=== PATIENT | male | born 1955 | race Caucasian/White ===

== ENCOUNTER 2018-01-29 02:52 | Outpatient (CLI) | payer BC, SELFPAY ==
[2018-01-29 11:32] LABS: ALT 41 U/L (12-78); AST 22 U/L (15-37); Albumin 4.2 g/dL (3.4-5.0); Alkaline Phosphatase 83 U/L (46-116); Anion Gap 8.7 mmol/L (3-11); BUN 12 mg/dL (7-18); Bilirubin, Total 1.1 mg/dL (0.2-1.0); CO2 29.3 mmol/L (21.0-32.0); CREATININE 0.78 mg/dL (0.70-1.30); Calcium 9.3 mg/dL (8.5-10.1); Chloride 101 mmol/L (98-107); Glucose 136 mg/dL (70-100); Potassium 4.5 mmol/L (3.5-5.1); Sodium 139 mmol/L (136-145); Total Protein 7.7 g/dL (6.4-8.2)
[2018-01-29 11:38] LABS: Hemoglobin A1C 6.5 % (4.5-6.2)
== END 2018-01-29 03:12 ==
PROVIDERS: PCP Family Medicine
DX: I10 Essential (primary) hypertension (principal); E11.9 Type 2 diabetes mellitus without complications; Z01.818 Encounter for other preprocedural examination; M54.5 Low back pain
CPT/HCPCS: 36415; 80053; 83036

== ENCOUNTER 2019-05-26 03:18 | Outpatient (CLI) | payer OTHER, SELFPAY ==
[2019-05-26 11:10] LABS: CREATININE 0.77 mg/dL (0.70-1.30); Calculated LDL 108 mg/dL (<100); Cholesterol 179 mg/dL (<200); HDL Cholesterol 47 mg/dL (40-60); Triglyceride 122 mg/dL (<150)
[2019-05-26 12:01] LABS: Hemoglobin A1C 7.4 % (3.8-5.6)
== END 2019-05-26 03:38 ==
PROVIDERS: PCP Family Medicine; Referring Provider Family Medicine; Visit Provider Family Medicine
DX: I10 Essential (primary) hypertension (principal); E78.5 Hyperlipidemia, unspecified; R73.9 Hyperglycemia, unspecified
CPT/HCPCS: 36415; 80061; 82565; 83036; 84132

== ENCOUNTER 2019-11-21 03:02 | Outpatient (CLI) | payer BC, SELFPAY ==
[2019-11-21 12:38] LABS: CREATININE 0.81 mg/dL (0.70-1.30); Potassium 3.9 mmol/L (3.5-5.1)
== END 2019-11-21 03:22 ==
PROVIDERS: PCP Family Medicine; Visit Provider Family Medicine
DX: I10 Essential (primary) hypertension (principal)
CPT/HCPCS: 36415; 82565; 84132

== ENCOUNTER 2020-06-25 01:57 | Outpatient (CLI) | payer MEDICARE, SELFPAY ==
[2020-06-26 13:48] LABS: COVID-19 RT-PCR UVMMC Result Negative (Negative)
== END 2020-06-25 01:58 | disposition home or self-care (01) ==
LOC: LBO 01:58
PROVIDERS: PCP Family Medicine; Visit Provider Family Medicine
DX: Z20.822 Contact with and (suspected) exposure to COVID-19 (principal)
CPT/HCPCS: U0003

== ENCOUNTER 2021-06-19 18:02 | Outpatient (REF) | payer MEDICARE, SELFPAY ==
[2021-06-21 12:36] LABS: COVID-19 RT-PCR UVMMC Result Negative (Negative)
== END 2021-06-19 18:03 | disposition home or self-care (01) ==
LOC: LBN 18:02
PROVIDERS: PCP Family Medicine; Visit Provider Family Medicine
DX: Z20.822 Contact with and (suspected) exposure to COVID-19 (principal)
CPT/HCPCS: U0003

== ENCOUNTER 2021-07-22 02:43 | Outpatient (CLI) | payer MEDICARE, SELFPAY ==
[2021-07-22 15:09] LABS: Hemoglobin A1C 7.4 % (<5.7)
[2021-07-22 15:50] LABS: CREATININE 0.8 mg/dL (0.70-1.30); Calculated LDL 112 mg/dL (<100); Cholesterol 188 mg/dL (<200); HDL Cholesterol 53 mg/dL (40-60); Potassium 3.3 mmol/L (3.5-5.1); Triglyceride 115 mg/dL (<150)
== END 2021-07-22 02:44 | disposition home or self-care (01) ==
LOC: LBO 02:44
PROVIDERS: PCP Family Medicine; Visit Provider Family Medicine
DX: I10 Essential (primary) hypertension (principal); E78.5 Hyperlipidemia, unspecified; R73.9 Hyperglycemia, unspecified
CPT/HCPCS: 36415; 80061; 82565; 83036; 84132

== ENCOUNTER 2022-07-02 03:17 | Outpatient (CLI) | payer MEDICARE, OTHER, SELFPAY ==
[2022-07-02 13:14] LABS: COMMENT (LAB VIEW ONLY) 79.08 mg/dL; Microalb ug/mg Crea 13.2 ug/mg Cr
[2022-07-03 11:03] LABS: PSA, Screening 0.5 ng/mL (<=4.5)
== END 2022-07-02 03:18 | disposition home or self-care (01) ==
LOC: LOS 03:17
PROVIDERS: PCP Family Medicine; Visit Provider Family Medicine
DX: E11.9 Type 2 diabetes mellitus without complications (principal); Z12.5 Encounter for screening for malignant neoplasm of prostate
CPT/HCPCS: 36415; 84153; 82043; 82570

== ENCOUNTER 2023-06-18 03:31 | Outpatient (CLI) | payer MEDICARE, OTHER, SELFPAY ==
[2023-06-18 13:17] LABS: Estimated GFR 82.49 (mL/min/1.73m2); Magnesium 1.6 mg/dL (1.8-2.4); Vitamin B12 1120 pg/mL (193-986)
[2023-06-18 14:15] LABS: Hemoglobin A1C 8.8 % (<5.7)
== END 2023-06-18 03:32 | disposition home or self-care (01) ==
LOC: LOS 03:32
PROVIDERS: PCP Family Medicine; Visit Provider Family Medicine
DX: I10 Essential (primary) hypertension (principal); E83.42 Hypomagnesemia; E11.51 Type 2 diabetes mellitus with diabetic peripheral angiopathy without gangrene
CPT/HCPCS: 36415; 82565; 82607; 83036; 83735; 84132

== ENCOUNTER 2024-06-20 04:28 | Outpatient (CLI) | payer MEDICARE, OTHER, SELFPAY ==
[2024-06-20 10:52] LABS: CREATININE 1.2 mg/dL (0.70-1.30); Estimated GFR 65.87 (mL/min/1.73m2); Magnesium 1.8 mg/dL
== END 2024-06-20 04:29 | disposition home or self-care (01) ==
LOC: LOS 04:28
PROVIDERS: PCP Family Medicine; Visit Provider Family Medicine
DX: E83.42 Hypomagnesemia (principal); I10 Essential (primary) hypertension
CPT/HCPCS: 36415; 82565; 83735; 84132

== ENCOUNTER 2024-11-05 19:09 | Inpatient (IN) | payer MEDICARE, OTHER, SELFPAY ==
[2024-11-05] VITALS (15 sets, daily range): BP systolic 140–191; BP diastolic 59–85; PULSE 56–66; RESP 12–22; TEMP 36.6; O2SAT 94–99
--- NOTE | 2024-11-05 19:15 | DI.CT_ITS ---
Exam(s) CT ABDOMEN PELVIS W EXAM: CT ABDOMEN PELVIS W CLINICAL HISTORY: L. flank pain and hematuria, hx stones, abd pain. TECHNIQUE: Imaging Protocol: Axial computed tomography images with coronal and sagittal reformatted images were created and reviewed CONTRAST MATERIAL: Intravenous: Omnipaque 350 Contrast volume:100 ml Oral: no COMPARISON: No exams were available for comparison FINDINGS: ABDOMEN and PELVIS: Lung Bases: No acute findings. Liver: Normal density. There are few tiny hypodensities, too small to characterize.. No suspicious mass. Gallbladder and biliary tract: No radiodense calculus. No wall thickening or pericholecystic fluid. No biliary dilation. Pancreas: Normal density. No abnormal calcifications or inflammatory process. No evidence of mass. Spleen: Normal. Kidneys: The left kidney is enlarged and there is delayed left nephrogram. There is dilatation of the left upper pole collecting system and left renal pelvis. The left lower pole collecting system is not dilated. There is some high density material in the region of the ureteropelvic junction which could represent a small mass versus hemorrhagic material. No obstructing stone is visible. The ureter is decompressed below this level. The lower pole of the left kidney is indistinct and there is a suggestion of a 7 centimeter mass from the mid through lower pole.. The left renal vein appears somewhat distended. Small simple right renal cyst upper pole. Adrenal glands: No masses seen. Vasculature: Abdominal aorta non-dilated. Soft tissues: Small fat containing right inguinal hernia. Bladder: No gross wall thickening. No calculi.7.5 x 9 x 5.5 centimeter somewhat rounded area of increased density within the posterior portion of the bladder is consistent with clot. Bowel: Small duodenal diverticulum. No obstruction. No bowel wall thickening. Appendix normal. Normal quantity of stool. Peritoneal cavity: No ascites. No focal collection. No mesenteric inflammatory response. No free air. Bones: Degenerative changes in the spine and hips. No acute abnormality. Reproductive organs: Unremarkable. Lymph nodes: Abnormally enlarged, enhancing left para-aortic lymph nodes, the largest measuring 2.5 x 5 cm. 18 millimeter node inferior to this level. IMPRESSION:: Findings suspicious for a lower pole left renal mass measuring approximately 7 cm. Adjacent abnormal enhancing lymph nodes. There is distension of the left renal vein as well as left renal pelvis which could indicate tumor extension. There is no evidence of obstructing stone at the ure teropelvic junction, however there is some high-density material at the ureteropelvic junction which could represent hemorrhage versus mass versus ureteral thickening. Infectious process considered less likely. There is significant hemorrhagic material within the urinary bladder. The preliminary [facility] report was reviewed. Unexpected findings RADIATION DOSE DELIVERED: Total DLP DATA REPOSITORY: All CT scans at this facility are submitted to the National Radiology Data Registry (NRDR) Dose Index Registry (DIR) with the [employer] (A[employer]). RADIATION OPTIMIZATION: All CT scans at this facility use at least one of these dose optimization techniques: automated exposure control; mA and/or kV adjustment per patient size (includes targeted exams where dose is matched to clinical indication); or iterative reconstruction.
[2024-11-05] MEDS: Ketorolac 30 MG/ML VIAL 15 MG IVP (19:37)
[2024-11-05] MEDS: Acetaminophen 500 MG TAB 1000 MG PO (19:37)
--- NOTE | 2024-11-05 19:37 | W.ED.GENAD ---
Discharge Plan Disposition Patient Disposition: Admit to [facility] Condition: Stable Discharge Details Clinical Impression: Acute pyelonephritis, Gross hematuria Primary Care Provider: Miguel Guzman ED Provider: Nuzhat Singleton Home Meds and New Rx's Prescriptions: No Action metformin 1,000 mg tablet 1,000 mg PO BID Qty: 180 3RF insulin glargine-yfgn 100 unit/mL (3 mL) insulin pen 15 - 20 unit subcut QPM Qty: 15 8RF cinnamon bark 500 MG capsule 500 mg PO DAILY (DME) Blood Glucose Test 1 EACH strip 1 ea Miscellaneous DAILY Qty: 100 Rx Instructions: E11.9 one touch test strips (DME) pen needle, diabetic [Comfort EZ Pen Caputa] 33 gauge x 3/16 needle See Rx Instructions .ROUTE .MEDSUPPLY Qty: 100 3RF Rx Instructions: inject once/day metoprolol succinate 25 mg tablet extended release 24 hr 25 mg PO DAILY Qty: 90 3RF losartan-hydrochlorothiazide [Hyzaar] 100-25 mg tablet 1 tab PO DAILY Qty: 90 3RF amlodipine 10 mg tablet 10 mg PO DAILY Qty: 90 3RF glipizide 10 mg tablet extended release 24hr 10 mg PO BID Qty: 180 3RF Rx Instructions: dose increase 06/26/22 atorvastatin 10 mg tablet 10 mg PO DAILY Qty: 90 3RF multivitamin [Daily Multi-Vitamin] 1 EACH tablet 1 tab PO DAILY cyanocobalamin (vitamin B-12) [Vitamin B-12] 1,000 MCG tablet 1,000 mcg PO DAILY aspirin [Aspir-81] 81 MG tablet,delayed release (DR/EC) 81 mg PO DAILY garlic 1 EACH capsule 1 cap PO DAILY HPI General Mode of arrival: ambulatory. Date/Time Provider Initiated Documentation: 11/05/24 19:10. Limitations to Documentation: no limitations. Information obtained by: patient, family and old records reviewed. HPI Narrative: This is a 69-year-old male patient with a past medical history significant for diabetes, hypertension, and a history of kidney stones presenting for evaluation of hematuria and suprapubic abdominal pain. The patient was in his normal state of health until this afternoon, he went to the bathroom when he had a frankly bloody urine stream. He had some discomfort during urination especially in the suprapubic region, and over the course of the afternoon his pain has radiated around to his left flank pain. The patient reports that it has been years since he had kidney stones. He has been able to eat and drink typically, feels like his belly is becoming more bloated, states that he has not had nausea or vomiting. Denies fever or chills, passed a normal stool today. No recent changes in his medication, no medications taken prior to arrival. Related Data Home Medications ?Medication ?Instructions ?Recorded ?Confirmed aspirin 81 mg tablet,delayed 81 mg PO DAILY 11/17/12 11/05/24 release (Aspir-) cyanocobalamin (vitamin B-12) 1,000 mcg PO DAILY 11/17/12 11/05/24 1,000 mcg tablet (Vitamin B-12) garlic 1 cap PO DAILY 11/17/12 11/05/24 multivitamin (Daily Multi-Vitamin 1 tab PO DAILY 11/17/12 11/05/24 tablet) cinnamon bark 500 mg capsule 500 mg PO DAILY 02/25/16 11/05/24 blood sugar diagnostic (Blood #100 strips 09/05/16 11/05/24 Glucose Test strips) pen needle, diabetic 33 gauge x #100 ea 12/21/23 11/05/2406/26 (Comfort EZ Pen Caputa) metoprolol succinate 25 mg 25 mg PO DAILY #90 tabs 02/02/24 11/05/24 tablet,extended release 24 hr losartan 100 1 tab PO DAILY ##90 03/07/24 11/05/24 mg-hydrochlorothiazide 25 mg tablet (Hyzaar) amlodipine 10 mg tablet 10 mg PO DAILY #90 tabs 03/08/24 11/05/24 glipizide 10 mg tablet, extended 10 mg PO BID #180 tabs 03/30/24 11/05/24 release 24 hr atorvastatin 10 mg tablet 10 mg PO DAILY #90 tabs 05/02/24 11/05/24 insulin glargine-yfgn 100 unit/mL 15 - 20 unit (0.15 - 0.2 mL) 06/16/24 11/05/24 (3 mL) subcutaneous pen subcut QPM #15 mL metformin 1,000 mg tablet 1,000 mg PO BID #180 tab-caps 06/16/24 11/05/24 Previous Rx's ?Medication ?Instructions ?Recorded pen needle, diabetic 33 gauge x #100 ea 12/21/2306/26 (Comfort EZ Pen Caputa) metoprolol succinate 25 mg 25 mg PO DAILY #90 tabs 02/02/24 tablet,extended release 24 hr losartan 100 1 tab PO DAILY ##90 03/07/24 mg-hydrochlorothiazide 25 mg tablet (Hyzaar) amlodipine 10 mg tablet 10 mg PO DAILY #90 tabs 03/08/24 glipizide 10 mg tablet, extended 10 mg PO BID #180 tabs 03/30/24 release 24 hr atorvastatin 10 mg tablet 10 mg PO DAILY #90 tabs 05/02/24 insulin glargine-yfgn 100 unit/mL 15 - 20 unit (0.15 - 0.2 mL) 06/16/24 (3 mL) subcutaneous pen subcut QPM #15 mL metformin 1,000 mg tablet 1,000 mg PO BID #180 tab-caps 06/16/24 Allergies Allergy/AdvReac Type Severity Reaction Status Date / Time No Known Allergies Allergy Verified 11/05/24 19:15 General Stated Complaint: FlankPain BLAKE: 3 Exam Narrative Exam Narrative: Gen: Awake and alert, in no apparent distress HEENT: Non-icteric sclera Neck: Supple Lungs: No apparent respiratory distress, normal respiratory effort. CV: Appears well perfused, strong distal pulses Abdomen: Non-distended, soft, tender to palpation in the suprapubic region without rigidity, rebound, or guarding. Left side and left flank are tender without overlying skin changes. MSK: Moves 4 extremities without apparent limitation in ROM. No midline back tenderness Skin: Visualized skin without rashes, cyanosis. Neuro: Normal Gait, no obvious focal deficits or facial asymmetry. Speaks in full, clear sentences. Psych: Appropriate for situation. Course Vital Signs Vital signs: Vital Signs Temperature 36.6 C 11/05/24 19:13 Pulse 64 11/05/24 19:13 Respiratory Rate 18 11/05/24 19:13 Blood Pressure 191/85 H 11/05/24 19:13 Pulse Oximetry 99 11/05/24 19:13 Temperature 36.6 C 11/05/24 19:15 Temperature Source Tympanic 11/05/24 19:15 Pulse 64 11/05/24 19:15 Respiratory Rate 18 11/05/24 19:15 Blood Pressure 191/85 H 11/05/24 19:15 Blood Pressure Position Sitting 11/05/24 19:15 Pulse Oximetry 99 11/05/24 19:15 Oxygen Delivery Method Room Air 11/05/24 19:15 Oxygen Flow Rate 0 11/05/24 19:15 Pain Level 8 11/05/24 19:31 Medical Decision Making This is a 69-year-old male patient with history of diabetes and hypertension who presented for evaluation of hematuria, suprapubic abdominal pain, and left flank pain. Differential includes but is not limited to kidney stone, UTI/pyelonephritis, malignancy, certainly considered other intra-abdominal pathology including bowel obstruction, aortic pathology, diverticulitis, mesenteric ischemia. Considered anemia, kidney injury, metabolic derangement. We will obtain laboratory studies to include a urinalysis, CBC, CMP, magnesium, and we will obtain a CT abdomen pelvis with contrast to better characterize any abnormalities. -I reviewed the patient's laboratory studies, which show no leukocytosis, though the patient does have mild anemia to 12.8. No recent priors available for comparison. No thrombocytopenia, no significant electrolyte derangements besides a magnesium of 1.6, which was repleted intravenously. No evidence of kidney dysfunction or liver pathology. Urinalysis is complicated by the aldair red color, with greater than 50 RBCs per hpf. This was sent for culture. I reviewed the patient's CT scan, which shows a large clot in the bladder, which does appear slightly distended with urine as well. He has evidence of hydronephrosis and perinephric stranding of the left kidney. No obstructing renal calculi are appreciated. I provided the patient with a dose of ceftriaxone for his presumed left-sided Pyelo. I did consult Dr. Mak who feels comfortable with this patient staying in our hospital for bladder irrigation through a three-way Carrillo, as long as he is able to keep clot free and flowing. This intervention was performed in the ED and the patient's bladder was drained of approximately 800 cc of urine, and irrigation was started without difficulty. He did require Dilaudid in addition to the initial dose of Toradol for pain management. I reached out to the hospitalist who is graciously accepted this patient for admission to their service. Patient remained hemodynamically appropriate while under my care and was transferred to the floor without incident. Nuzhat Singleton MD PFSH All Active Problems (Updated 11/05/24 @ 22:56 by Nuzhat Singleton MD) Gross hematuria (Acute) Acute pyelonephritis (Acute) Arthritis pain, hip (Acute) Sarcoidosis (Acute 01/09/14) Overweight (Chronic) Ear congestion (Acute) likely ET dysfunction due to recent cold / ? allergy Diabetes mellitus (Chronic) A1c in office today 7.9 Hypertension (Chronic) not well controlled today Cough (Acute) likely viral bronchitis Erectile dysfunction (Chronic) Glucose intolerance (Acute) 02/15/18 LLUVIA HOGAN FREEDOM; GLUCOSE 156 Lumbago (Acute) Fracture of distal phalanx of finger (Acute 11/23/12) Type 2 diabetes mellitus without complication, without long-term current use of insulin (Acute 02/25/16) Tobacco use disorder (Acute) CHEWS TOBACCO Sexual function problem (Acute) Pernicious anemia (Acute) Onychomycosis (Acute) Medial meniscus tear (Acute) RIGHT-04/02/16 Knee pain (Acute) ? MENISCUS Hiatal hernia (Acute) Essential hypertension (Acute) Dysplastic nevi (Acute 08/26/17) multiple Diverticulosis of colon without diverticulitis (Acute) Diabetes mellitus type 2, uncontrolled (Acute 03/24/14) Surgical History History of back surgery (~02/15/18) LLUVIA EDISON LOJA crushed thumb (11/17/12) Kidney Stone Extraction (~2004) Colonoscopy - IV Sedation (02/19/15) DR.C. WREN Arthroplasty of knee 04/02/16-RIGHT;DR. GUARDADO 08/19/16 RIGHT;[facility] Family History Mother , AGE 78 Essential hypertension MS (multiple sclerosis) Throat cancer Father Essential hypertension Diabetes Heart disease Sister Essential hypertension Diabetes Brother Essential hypertension Diabetes Maternal Grandfather , AGE 69 Essential hypertension Heart disease Paternal Grandfather , AGE 85 Essential hypertension Heart disease Maternal Grandmother , AGE 94 Essential hypertension Heart disease Paternal Grandmother , AGE 90 Essential hypertension Heart disease Son Substance abuse Son No problems noted. Daughter No problems noted. Social History Smoking/Tobacco Use Status: Current every day Tobacco Type: smokeless tobacco Tobacco: How many years used: 40 Smokeless tobacco user: chewing tobacco Quit status: has quit before Second Hand Exposure: Yes Smoking risk assessment performed?: Yes Alcohol Intake: current Alcohol Intake frequency: a few times a month Alcohol type: beer Drug use: Never Substance use type: does not use Counseling given: No Adopted: No Caregiver/Support person: No Household members: spouse Housing: house Communication Needs: None Do you need help understanding health information?: Rarely Pets and animals: No Sexually active: Yes Do you think of yourself as: straight/heterosexual Current gender identity: male What is your relationship status?: How often do you talk on the phone with friends or family?: three or more times per week How often do you get together with friends or relatives?: decline to answer How often do you attend orthodoxy or zoroastrianism services?: decline to answer Do you belong to any clubs or organized social groups?: no Panel score (0-1 are the most socially isolated patients): 2 What type of physical activity do you participate in: walking Duration: 15-30 minutes/day Frequency: 3-4 times per week Adilene/Sikhism: No preference Special adilene needs: No Seatbelt use: always Helmet use: Yes Helmet use: always Drive intox or ride w/intox uke driver: No Do you feel safe at home: Yes Do you feel safe in your relationship?: Yes
[2024-11-05] MEDS: Lactated Ringers 1,000 ML 1000 ML IV (19:38)
[2024-11-05 19:42] LABS: Abs Immature Grans 0.02 10^3/uL (0.0-0.06); HCT 35.5 % (40.0-50.0); HGB 12.8 g/dL (13.5-17.5); Immature Grans % 0.3 %; MCH 34.9 pg (27.0-33.0); MCHC 36.1 % (32.0-36.0); MCV 97 fL (80-95); MPV 10.3 fL (8.0-11.0); Platelet Count 216 10^3/uL (130-400); RBC 3.67 10^6/uL (4.36-5.78); RDW 11.5 % (11.8-14.1); RDW-SD 40.3 fL; WBC 6.57 10^3/uL (4.4-10.8)
[2024-11-05 19:52] LABS: Glucose Color Interference mg/dL (Negative)
[2024-11-05 19:53] LABS: RBC >50 HPF (0-2)
[2024-11-05 19:54] LABS: C & S Indicated? Yes
[2024-11-05 19:57] LABS: ALT 27 U/L (16-63); AST 14 U/L (15-37); Albumin 3.9 g/dL (3.4-5.0); Alkaline Phosphatase 86 U/L (46-116); Anion Gap 8.4 mmol/L (3-11); BUN 17 mg/dL (7-18); Bilirubin, Total 0.5 mg/dL (0.2-1.0); CO2 29.6 mmol/L (21.0-32.0); Calcium 9.4 mg/dL (8.5-10.1); Chloride 97 mmol/L (98-107); Estimated GFR 65.46 (mL/min/1.73m2); Glucose 298 mg/dL (74-106); Magnesium 1.6 mg/dL (1.8-2.4); Potassium 3.7 mmol/L (3.5-5.1); Sodium 135 mmol/L (136-145); Total Protein 8.0 g/dL (6.4-8.2)
[2024-11-05] MEDS: Omnipaque 350 MG/ML 100 ML BTL IJ (20:19)
[2024-11-05] MEDS: Normal Saline - Diluent 50 ML VIAL IJ (20:20)
[2024-11-05] MEDS: MAGNESIUM SULFATE 2 GM/50 ML BAG IV_INF (21:05)
--- NOTE | 2024-11-05 21:27 | DI.[facility]_ITS ---
PROCEDURE INFORMATION: Exam: CT Abdomen And Pelvis With Contrast Exam date and time: 11/05/2024 8:21 PM Age: 69 years old Clinical indication: Abdominal pain; Left; L flank pain and hematuria, HX stones, abd pain TECHNIQUE: Imaging protocol: Computed tomography of the abdomen and pelvis with contrast. COMPARISON: No relevant prior studies available. FINDINGS: Liver: Simple hepatic cysts. Gallbladder and biliary ducts: Normal. Pancreas: Normal. Spleen: Normal. Adrenal glands: Normal. No mass. Kidneys and ureters: Simple right renal cyst, for which no further evaluation necessary. Enlarged left kidney, with left perinephric fat stranding and slightly delayed left nephrogram, with left hydronephrosis. No definite obstructive etiology identified. No urolithiasis. Stomach and bowel: Normal. Appendix: No evidence of appendicitis. Intraperitoneal space: Unremarkable. No free air. No significant fluid collection. Vasculature: Unremarkable. No abdominal aortic aneurysm. Lymph nodes: Enlarged lymph nodes within the left retroperitoneum, the largest measuring approximately 2.2 cm in short axis diameter (series 10, image 94). Urinary bladder: Mild urinary bladder distension. Hyperattenuating material within the posterior urinary bladder, likely hemorrhage. Reproductive: Unremarkable as visualized. Bones/joints: Degenerative changes of the hips and sacroiliac joints. Multilevel thoracolumbar spine degenerative disc space narrowing and osteophyte formation. Soft tissues: Normal. IMPRESSION: 1. Enlarged left kidney, left perinephric fat stranding and slightly delayed left nephrogram, with left hydronephrosis. No definite obstructive etiology identified. No urolithiasis. Findings may represent left UPJ stricture or other occult obstruction. Concomitant left urinary tract infection possible. Recommend further evaluation. 2. Enlarged lymph nodes within the left retroperitoneum, the largest measuring approximately 2.2 cm in short axis diameter (series 10, image 94). Lymph nodes may be reactive possibly related to left urinary tract infection. Metastatic lymph nodes not excluded. 3. Distended urinary bladder with intraluminal hemorrhagic products. Dictated and Authenticated by: Jaskaran Terrell MD. Orderin St. Karsten Noland MD
[2024-11-05] MEDS: cefTRIAXone 1 GM/50 ML BAG IVPB (22:35)
[2024-11-05] MEDS: HYDROmorphone 2 MG/ML SYR 0.5 MG IVP (22:40)
[2024-11-05] MEDS: Lidocaine 2% Jelly 11 ML SYR UR (22:41)
--- NOTE | 2024-11-05 23:19 | W.PM.HP.N ---
Date of service: 11/05/24 Time of Service: 23:19 Assessment and Plan Assessment and plan (1) Gross hematuria: Status: Acute Assessment and plan: Continue with bladder irrigation. Continue with antibiotics Rocephin. Urine cultures pending. Patient is to be seen by Dr. Mak of the urology service on Thursday. (2) Essential hypertension: Status: Acute Assessment and plan: Continue with his beta-arsenio, ESTUARDO inhibitor, diuretic, and calcium channel arsenio. (3) Tobacco use disorder: Status: Acute Assessment and plan: Placed on NicoDerm as needed. Would certainly recommend cystoscopy prior to discharge. (4) Diabetes mellitus type 2, uncontrolled: Status: Acute Assessment and plan: Patient will need optimization in the outpatient setting. Will hold his Glucophage as well as his glipizide while in house. Will start with sliding scale insulin and would probably benefit from some long-acting insulin. DVT prophylaxis with SCDs secondary to hematuria. History of Present Illness History of Present Illness Chief Complaint: hematuria Narrative: This is a 69-year-old gentleman who has a known history of diabetes hypertension and a remote history of renal calculi. Presents after having multiple episodes of hematuria which started today. Patient did not have any associated flank pain. Workup in the ED included radiographs, laboratory work, blood cultures. Patient did appear to have nephritis as well as hydronephrosis. No calculi were noted. There was concern about a UPJ stricture. He also had some lymphadenopathy. Patient also had distended bladder and with irrigation over 800 cc of urine were removed. In reviewing his lab data he did have significant hyperglycemia with a glucose of 298 magnesium was 1.6 he had mild anemia at 13 and 36 for his hemoglobin and hematocrit respectively. Elevated MCV at 97. Patient was admitted to the hospital service for further evaluation and treatment. Per ED attending, the case was presented to Dr. Mak who will see the patient on Thursday for most likely a cystoscopy. Of note, the patient does use tobacco and has been using smokeless tobacco since he was in his early teens. Review of Systems All systems reviewed & are unremarkable except as noted in HPI and below PFSH All Active Problems (Updated 11/05/24 @ 22:56 by Nuzhat Singleton MD) Gross hematuria (Acute) Acute pyelonephritis (Acute) Arthritis pain, hip (Acute) Sarcoidosis (Acute 01/09/14) Overweight (Chronic) Ear congestion (Acute) likely ET dysfunction due to recent cold / ? allergy Diabetes mellitus (Chronic) A1c in office today 7.9 Hypertension (Chronic) not well controlled today Cough (Acute) likely viral bronchitis Erectile dysfunction (Chronic) Glucose intolerance (Acute) 02/15/18 LLUVIA LOJA; GLUCOSE 156 Lumbago (Acute) Fracture of distal phalanx of finger (Acute 11/23/12) Type 2 diabetes mellitus without complication, without long-term current use of insulin (Acute 02/25/16) Tobacco use disorder (Acute) CHEWS TOBACCO Sexual function problem (Acute) Pernicious anemia (Acute) Onychomycosis (Acute) Medial meniscus tear (Acute) RIGHT-04/02/16 Knee pain (Acute) ? MENISCUS Hiatal hernia (Acute) Essential hypertension (Acute) Dysplastic nevi (Acute 08/26/17) multiple Diverticulosis of colon without diverticulitis (Acute) Diabetes mellitus type 2, uncontrolled (Acute 03/24/14) Surgical History History of back surgery (~02/15/18) LLUVIA HOGAN FREEDOM crushed thumb (11/17/12) Kidney Stone Extraction (~2004) Colonoscopy - IV Sedation (02/19/15) DR.C. WREN Arthroplasty of knee 04/02/16-RIGHT;DR. GUARDADO 08/19/16 RIGHT;[facility] Family History Mother , AGE 78 Essential hypertension MS (multiple sclerosis) Throat cancer Father Essential hypertension Diabetes Heart disease Sister Essential hypertension Diabetes Brother Essential hypertension Diabetes Maternal Grandfather , AGE 69 Essential hypertension Heart disease Paternal Grandfather , AGE 85 Essential hypertension Heart disease Maternal Grandmother , AGE 94 Essential hypertension Heart disease Paternal Grandmother , AGE 90 Essential hypertension Heart disease Son Substance abuse Son No problems noted. Daughter No problems noted. Social History Smoking/Tobacco Use Status: Current every day Tobacco Type: smokeless tobacco Tobacco: How many years used: 40 Smokeless tobacco user: chewing tobacco Quit status: has quit before Second Hand Exposure: Yes Smoking risk assessment performed?: Yes Alcohol Intake: current Alcohol Intake frequency: a few times a month Alcohol type: beer Drug use: Never Substance use type: does not use Counseling given: No Adopted: No Caregiver/Support person: No Household members: spouse Housing: house Communication Needs: None Do you need help understanding health information?: Rarely Pets and animals: No Sexually active: Yes Do you think of yourself as: straight/heterosexual Current gender identity: male What is your relationship status?: How often do you talk on the phone with friends or family?: three or more times per week How often do you get together with friends or relatives?: decline to answer How often do you attend scientologist or muslim services?: decline to answer Do you belong to any clubs or organized social groups?: no Panel score (0-1 are the most socially isolated patients): 2 What type of physical activity do you participate in: walking Duration: 15-30 minutes/day Frequency: 3-4 times per week Adilene/Tenriism: No preference Special adilene needs: No Seatbelt use: always Helmet use: Yes Helmet use: always Drive intox or ride w/intox retail delivery driver: No Do you feel safe at home: Yes Do you feel safe in your relationship?: Yes Meds Allergies and Home Medications Allergies Allergy/AdvReac Type Severity Reaction Status Date / Time No Known Allergies Allergy Verified 11/05/24 19:15 Home Medications ?Medication ?Instructions ?Recorded ?Confirmed ?Type aspirin 81 mg tablet,delayed 81 mg PO DAILY 11/17/12 11/05/24 History release (Aspir-) cyanocobalamin (vitamin B-12) 1,000 mcg PO DAILY 11/17/12 11/05/24 History 1,000 mcg tablet (Vitamin B-12) garlic 1 cap PO DAILY 11/17/12 11/05/24 History multivitamin (Daily Multi-Vitamin 1 tab PO DAILY 11/17/12 11/05/24 History tablet) cinnamon bark 500 mg capsule 500 mg PO DAILY 02/25/16 11/05/24 History blood sugar diagnostic (Blood #100 strips 09/05/16 11/05/24 History Glucose Test strips) pen needle, diabetic 33 gauge x #100 ea 12/21/23 11/05/24 Rx /16 (Comfort EZ Pen [place]) metoprolol succinate 25 mg 25 mg PO DAILY #90 tabs 02/02/24 11/05/24 Rx tablet,extended release 24 hr losartan 100 1 tab PO DAILY ##90 03/07/24 11/05/24 Rx mg-hydrochlorothiazide 25 mg tablet (Hyzaar) amlodipine 10 mg tablet 10 mg PO DAILY #90 tabs 03/08/24 11/05/24 Rx glipizide 10 mg tablet, extended 10 mg PO BID #180 tabs 03/30/24 11/05/24 Rx release 24 hr atorvastatin 10 mg tablet 10 mg PO DAILY #90 tabs 05/02/24 11/05/24 Rx insulin glargine-yfgn 100 unit/mL 15 - 20 unit (0.15 - 0.2 mL) 06/16/24 11/05/24 Rx (3 mL) subcutaneous pen subcut QPM #15 mL metformin 1,000 mg tablet 1,000 mg PO BID #180 tab-caps 06/16/24 11/05/24 Rx Exam Narrative Exam Narrative: HEENT-normocephalic atraumatic mucous membranes moist oropharynx is clear Neck-JVD or thyromegaly noted Cardiovascular-regular rate and rhythm no murmur rubs or gallops Pulm clear to auscultation bilaterally no accessory muscle use noted speaking in complete sentences Abdomen-protuberant bowel sounds active x 4 quadrants Extremities-no sinus clubbing or edema bilaterally -Carrillo in place with pink-tinged urine. Psych-alert and oriented x 3 no apparent distress Neuro-cranial nerves II through XII intact as tested reflexes in upper extremity normal as tested Results Labs 11/05/24 19:26 11/05/24 19:26 Labs: Laboratory Results - last 24 hr 11/05/24 19:26 WBC 6.57 RBC 3.67 L Hgb 12.8 L Hct 35.5 L MCV 97 H MCH 34.9 H MCHC 36.1 H RDW 11.5 L Plt Count 216 MPV 10.3 Immature Gran % 0.3 Neutrophils % 52.3 Lymphocytes % 31.7 Monocytes % 8.8 Eosinophils % 5.8 Basophils % 1.1 Nucleated RBC % 0.0 Absolute Neutrophils 3.44 Absolute Lymphocytes 2.08 Absolute Monocytes 0.58 Absolute Eosinophils 0.38 Absolute Basophils 0.07 Sodium 135 L Potassium 3.7 Chloride 97 L Carbon Dioxide 29.6 Anion Gap 8.4 BUN 17 Creatinine 1.2 Est GFR (CKD-EPI 2020) 65.46 Glucose 298 H Calcium 9.4 Magnesium 1.6 L Total Bilirubin 0.5 AST 14 L ALT 27 Alkaline Phosphatase 86 Total Protein 8.0 Albumin 3.9 Urine Color Red Urine Clarity Cloudy Urine pH Ur Specific [place] 1.015 Urine Protein Color Interference Urine Ketones Color Interference Urine Blood Color Interference Urine Nitrite Color Interference Urine Bilirubin Color Interference Urine Urobilinogen Color Interference Ur Leukocyte Esterase Color Interference Urine RBC >50 H Urine WBC Not Applicable Ur Epithelial Cells Not Applicable Urine Crystals Not Applicable Urine Bacteria Not Applicable Urine Mucus Not Applicable Ur Culture Indicated? Yes Urine Glucose Color Interference Last Vital Signs Temp 36.6 C 11/05/24 19:15 Pulse 61 11/05/24 21:20 Resp 15 11/05/24 21:20 BP 147/59 H 11/05/24 21:16 Pulse Ox 96 11/05/24 21:20 Time Spent Time spent with Patient: 40-54 minutes Time was spent: preparing to see the patient(eg.review tests), obtaining and/or reviewing separately otained hiistory, ordering medications,tests, procedures, referring, communicating with other health team primary care physician, indepentently interpreting results, counseling the patient and care coordination
--- NOTE | 2024-11-05 23:55 | W.PC.ACHO ---
Registration Status: ADM IN Primary Language: Preferred Language: Czech ED Information & Data Chief Complaint FlankPain 11/05/24 19:39 Other Complaint Urinary 11/05/24 19:13 Triage Note Pt arrives to ED c/o lower 11/05/24 19:13 pelvic pain + hematuria which started around 1500 hrs today. Hx of kidney stones. Pt also endorses some LT flank pain. 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 (Last Reviewed 06/16/24 @ 14:40 by Miguel Guzman MD) History of back surgery (~02/15/18) crushed thumb (11/17/12) Kidney Stone Extraction (~2004) Colonoscopy - IV Sedation (02/19/15) Arthroplasty of knee Most Recent Vital Signs Temperature 36.6 C 11/05/24 19:15 Temperature Source Tympanic 11/05/24 19:15 Pulse 58 L 11/05/24 22:01 Pulse 58 L 11/05/24 22:01 Respiratory Rate 22 11/05/24 22:01 Blood Pressure 145/63 H 11/05/24 22:00 Blood Pressure Mean 94 11/05/24 22:00 Blood Pressure Position Sitting 11/05/24 19:15 Pulse Oximetry 94 11/05/24 22:01 Oxygen Delivery Method Room Air 11/05/24 19:15 Oxygen Flow Rate 0 11/05/24 19:15 Pain Level 5 11/05/24 21:10 Comment Pt states pain is tolerable at this time. 11/05/24 21:10 Allergies No Known Allergies Allergy (Verified 11/05/24 19:15) Precautions Isolation Standard precaution 11/05/24 19:17 Active Medications Generic Name Dose Route Start Last Admin Trade Name Arash PRN Reason Stop Dose Admin Iohexol 100 ml 11/05/24 20:30 11/05/24 20:19 Omnipaque 350 Mg/Ml 100 Ml Btl IJ 12/05/24 23:59 100 ml DIRECTED MARY ANN Administration Sodium Chloride 0 ml 11/05/24 20:00 11/05/24 21:00 Normal Saline Flush 10 Ml Syr IVP Not Given BID MARY ANN Sodium Chloride 50 ml 11/05/24 20:30 11/05/24 20:20 Normal Saline - Diluent 50 Ml Vial IJ 50 ml .FOR DI USE MARY ANN Administration IV IV Catheter Type [Right Saline Lock Forearm] IV Catheter Gauge [Right 18 Forearm] Diet Orders Category Date Time Status Regular/Normal [DIET] Nutrition 11/06/24 Breakfast Ordered Diagnostics 11/05/24 Range/Units 19:26 WBC 6.57 (4.4-10.8) 10^3/uL RBC 3.67 L (4.36-5.78) 10^6/uL Hgb 12.8 L (13.5-17.5) g/dL Hct 35.5 L (40.0-50.0) % MCV 97 H (80-95) fL MCH 34.9 H (27.0-33.0) pg MCHC 36.1 H (32.0-36.0) % RDW 11.5 L (11.8-14.1) % Plt Count 216 (130-400) 10^3/uL MPV 10.3 (8.0-11.0) fL Immature Gran % 0.3 % Neutrophils % 52.3 % Lymphocytes % 31.7 % Monocytes % 8.8 % Eosinophils % 5.8 % Basophils % 1.1 % Nucleated RBC % 0.0 (0.0-0.3) % Absolute Neutrophils 3.44 (1.2-6.7) 10^3/uL Absolute Lymphocytes 2.08 (1.2-3.4) 10^3/uL Absolute Monocytes 0.58 (0.1-0.8) 10^3/uL Absolute Eosinophils 0.38 (0.0-0.7) 10^3/uL Absolute Basophils 0.07 (0.0-0.2) 10^3/uL Sodium 135 L (136-145) mmol/L Potassium 3.7 (3.5-5.1) mmol/L Chloride 97 L (98-107) mmol/L Carbon Dioxide 29.6 (21.0-32.0) mmol/L Anion Gap 8.4 (3-11) mmol/L BUN 17 (7-18) mg/dL Creatinine 1.2 (0.70-1.30) mg/dL Est GFR (CKD-EPI 2020) 65.46 (mL/min/1.73m2) Glucose 298 H (74-106) mg/dL Calcium 9.4 (8.5-10.1) mg/dL Magnesium 1.6 L (1.8-2.4) mg/dL Total Bilirubin 0.5 (0.2-1.0) mg/dL AST 14 L (15-37) U/L ALT 27 (16-63) U/L Alkaline Phosphatase 86 (46-116) U/L Total Protein 8.0 (6.4-8.2) g/dL Albumin 3.9 (3.4-5.0) g/dL Urine Color Red (Yellow) Urine Clarity Cloudy (Clear) Urine pH (5-8) Ur Specific [place] 1.015 (1.005-1.025) Urine Protein Color Interference (Neg-Trace) mg/dL Urine Ketones Color Interference (Negative) mg/dL Urine Blood Color Interference (Negative) Urine Nitrite Color Interference (Negative) Urine Bilirubin Color Interference (Negative) Urine Urobilinogen Color Interference (Up to 0.2) mg/dL Ur Leukocyte Esterase Color Interference (Negative) Urine RBC >50 H (0-2) HPF Urine WBC Not Applicable Ur Epithelial Cells Not Applicable Urine Crystals Not Applicable Urine Bacteria Not Applicable Urine Mucus Not Applicable Ur Culture Indicated? Yes Urine Glucose Color Interference (Negative) mg/dL 11/05/24 19:26 Urine Culture - Pending Urine - Reflex from Ua Intake and Output - 24 Hour Total 11/05/24 19:09 thru 11/05/24 21:00 Intake Total 1010 Balance 1010 Weight 104.326 kg Intake: IV 1010 Falls Risk Assessment History of Falls No History 11/05/24 19:18 Contributing Factors No Factors 11/05/24 19:18 Ambulatory Aids Independent 11/05/24 19:18 Tubes/Lines W/no contributing factors 11/05/24 19:18 Gait Evaluation No gait disturbance 11/05/24 19:18 Cognition No cognitive impairment 11/05/24 19:18 Fall Total Score 10 11/05/24 19:18 Level of Risk Standard/Low Risk 11/05/24 19:18 Problems (Last Reviewed 06/16/24 @ 14:40 by Miguel Guzman MD) Gross hematuria (Acute) Tobacco use disorder (Acute) Essential hypertension (Acute) Diabetes mellitus type 2, uncontrolled (Acute 03/24/14) v v v v v v v v v Sending and/or Receiving Nurses: Please use comment section below to note any information pertinent to the patient hand-off not included above. Information / Comments: Received Pt from ED. On CBI. RA, vitals stable. Report received from:PENNY Oviedo
[2024-11-06] VITALS (8 sets, daily range): BP systolic 138–168; BP diastolic 69–79; PULSE 55–66; RESP 16–20; TEMP 35.3–36.6; O2SAT 57–96
[2024-11-06] MEDS: Normal Saline 1,000 ML 125 ML IV ×3 (00:25→16:36)
[2024-11-06] MEDS: Atorvastatin 10 MG TAB PO ×2 (00:55→20:21)
[2024-11-06] MEDS: Metoprolol CR 25 MG TABCR PO ×2 (00:55→20:22)
[2024-11-06 06:18] LABS: Abs Immature Grans 0.01 10^3/uL (0.0-0.06); HCT 32.8 % (40.0-50.0); HGB 11.7 g/dL (13.5-17.5); Immature Grans % 0.1 %; MCH 34.7 pg (27.0-33.0); MCHC 35.7 % (32.0-36.0); MCV 97 fL (80-95); MPV 10.3 fL (8.0-11.0); Platelet Count 186 10^3/uL (130-400); RBC 3.37 10^6/uL (4.36-5.78); RDW 11.5 % (11.8-14.1); RDW-SD 41.0 fL; WBC 7.57 10^3/uL (4.4-10.8)
[2024-11-06 06:35] LABS: ALT 23 U/L (16-63); AST 15 U/L (15-37); Albumin 3.4 g/dL (3.4-5.0); Alkaline Phosphatase 74 U/L (46-116); Anion Gap 10.8 mmol/L (3-11); BUN 19 mg/dL (7-18); Bilirubin, Total 0.5 mg/dL (0.2-1.0); CO2 27.2 mmol/L (21.0-32.0); Calcium 8.7 mg/dL (8.5-10.1); Chloride 101 mmol/L (98-107); Estimated GFR 59.47 (mL/min/1.73m2); Glucose 211 mg/dL (74-106); Hemoglobin A1C 8.9 % (<5.7); Potassium 3.8 mmol/L (3.5-5.1); Sodium 139 mmol/L (136-145); Total Protein 6.7 g/dL (6.4-8.2)
--- NOTE | 2024-11-06 08:29 | INITIAL_ITS ---
Date of service: 11/06/24 Time of Service: 08:29 Care Management Initial Assmt Initial Assessment Reason for Hospitalization: Hematuria Functional Status/Living Situation Patient Presentation: Orlin was awake and lying in bed when CM met with him and is accompanied by his Hamida, both are extremely pleasant. He is admitted for hematuria, and is being treated with IV abx and bladder irrigation. He is planning to have a consult with Dr. Mak from Urology tomorrow, and may require a cystoscopy. Per pt, he and his live in [place]. He is active and independent at [employer]. He is retired, having formerly worked for the town of [place]. He does not express any concerns at this time. Town of Residence: [place] Resides with: Spouse (Hamida) Significant Other/Family: [employer] Employment Status: Retired Instrumental Activities of Daily Living (ADLs): Independent Medications Medication Management: No Issues/Barriers identified Advance Directives Advance Directives: Do you have an Advance Directive: N , 11:06 AD On File at [facility]: N 11/17/12, 11:06 Date Asked 11/05/24 11/05/24, 19:18 AD Date Reviewed COLST On File at [facility] No 11/05/24, 19:18 COLST Date Scanned Code Status Resuscitation Status Full Code Insurance Coverage/Financial Issues Insurance: Medicare Part A & B - [id number] Medicare Supplement Ins - [id number] Care Team Visit Care Team Role Provider Type Karlene Nunez NP NURSE PRACTITIONER Miguel Guzman MD Primary Care Provider [facility] STAFF PHYSICIAN Nuzhat Singleton MD Emergency Provider [facility] STAFF PHYSICIAN Scott Morgan MD Admit Provider [facility] STAFF PHYSICIAN Attending Provider Discharge Potential Discharge Needs: PCP F/U Appt Anticipated Barriers to Discharge: None Identified Patient/Family Education Needs: Review discharge instructions, discuss Ask Me Three Transportation: Private vehicle Plan: Urology consult Thursday. May need a Cystoscopy. Anticipate, Orlin will discharge home via private vehicle with family. Pt will follow up with community providers and discharge plan of care as directed. No new services are anticipated at this time. CM will follow. Social Determinants of Health Screening Social Determinants of health last assessed in clinic: 11/06/24 Will the Patient Participate in the Screening?: Yes Do you worry about having a steady place to live?: yes What is your living situation today?: I have housing today, but am worried about losing it Problems where you live: no known problems In the past 12 months, have you had to go without electric, gas, oil or water in your home?: no 1. Within the past 12 months, we worried whether our food would run out before we got money to buy more.: Never true 2. Within the past 12 months, the food we bought just didn't last and we didn't have money to get more.: Never true Has lack of transportation kept you from medical appointments or from doing things needed for daily living?: no Has anyone in your life made you feel unsafe or unsupported?: no How hard is it for you to pay for the very basics like food, housing, medical care, and heating? Would you say it is:: Not hard at all Do you want help finding or keeping work or a job?: I do not need or want help If for any reason you need help with day-to-day activities such as bathing, preparing meals, shopping, managing finances, etc., do you get the help you need?: I don?t need any help How often do you feel lonely or isolated from those around you?: Rarely Do you speak a language other than Micronesian at home?: No Does the patient want assistance with any of the above?: No Health Related Social Needs Health related social needs: housing instability, housed, with risk of home lessness (Z59.811) and feeling lonely/isolated (Z60.8) Health related social needs details: N/A PFSH All Active Problems (Updated 11/05/24 @ 22:56 by Nuzhat Singleton MD) Gross hematuria (Acute) Acute pyelonephritis (Acute) Arthritis pain, hip (Acute) Sarcoidosis (Acute 01/09/14) Overweight (Chronic) Ear congestion (Acute) likely ET dysfunction due to recent cold / ? allergy Diabetes mellitus (Chronic) A1c in office today 7.9 Hypertension (Chronic) not well controlled today Cough (Acute) likely viral bronchitis Erectile dysfunction (Chronic) Glucose intolerance (Acute) 02/15/18 LLUVIA HOGAN DAY; GLUCOSE 156 Lumbago (Acute) Fracture of distal phalanx of finger (Acute 11/23/12) Type 2 diabetes mellitus without complication, without long-term current use of insulin (Acute 02/25/16) Tobacco use disorder (Acute) CHEWS TOBACCO Sexual function problem (Acute) Pernicious anemia (Acute) Onychomycosis (Acute) Medial meniscus tear (Acute) RIGHT-04/02/16 Knee pain (Acute) ? MENISCUS Hiatal hernia (Acute) Essential hypertension (Acute) Dysplastic nevi (Acute 08/26/17) multiple Diverticulosis of colon without diverticulitis (Acute) Diabetes mellitus type 2, uncontrolled (Acute 03/24/14) Surgical History History of back surgery (~02/15/18) LLUVIA HOGAN DAY crushed thumb (11/17/12) Kidney Stone Extraction (~2004) Colonoscopy - IV Sedation (02/19/15) DR.C. WREN Arthroplasty of knee 04/02/16-RIGHT;DR. GUARDADO 08/19/16 RIGHT;[facility] Family History Mother , AGE 78 Essential hypertension MS (multiple sclerosis) Throat cancer Father Essential hypertension Diabetes Heart disease Sister Essential hypertension Diabetes Brother Essential hypertension Diabetes Maternal Grandfather , AGE 69 Essential hypertension Heart disease Paternal Grandfather , AGE 85 Essential hypertension Heart disease Maternal Grandmother , AGE 94 Essential hypertension Heart disease Paternal Grandmother , AGE 90 Essential hypertension Heart disease Son Substance abuse Son No problems noted. Daughter No problems noted. Social History Smoking/Tobacco Use Status: Current every day Tobacco Type: smokeless tobacco Tobacco: How many years used: 40 Smokeless tobacco user: chewing tobacco Quit status: has quit before Second Hand Exposure: Yes Smoking risk assessment performed?: Yes Alcohol Intake: current Alcohol Intake frequency: a few times a month Alcohol type: beer Drug use: Never Substance use type: does not use Counseling given: No Adopted: No Caregiver/Support person: No Household members: spouse Housing: house Communication Needs: None Do you need help understanding health information?: Rarely Pets and animals: No Sexually active: Yes Do you think of yourself as: straight/heterosexual Current gender identity: male What is your relationship status?: How often do you talk on the phone with friends or family?: three or more times per week How often do you get together with friends or relatives?: decline to answer How often do you attend holiness or jewish services?: decline to answer Do you belong to any clubs or organized social groups?: no Panel score (0-1 are the most socially isolated patients): 2 What type of physical activity do you participate in: walking Duration: 15-30 minutes/day Frequency: 3-4 times per week Adilene/Yarsani: No preference Special adilene needs: No Seatbelt use: always Helmet use: Yes Helmet use: always Drive intox or ride w/intox electric mule driver: No Do you feel safe at home: Yes Do you feel safe in your relationship?: Yes
[2024-11-06] MEDS: Insulin Aspart 300 UNITS/3 ML PEN SC ×3 (08:36→16:59)
[2024-11-06] MEDS: hydroCHLOROthiazide 25 MG TAB PO (08:39)
[2024-11-06] MEDS: Acetaminophen 325 MG TAB PO ×2 (08:39→20:21)
[2024-11-06] MEDS: Losartan 50 MG TAB 100 MG PO (08:39)
[2024-11-06] MEDS: amLODIPine 10 MG TAB PO (08:39)
[2024-11-06] MEDS: Multivitamin TAB 1 TAB PO (08:39)
[2024-11-06] MEDS: Cyanocobalamin 500 MCG TAB 1000 MCG PO (08:39)
--- NOTE | 2024-11-06 12:53 | PGE_ITS ---
Date of Service Date of service: 11/06/24 Time of Service: 12:54 Assessment and Plan Assessment and plan (1) Gross hematuria: Status: Acute Assessment and plan: With h/o stone, but no stone on admission CT. Continue with bladder irrigation. Continue with antibiotics Rocephin. urine cultures pending. Patient is to be seen by Dr. Mak of the urology service on Thursday, consider cystoscopy. (2) Essential hypertension: Status: Acute Assessment and plan: Continue with his home beta-arsenio, ESTUARDO inhibitor, diuretic, and calcium channel arsenio. (3) Tobacco use disorder: Status: Acute Assessment and plan: Placed on NicoDerm as needed. Increases risk of bladder cancer (4) Diabetes mellitus type 2, uncontrolled: Status: Acute Assessment and plan: A1c elevated at 8.9%. He has been 8-9% chronically, which is not ideal. Patient will need optimization in the outpatient setting. Will hold his metformin x 48 hr after contrast 11/05. He is on glipizide XL and glargine. Resume glargine. Consider resuming short acting glipizide in AM on discharge. Titrate glargine and sliding scale insulin while here. DVT prophylaxis with SCDs secondary to hematuria. Exam Narrative Exam Narrative: Gen: A&O, NAD Cardiovascular-regular rate and rhythm no murmur rubs or gallops Pulm clear to auscultation bilaterally, normal effort Abdomen-protuberant, but soft. bowel sounds active x 4 quadrants, not tender, no masses. Extremities-no cyanosis or edema bilaterally Objective Last Vital Signs Temp 36.5 C 11/06/24 11:27 Pulse 59 L 11/06/24 11:27 Resp 16 11/06/24 11:27 BP 145/72 H 11/06/24 11:27 Pulse Ox 94 11/06/24 11:27 Laboratory Results - last 24 hr 11/05/24 11/06/24 19:26 06:10 WBC 6.57 7.57 RBC 3.67 L 3.37 L Hgb 12.8 L 11.7 L Hct 35.5 L 32.8 L MCV 97 H 97 H MCH 34.9 H 34.7 H MCHC 36.1 H 35.7 RDW 11.5 L 11.5 L Plt Count 216 186 MPV 10.3 10.3 Immature Gran % 0.3 0.1 Neutrophils % 52.3 67.0 Lymphocytes % 31.7 18.6 Monocytes % 8.8 9.0 Eosinophils % 5.8 4.4 Basophils % 1.1 0.9 Nucleated RBC % 0.0 0.0 Absolute Neutrophils 3.44 5.07 Absolute Lymphocytes 2.08 1.41 Absolute Monocytes 0.58 0.68 Absolute Eosinophils 0.38 0.33 Absolute Basophils 0.07 0.07 Sodium 135 L 139 Potassium 3.7 3.8 Chloride 97 L 101 Carbon Dioxide 29.6 27.2 Anion Gap 8.4 10.8 BUN 17 19 H Creatinine 1.2 1.3 Est GFR (CKD-EPI 2020) 65.46 59.47 Glucose 298 H 211 H Hemoglobin A1c 8.9 H Calcium 9.4 8.7 Magnesium 1.6 L Total Bilirubin 0.5 0.5 AST 14 L 15 ALT 27 23 Alkaline Phosphatase 86 74 Total Protein 8.0 6.7 Albumin 3.9 3.4 Urine Color Red Urine Clarity Cloudy Urine pH Ur Specific [place] 1.015 Urine Protein Color Interference Urine Ketones Color Interference Urine Blood Color Interference Urine Nitrite Color Interference Urine Bilirubin Color Interference Urine Urobilinogen Color Interference Ur Leukocyte Esterase Color Interference Urine RBC >50 H Urine WBC Not Applicable Ur Epithelial Cells Not Applicable Urine Crystals Not Applicable Urine Bacteria Not Applicable Urine Mucus Not Applicable Ur Culture Indicated? Yes Urine Glucose Color Interference Time Spent with Patient Time Spent with Patient: 35-49 minutes Time was spent: preparing to see the patient(eg.review tests), obtaining and/or reviewing separately otained hiistory, ordering medications,tests, procedures, referring, communicating with other health disabilities caregiver, indepentently interpreting results, counseling the patient and care coordination
[2024-11-06] MEDS: Normal Saline Flush 10 ML SYR IVP (20:22)
[2024-11-06] MEDS: Insulin Glargine 300 UNITS/3 ML PEN 15 UNITS SC (20:35)
[2024-11-06] MEDS: cefTRIAXone 1,000 MG in Normal Saline 50 ML 100 MG IVPB (23:24)
[2024-11-07] VITALS (45 sets, daily range): BP systolic 115–169; BP diastolic 46–81; PULSE 53–84; RESP 13–31; TEMP 36.2–36.6; O2SAT 85–98; BMI 33.3
[2024-11-07] MEDS: Normal Saline 1,000 ML 125 ML IV ×3 (00:40→21:00)
[2024-11-07] MEDS: Acetaminophen 325 MG TAB PO (02:08)
[2024-11-07] MEDS: Insulin Aspart 300 UNITS/3 ML PEN SC ×2 (08:45→17:05)
[2024-11-07] MEDS: Losartan 50 MG TAB 100 MG PO (08:46)
[2024-11-07] MEDS: amLODIPine 10 MG TAB PO (08:47)
[2024-11-07] MEDS: Cyanocobalamin 500 MCG TAB 1000 MCG PO (08:47)
[2024-11-07] MEDS: Normal Saline Flush 10 ML SYR IVP ×2 (08:47→20:53)
[2024-11-07] MEDS: Multivitamin TAB 1 TAB PO (08:47)
--- NOTE | 2024-11-07 09:03 | PDOC.CMPRO ---
Date of service: 11/07/24 Time of Service: 09:03 Care Management Progress Note Progress Note Text Progress Note Text: Orlin has been unavailable to CM today as he went to the OR with Dr. Mak and underwent a cystoscopy, clot evacuation, left pyelogram and left ureteral stent placement. CM did meet with Madeline, Orlin's , while she was waiting in Orlin's room for him to return from surgery. She was very pleasant. She stated that she and Orlin are independent in the community and denied any community needs. Discharge Potential Discharge Needs: PCP F/U Appt and Other (urology f/u) Anticipated Barriers to Discharge: None Identified Patient/Family Education Needs: Review discharge instructions, discuss Ask Me Three Transportation: Private vehicle Plan: Anticipate that Orlin will discharge home with no new services. He will f/u with urology and with his PCP and continue per his plan of care. Orlin will transport home in a private vehicle. CM will continue to follow. Social Determinants of Health Screening Social Determinants of health last assessed in clinic: 11/07/24 Will the Patient Participate in the Screening?: Yes Do you worry about having a steady place to live?: yes What is your living situation today?: I have housing today, but am worried about losing it Problems where you live: no known problems In the past 12 months, have you had to go without electric, gas, oil or water in your home?: no 1. Within the past 12 months, we worried whether our food would run out before we got money to buy more.: Don't know/refused 2. Within the past 12 months, the food we bought just didn't last and we didn't have money to get more.: Don't know/refused Has lack of transportation kept you from medical appointments or from doing things needed for daily living?: no Has anyone in your life made you feel unsafe or unsupported?: no How hard is it for you to pay for the very basics like food, housing, medical care, and heating? Would you say it is:: Not hard at all Do you want help finding or keeping work or a job?: I do not need or want help If for any reason you need help with day-to-day activities such as bathing, preparing meals, shopping, managing finances, etc., do you get the help you need?: I don?t need any help How often do you feel lonely or isolated from those around you?: Rarely Do you speak a language other than Armenian at home?: No Does the patient want assistance with any of the above?: No Health Related Social Needs Health related social needs: housing instability, housed, with risk of homelessness (Z59.811) and feeling lonely/isolated (Z60.8) Health related social needs details: N/A
--- NOTE | 2024-11-07 11:18 | UCONE_ITS ---
Date of service: 11/07/24 Time of Service: 11:18 Assessment and Plan Assessment and plan (1) Clot retention of urine: Status: Acute Assessment and plan: We will bring him to the operating room today for cystoscopy and clot evacuation. We will further investigate the causes of the hematuria with a left retrograde pyelogram. If we identify a bladder tumor or any suspicious source of hematuria, we will be prepared to do a TUR bladder tumor or fulguration. I would expect that we would replace his catheter and run continuous bladder irrigation after the procedure to help prevent development of additional clots. History of Present Illness History of Present Illness Chief Complaint: Clot retention Narrative: This is a 69-year-old gentleman who does have a past history of kidney stones. He does not recall any prior urologic surgery. He developed gross hematuria with clots over the weekend. He was seen in the emergency department and found to have a large clot within the bladder and left hydronephrosis with no obvious obstructing lesion. The diagnosis was made by noncontrast CT scan, so the lumen of the ureter was not completely investigated. He was admitted to the hospital for bladder irrigation. He continued to have clot retention and spasms through the weekend. He does not recall any specific trauma prior to the onset of the hematuria. He is not anticoagulated. He does not smoke but does use chewing tobacco. Review of Systems Narrative: No fevers or chills No vision change or dysphasia Diabetes. No thyroid dysfunction. No shortness of breath, cough or hemoptysis No chest pain or palpitations Feels gassy. No nausea, vomiting, hepatitis, ulcers, jaundice No seizures, strokes or peripheral neuropathy No bleeding disorders or anemia Chronic back pain. No gout PFSH All Active Problems (Updated 11/07/24 @ 11:25 by Jan Mak MD) Clot retention of urine (Acute) Gross hematuria (Acute) Acute pyelonephritis (Acute) Arthritis pain, hip (Acute) Sarcoidosis (Acute 01/09/14) Overweight (Chronic) Ear congestion (Acute) likely ET dysfunction due to recent cold / ? allergy Diabetes mellitus (Chronic) A1c in office today 7.9 Hypertension (Chronic) not well controlled today Cough (Acute) likely viral bronchitis Erectile dysfunction (Chronic) Glucose intolerance (Acute) 02/15/18 LLUVIA HOGAN DAY; GLUCOSE 156 Lumbago (Acute) Fracture of distal phalanx of finger (Acute 11/23/12) Type 2 diabetes mellitus without complication, without long-term current use of insulin (Acute 02/25/16) Tobacco use disorder (Acute) CHEWS TOBACCO Sexual function problem (Acute) Pernicious anemia (Acute) Onychomycosis (Acute) Medial meniscus tear (Acute) RIGHT-04/02/16 Knee pain (Acute) ? MENISCUS Hiatal hernia (Acute) Essential hypertension (Acute) Dysplastic nevi (Acute 08/26/17) multiple Diverticulosis of colon without diverticulitis (Acute) Diabetes mellitus type 2, uncontrolled (Acute 03/24/14) Surgical History History of back surgery (~02/15/18) LLUVIALATOSHA HOGAN DAY crushed thumb (11/17/12) Kidney Stone Extraction (~2004) Colonoscopy - IV Sedation (02/19/15) DR.C. WREN Arthroplasty of knee 04/02/16-RIGHT;DR. GUARDADO 08/19/16 RIGHT;[facility] Family History Mother , AGE 78 Essential hypertension MS (multiple sclerosis) Throat cancer Father Essential hypertension Diabetes Heart disease Sister Essential hypertension Diabetes Brother Essential hypertension Diabetes Maternal Grandfather , AGE 69 Essential hypertension Heart disease Paternal Grandfather , AGE 85 Essential hypertension Heart disease Maternal Grandmother , AGE 94 Essential hypertension Heart disease Paternal Grandmother , AGE 90 Essential hypertension Heart disease Son Substance abuse Son No problems noted. Daughter No problems noted. Social History Smoking/Tobacco Use Status: Current every day Tobacco Type: smokeless tobacco Tobacco: How many years used: 40 Smokeless tobacco user: chewing tobacco Quit status: has quit before Second Hand Exposure: Yes Smoking risk assessment performed?: Yes Alcohol Intake: current Alcohol Intake frequency: a few times a month Alcohol type: beer Drug use: Never Substance use type: does not use Counseling given: No Adopted: No Caregiver/Support person: No Household members: spouse Housing: house Communication Needs: None Do you need help understanding health information?: Rarely Pets and animals: No Sexually active: Yes Do you think of yourself as: straight/heterosexual Current gender identity: male What is your relationship status?: How often do you talk on the phone with friends or family?: three or more times per week How often do you get together with friends or relatives?: decline to answer How often do you attend mosque or yazidi services?: decline to answer Do you belong to any clubs or organized social groups?: no Panel score (0-1 are the most socially isolated patients): 2 What type of physical activity do you participate in: walking Duration: 15-30 minutes/day Frequency: 3-4 times per week Adilene/Sikh: No preference Special adilene needs: No Seatbelt use: always Helmet use: Yes Helmet use: always 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 Exam Const General: cooperative Neck Neck: supple Resp Effort & Inspection: normal respiratory effort Auscultation: clear to auscultation bilaterally Cardio Rate: regular rate Rhythm: regular rhythm GI Inspection: obesity Palpation: soft Other: urethral catheter in place Neuro General: patient alert, patient awake and patient oriented x3 Results Last Vital Signs Temp 36.6 C 11/07/24 11:09 Pulse 59 L 11/07/24 11:09 Resp 17 11/07/24 11:09 BP 153/77 H 11/07/24 11:09 Pulse Ox 96 11/07/24 11:09 Labs 11/06/24 06:10 11/06/24 06:10
--- NOTE | 2024-11-07 12:12 | W.ANESPRE ---
General Info Date of Service Date Performed: 11/07/24 Height: 6 ft Weight: 111.4 kg Body Mass Index (BMI): 33.3 Surgical Procedure: Operation Date: 11/07/24 11:40 Proposed Procedure Side Surgeon p Cystoscopy/Retrograde/ Clot Evacuation Left Jan Mak MD s Possible Transurethral Resection Bladder Tumor Jan Mak MD Actual Procedure Side Surgeon p Cystoscopy/Retrograde/ Clot Evacuation Left Jan Mak MD s Possible Transurethral Resection Bladder Tumor Jan Mka MD Pre-Op Diagnosis Post-Op Diagnosis Hematuria Meds Allergies and Home Medications Allergies Allergy/AdvReac Type Severity Reaction Status Date / Time No Known Allergies Allergy Verified 11/05/24 19:15 Home Medication ?Medication ?Instructions ?Recorded aspirin 81 mg tablet,delayed 81 mg PO DAILY 11/17/12 release (Aspir-) cyanocobalamin (vitamin B-12) 1,000 mcg PO DAILY 11/17/12 1,000 mcg tablet (Vitamin B-12) garlic 1 cap PO DAILY 11/17/12 multivitamin (Daily Multi-Vitamin 1 tab PO DAILY 11/17/12 tablet) cinnamon bark 500 mg capsule 500 mg PO DAILY 02/25/16 blood sugar diagnostic (Blood #100 strips 09/05/16 Glucose Test strips) pen needle, diabetic 33 gauge x #100 ea 12/21/2306/26 (Comfort EZ Pen [place]) metoprolol succinate 25 mg 25 mg PO DAILY #90 tabs 02/02/24 tablet,extended release 24 hr losartan 100 1 tab PO DAILY ##90 03/07/24 mg-hydrochlorothiazide 25 mg tablet (Hyzaar) amlodipine 10 mg tablet 10 mg PO DAILY #90 tabs 03/08/24 glipizide 10 mg tablet, extended 10 mg PO BID #180 tabs 03/30/24 release 24 hr atorvastatin 10 mg tablet 10 mg PO DAILY #90 tabs 05/02/24 insulin glargine-yfgn 100 unit/mL 15 - 20 unit (0.15 - 0.2 mL) 06/16/24 (3 mL) subcutaneous pen subcut QPM #15 mL metformin 1,000 mg tablet 1,000 mg PO BID #180 tab-caps 06/16/24 Current Visit Medications: Current Medications Generic Name Dose Route Start Last Admin Trade Name Freq PRN Reason Stop Dose Admin Acetaminophen 0 mg 11/05/24 23:15 11/07/24 02:08 Acetaminophen 325 Mg Tab PO 650 mg Q4H PRN PRN Administration Al Hydrox/Mg Hydrox/Simethicone 30 ml 11/05/24 23:15 Mylanta Suspension 30 Ml Cup PO Q2H PRN PRN Amlodipine Besylate 10 mg 11/06/24 08:30 11/07/24 08:47 Amlodipine 10 Mg Tab PO 10 mg DAILY MARY ANN Administration Atorvastatin Calcium 10 mg 11/06/24 01:00 11/06/24 20:21 Atorvastatin 10 Mg Tab PO 10 mg HS MARY ANN Administration Cyanocobalamin 1,000 mcg 11/06/24 08:30 11/07/24 08:47 Cyanocobalamin 500 Mcg Tab PO 1,000 mcg DAILY MARY ANN Administration Dextrose 0 gm 11/05/24 23:28 Glucose Oral Gel 15 Gm/37.5 Gm Tube PO DIRECTED PRN Dextrose/Water 0 gm 11/05/24 23:28 Dextrose 50%-Water 25 Gm/50 Ml Syr IVP DIRECTED PRN Docusate Sodium 100 mg 11/05/24 23:15 Docusate Sodium 100 Mg Cap PO TID PRN PRN Hydrochlorothiazide 25 mg 11/06/24 08:30 11/06/24 08:39 Hydrochlorothiazide 25 Mg Tab PO 25 mg DAILY MARY ANN Administration Sodium Chloride 1,000 mls @ 125 mls/hr 11/05/24 23:15 11/07/24 08:48 Saline 1000ml Bag IV 125 mls/hr INFUSION MARY ANN Administration Ceftriaxone Sodium 1,000 mg/ 50 mls @ 100 mls/hr 11/05/24 23:30 11/07/24 00:27 Sodium Chloride IVPB Infused Q24H MARY ANN Infusion IV Miscellaneous Supplies 1 each 11/06/24 09:00 Iv Access IV DIRECTED [facility] Insulin Aspart 0 units 11/06/24 08:00 11/07/24 08:45 Insulin Aspart 300 Units/3 Ml Pen SC 6 units 0800,1200,1700 MARY ANN Administration Protocol Insulin Glargine 15 units 11/06/24 20:00 11/06/24 20:35 Insulin Glargine 300 Units/3 Ml Pen SC 15 units HS MARY ANN Administration Losartan Potassium 100 mg 11/06/24 08:30 11/07/24 08:46 Losartan 50 Mg Tab PO 100 mg DAILY MARY ANN Administration Magnesium Hydroxide 30 ml 11/05/24 23:15 Milk Of Magnesia 30 Ml Cup PO DAILY PRN PRN Metoprolol Succinate 25 mg 11/06/24 01:00 11/06/24 20:22 Metoprolol Cr 25 Mg Tabcr PO 25 mg HS MARY ANN Administration Multivitamins 1 tab 11/06/24 08:30 11/07/24 08:47 Multivitamin Tab PO 1 tab DAILY MARY ANN Administration Nicotine 14 mg 11/05/24 23:15 Nicotine 14 Mg/24 Hr Patch TD DAILY PRN PRN Pt's Own Cinnamon 1 each 11/07/24 08:30 Bark 500 Mg Capsule PO DAILY MARY ANN Pt's Own Garlic 1 1 each 11/07/24 08:30 Each Capsule PO DAILY MARY ANN Polyethylene Glycol 17 gm 11/05/24 23:15 Polyethylene Glycol 3350 17 Gm Packet PO DAILY PRN PRN Constipation Polyethylene Glycol 17 gm 11/05/24 23:15 Polyethylene Glycol 3350 17 Gm Packet PO DAILY PRN PRN Constipation Sodium Chloride 0 ml 11/05/24 19:17 Normal Saline Flush 10 Ml Syr IVP PRN PRN Sodium Chloride 0 ml 11/05/24 20:00 11/07/24 08:47 Normal Saline Flush 10 Ml Syr IVP 10 ml BID MARY ANN Administration Sodium Chloride 0 ml 11/05/24 19:17 Normal Saline 10 Ml Vial IJ DIRECTED PRN PFSH Active Problems Active Problems: Problem Status Onset Code Clot retention of urine Acute R33.8 Gross hematuria Acute R31.0 Acute pyelonephritis Acute N10 Arthritis pain, hip Acute M16.10 Sarcoidosis Acute 01/09/14 D86.9 Overweight Chronic E66.3 Ear congestion Acute H93.8X9 Diabetes mellitus Chronic E11.9 Hypertension Chronic I10 Cough Acute R05 Erectile dysfunction Chronic N52.9 Glucose intolerance Acute E74.39 Lumbago Acute M54.5 Fracture of distal phalanx of finger Acute 11/23/12 S62.639A Type 2 diabetes mellitus without complication, without long-term current use of insulin Acute 02/25/16 E11.9 Tobacco use disorder Acute F17.200 Sexual function problem Acute F52.9 Pernicious anemia Acute D51.0 Onychomycosis Acute B35.1 Medial meniscus tear Acute S83.249A Knee pain Acute M25.569 Hiatal hernia Acute K44.9 Essential hypertension Acute I10 Dysplastic nevi Acute 05/16/18 Diverticulosis of colon without diverticulitis Acute K57.30 Diabetes mellitus type 2, uncontrolled Acute 03/24/14 E11.65 Surgical History Surgical History History of back surgery (~02/15/18) LLUVIA HOGAN DAY crushed thumb (11/17/12) Kidney Stone Extraction (~2004) Colonoscopy - IV Sedation (02/19/15) DR.C. WREN Arthroplasty of knee 04/02/16-RIGHT;DR. GUARDADO 08/19/16 RIGHT;[facility] Tobacco Smoking/Tobacco Use Status: Current every day Tobacco Type: smokeless tobacco Smokeless tobacco user: chewing tobacco Passive smoking exposure: No Second hand exposure: Yes Alcohol Alcohol Intake: current Alcohol intake frequency: a few times a month Alcohol type: beer Substance Use Substance use: Never Substance use type: does not use Vital Signs and Lab Results Vital Signs Most Recent Vital Signs in EMR: Most Recent Vital Signs Temp Pulse Resp BP Pulse Ox 36.6 C 59 L 17 153/77 H 96 11/07/24 11:09 11/07/24 11:09 11/07/24 11:09 11/07/24 11:09 11/07/24 11:09 Point of Care Results Point of Care Results: Finger Stick Blood Glucose 202 11/07/24 11:12 Lab Results 11/06/24 06:10 11/06/24 06:10 Complete Blood Count: WBC, (4.4-10.8) 7.57 10^3/uL 11/06/24, 06:10 RBC, (4.36-5.78) 3.37 10^6/uL L 11/06/24, 06:10 Hgb, (13.5-17.5) 11.7 g/dL L 11/06/24, 06:10 Hct, (40.0-50.0) 32.8 % L 11/06/24, 06:10 Plt Count, (130-400) 186 10^3/uL 11/06/24, 06:10 Complete Metabolic Panel: Sodium, (136-145) 139 mmol/L 11/06/24, 06:10 Potassium, (3.5-5.1) 3.8 mmol/L 11/06/24, 06:10 Chloride, (98-107) 101 mmol/L 11/06/24, 06:10 Carbon Dioxide, (21.0-32.0) 27.2 mmol/L 11/06/24, 06:10 BUN, (7-18) 19 mg/dL H 11/06/24, 06:10 Creatinine, (0.70-1.30) 1.3 mg/dL 11/06/24, 06:10 Est GFR (CKD-EPI 2020), (mL/min/1.73m2) 59.47 11/06/24, 06:10 Magnesium, (1.8-2.4) 1.6 mg/dL L 11/05/24, 19:26 Calcium, (8.5-10.1) 8.7 mg/dL 11/06/24, 06:10 Albumin, (3.4-5.0) 3.4 g/dL 11/06/24, 06:10 Glucose, (74-106) 211 mg/dL H 11/06/24, 06:10 Hemoglobin A1c, (<5.7) 8.9 % H 11/06/24, 06:10 Liver Function Panel: ALT, (16-63) 23 U/L 11/06/24, 06:10 AST, (15-37) 15 U/L 11/06/24, 06:10 Anesthesia Assessment and Plan Anesthesia History Personal History: No History of Anesthesia Complications Family History: No Family History of Anesthesia Complications Exercise Tolerance Exercise Tolerance: Metabolic Equivalents>4 Pertinent Negatives Pertinent Negatives: No Symptoms of GERD Cardiac & Pulmonary Exam Cardiac Exam: Normal S1/S2 Heart Sounds Pulmonary Exam: Clear Bilateral Breath Sounds Implantable Cardiac Device Does patient have a Pacemaker or an ICD?: No Airway Exam Known Difficult Airway: No Mallampati Class: 2 Mouth Opening: Normal (> 3cm) Thyromental Distance: Greater than 3 cm Neck Range of Motion: Full ROM Neck Circumference: Normal Teeth Condition: Other (Partial) ASA Classification ASA Score: ASA 3 Emergency Case?: No NPO Status NPO Status: NPO Clears >2 hours, Solids >8 hours Anesthesia Plan Resuscitation Status: Full Code Anesthesia Technique: General Anesthesia Airway Planned: Endotracheal Tube Monitors Used: Standard Monitors and SedLine
[2024-11-07] MEDS: Lactated Ringers 1,000 ML 50 ML IV ×2 (12:20→17:05)
[2024-11-07] MEDS: ceFAZolin 2 GM/50 ML BAG 100 GM (12:40)
[2024-11-07] MEDS: Lidocaine 2% Jelly 11 ML SYR (12:52)
[2024-11-07] MEDS: Omnipaque 300 MG/ML 50 ML BTL (13:10)
--- NOTE | 2024-11-07 13:18 | DI.RAD_ITS ---
Exam(s) XR RETROGRADE IN OR EXAM: XR RETROGRADE IN OR CLINICAL HISTORY: gross hematuria. TECHNIQUE: Fluoroscopy was provided for the referring physician for guidance with performing retrograde procedure. COMPARISON: CT CT ABDOMEN PELVIS W from 11/05/2024 FINDINGS: Please see procedure note for details. Fluoro time: 34.9 seconds RADIATION DOSE DELIVERED: Dilshadr=12.5 mGy
--- NOTE | 2024-11-07 13:29 | W.PM.OP ---
Operative Note Operative Note PRE-OP DIAGNOSIS: Clot retention POST-OP DIAGNOSIS: same PROCEDURE: Cystoscopy, clot evacuation, left retrograde pyelogram, insert left ureteral stent SURGEON: Jan Mak ANESTHESIA TYPE: Local By Surgeon and General LMA/ETT Refer to Anesthesia Record ESTIMATED BLOOD LOSS: 25 PATHOLOGY: none sent COMPLICATIONS: None Patient was transported to: PACU Patient's condition: stable Implants: 7 Tanzanian by 22 to 30 cm left ureteral stent Indications: This is a 69-year-old gentleman who was identified as having gross hematuria. He was seen in the emergency department and a noncontrast CT scan showed clot within the bladder. He is continued to have intermittent obstruction in spite of catheter drainage and bladder irrigation. He presents now for cystoscopy with clot evacuation. In addition to the clot within the bladder, the patient was found to have left hydronephrosis along with question of debris in the upper ureter. He is agreeable to a left retrograde pyelogram under the same anesthetic Findings: Blood from the left ureteral orifice Filling defect in the left proximal ureter/renal pelvis Procedure Description: The patient was given IV antibiotics and brought to the operating room on 11/07/2024. After successful induction of general anesthesia, he was placed in the dorsal lithotomy position. His indwelling catheter was removed. His genitalia was prepped and draped. 2% Xylocaine jelly was instilled into the urethra. A 22 [place]anian rigid cystoscope was passed through the urethra into the bladder. The urethra and bladder were inspected using a 30 degree lens. The pendulous, bulbar membranous urethra showed some hyperemia consistent with catheter irritation, but there was no active bleeding. The prostatic urethra showed some lateral lobe enlargement but no significant median lobe. The bladder neck was entered and the bladder mucosa was inspected. A large amount of clot was seen within the bladder. The clot was evacuated using a Charline syringe. I was then able to visualize the bladder mucosa. The right ureteral orifice appeared normal with no blood coming from the orifice. On the left side, there was a trickle of blood seen coming down from the left ureteral orifice. I was able to cannulate the left orifice and perform a retrograde pyelogram by injecting Omnipaque through the access catheter under fluoroscopic guidance. In the proximal ureter/renal pelvis area, there appeared to be a filling defect. I was able to pass a guidewire up to the ureter and above the level of the filling defect. Once I did so, a large amount of blood was seen coming down from the left side. I then passed a 7 [place]anian variable length stent over the wire. I positioned the proximal end in the upper pole calyx and the distal and within the bladder. The positioning of the stent was confirmed both fluoroscopically and cystoscopically. Reinspection of the bladder showed no residual clots. The bladder was filled with irrigant and the cystoscope was withdrawn. A 22 [place]anian hematuria catheter was then passed through the urethra into the bladder. The catheter balloon was inflated with 10 cc of sterile water and the catheter was hooked to gravity drainage. Continuous bladder irrigation with saline was then begun. The patient tolerated this procedure well with no complications. He was taken to the recovery room in stable condition. Date of Procedure: 11/07/24
[2024-11-07] MEDS: fentaNYL 100 MCG/2 ML VIAL IVP (14:01)
--- NOTE | 2024-11-07 14:23 | W.ANESPOSTOP ---
Postoperative Evaluation Date, Time and Location Date Performed: 11/07/24 Time Performed: 14:23 Patient Location: Day Surgery Unit Vital Signs Most Recent Imported Vital Signs: Most Recent Vital Signs Temp Pulse Resp BP Pulse Ox 36.5 C 54 L 17 115/62 93 11/07/24 13:34 11/07/24 14:06 11/07/24 14:06 11/07/24 14:06 11/07/24 14:06 Pain Score Most Recent Pain Score: Most Recent Pain Score Pain Level 0 11/07/24 13:34 Assessment Mental Status: Awake (Alert & Oriented to Patient Baseline) Airway and Respiratory Function: Patent airway with normal (patient baseline) respiratory exam Cardiovascular Function: Hemodynamically Stable Hydration Status: Adequately Hydrated Nausea & Vomiting: No Nausea or Vomiting Pain: Pain is tolerable per patient Peripheral Nerve Block: Patient did not receive a nerve block
--- NOTE | 2024-11-07 16:24 | W.PM.PROGNOT ---
Date of Service Date of service: 11/07/24 Time of Service: 16:24 Assessment and Plan Assessment and plan (1) Gross hematuria: Status: Acute Assessment and plan: With h/o stone, but no stone on admission CT. Admission CT suggestive of renal mass. After stent placed today, it was clear blood coming from kidney. Discussed with Dr. Mak. Continue irrigation for now, will plan CT urogram prior to discharge once clots clear and can stop irrigation. (2) Essential hypertension: Status: Acute Assessment and plan: Continue with his home beta-arsenio, ESTUARDO inhibitor, diuretic, and calcium channel arsenio (diuretic held pre-op today, resume 11/08) (3) Tobacco use disorder: Status: Acute Assessment and plan: Placed on NicoDerm as needed. (4) Diabetes mellitus type 2, uncontrolled: Status: Acute Assessment and plan: A1c elevated at 8.9%. He has been 8-9% chronically, which is not ideal. Patient will need optimization in the outpatient setting. Will hold his metformin x 48 hr after contrast 11/05, keep holding as repeat contrast study planned. He is on glipizide XL and glargine. Resume glargine, increase from 15 to 20 units today as all BG >200. Consider resuming short acting glipizide in AM on discharge. DVT prophylaxis with SCDs secondary to hematuria. Subjective Subjective Patient reports: denies vomiting, shortness of breath or fever Interval history since last seen: Events: S/p cystoscopy, IVP, ureteral stent left. Was confused post op, but feels okay now. Not in pain. Exam Narrative Exam Narrative: Gen: A&O, NAD Cardiovascular-regular rate and rhythm no murmur rubs or gallops Pulm clear to auscultation bilaterally, normal effort Abdomen-protuberant, but soft. bowel sounds active x 4 quadrants, not tender, no masses. Extremities-no cyanosis or edema bilaterally Objective Last Vital Signs Temp 36.4 C L 11/07/24 15:52 Pulse 66 11/07/24 15:52 Resp 16 11/07/24 15:52 BP 153/64 H 11/07/24 15:52 Pulse Ox 93 11/07/24 15:52 Time Spent with Patient Time Spent with Patient: 35-49 minutes Time was spent: preparing to see the patient(eg.review tests), obtaining and/or reviewing separately otained hiistory, ordering medications,tests, procedures, referring, communicating with other health child care center assistant director, indepentently interpreting results, counseling the patient and care coordination
[2024-11-07] MEDS: Atorvastatin 10 MG TAB PO (20:51)
[2024-11-07] MEDS: Metoprolol CR 25 MG TABCR PO (20:51)
[2024-11-07] MEDS: Insulin Glargine 300 UNITS/3 ML PEN 20 UNITS SC (20:52)
[2024-11-07] MEDS: Lidocaine 2% Jelly 11 ML SYR UR (22:30)
[2024-11-07] MEDS: cefTRIAXone 1,000 MG in Normal Saline 50 ML 100 MG IVPB (22:30)
[2024-11-08 03:11] VITALS: BP 138/64; PULSE 69; RESP 18; TEMP 37.1; O2SAT 92
[2024-11-08 07:09] VITALS: BP 149/70; PULSE 72; RESP 16; TEMP 37.1; O2SAT 96
--- NOTE | 2024-11-08 07:13 | PGE_ITS ---
Date of Service Date of service: 11/08/24 Time of Service: 07:13 Assessment and Plan Assessment and plan (1) Gross hematuria: Status: Acute Assessment and plan: The source of his hematuria appears to be the left kidney. The exact etiology is still not known. I do not believe he needs a urethral catheter or bladder irrigation any longer. I have discontinued both. I will place an order for a CT urogram. Once the urogram is completed, the patient can actually be discharged (or the urogram could be done as an outpatient). Based on the results, I suspect that we will n eed to arrange for an outpatient renal biopsy by our interventional radiology colleagues. His ultimate treatment will depend on his renal biopsy. If we are looking at a urothelial cell carcinoma, a nephro ureterectomy is generally the treatment. If we are looking at a renal cell carcinoma, a radical nephrectomy or partial nephrectomy might be in order. If we are looking at a benign condition such as an AV fistula or an angiomyolipoma, embolization might be in order. Subjective Subjective Interval history since last seen: He had a comfortable night with no episodes of clot retention. He did have some bladder spasms. He has no flank pain. Exam Narrative Exam Narrative: He looks well His vital signs are documented elsewhere His bladder irrigation is running at a slow rate with clear return He is awake and alert Objective Last Vital Signs Temp 37.1 C 11/08/24 07:09 Pulse 72 11/08/24 07:09 Resp 16 11/08/24 07:09 BP 149/70 H 11/08/24 07:09 Pulse Ox 96 11/08/24 07:09 Time Spent with Patient Time Spent with Patient: 25-34 minutes Time was spent: preparing to see the patient(eg.review tests), ordering medications,tests, procedures, referring, communicating with other health manager respiratory care and indepentently interpreting results
[2024-11-08] MEDS: Multivitamin TAB 1 TAB PO (08:45)
[2024-11-08] MEDS: Losartan 50 MG TAB 100 MG PO (08:45)
[2024-11-08] MEDS: amLODIPine 10 MG TAB PO (08:45)
[2024-11-08] MEDS: Cyanocobalamin 500 MCG TAB 1000 MCG PO (08:45)
[2024-11-08] MEDS: Normal Saline Flush 10 ML SYR IVP (08:45)
[2024-11-08] MEDS: Normal Saline - Diluent 50 ML VIAL IJ ×2 (08:54→08:55)
[2024-11-08] MEDS: Omnipaque 350 MG/ML 100 ML BTL IJ (08:56)
--- NOTE | 2024-11-08 09:01 | DI.CT_ITS ---
Exam(s) CT ABDOMEN PELVIS WO/W EXAM: CT ABDOMEN PELVIS WO/W CLINICAL HISTORY: hematuria/left renal mass. TECHNIQUE: Imaging Protocol: Axial computed tomography images with coronal and sagittal reformatted images were created and reviewed CT urogram protocol was used CONTRAST MATERIAL: Intravenous: Omnipaque-350 100cc Oral: None COMPARISON: CT CT ABDOMEN PELVIS W from 11/05/2024 FINDINGS: VISUALIZED LUNG BASES: Mild increased markings in the posterior basal segment of the left lower lobe which were not present 3 days ago. No pleural effusions.. ABDOMEN: There is no ascites. LIVER: There are few small sub cm hypodensities in the liver which have benign appearance and are probably small cysts. There is also a small calcified granuloma in the right hepatic lobe. No dilated intrahepatic ducts. GALLBLADDER/BILIARY: Gallbladder is contracted and difficult to evaluate. There are no obvious calcified gallstones within the gallbladder lumen. CBD is not dilated. PANCREAS: No evidence of pancreatic mass nor dilatation of the pancreatic duct. SPLEEN: Spleen is not enlarged. No obvious intrasplenic lesions. Splenic and portal veins are patent. ADRENALS: There are no significant adrenal masses. KIDNEYS:Small benign cyst in the medial lower cortex of the right kidney again noted. No other significant right kidney findings. On the left side there is been interval placement of a double pigtail left ureteral stent. The superior pigtail of the stent is in the upper renal pelvis and the inferior pigtail is in the left side of the urinary bladder. The left ureter is not dilated. The previously described prominent density in the urinary bladder is no longer seen, further evidence that it was most probably clot (as opposed to a true mass within the bladder lumen). There are no radiopaque calculi in the left kidney. The enhancement pattern of the lower pole of the left kidney is suspicious for a somewhat subtle solid renal mass measuring approximately 6.6 X 6 cm.. A possibility is renal carbuncle/abcess. There is regional lymphadenopathy again noted medial to the left kidney and left para-aortic at this level, as mentioned on the recent CT scan of 11/05/2024. There is no obvious thrombosis of the left renal vein. ABDOMINAL AORTA: Abdominal aorta is not enlarged. LYMPH NODES:Adenopathy medial to the left kidney and left para-aortic ABDOMINAL WALL: No evidence of significant anterior abdominal wall nor inguinal hernia. GI: There is no evidence of bowel obstruction, free air, nor abscess. PELVIS: GI: No evidence of appendicitis.No evidence of sigmoid diverticulitis. LYMPH NODES: No adenopathy around the aortic bifurcation nor along the iliac chains and there is no inguinal adenopathy. REPRODUCTIVE: Prostate size upper normal. Seminal vesicles unremarkable. URINARY BLADDER: Contains the lower pigtail of this stent. No distinct masses in the bladder lumen on today's study. OSSEOUS: No fractures and no significant osseous lesions. Moderate degenerative changes noted in both hips. IMPRESSION: 1. Compared to the CT scan of 11/05/2024 there has been interval retrograde procedure and placement of a double pigtail left ureteral stent extending from the upper pole infundibulum down to the urinary bladder. There is presently no hydronephrosis nor hydroureter.. 2. There is again noted a solid-appearing mass probably neoplastic in the inferior pole of the left kidney measuring approximately 6 x 6.6 cm. There is regional lymphadenopathy medial to the left kidney and left para-aortic at this level. The largest lymph node at this level measures 4.5 cm. 3. There is presently no obvious mass nor clot in the urinary bladder lumen. The bladder is not distended. Prostate size is upper normal. Seminal vesicles appear unremarkable. 4. Other findings as above. RADIATION DOSE DELIVERED: 2,298.29mGy.cm Total DLP DATA REPOSITORY: All CT scans at this facility are submitted to the National Radiology Data Registry (NRDR) Dose Index Registry (DIR) with the [employer] (ACR). RADIATION OPTIMIZATION: All CT scans at this facility use at least one of these dose optimization techniques: automated exposure control; mA and/or kV adjustment per patient size (includes targeted exams where dose is matched to clinical indication); or iterative reconstruction.
[2024-11-08 11:07] VITALS: BP 129/64; PULSE 63; RESP 16; TEMP 36.8; O2SAT 96
[2024-11-08] MEDS: Insulin Aspart 300 UNITS/3 ML PEN SC (12:10)
--- NOTE | 2024-11-08 15:00 | CHAPLAIN ---
Orlin was up in the chair, waiting to get dress as soon as he had his discharge papers. His was with him. I explained my role and offered support.
--- NOTE | 2024-11-08 15:29 | DSE_ITS ---
Date of service: 11/08/24 Time of Service: 15:29 DS: Diagnosis Discharge Diagnosis (1) Gross hematuria: Status: Acute (2) Left renal mass: Status: Acute (3) Diabetes mellitus type 2, uncontrolled: Status: Acute Discharge Plan Disposition Patient Disposition: Home Condition: Good Discharge Details Reason For Visit: Hematuria Admit Date/Time: 11/05/24 23:15 Admit Provider: Scott Morgan Attending Provider: Scott Morgan Primary Care Provider: Miguel Guzman Hospital Course Hospital Course: 69 yo M with type 2 DM, tobacco chewer, HTN, admitted with hematuria with clots. CT showed possible renal mass. He was admitted for bladder irrigation. Hematuria continued and cystoscopy, which confirmed bleeding from the kidney, clots evacuated and ureteral stent was placed. Follow up CT Urogram confirmed a complex renal mass suspicious for malignancy. Carrillo removed on the morning of discharge as clots had resolved. He will need follow up for renal biopsy and percutaneous nephrostomy tube, which is being coordinated by Dr. Mak. Tobacco cessataion was discussed. His A1c was 8.9%. Improved glucose control was discussed as he will have surgery coming up. His glargine was increased to 20units (he was only taking 15 units). Glipizide was changed to short acting in AM only. He did well with semaglutide orally in the past. Willing to try subcut weekly version if cost not prohibitive. Pioglitazone could also be an option as an oral agent. Home Meds and New Rx's Prescriptions: New glipizide 10 mg tablet 10 mg PO DAILY Qty: 90 0RF Rx Instructions: stop long acting version Continued cinnamon bark 500 MG capsule 500 mg PO DAILY metoprolol succinate 25 mg tablet extended release 24 hr 25 mg PO DAILY Qty: 90 3RF losartan-hydrochlorothiazide [Hyzaar] 100-25 mg tablet 1 tab PO DAILY Qty: 90 3RF amlodipine 10 mg tablet 10 mg PO DAILY Qty: 90 3RF atorvastatin 10 mg tablet 10 mg PO DAILY Qty: 90 3RF multivitamin [Daily Multi-Vitamin] 1 EACH tablet 1 tab PO DAILY cyanocobalamin (vitamin B-12) [Vitamin B-12] 1,000 MCG tablet 1,000 mcg PO DAILY aspirin [Aspir-81] 81 MG tablet,delayed release (DR/EC) 81 mg PO DAILY garlic 1 EACH capsule 1 cap PO DAILY Changed insulin glargine-yfgn 100 unit/mL (3 mL) insulin pen 20 unit subcut QPM Qty: 15 8RF Held metformin 1,000 mg tablet 1,000 mg PO BID Qty: 180 3RF Hold Instructions: Resume on 11/11/24. hold for [address] Discontinued glipizide 10 mg tablet extended release 24hr 10 mg PO BID Qty: 180 3RF Rx Instructions: dose increase 06/26/22 No Action (DME) Blood Glucose Test 1 EACH strip 1 ea Miscellaneous DAILY Qty: 100 Rx Instructions: E11.9 one touch test strips (DME) pen needle, diabetic [Comfort EZ Pen [place]] 33 gauge x 3/16 needle See Rx Instructions .ROUTE .MEDSUPPLY Qty: 100 3RF Rx Instructions: inject once/day Discharge Instructions Additional Instructions: follow up for biopsy of kidney mass as coordinated by Dr. Mak Stop the long acting glipizide, take the short acting in the morning only. Resume metformin in 2 days Increase glargine insulin to 20 units. You can go up further by a unit every other day until your morning fasting glucose is 80-120 Activity:: Activity as Tolerated Equipment/Supplies:: No Equipment Needed Diet:: Carb Counting Discharge Orders Discharge Orders: Discharge Order (Routine); Ordered 11/08/24 Ordered By: Bayron Conley DS: Summary Time Spent with Patient providing and/or coordinating discharge services: Greater than 30 minutes Status at Discharge Functional status at discharge: independent ambulation Overall status at discharge: patient is back to baseline Mental Status: mental status grossly normal Speech and Movement: speech and movement normal Mood: congruent mood Affect: normal affect Quality:SDOH Health Related Social Needs: Health related social needs risk of homeless lonely/is olated Health related social needs details N/A Health related social needs details: N/A Exam Narrative Exam Narrative: Gen: A&O, NAD Cardiovascular-regular rate and rhythm no murmur rubs or gallops Pulm clear to auscultation bilaterally, normal effort Abdomen-protuberant, but soft. bowel sounds active x 4 quadrants, not tender, no masses. Extremities-no cyanosis or edema bilaterally Psych Mental Status: mental status grossly normal Speech and Movement: speech and movement normal Mood: congruent mood Affect: normal affect DS: Data Vitals/I&O Vitals and I&O: Vital Signs Temperature 36.8 C 11/08/24 11:07 Temperature Source Temporal Artery Scan 11/08/24 11:07 Pulse 63 11/08/24 11:07 Pulse Rhythm Regular 11/06/24 00:09 Pulse 64 11/07/24 14:56 Respiratory Rate 16 11/08/24 11:07 Respiratory Effort Normal 11/06/24 00:09 Respiratory Depth Normal 11/06/24 00:09 Respiratory Pattern Normal 11/06/24 00:09 Blood Pressure 129/64 11/08/24 11:07 Blood Pressure Mean 85 11/08/24 11:07 Blood Pressure Position Sitting 11/05/24 19:15 Pulse Oximetry 96 11/08/24 11:07 Respiratory End-tidal CO2 36 11/07/24 14:56 Oxygen Delivery Method Room Air 11/08/24 11:07 Oxygen Flow Rate 0 11/08/24 11:07 Pain Level 0 11/08/24 11:07 Comment Pt states pain is tolerable at this time. 11/05/24 21:10 Intake & Output 11/07/24 11/08/24 11/08/24 23:59 11:59 23:59 Intake Total 2176.666 / 4226.666 0 / 240 240 / 240 Output Total 37178 / 47412 2400 / 2400 Balance -7823.334 / -65764.334 -2400 / -2160 240 / -2160 Weight 111.4 kg 110.9 kg Intake: IV 2176.666 / 4226.666 0 / 0 Oral 240 / 240 Output: Urine 68202 / 07256 2400 / 2400 Other: Urine Color Pierpoint Pierpoint Urine Appearance Clear Clear Emesis Description None PFSH All Active Problems (Updated 11/08/24 @ 12:08 by Jan Mak MD) Left renal mass (Acute) Clot retention of urine (Acute) Gross hematuria (Acute) Acute pyelonephritis (Acute) Arthritis pain, hip (Acute) Sarcoidosis (Acute 01/09/14) Overweight (Chronic) Ear congestion (Acute) likely ET dysfunction due to recent cold / ? allergy Diabetes mellitus (Chronic) A1c in office today 7.9 Hypertension (Chronic) not well controlled today Cough (Acute) likely viral bronchitis Erectile dysfunction (Chronic) Glucose intolerance (Acute) 02/15/18 LLUVIA EDISON DAY; GLUCOSE 156 Lumbago (Acute) Fracture of distal phalanx of finger (Acute 11/23/12) Type 2 diabetes mellitus without complication, without long-term current use of insulin (Acute 02/25/16) Tobacco use disorder (Acute) CHEWS TOBACCO Sexual function problem (Acute) Pernicious anemia (Acute) Onychomycosis (Acute) Medial meniscus tear (Acute) RIGHT-04/02/16 Knee pain (Acute) ? MENISCUS Hiatal hernia (Acute) Essential hypertension (Acute) Dysplastic nevi (Acute 08/26/17) multiple Diverticulosis of colon without diverticulitis (Acute) Diabetes mellitus type 2, uncontrolled (Acute 03/24/14) Surgical History History of back surgery (~02/15/18) LLUVIA LOJA crushed thumb (11/17/12) Kidney Stone Extraction (~2004) Colonoscopy - IV Sedation (02/19/15) DR.C. WREN Arthroplasty of knee 04/02/16-RIGHT;DR. GUARDADO 08/19/16 RIGHT;[facility] Family History Mother , AGE 78 Essential hypertension MS (multiple sclerosis) Throat cancer Father Essential hypertension Diabetes Heart disease Sister Essential hypertension Diabetes Brother Essential hypertension Diabetes Maternal Grandfather , AGE 69 Essential hypertension Heart disease Paternal Grandfather , AGE 85 Essential hypertension Heart disease Maternal Grandmother , AGE 94 Essential hypertension Heart disease Paternal Grandmother , AGE 90 Essential hypertension Heart disease Son Substance abuse Son No problems noted. Daughter No problems noted. Social History Smoking/Tobacco Use Status: Current every day Tobacco Type: smokeless tobacco Tobacco: How many years used: 40 Smokeless tobacco user: chewing tobacco Quit status: has quit before Second Hand Exposure: Yes Smoking risk assessment performed?: Yes Alcohol Intake: current Alcohol Intake frequency: a few times a month Alcohol type: beer Drug use: Never Substance use type: does not use Counseling given: No Adopted: No Caregiver/Support person: No Household members: spouse Housing: house Communication Needs: None Do you need help understanding health information?: Rarely Pets and animals: No Sexually active: Yes Do you think of yourself as: straight/heterosexual Current gender identity: male What is your relationship status?: How often do you talk on the phone with friends or family?: three or more times per week How often do you get together with friends or relatives?: decline to answer How often do you attend mormon or episcopalian services?: decline to answer Do you belong to any clubs or organized social groups?: no Panel score (0-1 are the most socially isolated patients): 2 What type of physical activity do you participate in: walking Duration: 15-30 minutes/day Frequency: 3-4 times per week Adilene/Confucianism: No preference Special adilene needs: No Seatbelt use: always Helmet use: Yes Helmet use: always Drive intox or ride w/intox hazmat cdl a driver: No Do you feel safe at home: Yes Do you feel safe in your relationship?: Yes Time Spent with Patient Time Spent with Patient: <45 minutes Time was spent: preparing to see the patient(eg.review tests), obtaining and/or reviewing separately otained hiistory, ordering medications,tests, procedures, referring, communicating with other health date night caregiver, indepentently interpreting results, counseling the patient and care coordination
[2024-11-08 15:32] VITALS: BP 134/71; PULSE 63; RESP 16; TEMP 36.5; O2SAT 98
--- NOTE | 2024-11-08 16:12 | CMDISCH_ITS ---
Date of service: 11/08/24 Time of Service: 16:12 LACE Index Scoring Tool Questions: Length of Stay (in days): 3 Was the patient admitted via the E.D.?: Yes Comorbidities: Diabetes w/o Complication E.D. Visits: 1 Answers: Total Score: 8 Risk of Readmission: Low Risk Care Management Discharge Plan Reason for Hospitalization: hematuria, s/p cystoscopy and ureteral stent placement Discharge Plan: Orlin is discharged home this afternoon with no new services. He will f/u with urology, Dr. Mak, who is also coordinating a renal biopsy and percutaneous nephrostomy tube. Orlin will also f/u with his PCP, and continue per his plan of care. Orlin transported home in a private vehicle with his . Patient/Family Education Needs: Review of discharge instructions, activity, limitations, and discuss Ask me 3. SDOH Health Related Social Needs: Health related social needs risk of homeless lonely/is olated Health related social needs details N/A Health related social needs details: N/A
== END 2024-11-08 16:05 | disposition home or self-care (01) | DRG 661 ==
LOC: ER 23:27 → MS 23:51
PROVIDERS: Urology; Admitting Provider Hospitalist; Emergency Provider Emergency Medicine; PCP Family Medicine; Responsible Provider Family Medicine; Visit Provider Hospitalist
PROC: BT1FZZZ Fluoroscopy of Left Kidney, Ureter and Bladder (ICD-10-PCS; CPT 74450; principal; 2024-11-07 11:30)
DX: R31.0 Gross hematuria (principal); E11.65 Type 2 diabetes mellitus with hyperglycemia; I10 Essential (primary) hypertension; R33.8 Other retention of urine; N28.89 Other specified disorders of kidney and ureter; N13.30 Unspecified hydronephrosis; Z79.84 Long term (current) use of oral hypoglycemic drugs; Z79.4 Long term (current) use of insulin; M54.50 Low back pain, unspecified; D51.0 Vitamin B12 deficiency anemia due to intrinsic factor deficiency; K57.30 Diverticulosis of large intestine without perforation or abscess without bleeding; Z87.442 Personal history of urinary calculi; G89.29 Other chronic pain; F17.220 Nicotine dependence, chewing tobacco, uncomplicated
CPT/HCPCS: 52332; 52001; 00123; 36415; 80053; 96361; 96365; 96366; 96367; 96375; 99222; 99232; 99285; 74177; 74178; 74420; 81003; 81015; 83036; 83735; 85025; 87086; 99239; J0131; J0690; J0696; J1100; J1171; J1815; J1885; J2003; J2405; J2704; J3010; J3475; J3490; Q9967

== ENCOUNTER → 2024-11-07 13:50 | Outpatient (BNVA) | payer MEDICARE, OTHER, SELFPAY | PROVIDERS: PCP Family Medicine; Referring Provider Family Medicine; Visit Provider Urology ==

== ENCOUNTER → 2024-11-11 13:23 | Outpatient (BNVA) | payer MEDICARE, OTHER, SELFPAY | PROVIDERS: PCP Family Medicine; Referring Provider Family Medicine; Visit Provider Urology | DX: N28.89 Other specified disorders of kidney and ureter (principal); R31.0 Gross hematuria | CPT/HCPCS: 99214 ==

== ENCOUNTER 2024-12-18 13:15 | Emergency (ER) | payer MEDICARE, OTHER, SELFPAY ==
[2024-12-18 13:36] VITALS: BP 152/72; PULSE 87; RESP 18; TEMP 36.7; O2SAT 96
[2024-12-18 13:41] VITALS: BP 152/72; PULSE 87; RESP 16; TEMP 36.7; O2SAT 98
--- NOTE | 2024-12-18 15:03 | W.ED.GENAD ---
Discharge Plan Discharge Details Chief Complaint: Urinary Primary Care Provider: Miguel Guzman ED Provider: Angela Weber Home Meds and New Rx's Prescriptions: No Action metformin 1,000 mg tablet 1,000 mg PO BID Qty: 180 3RF cinnamon bark 500 MG capsule 500 mg PO DAILY (DME) Blood Glucose Test 1 EACH strip 1 ea Miscellaneous DAILY Qty: 100 Rx Instructions: E11.9 one touch test strips (DME) pen needle, diabetic [Comfort EZ Pen [place]] 33 gauge x 3/16 needle See Rx Instructions .ROUTE .MEDSUPPLY Qty: 100 3RF Rx Instructions: inject once/day metoprolol succinate 25 mg tablet extended release 24 hr 25 mg PO DAILY Qty: 90 3RF losartan-hydrochlorothiazide [Hyzaar] 100-25 mg tablet 1 tab PO DAILY Qty: 90 3RF amlodipine 10 mg tablet 10 mg PO DAILY Qty: 90 3RF atorvastatin 10 mg tablet 10 mg PO DAILY Qty: 90 3RF multivitamin [Daily Multi-Vitamin] 1 EACH tablet 1 tab PO DAILY cyanocobalamin (vitamin B-12) [Vitamin B-12] 1,000 MCG tablet 1,000 mcg PO DAILY aspirin [Aspir-81] 81 MG tablet,delayed release (DR/EC) 81 mg PO DAILY garlic 1 EACH capsule 1 cap PO DAILY glipizide 10 mg tablet 10 mg PO DAILY Qty: 90 0RF Rx Instructions: stop long acting version insulin glargine-yfgn 100 unit/mL (3 mL) insulin pen 20 unit subcut QPM Qty: 15 8RF tamsulosin 0.4 mg capsule 0.4 mg PO DAILY Patient Comments: TAKE 1 CAPSULE BY MOUTH EVERY EVENING 30 MINUTES AFTER DINNER HPI General Date/Time Provider Initiated Documentation: 12/18/24 13:22. HPI Narrative: This 69-year-old male presents with recent diagnosis of stage II left renal cell carcinoma seen at [facility] and had a Carrillo catheter placed with urologist on Thursday and today then flew was clotted around 10 AM and he has not been passing much urine since that time. Denies any fever or chills. States he is scheduled for a repeat appointment on Thursday with a urologist. Scheduled to have surgery for kidney removal in 6 weeks. Denies any weakness or dizziness. Denies any history of coagulopathy. Denies fever chills nausea or vomiting. Related Data Home Medications ?Medication ?Instructions ?Recorded ?Confirmed aspirin 81 mg tablet,delayed 81 mg PO DAILY 11/17/12 12/18/24 release (Aspir-) cyanocobalamin (vitamin B-12) 1,000 mcg PO DAILY 11/17/12 12/18/24 1,000 mcg tablet (Vitamin B-12) garlic 1 cap PO DAILY 11/17/12 12/18/24 multivitamin (Daily Multi-Vitamin 1 tab PO DAILY 11/17/12 12/18/24 tablet) cinnamon bark 500 mg capsule 500 mg PO DAILY 02/25/16 12/18/24 blood sugar diagnostic (Blood #100 strips 09/05/16 12/18/24 Glucose Test strips) pen needle, diabetic 33 gauge x #100 ea 12/21/23 12/18/2406/26 (Comfort EZ Pen [place]) metoprolol succinate 25 mg 25 mg PO DAILY #90 tabs 02/02/24 12/18/24 tablet,extended release 24 hr losartan 100 1 tab PO DAILY ##90 03/07/24 12/18/24 mg-hydrochlorothiazide 25 mg tablet (Hyzaar) amlodipine 10 mg tablet 10 mg PO DAILY #90 tabs 03/08/24 12/18/24 atorvastatin 10 mg tablet 10 mg PO DAILY #90 tabs 05/02/24 12/18/24 metformin 1,000 mg tablet 1,000 mg PO BID #180 tab-caps 06/16/24 12/18/24 glipizide 10 mg tablet 10 mg PO DAILY #90 tabs 11/08/24 12/18/24 insulin glargine-yfgn 100 unit/mL 20 unit (0.2 mL) subcut QPM #15 mL 11/08/24 12/18/24 (3 mL) subcutaneous pen tamsulosin 0.4 mg capsule 0.4 mg PO DAILY 12/18/24 12/18/24 Previous Rx's ?Medication ?Instructions ?Recorded pen needle, diabetic 33 gauge x #100 ea 12/21/2306/26 (Comfort EZ Pen [place]) metoprolol succinate 25 mg 25 mg PO DAILY #90 tabs 02/02/24 tablet,extended release 24 hr losartan 100 1 tab PO DAILY ##90 03/07/24 mg-hydrochlorothiazide 25 mg tablet (Hyzaar) amlodipine 10 mg tablet 10 mg PO DAILY #90 tabs 03/08/24 atorvastatin 10 mg tablet 10 mg PO DAILY #90 tabs 05/02/24 metformin 1,000 mg tablet 1,000 mg PO BID #180 tab-caps 06/16/24 glipizide 10 mg tablet 10 mg PO DAILY #90 tabs 11/08/24 insulin glargine-yfgn 100 unit/mL 20 unit (0.2 mL) subcut QPM #15 mL 11/08/24 (3 mL) subcutaneous pen Allergies Allergy/AdvReac Type Severity Reaction Status Date / Time No Known Allergies Allergy Verified 12/18/24 13:41 General Stated Complaint: Urinary BLAKE: 3 Exam Narrative Exam Narrative: Alert and oriented 69-year-old male in no acute distress, there is a large clot noted at the proximal end of his catheter there is no CVA tenderness no abdominal tenderness patient is alert and oriented and ambulatory Course Vital Signs Vital signs: Vital Signs Temperature 36.7 C 12/18/24 13:36 Pulse 87 12/18/24 13:36 Respiratory Rate 18 12/18/24 13:36 Blood Pressure 152/72 H 12/18/24 13:36 Pulse Oximetry 96 12/18/24 13:36 Temperature 36.7 C 12/18/24 13:41 Temperature Source Oral 12/18/24 13:41 Pulse 87 12/18/24 13:41 Respiratory Rate 16 12/18/24 13:41 Blood Pressure 152/72 H 12/18/24 13:41 Blood Pressure Position Sitting 12/18/24 13:41 Pulse Oximetry 98 12/18/24 13:41 Oxygen Delivery Method Room Air 12/18/24 13:41 Oxygen Flow Rate 0 12/18/24 13:36 Pain Level 0 12/18/24 14:01 Medical Decision Making Alert and oriented 69-year-old male in no acute distress. Carrillo catheter was irrigated by patient's nurse Yonny and the clot was resolved. We evaluated for a period of time after and educated family on how to irrigate clot at home. Think at this point bladder scan shows 14 cc in the bladder and Carrillo catheter appears to be functioning. Patient is hemodynamically stable I do not see any urgent need for imaging. Discharged home in stable condition with stable vitals Quality:SDOH Health Related Social Needs: Health related social needs risk of homeless lonely/isolated Health related social needs details N/A [facility] All Active Problems (Updated 11/29/24 @ 09:49 by Jan Mak MD) Renal cell carcinoma (Acute) Left renal mass (Acute) Acute pyelonephritis (Acute) Arthritis pain, hip (Acute) Sarcoidosis (Acute 01/09/14) Overweight (Chronic) Ear congestion (Acute) likely ET dysfunction due to recent cold / ? allergy Diabetes mellitus (Chronic) A1c in office today 7.9 Hypertension (Chronic) not well controlled today Cough (Acute) likely viral bronchitis Erectile dysfunction (Chronic) Glucose intolerance (Acute) 02/15/18 LLUVIA LOJA; GLUCOSE 156 Lumbago (Acute) Fracture of distal phalanx of finger (Acute 11/23/12) Type 2 diabetes mellitus without complication, without long-term current use of insulin (Acute 02/25/16) Tobacco use disorder (Acute) CHEWS TOBACCO Sexual function problem (Acute) Pernicious anemia (Acute) Onychomycosis (Acute) Medial meniscus tear (Acute) RIGHT-04/02/16 Knee pain (Acute) ? MENISCUS Hiatal hernia (Acute) Essential hypertension (Acute) Dysplastic nevi (Acute 08/26/17) multiple Diverticulosis of colon without diverticulitis (Acute) Diabetes mellitus type 2, uncontrolled (Acute 03/24/14) Surgical History History of back surgery (~02/15/18) LLUVIA LOJA crushed thumb (11/17/12) Kidney Stone Extraction (~2004) Colonoscopy - IV Sedation (02/19/15) DR.C. WREN Arthroplasty of knee 04/02/16-RIGHT;DR. GUARDADO 08/19/16 RIGHT;[facility] Family History Mother , AGE 78 Essential hypertension MS (multiple sclerosis) Throat cancer Father Essential hypertension Diabetes Heart disease Sister Essential hypertension Diabetes Brother Essential hypertension Diabetes Maternal Grandfather , AGE 69 Essential hypertension Heart disease Paternal Grandfather , AGE 85 Essential hypertension Heart disease Maternal Grandmother , AGE 94 Essential hypertension Heart disease Paternal Grandmother , AGE 90 Essential hypertension Heart disease Son Substance abuse Son No problems noted. Daughter No problems noted. Social History Smoking/Tobacco Use Status: Current every day Tobacco Type: smokeless tobacco Tobacco: How many years used: 40 Smokeless tobacco user: chewing tobacco Quit status: has quit before Second Hand Exposure: Yes Smoking risk assessment performed?: Yes Alcohol Intake: former Drug use: Never Substance use type: does not use Counseling given: No Adopted: No Caregiver/Support person: No Household members: spouse Housing: house Communication Needs: None Do you need help understanding health information?: Rarely Pets and animals: No Sexually active: Yes Do you think of yourself as: straight/heterosexual Current gender identity: male What is your relationship status?: How often do you talk on the phone with friends or family?: three or more times per week How often do you get together with friends or relatives?: decline to answer How often do you attend mormon or christian services?: decline to answer Do you belong to any clubs or organized social groups?: no Panel score (0-1 are the most socially isolated patients): 2 What type of physical activity do you participate in: walking Duration: 15-30 minutes/day Frequency: 3-4 times per week Adilene/Druze: No preference Special adilene needs: No Seatbelt use: always Helmet use: Yes Helmet use: always Drive intox 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
[2024-12-18 15:27] VITALS: BP 133/50; PULSE 89; RESP 16; TEMP 36.6; O2SAT 99
== END 2024-12-18 15:28 | disposition home or self-care (01) ==
PROVIDERS: Emergency Provider Physician Assistant; PCP Family Medicine
DX: T83.091A Other mechanical complication of indwelling urethral catheter, initial encounter (principal); Z59.811 Housing instability, housed, with risk of homelessness; Z60.8 Other problems related to social environment
CPT/HCPCS: 99283 ×2

== ENCOUNTER 2024-12-20 15:16 | Inpatient (IN) | payer MEDICARE, OTHER, SELFPAY ==
[2024-12-20] VITALS (45 sets, daily range): BP systolic 148–176; BP diastolic 33–82; PULSE 64–85; RESP 16–20; TEMP 36.5–36.8; O2SAT 93–100
--- NOTE | 2024-12-20 15:41 | W.ED.GENAD ---
Discharge Plan Disposition Patient Disposition: Admit to [facility] Condition: Stable Discharge Details Clinical Impression: Gross hematuria, Renal cell carcinoma, Complication, blocked Carrillo catheter Admit Date/Time: 12/20/24 22:37 Admit Provider: Prabhjot Cortes Attending Provider: Prabhjot Cortes Primary Care Provider: Miguel Guzman ED Provider: Scott Michele [facility] General Mode of arrival: ambulatory. Date/Time Provider Initiated Documentation: 12/20/24 15:33. Limitations to Documentation: no limitations. Information obtained by: patient, RN notes reviewed and old records reviewed. HPI Narrative: Patient sent to ED from primary care with recurrent Carrillo catheter blockage, gross hematuria. Patient with known left renal carcinoma pending surgery at [facility] January 27. Was initially admitted here in October for gross hematuria which is how diagnosis was initially discovered. He has since undergone biopsy which is confirmed renal cell carcinoma. He initially had bleeding back in October for couple of days. Subsequently resolved. He does have a left ureteral stent in place. He was seen here 2 days prior to this visit for gross hematuria and clot retention. This was cleared with hand irrigation. He has continued to have bleeding and had followed up with primary care and was referred here for recurrent retention. Related Data Home Medications ?Medication ?Instructions ?Recorded ?Confirmed aspirin 81 mg tablet,delayed 81 mg PO DAILY 11/17/12 12/20/24 release (Aspir-) cyanocobalamin (vitamin B-12) 1,000 mcg PO DAILY 11/17/12 12/20/24 1,000 mcg tablet (Vitamin B-12) garlic 1 cap PO DAILY 11/17/12 12/20/24 multivitamin (Daily Multi-Vitamin 1 tab PO DAILY 11/17/12 12/20/24 tablet) cinnamon bark 500 mg capsule 500 mg PO DAILY 02/25/16 12/20/24 blood sugar diagnostic (Blood #100 strips 09/05/16 12/20/24 Glucose Test strips) pen needle, diabetic 33 gauge x #100 ea 12/21/23 12/20/2406/26 (Comfort EZ Pen [place]) metoprolol succinate 25 mg 25 mg PO DAILY #90 tabs 02/02/24 12/20/24 tablet,extended release 24 hr losartan 100 1 tab PO DAILY ##90 03/07/24 12/20/24 mg-hydrochlorothiazide 25 mg tablet (Hyzaar) amlodipine 10 mg tablet 10 mg PO DAILY #90 tabs 03/08/24 12/20/24 atorvastatin 10 mg tablet 10 mg PO DAILY #90 tabs 05/02/24 12/20/24 metformin 1,000 mg tablet 1,000 mg PO BID #180 tab-caps 06/16/24 12/20/24 glipizide 10 mg tablet 10 mg PO DAILY #90 tabs 11/08/24 12/20/24 insulin glargine-yfgn 100 unit/mL 20 unit (0.2 mL) subcut QPM #15 mL 11/08/24 12/20/24 (3 mL) subcutaneous pen tamsulosin 0.4 mg capsule 0.4 mg PO DAILY 12/18/24 12/20/24 Previous Rx's ?Medication ?Instructions ?Recorded pen needle, diabetic 33 gauge x #100 ea 12/21/2306/26 (Comfort EZ Pen [place]) metoprolol succinate 25 mg 25 mg PO DAILY #90 tabs 02/02/24 tablet,extended release 24 hr losartan 100 1 tab PO DAILY ##90 03/07/24 mg-hydrochlorothiazide 25 mg tablet (Hyzaar) amlodipine 10 mg tablet 10 mg PO DAILY #90 tabs 03/08/24 atorvastatin 10 mg tablet 10 mg PO DAILY #90 tabs 05/02/24 metformin 1,000 mg tablet 1,000 mg PO BID #180 tab-caps 06/16/24 glipizide 10 mg tablet 10 mg PO DAILY #90 tabs 11/08/24 insulin glargine-yfgn 100 unit/mL 20 unit (0.2 mL) subcut QPM #15 mL 11/08/24 (3 mL) subcutaneous pen Allergies Allergy/AdvReac Type Severity Reaction Status Date / Time No Known Allergies Allergy Verified 12/20/24 15:34 General Stated Complaint: Urinary BLAKE: 3 Exam Narrative Exam Narrative: Const: WDWN male in NAD. VS per triage. HEENT: NC/AT. Normal facial exam. Neck: Supple. Trachea midline. Lungs: Normal respiratory effort. Lungs are clear. Cor: RRR without murmur. Good radial pulses. GI: Soft/ND except in suprapubic area which is also mildly tender, likely bladder distension. Neuro: A+O x 3. Normal speech, mentation, gait. Cranial nerves II - XII grossly intact. No gross motor or sensory deficit. Ext: No C/C/E. Course Vital Signs Vital signs: Vital Signs Temperature 97.7 F 12/20/24 15:35 Pulse 73 12/20/24 15:35 Respiratory Rate 20 12/20/24 15:35 Blood Pressure 165/71 H 12/20/24 15:35 Pulse Oximetry 93 12/20/24 15:35 Temperature 97.7 F 12/20/24 15:38 Temperature Source Oral 12/20/24 15:38 Pulse 73 12/20/24 15:38 Respiratory Rate 20 12/20/24 15:38 Blood Pressure 165/71 H 12/20/24 15:38 Blood Pressure Position Sitting 12/20/24 15:38 Pulse Oximetry 93 12/20/24 15:38 Oxygen Delivery Method Room Air 12/20/24 15:38 Oxygen Flow Rate 0 12/20/24 15:38 Pain Level 8 12/20/24 15:38 Medical Decision Making Patient presenting with urinary retention secondary to clot/gross hematuria. He has known left renal cell carcinoma pending surgery in January. He has been seen by Dr. Mak here as well as by urology at [facility]. Currently has a left ureteral stent in place. Will exchange Carrillo catheter with a larger three-way Carrillo for irrigation and CBI. Will place IV and obtain BMP and H&H. Patient has had multiple clots removed by hand irrigation. He has had 2 large bags of bladder irrigation. Fluid is light pink with irrigation fluid running but as soon as it is clamped off becomes dark red once again. His H&H has dropped since October, now down to a hemoglobin of 8.2 previously 11.7. Kidney function just slightly worse at 1.4. I did obtain an x-ray of the abdomen. Left ureteral stent appears to be in appropriate position per my read. I did attempt to reach Dr. Mak but did not succeed. Therefore urology consult was obtained from [facility]. Discussed presentation and findings as well as continued gross hematuria despite hand irrigation and CBI. Recommend admission overnight for continued CBI, repeat H&H. Consider possible transfer to [facility] for IR intervention if continued significant gross hematuria or persistent drop in hemoglobin. Case discussed with hospitalist, Dr. Cortes, who will admit patient. Patient and agreeable with plan and admission here. Lab Data Lab results reviewed: Yes I reviewed the patient's lab results. Lab results narrative: see MDM Quality:SDOH Health Related Social Needs: Health related social needs risk of homeless lonely/isolated Health related social needs details N/A PFSH All Active Problems (Updated 12/20/24 @ 23:31 by Scott Michele MD) Complication, blocked Carrillo catheter (Acute) Renal cell carcinoma (Acute) Gross hematuria (Acute) Blood loss anemia (Acute) Urinary retention (Acute) Renal cell carcinoma (Acute) Hematuria (Acute) Complication, blocked Carrillo catheter (Acute) Renal cell carcinoma (Acute) Left renal mass (Acute) Acute pyelonephritis (Acute) Arthritis pain, hip (Acute) Sarcoidosis (Acute 01/09/14) Overweight (Chronic) Ear congestion (Acute) likely ET dysfunction due to recent cold / ? allergy Diabetes mellitus (Chronic) A1c in office today 7.9 Hypertension (Chronic) not well controlled today Cough (Acute) likely viral bronchitis Erectile dysfunction (Chronic) Glucose intolerance (Acute) 02/15/18 LLUVIA LOJA; GLUCOSE 156 Lumbago (Acute) Fracture of distal phalanx of finger (Acute 11/23/12) Type 2 diabetes mellitus without complication, without long-term current use of insulin (Acute 02/25/16) Tobacco use disorder (Acute) CHEWS TOBACCO Sexual function problem (Acute) Pernicious anemia (Acute) Onychomycosis (Acute) Medial meniscus tear (Acute) RIGHT-04/02/16 Knee pain (Acute) ? MENISCUS Hiatal hernia (Acute) Essential hypertension (Acute) Dysplastic nevi (Acute 08/26/17) multiple Diverticulosis of colon without diverticulitis (Acute) Diabetes mellitus type 2, uncontrolled (Acute 03/24/14) Surgical History History of back surgery (~02/15/18) LLUVIA LOJA crushed thumb (11/17/12) Kidney Stone Extraction (~2004) Colonoscopy - IV Sedation (02/19/15) DR.C. WREN Arthroplasty of knee 04/02/16-RIGHT;DR. GUARDADO 08/19/16 RIGHT;[facility] Family History Mother , AGE 78 Essential hypertension MS (multiple sclerosis) Throat cancer Father Essential hypertension Diabetes Heart disease Sister Essential hypertension Diabetes Brother Essential hypertension Diabetes Maternal Grandfather , AGE 69 Essential hypertension Heart disease Paternal Grandfather , AGE 85 Essential hypertension Heart disease Maternal Grandmother , AGE 94 Essential hypertension Heart disease Paternal Grandmother , AGE 90 Essential hypertension Heart disease Son Substance abuse Son No problems noted. Daughter No problems noted. Social History Smoking/Tobacco Use Status: Current every day Tobacco Type: smokeless tobacco Tobacco: How many years used: 40 Smokeless tobacco user: chewing tobacco Quit status: has quit before Second Hand Exposure: Yes Smoking risk assessment performed?: Yes Alcohol Intake: former Drug use: Never Substance use type: does not use Counseling given: No Adopted: No Caregiver/Support person: No Household members: spouse Housing: house Communication Needs: None Do you need help understanding health information?: Rarely Pets and animals: No Sexually active: Yes Do you think of yourself as: straight/heterosexual Current gender identity: male What is your relationship status?: How often do you talk on the phone with friends or family?: three or more times per week How often do you get together with friends or relatives?: decline to answer How often do you attend holiness or roman catholic services?: decline to answer Do you belong to any clubs or organized social groups?: no Panel score (0-1 are the most socially isolated patients): 2 What type of physical activity do you participate in: walking Duration: 15-30 minutes/day Frequency: 3-4 times per week Adilene/Judaism: No preference Special adilene needs: No Seatbelt use: always Helmet use: Yes Helmet use: always Drive intox 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
[2024-12-20] MEDS: Lidocaine 2% Jelly 11 ML SYR (16:20)
[2024-12-20 17:23] LABS: HCT 23.9 % (40.0-50.0); HGB 8.2 g/dL (13.5-17.5)
[2024-12-20 17:31] LABS: Anion Gap 7.2 mmol/L (3-11); BUN 18 mg/dL (7-18); CO2 30.8 mmol/L (21.0-32.0); Calcium 9.0 mg/dL (8.5-10.1); Chloride 96 mmol/L (98-107); Estimated GFR 54.41 (mL/min/1.73m2); Glucose 175 mg/dL (74-106); Potassium 3.6 mmol/L (3.5-5.1); Sodium 134 mmol/L (136-145)
--- NOTE | 2024-12-20 19:00 | DI.RAD_ITS ---
Exam(s) XR ABDOMEN FLAT PLATE EXAM: 2D digital imaging was performed. CLINICAL HISTORY: check ureteral stent position. COMPARISON: CT CT ABDOMEN PELVIS WO/W from 11/08/2024 TECHNIQUE: Supine views of the abdomen performed. FINDINGS: BOWEL GAS PATTERN: Nondistended. The proximal pigtail of the left ureteral stent is positioned adjacent to the left L4 transverse process. The inferior pigtail is positioned in the low pelvis. CALCIFICATIONS: No radiopaque calcifications are visible. OSSEOUS STRUCTURES: Unrem prominent enthesophytes. Bilateral hip joint space narrowing. Visualized lung bases: Clear. IMPRESSION: 1. Nonobstructive bowel gas pattern. 2. Left ureteral stent is positioned at the level of the left L4 transverse process. This appears somewhat more inferiorly and medially positioned when compared with the previous CT. The preliminary [facility] report was reviewed. DATA REPOSITORY: RADIATION DOSE DELIVERED:
--- NOTE | 2024-12-20 20:59 | DI.[facility]_ITS ---
PROCEDURE INFORMATION: Exam: XR Abdomen Exam date and time: 12/20/2024 7:49 PM Age: 69 years old Clinical indication: Device placement; Urinary device; Other: Check ureteral stent placement TECHNIQUE: Imaging protocol: Radiologic exam of the abdomen. Views: Frontal supine view of the abdomen. 1 View. COMPARISON: CT ABDOMEN PELVIS WO/W 11/08/2024 8:51 AM FINDINGS: Tubes, catheters and devices: A double pigtail ureteral stent is seen on the left with its proximal loop adjacent to the L3-L4 disc space and its distal loop projecting in the central pelvis in the expected location of the urinary bladder. Gastrointestinal tract: The stomach is mildly distended with gas. There is extensive mild gas-filled distention of the visualized small bowel and colon. Intraperitoneal space: Within the limits of the exam, no free air is demonstrated. Bones/joints: The visualized bony structures appear grossly intact. Numerous enthesophytes are demonstrated in the pelvis. There is apparent ankylosis of the lower thoracic spine extending to the L2 level. IMPRESSION: 1. Extensive gas-filled distention of the stomach, small bowel, and colon. 2. Double pigtail ureteral stent in-situ on the left with its proximal loop adjacent to the L3-L4 disc space and its distal loop projecting in the central pelvis in the expected location of the urinary bladder. Dictated and Authenticated by: Oziel Norwood MD. Orderin Ryne Chavez MD
--- NOTE | 2024-12-20 21:38 | W.PM.HP.N ---
Date of service: 12/20/24 Time of Service: 21:38 Assessment and Plan Assessment and plan (1) Hematuria: Status: Acute Assessment and plan: -Likely secondary to renal cell carcinoma - Urology consulted at [facility] [place] they recommended continuous bladder irrigation and rechecking hemoglobin in the morning - If hemoglobin drops significantly enough to require blood transfusion, would recommend reaching back out for potential IR embolization as this is likely due to renal cell carcinoma - Continue bladder irrigation, follow-up a.m. CBC (2) Blood loss anemia: Status: Acute Assessment and plan: -This is presumed secondary to renal cell carcinoma as noted above - Last hemoglobin at the end of October was about 11, down to eight 8.2 in ED - Will transfuse if less than 7 (3) Renal cell carcinoma: Status: Acute Assessment and plan: - History of renal cell carcinoma being scheduled for urologic procedure at [facility] - Recommend close follow-up or contact with urology showed hematuria continue (4) Hypertension: Status: Chronic Assessment and plan: - Holding home antihypertensives in the setting of blood loss and potential for hypotension - Restart antihypertensives as tolerated (5) Type 2 diabetes mellitus without complication, without long-term current use of insulin: Status: Acute Assessment and plan: - Holding home metformin, glipizide and at bedtime insulin - N.p.o. in the event patient needs to be transferred for IR embolization - Every 6 hour blood sugar checks, sliding scale insulin Review of Systems All systems reviewed & are unremarkable except as noted in HPI and below PFSH All Active Problems (Updated 12/20/24 @ 23:31 by Scott Michele MD) Complication, blocked Carrillo catheter (Acute) Renal cell carcinoma (Acute) Gross hematuria (Acute) Blood loss anemia (Acute) Urinary retention (Acute) Renal cell carcinoma (Acute) Hematuria (Acute) Complication, blocked Carrillo catheter (Acute) Renal cell carcinoma (Acute) Left renal mass (Acute) Acute pyelonephritis (Acute) Arthritis pain, hip (Acute) Sarcoidosis (Acute 01/09/14) Overweight (Chronic) Ear congestion (Acute) likely ET dysfunction due to recent cold / ? allergy Diabetes mellitus (Chronic) A1c in office today 7.9 Hypertension (Chronic) not well controlled today Cough (Acute) likely viral bronchitis Erectile dysfunction (Chronic) Glucose intolerance (Acute) 02/15/18 LLUVIA LOJA; GLUCOSE 156 Lumbago (Acute) Fracture of distal phalanx of finger (Acute 11/23/12) Type 2 diabetes mellitus without complication, without long-term current use of insulin (Acute 02/25/16) Tobacco use disorder (Acute) CHEWS TOBACCO Sexual function problem (Acute) Pernicious anemia (Acute) Onychomycosis (Acute) Medial meniscus tear (Acute) RIGHT-04/02/16 Knee pain (Acute) ? MENISCUS Hiatal hernia (Acute) Essential hypertension (Acute) Dysplastic nevi (Acute 08/26/17) multiple Diverticulosis of colon without diverticulitis (Acute) Diabetes mellitus type 2, uncontrolled (Acute 03/24/14) Surgical History History of back surgery (~02/15/18) LLUVIA LOJA crushed thumb (11/17/12) Kidney Stone Extraction (~2004) Colonoscopy - IV Sedation (02/19/15) DR.C. WREN Arthroplasty of knee 04/02/16-RIGHT;DR. GUARDADO 08/19/16 RIGHT;[facility] Family History Mother , AGE 78 Essential hypertension MS (multiple sclerosis) Throat cancer Father Essential hypertension Diabetes Heart disease Sister Essential hypertension Diabetes Brother Essential hypertension Diabetes Maternal Grandfather , AGE 69 Essential hypertension Heart disease Paternal Grandfather , AGE 85 Essential hypertension Heart disease Maternal Grandmother , AGE 94 Essential hypertension Heart disease Paternal Grandmother , AGE 90 Essential hypertension Heart disease Son Substance abuse Son No problems noted. Daughter No problems noted. Social History Smoking/Tobacco Use Status: Current every day Tobacco Type: smokeless tobacco Tobacco: How many years used: 40 Smokeless tobacco user: chewing tobacco Quit status: has quit before Second Hand Exposure: Yes Smoking risk assessment performed?: Yes Alcohol Intake: former Drug use: Never Substance use type: does not use Counseling given: No Adopted: No Caregiver/Support person: No Household members: spouse Housing: house Communication Needs: None Do you need help understanding health information?: Rarely Pets and animals: No Sexually active: Yes Do you think of yourself as: straight/heterosexual Current gender identity: male What is your relationship status?: How often do you talk on the phone with friends or family?: three or more times per week How often do you get together with friends or relatives?: decline to answer How often do you attend rastafarian or islam services?: decline to answer Do you belong to any clubs or organized social groups?: no Panel score (0-1 are the most socially isolated patients): 2 What type of physical activity do you participate in: walking Duration: 15-30 minutes/day Frequency: 3-4 times per week Adilene/Christianity: No preference Special adilene needs: No Seatbelt use: always Helmet use: Yes Helmet use: always Drive intox or ride w/intox pile driver: No Do you feel safe at home: Yes Do you feel safe in your relationship?: Yes Meds Allergies and Home Medications Allergies Allergy/AdvReac Type Severity Reaction Status Date / Time No Known Allergies Allergy Verified 12/20/24 15:34 Home Medications ?Medication ?Instructions ?Recorded ?Confirmed ?Type aspirin 81 mg tablet,delayed 81 mg PO DAILY 11/17/12 12/21/24 History release (Aspir-) cyanocobalamin (vitamin B-12) 1,000 mcg PO DAILY 11/17/12 12/21/24 History 1,000 mcg tablet (Vitamin B-12) garlic 1 cap PO DAILY 11/17/12 12/21/24 History multivitamin (Daily Multi-Vitamin 1 tab PO DAILY 11/17/12 12/21/24 History tablet) cinnamon bark 500 mg capsule 500 mg PO DAILY 02/25/16 12/21/24 History blood sugar diagnostic (Blood #100 strips 09/05/16 12/21/24 History Glucose Test strips) pen needle, diabetic 33 gauge x #100 ea 12/21/23 12/21/24 Rx / (Comfort EZ Pen Accident) metoprolol succinate 25 mg 25 mg PO DAILY #90 tabs 02/02/24 12/21/24 Rx tablet,extended release 24 hr losartan 100 1 tab PO DAILY ##90 03/07/24 12/21/24 Rx mg-hydrochlorothiazide 25 mg tablet (Hyzaar) amlodipine 10 mg tablet 10 mg PO DAILY #90 tabs 03/08/24 12/21/24 Rx atorvastatin 10 mg tablet 10 mg PO DAILY #90 tabs 05/02/24 12/21/24 Rx metformin 1,000 mg tablet 1,000 mg PO BID #180 tab-caps 06/16/24 12/21/24 Rx glipizide 10 mg tablet 10 mg PO DAILY #90 tabs 11/08/24 12/21/24 Rx insulin glargine-yfgn 100 unit/mL 20 unit (0.2 mL) subcut QPM #15 mL 11/08/24 12/21/24 Rx (3 mL) subcutaneous pen tamsulosin 0.4 mg capsule 0.4 mg PO DAILY 12/18/24 12/21/24 History Exam Narrative Exam Narrative: Well-appearing older gentleman laying in bed in no acute distress, ANO x 4, heart regular rhythm, lungs good auscultation bilaterally, abdomen soft, nontender, nondistended, Carrillo catheter in place with CBI, pink fluid and cath tubing and collection tub Results Labs 12/21/24 05:35 12/20/24 17:15 Labs: Laboratory Results - last 24 hr 12/20/24 12/20/24 17:15 19:18 Hgb 8.2 L Hct 23.9 L Sodium 134 L Potassium 3.6 Chloride 96 L Carbon Dioxide 30.8 Anion Gap 7.2 BUN 18 Creatinine 1.4 H Est GFR (CKD-EPI 2020) 54.41 Glucose 175 H Calcium 9.0 ABO/Rh A Positive Antibody Screen NEGATIVE Last Vital Signs Temp 97.7 F 12/20/24 15:38 Pulse 73 12/20/24 15:38 Resp 20 12/20/24 15:38 BP 165/71 H 12/20/24 15:38 Pulse Ox 93 12/20/24 15:38 Time Spent Time spent with Patient: >75 minutes Time was spent: preparing to see the patient(eg.review tests), obtaining and/or reviewing separately otained hiistory, ordering medications,tests, procedures, referring, communicating with other health career guidance technician, indepentently interpreting results, counseling the patient and care coordination
--- NOTE | 2024-12-20 22:42 | W.PC.ACHO ---
Registration Status: REG ER Primary Language: Preferred Language: Hebrew ED Information & Data Chief Complaint Urinary 12/20/24 15:45 Triage Note Pt has renal cell carcinoma, 12/20/24 15:35 has cuellar catheter. Has hematuria usually, experiencing clotting of cuellar. Pt has tried to clear the clots at home, is obstructed and unable to get urine out. Feeling bladder is full. No fevers or chills reported. Pain in bladder /10 and goes into low back. (Last Reviewed 06/16/24 @ 14:40 by Miguel Guzman MD) History of back surgery (~02/15/18) crushed thumb (11/17/12) Kidney Stone Extraction (~2004) Colonoscopy - IV Sedation (02/19/15) Arthroplasty of knee Most Recent Vital Signs Temperature 36.5 C 12/20/24 15:38 Temperature Source Oral 12/20/24 15:38 Pulse 69 12/20/24 21:50 Respiratory Rate 20 12/20/24 15:38 Blood Pressure 148/55 H 12/20/24 21:46 Blood Pressure Mean 81 12/20/24 21:46 Blood Pressure Position Sitting 12/20/24 15:38 Pulse Oximetry 94 12/20/24 21:50 Oxygen Delivery Method Room Air 12/20/24 15:38 Oxygen Flow Rate 0 12/20/24 15:38 Pain Level 8 12/20/24 15:38 Allergies No Known Allergies Allergy (Verified 12/20/24 15:34) IV IV Catheter Type [Left Forearm Saline Lock ] IV Catheter Gauge [Left 20 Forearm] Diagnostics 12/20/24 12/20/24 Range/Units 19:18 17:15 Hgb 8.2 L (13.5-17.5) g/dL Hct 23.9 L (40.0-50.0) % Sodium 134 L (136-145) mmol/L Potassium 3.6 (3.5-5.1) mmol/L Chloride 96 L (98-107) mmol/L Carbon Dioxide 30.8 (21.0-32.0) mmol/L Anion Gap 7.2 (3-11) mmol/L BUN 18 (7-18) mg/dL Creatinine 1.4 H (0.70-1.30) mg/dL Est GFR (CKD-EPI 2020) 54.41 (mL/min/1.73m2) Glucose 175 H (74-106) mg/dL Calcium 9.0 (8.5-10.1) mg/dL ABO/Rh A Positive Antibody Screen NEGATIVE Intake and Output - 24 Hour Total 12/20/24 15:16 thru 12/20/24 18:47 Output Total 0 Balance 0 Weight 104.326 kg Output: Urine 0 Other: Urine Color Dark Red Urine Appearance Hematuria Clots Comment Hand irrigated numerous blood clots removed Falls Risk Assessment History of Falls No History 12/20/24 17:19 Contributing Factors No Factors 12/20/24 17:19 Ambulatory Aids Independent 12/20/24 17:19 Tubes/Lines None 12/20/24 17:19 Gait Evaluation No gait disturbance 12/20/24 17:19 Cognition No cognitive impairment 12/20/24 17:19 Fall Total Score 0 12/20/24 17:19 Level of Risk Standard/Low Risk 12/20/24 17:19 Problems (Last Reviewed 06/16/24 @ 14:40 by Miguel Guzman MD) Blood loss anemia (Acute) Renal cell carcinoma (Acute) Hematuria (Acute) Hypertension (Chronic) Type 2 diabetes mellitus without complication, without long-term current use of insulin (Acute 02/25/16) v v v v v v v v v Sending and/or Receiving Nurses: Please use comment section below to note any information pertinent to the patient hand-off not included above. Information / Comments: Patient has dx of renal cell Ca, seen at [facility] [place]. Has had a cuellar. At 10am on Thursday developed clots and bleeding and leaking of urine around penis. Now has CBI with a 22 beninese catheter, needs to be flushed frequently to for clots. Has seen Dr. Mak on Thursday, patient reports plan was to remove kidney in 6 weeks. Plan now to admit with CBI and hand irrigation. type and screen done. H/H 8.2/23.9 Report received from: GAL Beckham RN @ [id number]
[2024-12-21] MEDS: Insulin Aspart 300 UNITS/3 ML PEN SC ×5 (01:13→23:30)
[2024-12-21 04:03] VITALS: BP 132/67; PULSE 70; RESP 16; TEMP 36.6; O2SAT 96
[2024-12-21] MEDS: Acetaminophen 325 MG TAB 650 MG PO (06:50)
[2024-12-21 07:06] LABS: HCT 23.4 % (40.0-50.0); HGB 8.2 g/dL (13.5-17.5); MCH 34.2 pg (27.0-33.0); MCHC 35.0 % (32.0-36.0); MCV 98 fL (80-95); MPV 10.6 fL (8.0-11.0); Platelet Count 230 10^3/uL (130-400); RBC 2.40 10^6/uL (4.36-5.78); RDW 11.8 % (11.8-14.1); RDW-SD 41.2 fL; WBC 4.16 10^3/uL (4.4-10.8)
[2024-12-21 07:13] VITALS: BP 136/73; PULSE 64; RESP 18; TEMP 36.9; O2SAT 96
[2024-12-21 07:21] LABS: Anion Gap 8.7 mmol/L (3-11); BUN 15 mg/dL (7-18); CO2 29.3 mmol/L (21.0-32.0); Calcium 8.9 mg/dL (8.5-10.1); Chloride 101 mmol/L (98-107); Estimated GFR 59.47 (mL/min/1.73m2); Glucose 171 mg/dL (74-106); Magnesium 2.0 mg/dL (1.8-2.4); Potassium 3.5 mmol/L (3.5-5.1); Sodium 139 mmol/L (136-145)
[2024-12-21] MEDS: Tamsulosin 0.4 MG CAPCR PO (09:04)
[2024-12-21] MEDS: Metoprolol CR 25 MG TABCR PO (09:04)
[2024-12-21] MEDS: Normal Saline Flush 10 ML SYR IVP ×2 (09:05→20:11)
[2024-12-21 11:23] VITALS: BP 131/67; PULSE 64; RESP 16; TEMP 36.5; O2SAT 95
--- NOTE | 2024-12-21 14:26 | INITIAL_ITS ---
Date of service: 12/21/24 Time of Service: 14:26 Care Management Initial Assmt Initial Assessment Reason for Hospitalization: Hematuria Functional Status/Living Situation Patient Presentation: Orlin was lying in bed, visiting with his , Hamida, when CM met with them. They were both pleasant and engaged well in conversation. Orlin stated that per MD, his morning labs will determine if he will need to have a blood transfusion, and there is a possibility that he could be transferred to [facility] [place], if he doesn't improve. Per report, his Hgb is stable, though he continues to have blood in his urine. Orlin stated that he has an appointment at [facility] on Thursday, and he is scheduled to have surgery at [facility] on 01/27/25. He expressed frustration about his surgery not being sooner, but also understands that they are a busy facility. He reported that he is independent in the community, and did not indicate a need for services at this time. CM will continue to follow. Town of Residence: [place] Resides with: Spouse (, Hamida) Significant Other/Family: Out of area Natural Supports: and three children, all who live in [place], but not local. 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 town of [place]) Instrumental Activities of Daily Living (ADLs): Independent Medications Medication Management: No Issues/Barriers identified Advance Directives Advance Directives: Do you have an Advance Directive: N , 11:06 AD On File at [facility]: N 11/17/12, 11:06 Date Asked 11/05/24 11/05/24, 19:18 AD Date Reviewed COLST On File at [facility] No 11/05/24, 19:18 COLST Date Scanned Code Status Resuscitation Status Full Code Insurance Coverage/Financial Issues Insurance: KAREN Walsh [facility] supplement Care Team Visit Care Team Role Provider Type Rao Mirza MD MD [facility] STAFF PHYSICIAN Miguel Guzman MD Primary Care Provider [facility] STAFF PHYSICIAN Scott Michele MD Emergency Provider [facility] STAFF PHYSICIAN Prabhjot Cortes MD Admit Provider [facility] STAFF PHYSICIAN Attending Provider Discharge Potential Discharge Needs: PCP F/U Appt Anticipated Barriers to Discharge: None Identified Patient/Family Education Needs: Review discharge instructions, discuss Ask Me Three Transportation: Private vehicle Plan: Anticipate Orlin will return home once medically cleared. His will drive him home via private vehicle. He will follow up with his PCP and discharge plan of care. CM will continue to follow. Social Determinants of Health Screening Social Determinants of health last assessed in clinic: 12/21/24 Will the Patient Participate in the Screening?: Yes Do you worry about having a steady place to live?: no Problems where you live: no known problems In the past 12 months, have you had to go without electric, gas, oil or water in your home?: no 1. Within the past 12 months, we worried whether our food would run out before we got money to buy more.: Never true 2. Within the past 12 months, the food we bought just didn't last and we didn't have money to get more.: Never true Has lack of transportation kept you from medical appointments or from doing things needed for daily living?: no Has anyone in your life made you feel unsafe or unsupported?: no How hard is it for you to pay for the very basics like food, housing, medical care, and heating? Would you say it is:: Not hard at all Do you want help finding or keeping work or a job?: I do not need or want help If for any reason you need help with day-to-day activities such as bathing, preparing meals, shopping, managing finances, etc., do you get the help you need?: I don?t need any help How often do you feel lonely or isolated from those around you?: Never Do you speak a language other than Bulgarian at home?: No Does the patient want assistance with any of the above?: No PFSH All Active Problems (Updated 12/20/24 @ 23:31 by Scott Michele MD) Complication, blocked Carrillo catheter (Acute) Renal cell carcinoma (Acute) Gross hematuria (Acute) Blood loss anemia (Acute) Urinary retention (Acute) Renal cell carcinoma (Acute) Hematuria (Acute) Complication, blocked Carrillo catheter (Acute) Renal cell carcinoma (Acute) Left renal mass (Acute) Acute pyelonephritis (Acute) Arthritis pain, hip (Acute) Sarcoidosis (Acute 01/09/14) Overweight (Chronic) Ear congestion (Acute) likely ET dysfunction due to recent cold / ? allergy Diabetes mellitus (Chronic) A1c in office today 7.9 Hypertension (Chronic) not well controlled today Cough (Acute) likely viral bronchitis Erectile dysfunction (Chronic) Glucose intolerance (Acute) 02/15/18 LLUVIA LOJA; GLUCOSE 156 Lumbago (Acute) Fracture of distal phalanx of finger (Acute 11/23/12) Type 2 diabetes mellitus without complication, without long-term current use of insulin (Acute 02/25/16) Tobacco use disorder (Acute) CHEWS TOBACCO Sexual function problem (Acute) Pernicious anemia (Acute) Onychomycosis (Acute) Medial meniscus tear (Acute) RIGHT-04/02/16 Knee pain (Acute) ? MENISCUS Hiatal hernia (Acute) Essential hypertension (Acute) Dysplastic nevi (Acute 08/26/17) multiple Diverticulosis of colon without diverticulitis (Acute) Diabetes mellitus type 2, uncontrolled (Acute 03/24/14) Surgical History History of back surgery (~02/15/18) LLUVIA LOJA crushed thumb (11/17/12) Kidney Stone Extraction (~2004) Colonoscopy - IV Sedation (02/19/15) DR.C. WREN Arthroplasty of knee 04/02/16-RIGHT;DR. GUARDADO 08/19/16 RIGHT;[facility] Family History Mother , AGE 78 Essential hypertension MS (multiple sclerosis) Throat cancer Father Essential hypertension Diabetes Heart disease Sister Essential hypertension Diabetes Brother Essential hypertension Diabetes Maternal Grandfather , AGE 69 Essential hypertension Heart disease Paternal Grandfather , AGE 85 Essential hypertension Heart disease Maternal Grandmother , AGE 94 Essential hypertension Heart disease Paternal Grandmother , AGE 90 Essential hypertension Heart disease Son Substance abuse Son No problems noted. Daughter No problems noted. Social History Smoking/Tobacco Use Status: Current every day Tobacco Type: smokeless tobacco Tobacco: How many years used: 40 Smokeless tobacco user: chewing tobacco Quit status: has quit before Second Hand Exposure: Yes Smoking risk assessment performed?: Yes Alcohol Intake: former Drug use: Never Substance use type: does not use Counseling given: No Adopted: No Caregiver/Support person: No Household members: spouse Housing: house Communication Needs: None Do you need help understanding health information?: Rarely Pets and animals: No Sexually active: Yes Do you think of yourself as: straight/heterosexual Current gender identity: male What is your relationship status?: How often do you talk on the phone with friends or family?: three or more times per week How often do you get together with friends or relatives?: decline to answer How often do you attend congregational or episcopal services?: decline to answer Do you belong to any clubs or organized social groups?: no Panel score (0-1 are the most socially isolated patients): 2 What type of physical activity do you participate in: walking Duration: 15-30 minutes/day Frequency: 3-4 times per week Adilene/Gnosticist: No preference Special adilene needs: No Seatbelt use: always Helmet use: Yes Helmet use: always Drive intox or ride w/intox taxi 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
--- NOTE | 2024-12-21 16:49 | CHAPLAIN ---
Orlin was resting bed when I visited. His was with him. I explained my role and offered support.
--- NOTE | 2024-12-21 17:00 | PGE_ITS ---
Date of Service Date of service: 12/20/24 Time of Service: 08:00 Assessment and Plan Assessment and plan (1) Hematuria: Status: Acute Assessment and plan: -Likely secondary to renal cell carcinoma - Urology consulted at [facility] [place], they recommended continuous bladder irrigation and rechecking hemoglobin in the morning - If hemoglobin drops significantly enough to require blood transfusion, would recommend reaching back out for potential IR embolization as this is likely due to renal cell carcinoma - Continue bladder irrigation, follow-up a.m. CBC (2) Blood loss anemia: Status: Deleted Assessment and plan: -This is presumed secondary to renal cell carcinoma as noted above - Last hemoglobin at the end of October was about 11, down to eight 8.2 in ED - Will transfuse if less than 7 (3) Renal cell carcinoma: Status: Acute Assessment and plan: - History of renal cell carcinoma being scheduled for urologic procedure at [facility] - Recommend close follow-up or contact with urology showed hematuria continue (4) Hypertension: Status: Chronic Assessment and plan: - Holding home antihypertensives in the setting of blood loss and potential for hypotension - Restart antihypertensives as tolerated (5) Type 2 diabetes mellitus without complication, without long-term current use of insulin: Status: Acute Assessment and plan: - Holding home metformin, glipizide and at bedtime insulin - N.p.o. in the event patient needs to be transferred for IR embolization - Every 6 hour blood sugar checks, sliding scale insulin Subjective Subjective Interval history since last seen: Patient is comfortable in bed. No overnight events. No new complaints. Exam Narrative Exam Narrative: General: This is a very pleasant man in no distress HEENT: Normocephalic, atraumatic CV: RRR Resp: CTAB Abd: soft, NTND : triple cuellar, CBI, clear pink fluid output MSK: voluntary motion x4 Neuro: awake, alert, no focal deficits Objective Last Vital Signs Temp 36.5 C 12/21/24 11:23 Pulse 64 12/21/24 11:23 Resp 16 12/21/24 11:23 BP 131/67 12/21/24 11:23 Pulse Ox 95 12/21/24 11:23 Laboratory Results - last 24 hr 12/20/24 12/20/24 12/21/24 17:15 19:18 05:40 WBC 4.16 L RBC 2.40 L Hgb 8.2 L 8.2 L Hct 23.9 L 23.4 L MCV 98 H MCH 34.2 H MCHC 35.0 RDW 11.8 Plt Count 230 MPV 10.6 Sodium 134 L 139 Potassium 3.6 3.5 Chloride 96 L 101 Carbon Dioxide 30.8 29.3 Anion Gap 7.2 8.7 BUN 18 15 Creatinine 1.4 H 1.3 Est GFR (CKD-EPI 2020) 54.41 59.47 Glucose 175 H 171 H Calcium 9.0 8.9 Magnesium 2.0 ABO/Rh A Positive Antibody Screen NEGATIVE Time Spent with Patient Time Spent with Patient: 25-34 minutes Time was spent: preparing to see the patient(eg.review tests), obtaining and/or reviewing separately otained hiistory, ordering medications,tests, procedures, referring, communicating with other health health care / medical job titles, indepentently interpreting results, counseling the patient and care coordination
[2024-12-21] MEDS: Polyethylene Glycol 3350 17 GM PACKET PO (17:07)
[2024-12-21 17:34] VITALS: BP 136/67; PULSE 79; RESP 16; TEMP 36.3; O2SAT 95
[2024-12-21 19:39] VITALS: BP 120/45; PULSE 71; RESP 16; TEMP 36.8; O2SAT 94
[2024-12-21] MEDS: Atorvastatin 10 MG TAB PO (20:11)
[2024-12-22] MEDS: Insulin Aspart 300 UNITS/3 ML PEN SC ×2 (06:10→11:50)
[2024-12-22 07:32] VITALS: BP 139/76; PULSE 72; RESP 18; TEMP 36.7; O2SAT 97
[2024-12-22] MEDS: Tamsulosin 0.4 MG CAPCR PO (08:26)
[2024-12-22] MEDS: Normal Saline Flush 10 ML SYR IVP (08:26)
[2024-12-22] MEDS: Metoprolol CR 25 MG TABCR PO (08:26)
[2024-12-22 09:45] LABS: Glucose 250 mg/dL (Negative)
[2024-12-22 09:54] LABS: C & S Indicated? No; RBC 20-50 HPF (0-2); WBC 0-2 HPF (0-5)
[2024-12-22 11:06] VITALS: BP 142/77; PULSE 67; RESP 16; TEMP 36.2; O2SAT 96
--- NOTE | 2024-12-22 12:50 | DSE_ITS ---
Date of service: 12/22/24 Time of Service: 09:00 DS: Diagnosis Discharge Diagnosis (1) Hematuria: Status: Acute Asessment and Plan: -Likely secondary to renal cell carcinoma - [place] [facility] [place] recommended continuous bladder irrigation and rechecking hemoglobin in the morning - If hemoglobin drops significantly enough to require blood transfusion, would recommend reaching back out for potential IR embolization as this is likely due to renal cell carcinoma - Continue bladder irrigation, follow-up a.m. CBC (2) Blood loss anemia: Status: Deleted Asessment and Plan: -This is presumed secondary to renal cell carcinoma as noted above - Last hemoglobin at the end of October was about 11, down to eight 8.2 in ED - Will transfuse if less than 7 (3) Renal cell carcinoma: Status: Acute Asessment and Plan: - History of renal cell carcinoma being scheduled for urologic procedure at [facility] - Recommend close follow-up or contact with urology showed hematuria continue (4) Hypertension: Status: Chronic Asessment and Plan: - Holding home antihypertensives in the setting of blood loss and potential for hypotension - Restart antihypertensives as tolerated (5) Type 2 diabetes mellitus without complication, without long-term current use of insulin: Status: Acute Asessment and Plan: - Holding home metformin, glipizide and at bedtime insulin - N.p.o. in the event patient needs to be transferred for IR embolization - Every 6 hour blood sugar checks, sliding scale insulin Discharge Plan Disposition Patient Disposition: Home Condition: Fair Discharge Details Reason For Visit: Hematuria Admit Date/Time: 12/20/24 21:37 Admit Provider: Prabhjot Cortes Attending Provider: Prabhjot Cortes Primary Care Provider: Miguel Guzman Hospital Course Hospital Course: Orlin Barr is a 69 year old man with renal cell carcinoma, presenting December 20 with blockage in his chronic cuellar and blood in his urine. He was admitted for continuous bladder irrigation. His hemoglobin did not fall below 8. On hospital day 3 his urine was light pink in color with good flow. He is now discharged home with cuellar in place, with known clinic followup at [facility] on December 23. Home Meds and New Rx's Prescriptions: Continued metformin 1,000 mg tablet 1,000 mg PO BID Qty: 180 3RF cinnamon bark 500 MG capsule 500 mg PO DAILY (DME) Blood Glucose Test 1 EACH strip 1 ea Miscellaneous DAILY Qty: 100 Rx Instructions: E11.9 one touch test strips metoprolol succinate 25 mg tablet extended release 24 hr 25 mg PO DAILY Qty: 90 3RF losartan-hydrochlorothiazide [Hyzaar] 100-25 mg tablet 1 tab PO DAILY Qty: 90 3RF amlodipine 10 mg tablet 10 mg PO DAILY Qty: 90 3RF atorvastatin 10 mg tablet 10 mg PO DAILY Qty: 90 3RF multivitamin [Daily Multi-Vitamin] 1 EACH tablet 1 tab PO DAILY cyanocobalamin (vitamin B-12) [Vitamin B-12] 1,000 MCG tablet 1,000 mcg PO DAILY aspirin [Aspir-81] 81 MG tablet,delayed release (DR/EC) 81 mg PO DAILY garlic 1 EACH capsule 1 cap PO DAILY glipizide 10 mg tablet 10 mg PO DAILY Qty: 90 0RF Rx Instructions: stop long acting version insulin glargine-yfgn 100 unit/mL (3 mL) insulin pen 20 unit subcut QPM Qty: 15 8RF tamsulosin 0.4 mg capsule 0.4 mg PO DAILY Patient Comments: TAKE 1 CAPSULE BY MOUTH EVERY EVENING 30 MINUTES AFTER DINNER No Action (DME) pen needle, diabetic [Unifine Pentips Plus] 33 gauge x 5/32 needle See Rx Instructions .ROUTE .COMPLEX Qty: 100 3RF Dose Instruction: USE TO INJECT ONCE DAILY Rx Instructions: USE TO INJECT ONCE DAILY Discharge Instructions Stand Alone Forms: Nursing Discharge Form Referrals: Miguel Guzman MD [Primary Care Provider, Medicine] Referral Note: Please call your PCP office to make a follow-up appointment. Activity:: Activity as Tolerated Equipment/Supplies:: No Equipment Needed Diet:: Carb Counting Discharge Orders Discharge Orders: Discharge Order (Routine); Ordered 12/22/24 Ordered By: Rao Mirza Discharge Data Discharge Date/Time-TO BE ENTERED AT DEPARTURE: 12/22/24 14:45 DS: Summary Time Spent with Patient providing and/or coordinating discharge services: Less than 30 minutes Status at Discharge Functional status at discharge: independent ambulation Overall status at discharge: patient is not back to baseline Mental Status: mental status grossly normal Speech and Movement: speech and movement normal Mood: congruent mood Affect: normal affect Quality:SDOH Health Related Social Needs: Health related social needs risk of homeless lonely/is olated Health related social needs details N/A Exam Psych Mental Status: mental status grossly normal Speech and Movement: speech and movement normal Mood: congruent mood Affect: normal affect DS: Data Vitals/I&O Vitals and I&O: Vital Signs Temperature 36.2 C L 12/22/24 11:06 Temperature Source Temporal Artery Scan 12/22/24 11:06 Pulse 67 12/22/24 11:06 Pulse Rhythm Regular 12/20/24 23:00 Respiratory Rate 16 12/22/24 11:06 Respiratory Effort Normal, Non-Labored 12/20/24 23:00 Respiratory Depth Normal 12/20/24 23:00 Respiratory Pattern Normal 12/20/24 23:00 Blood Pressure 142/77 H 12/22/24 11:06 Blood Pressure Mean 98 12/22/24 11:06 Blood Pressure Position Sitting 12/20/24 15:38 Pulse Oximetry 96 12/22/24 11:06 Oxygen Delivery Method Room Air 12/22/24 11:06 Oxygen Flow Rate 0 12/22/24 11:06 Pain Level 6 12/22/24 07:32 Comment PT sleeping. refused. 12/22/24 00:55 Intake & Output 12/21/24 12/22/24 12/22/24 23:59 11:59 23:59 Intake Total 220 / 220 Balance 220 / 220 Intake: Oral 220 / 220 Other: Urine Color Velarde [place] Urine Appearance Clear Clear Comment clear to velarde colored, depending on pt movement Stool Characteristics Formed Brown Data Completed and Pending Labs on day of discharge: Labs from last 24 hours 12/22/24 12/22/24 12:20 09:35 WBC Pending RBC Pending Hgb Pending Hct Pending MCV Pending MCH Pending MCHC Pending RDW Pending Plt Count Pending MPV Pending Immature Gran % Pending Neutrophils % Pending Lymphocytes % Pending Monocytes % Pending Eosinophils % Pending Basophils % Pending Absolute Neutrophils Pending Absolute Lymphocytes Pending Absolute Monocytes Pending Absolute Eosinophils Pending Absolute Basophils Pending Sodium Pending Potassium Pending Chloride Pending Carbon Dioxide Pending Anion Gap Pending BUN Pending Creatinine Pending Est GFR (CKD-EPI 2020) Pending Glucose Pending Calcium Pending Total Bilirubin Pending AST Pending ALT Pending Alkaline Phosphatase Pending Total Protein Pending Albumin Pending Urine Color [place] Urine Clarity Sl Cloudy Urine pH 5.5 Ur Specific [place] 1.010 Urine Protein 30 H Urine Ketones Negative Urine Blood Large H Urine Nitrite Negative Urine Bilirubin Negative Urine Urobilinogen 0.2 Ur Leukocyte Esterase Negative Urine RBC 20-50 H Urine WBC 0-2 Ur Epithelial Cells Rare Urine Crystals Negative Urine Bacteria Few Urine Casts Negative Urine Mucus Moderate Ur Culture Indicated? No Urine Glucose 250 H PFSH All Active Problems (Updated 12/27/24 @ 16:36 by Bayron Conley) Anemia due to blood loss (Acute) KAMILLA (acute kidney injury) (Acute) Complication, blocked Cuellar catheter (Acute) Renal cell carcinoma (Acute) Gross hematuria (Acute) Urinary retention (Acute) Renal cell carcinoma (Acute) Hematuria (Acute) Complication, blocked Cuellar catheter (Acute) Renal cell carcinoma (Acute) Left renal mass (Acute) Acute pyelonephritis (Acute) Arthritis pain, hip (Acute) Sarcoidosis (Acute 01/09/14) Overweight (Chronic) Ear congestion (Acute) likely ET dysfunction due to recent cold / ? allergy Diabetes mellitus (Chronic) A1c in office today 7.9 Hypertension (Chronic) not well controlled today Cough (Acute) likely viral bronchitis Erectile dysfunction (Chronic) Glucose intolerance (Acute) 02/15/18; GLUCOSE 156 Lumbago (Acute) Fracture of distal phalanx of finger (Acute 11/23/12) Type 2 diabetes mellitus without complication, without long-term current use of insulin (Acute 02/25/16) Tobacco use disorder (Acute) CHEWS TOBACCO Sexual function problem (Acute) Pernicious anemia (Acute) Onychomycosis (Acute) Medial meniscus tear (Acute) RIGHT-04/02/16 Knee pain (Acute) ? MENISCUS Hiatal hernia (Acute) Essential hypertension (Acute) Dysplastic nevi (Acute 08/26/17) multiple Diverticulosis of colon without diverticulitis (Acute) Diabetes mellitus type 2, uncontrolled (Acute 03/24/14) Surgical History History of back surgery (~02/15/18) LLUVIA LOJA crushed thumb (11/17/12) Kidney Stone Extraction (~2004) Colonoscopy - IV Sedation (02/19/15) DR.C. RWEN Arthroplasty of knee 04/02/16-RIGHT;DR. GUARDADO 08/19/16 RIGHT;[facility] Family History Mother , AGE 78 Essential hypertension MS (multiple sclerosis) Throat cancer Father Essential hypertension Diabetes Heart disease Sister Essential hypertension Diabetes Brother Essential hypertension Diabetes Maternal Grandfather , AGE 69 Essential hypertension Heart disease Paternal Grandfather , AGE 85 Essential hypertension Heart disease Maternal Grandmother , AGE 94 Essential hypertension Heart disease Paternal Grandmother , AGE 90 Essential hypertension Heart disease Son Substance abuse Son No problems noted. Daughter No problems noted. Social History Smoking/Tobacco Use Status: Current every day Tobacco Type: smokeless tobacco Tobacco: How many years used: 40 Smokeless tobacco user: chewing tobacco Quit status: has quit before Second Hand Exposure: Yes Smoking risk assessment performed?: Yes Alcohol Intake: former Drug use: Never Substance use type: does not use Counseling given: No Adopted: No Caregiver/Support person: No Household members: spouse Housing: house Communication Needs: None Do you need help understanding health information?: Rarely Pets and animals: No Sexually active: Yes Do you think of yourself as: straight/heterosexual Current gender identity: male What is your relationship status?: How often do you talk on the phone with friends or family?: three or more times per week How often do you get together with friends or relatives?: decline to answer How often do you attend pentecostal or oriental orthodox services?: decline to answer Do you belong to any clubs or organized social groups?: no Panel score (0-1 are the most socially isolated patients): 2 What type of physical activity do you participate in: walking Duration: 15-30 minutes/day Frequency: 3-4 times per week Adilene/Sikhism: No preference Special adilene needs: No Seatbelt use: always Helmet use: Yes Helmet use: always Drive intox or ride w/intox sweeper driver: No Do you feel safe at home: Yes Do you feel safe in your relationship?: Yes Time Spent with Patient Time Spent with Patient: <45 minutes Time was spent: preparing to see the patient(eg.review tests), obtaining and/or reviewing separately otained hiistory, ordering medications,tests, procedures, referring, communicating with other health client care representative, indepentently interpreting results, counseling the patient and care coordination
[2024-12-22 12:52] LABS: Abs Immature Grans 0.01 10^3/uL (0.0-0.06); HCT 25.1 % (40.0-50.0); HGB 8.6 g/dL (13.5-17.5); Immature Grans % 0.2 %; MCH 33.2 pg (27.0-33.0); MCHC 34.3 % (32.0-36.0); MCV 97 fL (80-95); MPV 10.1 fL (8.0-11.0); Platelet Count 279 10^3/uL (130-400); RBC 2.59 10^6/uL (4.36-5.78); RDW 11.7 % (11.8-14.1); RDW-SD 40.8 fL; WBC 4.57 10^3/uL (4.4-10.8)
[2024-12-22 13:39] LABS: ALT 28 U/L (16-63); AST 23 U/L (15-37); Albumin 3.4 g/dL (3.4-5.0); Alkaline Phosphatase 93 U/L (46-116); Anion Gap 7.8 mmol/L (3-11); BUN 18 mg/dL (7-18); Bilirubin, Total 0.3 mg/dL (0.2-1.0); CO2 29.2 mmol/L (21.0-32.0); Calcium 9.2 mg/dL (8.5-10.1); Chloride 97 mmol/L (98-107); Estimated GFR 54.41 (mL/min/1.73m2); Glucose 229 mg/dL (74-106); Potassium 3.5 mmol/L (3.5-5.1); Sodium 134 mmol/L (136-145); Total Protein 7.7 g/dL (6.4-8.2)
--- NOTE | 2024-12-22 17:29 | CMDISCH_ITS ---
Date of service: 12/22/24 Time of Service: 17:29 LACE Index Scoring Tool Questions: Length of Stay (in days): 2 Was the patient admitted via the E.D.?: Yes Comorbidities: Diabetes w/o Complication and Any Tumor E.D. Visits: 2 Answers: Total Score: 10 Risk of Readmission: High Risk Care Management Discharge Plan Reason for Hospitalization: Hematuria Discharge Plan: Orlin returned home today with no new services. He has follow up appointments with [facility] [place] scheduled for tomorrow. His drove him home via private vehicle. He will follow up with his PCP, [facility] specialists, and his discharge plan of care. He is happy to be going home. Patient/Family Education Needs: Review discharge instructions and limitations, discussion of self care needs including ask me three. SDOH Health Related Social Needs: Health related social needs risk of homeless lonely/is olated Health related social needs details N/A
== END 2024-12-22 14:45 | disposition home or self-care (01) | DRG 699 ==
LOC: ER 15:41 → MS 23:31
PROVIDERS: Admitting Provider Family Medicine; Emergency Provider Emergency Medicine; PCP Family Medicine; Responsible Provider Family Medicine; Visit Provider Family Medicine
DX: C64.2 Malignant neoplasm of left kidney, except renal pelvis (principal); D62 Acute posthemorrhagic anemia; E11.9 Type 2 diabetes mellitus without complications; I10 Essential (primary) hypertension; T83.098A Other mechanical complication of other urinary catheter, initial encounter; R31.0 Gross hematuria; Z79.4 Long term (current) use of insulin; Z79.84 Long term (current) use of oral hypoglycemic drugs; Z79.82 Long term (current) use of aspirin; R33.9 Retention of urine, unspecified; E66.3 Overweight; K44.9 Diaphragmatic hernia without obstruction or gangrene; K57.30 Diverticulosis of large intestine without perforation or abscess without bleeding; F17.220 Nicotine dependence, chewing tobacco, uncomplicated; Z68.38 Body mass index [BMI] 38.0-38.9, adult
CPT/HCPCS: 00123; 36415; 51700; 80048; 80053; 85027; 86850; 86900; 86901; 99285; 74018; 81003; 81015; 83735; 85014; 85018; 85025; 99223; 99231; 99238; J1815

== ENCOUNTER 2024-12-26 16:54 | Observation (INO) | payer MEDICARE, OTHER, SELFPAY ==
[2024-12-26 16:57] VITALS: BP 171/71; PULSE 92; RESP 18; TEMP 36.6; O2SAT 98
--- NOTE | 2024-12-26 17:30 | W.ED.GENAD ---
Discharge Plan Disposition Patient Disposition: Admit to [facility] Condition: Stable Discharge Details Clinical Impression: KAMILLA (acute kidney injury), Gross hematuria Primary Care Provider: Miguel Guzman ED Provider: Lucrecia Crane Home Meds and New Rx's Prescriptions: No Action metformin 1,000 mg tablet 1,000 mg PO BID Qty: 180 3RF cinnamon bark 500 MG capsule 500 mg PO DAILY (DME) Blood Glucose Test 1 EACH strip 1 ea Miscellaneous DAILY Qty: 100 Rx Instructions: E11.9 one touch test strips metoprolol succinate 25 mg tablet extended release 24 hr 25 mg PO DAILY Qty: 90 3RF losartan-hydrochlorothiazide [Hyzaar] 100-25 mg tablet 1 tab PO DAILY Qty: 90 3RF amlodipine 10 mg tablet 10 mg PO DAILY Qty: 90 3RF atorvastatin 10 mg tablet 10 mg PO DAILY Qty: 90 3RF (DME) pen needle, diabetic [Unifine Pentips Plus] 33 gauge x 5/32 needle See Rx Instructions .ROUTE .COMPLEX Qty: 100 3RF Dose Instruction: USE TO INJECT ONCE DAILY Rx Instructions: USE TO INJECT ONCE DAILY multivitamin [Daily Multi-Vitamin] 1 EACH tablet 1 tab PO DAILY cyanocobalamin (vitamin B-12) [Vitamin B-12] 1,000 MCG tablet 1,000 mcg PO DAILY aspirin [Aspir-81] 81 MG tablet,delayed release (DR/EC) 81 mg PO DAILY garlic 1 EACH capsule 1 cap PO DAILY glipizide 10 mg tablet 10 mg PO DAILY Qty: 90 0RF Rx Instructions: stop long acting version insulin glargine-yfgn 100 unit/mL (3 mL) insulin pen 20 unit subcut QPM Qty: 15 8RF tamsulosin 0.4 mg capsule 0.4 mg PO DAILY Patient Comments: TAKE 1 CAPSULE BY MOUTH EVERY EVENING 30 MINUTES AFTER DINNER HPI General Mode of arrival: ambulatory. Date/Time Provider Initiated Documentation: 12/26/24 16:57. Limitations to Documentation: no limitations. Information obtained by: patient, family, RN notes reviewed and old records reviewed. HPI Narrative: 69-year-old male presents to the ER with a chief, of hematuria and LAD from his Carrillo catheter. Patient does have a 22-gauge three-way catheter which is draining bloody urine, patient states that this began around 3 PM this afternoon while sitting in chair. He did see urology at [facility] on Thursday and had irrigation at that time. He does have a history of renal cell carcinoma and is scheduled for a left nephrectomy on January 27 per patient report. Patient was admitted here and discharged on December 22, he was admitted for anemia due to hematuria. He does endorse some right hip pain, nausea and feeling thirsty he does have dry mucous membranes. He also does have some suprapubic fullness. Bladder scan upon arrival shows 268 mL in his bladder. Related Data Home Medications ?Medication ?Instructions ?Recorded ?Confirmed aspirin 81 mg tablet,delayed 81 mg PO DAILY 11/17/12 12/26/24 release (Aspir-) cyanocobalamin (vitamin B-12) 1,000 mcg PO DAILY 11/17/12 12/26/24 1,000 mcg tablet (Vitamin B-12) garlic 1 cap PO DAILY 11/17/12 12/26/24 multivitamin (Daily Multi-Vitamin 1 tab PO DAILY 11/17/12 12/26/24 tablet) cinnamon bark 500 mg capsule 500 mg PO DAILY 02/25/16 12/26/24 blood sugar diagnostic (Blood #100 strips 09/05/16 12/26/24 Glucose Test strips) metoprolol succinate 25 mg 25 mg PO DAILY #90 tabs 02/02/24 12/26/24 tablet,extended release 24 hr losartan 100 1 tab PO DAILY ##90 03/07/24 12/26/24 mg-hydrochlorothiazide 25 mg tablet (Hyzaar) amlodipine 10 mg tablet 10 mg PO DAILY #90 tabs 03/08/24 12/26/24 atorvastatin 10 mg tablet 10 mg PO DAILY #90 tabs 05/02/24 12/26/24 metformin 1,000 mg tablet 1,000 mg PO BID #180 tab-caps 06/16/24 12/26/24 glipizide 10 mg tablet 10 mg PO DAILY #90 tabs 11/08/24 12/26/24 insulin glargine-yfgn 100 unit/mL 20 unit (0.2 mL) subcut QPM #15 mL 11/08/24 12/26/24 (3 mL) subcutaneous pen tamsulosin 0.4 mg capsule 0.4 mg PO DAILY 12/18/24 12/26/24 pen needle, diabetic 33 gauge x #100 ea 12/23/24 12/26/24 (Unifine Pentips Plus) Previous Rx's ?Medication ?Instructions ?Recorded metoprolol succinate 25 mg 25 mg PO DAILY #90 tabs 02/02/24 tablet,extended release 24 hr losartan 100 1 tab PO DAILY ##90 03/07/24 mg-hydrochlorothiazide 25 mg tablet (Hyzaar) amlodipine 10 mg tablet 10 mg PO DAILY #90 tabs 03/08/24 atorvastatin 10 mg tablet 10 mg PO DAILY #90 tabs 05/02/24 metformin 1,000 mg tablet 1,000 mg PO BID #180 tab-caps 06/16/24 glipizide 10 mg tablet 10 mg PO DAILY #90 tabs 11/08/24 insulin glargine-yfgn 100 unit/mL 20 unit (0.2 mL) subcut QPM #15 mL 11/08/24 (3 mL) subcutaneous pen pen needle, diabetic 33 gauge x #100 ea 12/23/24 (Unifine Pentips Plus) Allergies Allergy/AdvReac Type Severity Reaction Status Date / Time No Known Allergies Allergy Verified 12/26/24 16:59 General Stated Complaint: Urinary BLAKE: 3 Review of Systems All systems reviewed & are unremarkable except as noted in HPI and below Gastrointestinal Gastrointestinal: Reports abdominal pain, Reports bloating and Reports nausea Genitourinary Genitourinary: Reports as per HPI and Reports hematuria (Has a 22-gauge three-way catheter in place with bright red blood) Musculoskeletal Musculoskeletal: Reports arthralgias Exam Narrative Exam Narrative: Constitutional: Alert and oriented x3. Appears stated age. Normal body habitus. Head: Normocephalic, no trauma. Eyes: Pupils PERRL, Red reflex noted, EOM's intact. Eyelids symmetrical without lesions, discharge, or swelling. ENT: Bilateral TM's WNL, External ear normal to inspection, no mastoid TTP, swelling, or erythema, Nasal turbinates WNL, no nasal discharge. Normal dentition, Posterior pharynx WNL, no exudate. Chest: RRR, Normal S1, S2, distal pulses intact. Resp: Lungs clear to auscultation bilaterally, no wheezes, rales, or rhonchi. Abdomen: Suprapubic tenderness with palpation,, Normoactive bowel sounds all 4 quads. Is complaining of some right hip pain. Musculoskeletal: Normal gait, Moves all 4 extremities without difficulty. Bilateral lower extremity and ankle edema, 1+ pitting. Skin: No suspicious rashes or lesions. Capillary refill less than 2 sec. Neurologic: Cranial nerves II-XII intact. Alert and oriented x 3. Motor: No deficits noted. Hematologic/Lymphatic: No ecchymosis, no lymphadenopathy. Course Vital Signs Vital signs: Vital Signs Temperature 36.6 C 12/26/24 16:57 Pulse 92 H 12/26/24 16:57 Respiratory Rate 18 12/26/24 16:57 Blood Pressure 171/71 H 12/26/24 16:57 Pulse Oximetry 98 12/26/24 16:57 Temperature 36.6 C 12/26/24 16:57 Temperature Source Oral 12/26/24 16:57 Pulse 92 H 12/26/24 16:57 Respiratory Rate 18 12/26/24 16:57 Blood Pressure 171/71 H 12/26/24 16:57 Pulse Oximetry 98 12/26/24 16:57 Oxygen Delivery Method Room Air 12/26/24 16:57 Oxygen Flow Rate 0 12/26/24 16:57 Pain Level 10 12/26/24 16:57 Medical Decision Making 69-year-old male presents to the ER with a chief, of hematuria and LAD from his Carrillo catheter. Patient does have a 22-gauge three-way catheter which is draining bloody urine, patient states that this began around 3 PM this afternoon while sitting in chair. He did see urology at [facility] on Thursday and had irrigation at that time. He does have a history of renal cell carcinoma and is scheduled for a left nephrectomy on January 27 per patient report. Patient was admitted here and discharged on December 22, he was admitted for anemia due to hematuria. He does endorse some right hip pain, nausea and feeling thirsty he does have dry mucous membranes. He also does have some suprapubic fullness. Bladder scan upon arrival shows 268 mL in his bladder. CBC, CMP ordered, and irrigation with 250 to 500 cc normal saline ordered. Patient received 1 L LR, 25 mcg of fentanyl IV, December 22 at discharge his hemoglobin was 8.6 hematocrit was 25.1. Today his white blood cell count is 5.70 RBCs 2.44, hemoglobin 8.2, hematocrit 23.5 1903: [facility] [place] for Urology consult. 1948: [facility] [place]. Varela regarding patient case and details, he recommends CT abd/pelvis and then will have a better idea if patient can be managed here locally or would need tertiary transfer. CT abd/Pelvis WO ordered. 2204: First 3 L irrigation complete, still red-tinged patient is alert and orientated vital signs stable. Awaiting CT results. 2218: Spoke with Dr. Varela with [facility] urology regarding CT results he believes admission locally is appropriate for continuous bladder irrigation with repeat H&H and BUN Cr q 6 hours. Will consult with hospitalist. 2313: Dr. Morgan hospitalist consulted. Agrees to accept patient for admission. Patient aware of plan of care and is in agreement with the plan. Patient remained hemodynamically stable throughout the remainder of her stay. Alert and oriented x 3. This text was generated using [employer] system, please disregard any oddities of phrase or misspellings. Medical Records Medical records reviewed: Yes I reviewed the patient's medical records. Imaging Data Radiologic Study: Imaging: CT Scan Radiologist's impression: COMPARISON: CT ABDOMEN PELVIS WO/W 11/08/2024 8:51 AM FINDINGS: Tubes, catheters and devices: Carrillo catheter in place. Liver: Normal. No mass. Gallbladder and biliary ducts: Normal. No calcified stones. No ductal dilation. Pancreas: Normal. No ductal dilation. Spleen: Normal. No splenomegaly. Adrenal glands: Normal. No mass. Kidneys and ureters: Left-sided ureteral stent. Proximal end of stent is curled within the UPJ, distal to where was on the prior study. Superior to this point there is pelvocaliectasis and internal dense material, possibly blood. No renal stone. Left-sided perinephric stranding has increased in comparison prior study. Stomach and bowel: Unremarkable. No obstruction. No mucosal thickening. Appendix: No evidence of appendicitis. Intraperitoneal space: Fat stranding in the left side of the mesenteric root. Vasculature: Several small rounded calcifications are seen in the pelvis consistent with phleboliths. Lymph nodes: Unremarkable. No enlarged lymph nodes. Urinary bladder: Dense material seen in urinary bladder layering dependently, possibly blood. Reproductive: Unremarkable as visualized. Bones/joints: Unremarkable. No acute fracture. Soft tissues: Unremarkable. IMPRESSION: 1. Left-sided ureteral stent. Proximal end of stent is curled within the UPJ, distal to where was on the prior study. Superior to this point there is pelvocaliectasis and internal dense material, possibly blood. 2. Dense material seen in urinary bladder layering dependently, possibly blood. 3. Fat stranding in the left side of the mesenteric root. This is a nonspecific finding and has increased in comparison to the prior study. 4. Left-sided perinephric stranding has increased in comparison prior study. Thank you for allowing us to participate in the care of your patient. Dictated and Authenticated by: Sammy Becker MD Lab Data Lab results reviewed: Yes I reviewed the patient's lab results. Labs: Laboratory Tests Range/Units 12/26/24 12/26/24 17:48 18:38 WBC (4.4-10.8) 10^3/uL 5.70 RBC (4.36-5.78) 10^6/uL 2.44 L Hgb (13.5-17.5) g/dL 8.2 L Hct (40.0-50.0) % 23.5 L MCV (80-95) fL 96 H MCH (27.0-33.0) pg 33.6 H MCHC (32.0-36.0) % 34.9 RDW (11.8-14.1) % 11.5 L Plt Count (130-400) 10^3/uL 287 MPV (8.0-11.0) fL 9.9 Sodium (136-145) mmol/L 135 L Potassium (3.5-5.1) mmol/L 4.1 Chloride (98-107) mmol/L 97 L Carbon Dioxide (21.0-32.0) mmol/L 27.4 Anion Gap (3-11) mmol/L 10.6 BUN (7-18) mg/dL 23 H Creatinine (0.70-1.30) mg/dL 2.3 H Est GFR (CKD-EPI 2020) (mL/min/1.73m2) 29.99 Glucose (74-106) mg/dL 224 H Calcium (8.5-10.1) mg/dL 9.3 Total Bilirubin (0.2-1.0) mg/dL 0.4 AST (15-37) U/L 21 ALT (16-63) U/L 24 Alkaline Phosphatase (46-116) U/L 93 Total Protein (6.4-8.2) g/dL 7.5 Albumin (3.4-5.0) g/dL 3.3 L ABO/Rh A Positive Antibody Screen NEGATIVE Quality:SDOH Health Related Social Needs: Health related social needs risk of homeless lonely/isolated Health related social needs details N/A PFSH All Active Problems (Updated 12/26/24 @ 23:12 by Lucrecia Crane NP) KAMILLA (acute kidney injury) (Acute) Complication, blocked Carrillo catheter (Acute) Renal cell carcinoma (Acute) Gross hematuria (Acute) Urinary retention (Acute) Renal cell carcinoma (Acute) Hematuria (Acute) Complication, blocked Carrillo catheter (Acute) Renal cell carcinoma (Acute) Left renal mass (Acute) Acute pyelonephritis (Acute) Arthritis pain, hip (Acute) Sarcoidosis (Acute 01/09/14) Overweight (Chronic) Ear congestion (Acute) likely ET dysfunction due to recent cold / ? allergy Diabetes mellitus (Chronic) A1c in office today 7.9 Hypertension (Chronic) not well controlled today Cough (Acute) likely viral bronchitis Erectile dysfunction (Chronic) Glucose intolerance (Acute) 02/15/18 LLUVIA LOJA; GLUCOSE 156 Lumbago (Acute) Fracture of distal phalanx of finger (Acute 11/23/12) Type 2 diabetes mellitus without complication, without long-term current use of insulin (Acute 02/25/16) Tobacco use disorder (Acute) CHEWS TOBACCO Sexual function problem (Acute) Pernicious anemia (Acute) Onychomycosis (Acute) Medial meniscus tear (Acute) RIGHT-04/02/16 Knee pain (Acute) ? MENISCUS Hiatal hernia (Acute) Essential hypertension (Acute) Dysplastic nevi (Acute 08/26/17) multiple Diverticulosis of colon without diverticulitis (Acute) Diabetes mellitus type 2, uncontrolled (Acute 03/24/14) Surgical History History of back surgery (~02/15/18) LLUVIA LOJA crushed thumb (11/17/12) Kidney Stone Extraction (~2004) Colonoscopy - IV Sedation (02/19/15) DR.C. WREN Arthroplasty of knee 04/02/16-RIGHT;DR. GUARDADO 08/19/16 RIGHT;[facility] Family History Mother , AGE 78 Essential hypertension MS (multiple sclerosis) Throat cancer Father Essential hypertension Diabetes Heart disease Sister Essential hypertension Diabetes Brother Essential hypertension Diabetes Maternal Grandfather , AGE 69 Essential hypertension Heart disease Paternal Grandfather , AGE 85 Essential hypertension Heart disease Maternal Grandmother , AGE 94 Essential hypertension Heart disease Paternal Grandmother , AGE 90 Essential hypertension Heart disease Son Substance abuse Son No problems noted. Daughter No problems noted. Social History Smoking/Tobacco Use Status: Current every day Tobacco Type: smokeless tobacco Tobacco: How many years used: 40 Smokeless tobacco user: chewing tobacco Quit status: has quit before Second Hand Exposure: Yes Smoking risk assessment performed?: Yes Alcohol Intake: former Drug use: Never Substance use type: does not use Counseling given: No Adopted: No Caregiver/Support person: No Household members: spouse Housing: house Communication Needs: None Do you need help understanding health information?: Rarely Pets and animals: No Sexually active: Yes Do you think of yourself as: straight/heterosexual Current gender identity: male What is your relationship status?: How often do you talk on the phone with friends or family?: three or more times per week How often do you get together with friends or relatives?: decline to answer How often do you attend religious or druze services?: decline to answer Do you belong to any clubs or organized social groups?: no Panel score (0-1 are the most socially isolated patients): 2 What type of physical activity do you participate in: walking Duration: 15-30 minutes/day Frequency: 3-4 times per week Adilene/Mu-Ism: No preference Special adilene needs: No Seatbelt use: always Helmet use: Yes Helmet use: always Drive intox 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
[2024-12-26 17:56] VITALS: BP 171/71; PULSE 92; RESP 18; TEMP 36.6; O2SAT 98
[2024-12-26 18:04] VITALS: BP 138/72; PULSE 68; RESP 20; O2SAT 94
[2024-12-26 18:10] LABS: HCT 23.5 % (40.0-50.0); HGB 8.2 g/dL (13.5-17.5); MCH 33.6 pg (27.0-33.0); MCHC 34.9 % (32.0-36.0); MCV 96 fL (80-95); MPV 9.9 fL (8.0-11.0); Platelet Count 287 10^3/uL (130-400); RBC 2.44 10^6/uL (4.36-5.78); RDW 11.5 % (11.8-14.1); RDW-SD 40.4 fL; WBC 5.70 10^3/uL (4.4-10.8)
[2024-12-26 18:22] LABS: ALT 24 U/L (16-63); AST 21 U/L (15-37); Albumin 3.3 g/dL (3.4-5.0); Alkaline Phosphatase 93 U/L (46-116); Anion Gap 10.6 mmol/L (3-11); BUN 23 mg/dL (7-18); Bilirubin, Total 0.4 mg/dL (0.2-1.0); CO2 27.4 mmol/L (21.0-32.0); Calcium 9.3 mg/dL (8.5-10.1); Chloride 97 mmol/L (98-107); Estimated GFR 29.99 (mL/min/1.73m2); Glucose 224 mg/dL (74-106); Potassium 4.1 mmol/L (3.5-5.1); Sodium 135 mmol/L (136-145); Total Protein 7.5 g/dL (6.4-8.2)
[2024-12-26] MEDS: Ondansetron O.D.T. 4 MG TABEF PO (19:05)
[2024-12-26] MEDS: Lactated Ringers 1,000 ML 350 ML IV (19:05)
[2024-12-26] MEDS: fentaNYL 100 MCG/2 ML VIAL 25 MCG IVP (19:19)
[2024-12-26] MEDS: Normal Saline Flush 10 ML SYR IVP (19:23)
--- NOTE | 2024-12-26 19:45 | DI.CT_ITS ---
Exam(s) CT ABDOMEN PELVIS WO EXAM: CT ABDOMEN PELVIS WO CLINICAL HISTORY: Hematuria, left renal stent Hx Renal Cancer. TECHNIQUE: Imaging Protocol: Axial computed tomography images with coronal and sagittal reformatted images were created and reviewed. COMPARISON: CT CT ABDOMEN PELVIS W from 11/05/[address] ABDOMEN PELVIS WO/W from 11/08/2024 FINDINGS: The lack of IV contrast does limit evaluation of the abdominal pelvic organs. ABDOMEN: Lung Bases: Normal where visualized. Liver: Normal density. There are 3 small round hypodensities in the liver which are stable and consistent with cysts. Gallbladder and biliary tract: No radiodense calculus or biliary ductal dilation. Pancreas: Normal density, no abnormal calcifications or inflammatory process. Spleen: Normal. Kidneys: There is again seen a left nephroureteral stent. The proximal pigtail is now located at the ureteral pelvic junction. There is high density material seen in the renal pelvis likely reflecting hemorrhage.The mass in the inferior pole of the left kidney is again noted. It is less well defined on this noncontrast examination. There is unchanged prominence of the left renal vein. There is persistent left perinephric stranding and there is now mild mesenteric stranding present. The right kidney is unremarkable. Adrenal glands: No mass is seen. Lymph nodes: There are enlarged left periaortic lymph nodes. The largest measures 4.0 AP by 2.1 transverse by 5.4 craniocaudad cm. Abdominal Aorta: Abdominal portion non-dilated. Atherosclerotic calcification is present. PELVIS: Bladder:There is a Carrillo catheter in the urinary bladder. There is high density material seen in the dependent portion of the urinary bladder which may represent hemorrhage. This was not present on prior examinations. There is air seen in the urinary bladder likely reflecting Carrillo catheter presence. Bowel: No obstruction or bowel wall thickening. Appendix is unremarkable. Note is made of a duodenal diverticulum adjacent to the pancreatic head. Peritoneal cavity: No ascites, collection or mesenteric inflammatory response. No free air. Reproductive organs: Unremarkable as visualized. Bones: Within normal limits. Soft Tissues: There are small bilateral fat containing inguinal hernias. IMPRESSION: 1. There is high density material seen in the left renal pelvis and the urinary bladder suspicious for blood. 2. The proximal pigtail of the left ureteral stent has migrated distally and is now located at the ureteral pelvic junction. 3. The patient's known left renal mass is present. It is less well defined on the noncontrast examination. 4. Persistent retroperitoneal adenopathy. 5. Interval placement of a Carrillo catheter. 6. The preliminary [facility] report was reviewed. RADIATION DOSE DELIVERED: 733.97mGy.cm Total DLP DATA REPOSITORY: All CT scans at this facility are submitted to the National Radiology Data Registry (NRDR) Dose Index Registry (DIR) with the [employer] (ACR). RADIATION OPTIMIZATION: All CT scans at this facility use at least one of these dose optimization techniques: automated exposure control; mA and/or kV adjustment per patient size (includes targeted exams where dose is matched to clinical indication); or iterative reconstruction.
[2024-12-26 22:11] VITALS: PULSE 68; RESP 16
--- NOTE | 2024-12-26 22:12 | DI.[facility]_ITS ---
PROCEDURE INFORMATION: Exam: CT Abdomen And Pelvis Without Contrast Exam date and time: 12/26/2024 8:09 PM Age: 69 years old Clinical indication: Other: Hematuria, left renal stent HX renal cancer TECHNIQUE: Imaging protocol: Computed tomography of the abdomen and pelvis without contrast. COMPARISON: CT ABDOMEN PELVIS WO/W 11/08/2024 8:51 AM FINDINGS: Tubes, catheters and devices: Carrillo catheter in place. Liver: Normal. No mass. Gallbladder and biliary ducts: Normal. No calcified stones. No ductal dilation. Pancreas: Normal. No ductal dilation. Spleen: Normal. No splenomegaly. Adrenal glands: Normal. No mass. Kidneys and ureters: Left-sided ureteral stent. Proximal end of stent is curled within the UPJ, distal to where was on the prior study. Superior to this point there is pelvocaliectasis and internal dense material, possibly blood. No renal stone. Left-sided perinephric stranding has increased in comparison prior study. Stomach and bowel: Unremarkable. No obstruction. No mucosal thickening. Appendix: No evidence of appendicitis. Intraperitoneal space: Fat stranding in the left side of the mesenteric root. Vasculature: Several small rounded calcifications are seen in the pelvis consistent with phleboliths. Lymph nodes: Unremarkable. No enlarged lymph nodes. Urinary bladder: Dense material seen in urinary bladder layering dependently, possibly blood. Reproductive: Unremarkable as visualized. Bones/joints: Unremarkable. No acute fracture. Soft tissues: Unremarkable. IMPRESSION: 1. Left-sided ureteral stent. Proximal end of stent is curled within the UPJ, distal to where was on the prior study. Superior to this point there is pelvocaliectasis and internal dense material, possibly blood. 2. Dense material seen in urinary bladder layering dependently, possibly blood. 3. Fat stranding in the left side of the mesenteric root. This is a nonspecific finding and has increased in comparison to the prior study. 4. Left-sided perinephric stranding has increased in comparison prior study. Dictated and Authenticated by: Sammy Becker MD. Orderin Rosa Maria Singer MD
[2024-12-27] VITALS (22 sets, daily range): BP systolic 108–170; BP diastolic 56–103; PULSE 60–80; RESP 15–26; TEMP 35.8–36.7; O2SAT 95–99; BMI 31.1
--- NOTE | 2024-12-27 00:08 | W.PM.HP.N ---
Date of service: 12/27/24 Time of Service: 00:08 Assessment and Plan Assessment and plan (1) Essential hypertension: Status: Acute Assessment and plan: continue with medical management but keep an eye on his blood pressure as he has continued blood loss (2) Diabetes mellitus type 2, uncontrolled: Status: Acute Assessment and plan: Will continue with his medical management with the exception of stopping his metformin. His creatinine is currently over 2.3 and there is some concern about lactic acidosis. Restart when appropriate. (3) Left renal mass: Status: Acute Assessment and plan: Patient is scheduled for surgery on January 28. Please consult to Dr. Mak in the a.m. (4) KAMILLA (acute kidney injury): Status: Acute Assessment and plan: Continue with IV fluids. (5) Hematuria: Status: Acute Assessment and plan: Continue with irrigation. (6) Urinary retention: Status: Acute Assessment and plan: Continue with Flomax. Considering the patient's current bleeding will not use chemical prophylaxis but SCDs and teds. History of Present Illness History of Present Illness Chief Complaint: hematuria Narrative: Mr Barr is a 69-year-old gentleman with a known history of left sided renal cell carcinoma who was to have surgery on January 28 presents with worsening hematuria. And ordering reviewing his notes he was recently discharged on the of this month for essentially the same problems and was also seen on Thursday the in [facility] and at that time there was consideration of admitting him. Ultimately he was discharged home but since then has continued to have hematuria. Patient came into the ED for evaluation and treatment in our ED staff reached out to [facility] for recommendations and they recommended admitting him for serial labs and continuance irrigation. Per my discussion with the ED physician Dr. Mak is supposed to be on tomorrow and according to the specialty schedule he is listed as being here in the hospital. Patient's lab work does show some acute kidney injury but his hemoglobin is fairly stable. As mentioned above he was recently discharged on 22 December Review of Systems All systems reviewed & are unremarkable except as noted in HPI and below PFSH All Active Problems (Updated 12/26/24 @ 23:12 by Lucrecia Crane NP) KAMILLA (acute kidney injury) (Acute) Complication, blocked Carrillo catheter (Acute) Renal cell carcinoma (Acute) Gross hematuria (Acute) Urinary retention (Acute) Renal cell carcinoma (Acute) Hematuria (Acute) Complication, blocked Carrillo catheter (Acute) Renal cell carcinoma (Acute) Left renal mass (Acute) Acute pyelonephritis (Acute) Arthritis pain, hip (Acute) Sarcoidosis (Acute 01/09/14) Overweight (Chronic) Ear congestion (Acute) likely ET dysfunction due to recent cold / ? allergy Diabetes mellitus (Chronic) A1c in office today 7.9 Hypertension (Chronic) not well controlled today Cough (Acute) likely viral bronchitis Erectile dysfunction (Chronic) Glucose intolerance (Acute) 02/15/18 LLUVIALATOSHA CHRISVan LOJA; GLUCOSE 156 Lumbago (Acute) Fracture of distal phalanx of finger (Acute 11/23/12) Type 2 diabetes mellitus without complication, without long-term current use of insulin (Acute 02/25/16) Tobacco use disorder (Acute) CHEWS TOBACCO Sexual function problem (Acute) Pernicious anemia (Acute) Onychomycosis (Acute) Medial meniscus tear (Acute) RIGHT-04/02/16 Knee pain (Acute) ? MENISCUS Hiatal hernia (Acute) Essential hypertension (Acute) Dysplastic nevi (Acute 08/26/17) multiple Diverticulosis of colon without diverticulitis (Acute) Diabetes mellitus type 2, uncontrolled (Acute 03/24/14) Surgical History History of back surgery (~02/15/18) LLUVIA LOJA crushed thumb (11/17/12) Kidney Stone Extraction (~2004) Colonoscopy - IV Sedation (02/19/15) DR.C. WREN Arthroplasty of knee 04/02/16-RIGHT;DR. GUARDADO 08/19/16 RIGHT;[facility] Family History Mother , AGE 78 Essential hypertension MS (multiple sclerosis) Throat cancer Father Essential hypertension Diabetes Heart disease Sister Essential hypertension Diabetes Brother Essential hypertension Diabetes Maternal Grandfather , AGE 69 Essential hypertension Heart disease Paternal Grandfather , AGE 85 Essential hypertension Heart disease Maternal Grandmother , AGE 94 Essential hypertension Heart disease Paternal Grandmother , AGE 90 Essential hypertension Heart disease Son Substance abuse Son No problems noted. Daughter No problems noted. Social History Smoking/Tobacco Use Status: Current every day Tobacco Type: smokeless tobacco Tobacco: How many years used: 40 Smokeless tobacco user: chewing tobacco Quit status: has quit before Second Hand Exposure: Yes Smoking risk assessment performed?: Yes Alcohol Intake: former Drug use: Never Substance use type: does not use Counseling given: No Adopted: No Caregiver/Support person: No Household members: spouse Housing: house Communication Needs: None Do you need help understanding health information?: Rarely Pets and animals: No Sexually active: Yes Do you think of yourself as: straight/heterosexual Current gender identity: male What is your relationship status?: How often do you talk on the phone with friends or family?: three or more times per week How often do you get together with friends or relatives?: decline to answer How often do you attend advent or christian services?: decline to answer Do you belong to any clubs or organized social groups?: no Panel score (0-1 are the most socially isolated patients): 2 What type of physical activity do you participate in: walking Duration: 15-30 minutes/day Frequency: 3-4 times per week Adilene/Islam: No preference Special adilene needs: No Seatbelt use: always Helmet use: Yes Helmet use: always Drive intox or ride w/intox wrecking car driver: No Do you feel safe at home: Yes Do you feel safe in your relationship?: Yes Meds Allergies and Home Medications Allergies Allergy/AdvReac Type Severity Reaction Status Date / Time No Known Allergies Allergy Verified 12/26/24 16:59 Home Medications ?Medication ?Instructions ?Recorded ?Confirmed ?Type aspirin 81 mg tablet,delayed 81 mg PO DAILY 11/17/12 12/26/24 History release (Aspir-) cyanocobalamin (vitamin B-12) 1,000 mcg PO DAILY 11/17/12 12/26/24 History 1,000 mcg tablet (Vitamin B-12) garlic 1 cap PO DAILY 11/17/12 12/26/24 History multivitamin (Daily Multi-Vitamin 1 tab PO DAILY 11/17/12 12/26/24 History tablet) cinnamon bark 500 mg capsule 500 mg PO DAILY 02/25/16 12/26/24 History blood sugar diagnostic (Blood #100 strips 09/05/16 12/26/24 History Glucose Test strips) metoprolol succinate 25 mg 25 mg PO DAILY #90 tabs 02/02/24 12/26/24 Rx tablet,extended release 24 hr losartan 100 1 tab PO DAILY ##90 03/07/24 12/26/24 Rx mg-hydrochlorothiazide 25 mg tablet (Hyzaar) amlodipine 10 mg tablet 10 mg PO DAILY #90 tabs 03/08/24 12/26/24 Rx atorvastatin 10 mg tablet 10 mg PO DAILY #90 tabs 05/02/24 12/26/24 Rx metformin 1,000 mg tablet 1,000 mg PO BID #180 tab-caps 06/16/24 12/26/24 Rx glipizide 10 mg tablet 10 mg PO DAILY #90 tabs 11/08/24 12/26/24 Rx insulin glargine-yfgn 100 unit/mL 20 unit (0.2 mL) subcut QPM #15 mL 11/08/24 12/26/24 Rx (3 mL) subcutaneous pen tamsulosin 0.4 mg capsule 0.4 mg PO DAILY 12/18/24 12/26/24 History pen needle, diabetic 33 gauge x #100 ea 12/23/24 12/26/24 Rx (Unifine Pentips Plus) Exam Narrative Exam Narrative: HEENT-normocephalic atraumatic mucous membranes moist oropharynx clear extract motions are intact Neck-no lymphadenopathy no JVD no thyromegaly cardiovascular-regular rate and rhythm no murmurs gallops Lungs-clear to auscultation bilaterally with good air exchange Abdomen-soft nontender nondistended Extremities-no sinus clubbing or edema bilaterally -swollen testicles there is bright red blood in his Carrillo catheter. Results Labs 12/26/24 17:48 12/26/24 17:48 Labs: Laboratory Results - last 24 hr 12/26/24 12/26/24 17:48 18:38 WBC 5.70 RBC 2.44 L Hgb 8.2 L Hct 23.5 L MCV 96 H MCH 33.6 H MCHC 34.9 RDW 11.5 L Plt Count 287 MPV 9.9 Sodium 135 L Potassium 4.1 Chloride 97 L Carbon Dioxide 27.4 Anion Gap 10.6 BUN 23 H Creatinine 2.3 H Est GFR (CKD-EPI 2020) 29.99 Glucose 224 H Calcium 9.3 Total Bilirubin 0.4 AST 21 ALT 24 Alkaline Phosphatase 93 Total Protein 7.5 Albumin 3.3 L ABO/Rh A Positive Antibody Screen NEGATIVE Last Vital Signs Temp 36.6 C 12/26/24 17:56 Pulse 68 12/26/24 22:11 Resp 16 12/26/24 22:11 BP 138/72 12/26/24 18:04 Pulse Ox 94 12/26/24 18:04 Time Spent Time spent with Patient: 40-54 minutes Time was spent: preparing to see the patient(eg.review tests), obtaining and/or reviewing separately otained hiistory, ordering medications,tests, procedures, referring, communicating with other health neonatal intensive care nurse, indepentently interpreting results, counseling the patient and care coordination
[2024-12-27] MEDS: Lactated Ringers 1,000 ML 100 ML IV ×2 (01:51→21:16)
--- NOTE | 2024-12-27 02:22 | W.PC.ACHO ---
Registration Status: ADM AGATHA Primary Language: Preferred Language: Belarusian ED Information & Data Chief Complaint Urinary 12/26/24 18:09 Triage Note pt with c/o excessive 12/26/24 16:57 hematuria with clots causing catheter to clog (Last Reviewed 12/26/24 @ 18:13 by Lucrecia Crane NP) History of back surgery (~02/15/18) crushed thumb (11/17/12) Kidney Stone Extraction (~2004) Colonoscopy - IV Sedation (02/19/15) Arthroplasty of knee Most Recent Vital Signs Temperature 36.7 C 12/27/24 01:31 Temperature Source Temporal Artery Scan 12/27/24 01:16 Pulse 80 12/27/24 01:31 Pulse Rhythm Regular 12/27/24 01:31 Respiratory Rate 16 12/27/24 01:31 Respiratory Effort Normal, Non-Labored 12/27/24 01:31 Respiratory Depth Normal 12/27/24 01:31 Blood Pressure 170/68 H 12/27/24 01:31 Blood Pressure Mean 102 12/27/24 01:16 Pulse Oximetry 99 12/27/24 01:31 Oxygen Delivery Method Room Air 12/27/24 01:31 Oxygen Flow Rate 0 12/27/24 01:31 Pain Level 6 12/27/24 01:31 Allergies No Known Allergies Allergy (Verified 12/26/24 16:59) Active Medications Generic Name Dose Route Start Last Admin Trade Name Freq PRN Reason Stop Dose Admin Ringer's Solution 1,000 mls @ 100 mls/hr 12/27/24 00:15 12/27/24 01:51 IV 100 mls/hr INFUSION MARY ANN Administration Sodium Chloride 0 ml 12/26/24 20:00 12/26/24 19:23 Normal Saline Flush 10 Ml Syr IVP 10 ml BID MARY ANN Administration IV IV Catheter Type [Right Saline Lock Forearm] IV Catheter Gauge [Right 18 Forearm] Diet Orders Category Date Time Status Regular/Normal [DIET] Nutrition 12/27/24 Breakfast Active Diagnostics 12/26/24 12/26/24 Range/Units 18:38 17:48 WBC 5.70 (4.4-10.8) 10^3/uL RBC 2.44 L (4.36-5.78) 10^6/uL Hgb 8.2 L (13.5-17.5) g/dL Hct 23.5 L (40.0-50.0) % MCV 96 H (80-95) fL MCH 33.6 H (27.0-33.0) pg MCHC 34.9 (32.0-36.0) % RDW 11.5 L (11.8-14.1) % Plt Count 287 (130-400) 10^3/uL MPV 9.9 (8.0-11.0) fL Sodium 135 L (136-145) mmol/L Potassium 4.1 (3.5-5.1) mmol/L Chloride 97 L (98-107) mmol/L Carbon Dioxide 27.4 (21.0-32.0) mmol/L Anion Gap 10.6 (3-11) mmol/L BUN 23 H (7-18) mg/dL Creatinine 2.3 H (0.70-1.30) mg/dL Est GFR (CKD-EPI 2020) 29.99 (mL/min/1.73m2) Glucose 224 H (74-106) mg/dL Calcium 9.3 (8.5-10.1) mg/dL Total Bilirubin 0.4 (0.2-1.0) mg/dL AST 21 (15-37) U/L ALT 24 (16-63) U/L Alkaline Phosphatase 93 (46-116) U/L Total Protein 7.5 (6.4-8.2) g/dL Albumin 3.3 L (3.4-5.0) g/dL ABO/Rh A Positive Antibody Screen NEGATIVE Intake and Output - 24 Hour Total 12/26/24 16:54 thru 12/27/24 01:31 Intake Total 1010 Output Total 1400 Balance -390 Weight 104.326 kg Intake: IV 1010 Output: Urine 1400 Other: Urine Color [place] Urine Appearance Clear Comment 4th 3L bag hung Falls Risk Assessment History of Falls No History 12/27/24 01:31 Contributing Factors No Factors 12/27/24 01:31 Ambulatory Aids Independent 12/27/24 01:31 Tubes/Lines None 12/27/24 01:31 Gait Evaluation No gait disturbance 12/27/24 01:31 Cognition No cognitive impairment 12/27/24 01:31 Fall Total Score 0 12/27/24 01:31 Level of Risk Standard/Low Risk 12/27/24 01:31 Problems (Last Reviewed 12/26/24 @ 18:13 by Lucrecia Crane NP) KAMILLA (acute kidney injury) (Acute) Gross hematuria (Acute) Urinary retention (Acute) Hematuria (Acute) Left renal mass (Acute) Essential hypertension (Acute) Diabetes mellitus type 2, uncontrolled (Acute 03/24/14) v v v v v v v v v Sending and/or Receiving Nurses: Please use comment section below to note any information pertinent to the patient hand-off not included above. Information / Comments:Received pt from ed to med surg unit via ed bed accompanied by the ed nurse. Pt is alert and oriented x4.PIV on his right FA 18 gauge.CBI/cuellar is attached and draining well.Situated pt into comfort.VS taken and recorded. Report received from:janie
[2024-12-27] MEDS: MORPHine 10 MG/ML VIAL 2 MG IVP (03:57)
[2024-12-27] MEDS: Acetaminophen 325 MG TAB PO ×2 (03:58→19:27)
--- NOTE | 2024-12-27 08:53 | W.ANESPRE ---
General Info Date of Service Date Performed: 12/27/24 Height: 6 ft Weight: 104.326 kg Body Mass Index (BMI): 31.1 Surgical Procedure: Operation Date: 12/27/24 09:10 Proposed Procedure Side Surgeon p Cystoscopy w/Clot Evacuation Jan Mak MD Meds Allergies and Home Medications Allergies Allergy/AdvReac Type Severity Reaction Status Date / Time No Known Allergies Allergy Verified 12/26/24 16:59 Home Medication ?Medication ?Instructions ?Recorded aspirin 81 mg tablet,delayed 81 mg PO DAILY 11/17/12 release (Aspir-) cyanocobalamin (vitamin B-12) 1,000 mcg PO DAILY 11/17/12 1,000 mcg tablet (Vitamin B-12) garlic 1 cap PO DAILY 11/17/12 multivitamin (Daily Multi-Vitamin 1 tab PO DAILY 11/17/12 tablet) cinnamon bark 500 mg capsule 500 mg PO DAILY 02/25/16 blood sugar diagnostic (Blood #100 strips 09/05/16 Glucose Test strips) metoprolol succinate 25 mg 25 mg PO DAILY #90 tabs 02/02/24 tablet,extended release 24 hr losartan 100 1 tab PO DAILY ##90 03/07/24 mg-hydrochlorothiazide 25 mg tablet (Hyzaar) amlodipine 10 mg tablet 10 mg PO DAILY #90 tabs 03/08/24 atorvastatin 10 mg tablet 10 mg PO DAILY #90 tabs 05/02/24 metformin 1,000 mg tablet 1,000 mg PO BID #180 tab-caps 06/16/24 glipizide 10 mg tablet 10 mg PO DAILY #90 tabs 11/08/24 insulin glargine-yfgn 100 unit/mL 20 unit (0.2 mL) subcut QPM #15 mL 11/08/24 (3 mL) subcutaneous pen tamsulosin 0.4 mg capsule 0.4 mg PO DAILY 12/18/24 pen needle, diabetic 33 gauge x #100 ea 12/23/24 (Unifine Pentips Plus) Current Visit Medications: Current Medications Generic Name Dose Route Start Last Admin Trade Name Freq PRN Reason Stop Dose Admin Acetaminophen 0 mg 12/27/24 00:07 12/27/24 03:58 Acetaminophen 325 Mg Tab PO 650 mg Q4H PRN PRN Administration Al Hydrox/Mg Hydrox/Simethicone 30 ml 12/27/24 00:07 Mylanta Suspension 30 Ml Cup PO Q2H PRN PRN Amlodipine Besylate 10 mg 12/27/24 08:30 Amlodipine 10 Mg Tab PO DAILY [facility] Atorvastatin Calcium 10 mg 12/27/24 08:30 Atorvastatin 10 Mg Tab PO DAILY [facility] Cyanocobalamin 1,000 mcg 12/27/24 08:30 Cyanocobalamin 100 Mcg Tablet PO DAILY [facility] Docusate Sodium 100 mg 12/27/24 00:07 Docusate Sodium 100 Mg Cap PO TID PRN PRN Glipizide 10 mg 12/27/24 08:30 Glipizide 10 Mg Tab PO DAILY [facility] Hydrochlorothiazide 25 mg 12/27/24 08:30 Hydrochlorothiazide 25 Mg Tab PO QAM [facility] Ringer's Solution 1,000 mls @ 100 mls/hr 12/27/24 00:15 12/27/24 01:51 IV 100 mls/hr INFUSION [facility] Administration IV Miscellaneous Supplies 1 each 12/26/24 17:45 Iv Access IV DIRECTED [facility] Insulin Glargine 20 units 12/27/24 20:00 Insulin Glargine 300 Units/3 Ml Pen SC QPM [facility] Losartan Potassium 100 mg 12/27/24 08:30 Losartan 50 Mg Tab PO QAM [facility] Magnesium Hydroxide 30 ml 12/27/24 00:07 Milk Of Magnesia 30 Ml Cup PO DAILY PRN PRN Metoprolol Succinate 25 mg 12/27/24 08:30 Metoprolol Cr 25 Mg Tabcr PO DAILY [facility] Morphine Sulfate 2 mg 12/27/24 03:58 Morphine 2 Mg/Ml Syr IVP Q4H PRN PRN Multivitamins 1 tab 12/27/24 08:30 Multivitamin Tab PO DAILY [facility] Polyethylene Glycol 17 gm 12/27/24 00:07 Polyethylene Glycol 3350 17 Gm Packet PO DAILY PRN PRN Constipation Sodium Chloride 0 ml 12/26/24 17:44 Normal Saline Flush 10 Ml Syr IVP PRN PRN Sodium Chloride 0 ml 12/26/24 20:00 12/26/24 19:23 Normal Saline Flush 10 Ml Syr IVP 10 ml BID [facility] Administration Sodium Chloride 0 ml 12/26/24 17:44 Normal Saline 10 Ml Vial IJ DIRECTED PRN Tamsulosin HCl 0.4 mg 12/27/24 08:30 Tamsulosin 0.4 Mg Capcr PO DAILY [facility] Zolpidem Tartrate 5 mg 12/27/24 00:05 Zolpidem 5 Mg Tab PO HS PRN PRN PFSH Active Problems Active Problems: Problem Status Onset Code KAMILLA (acute kidney injury) Acute N17.9 Complication, blocked Carrillo catheter Acute T83.091A Renal cell carcinoma Acute C64.9 Gross hematuria Acute R31.0 Urinary retention Acute R33.9 Renal cell carcinoma Acute C64.9 Hematuria Acute R31.9 Complication, blocked Carrillo catheter Acute T83.091A Renal cell carcinoma Acute C64.9 Left renal mass Acute N28.89 Acute pyelonephritis Acute N10 Arthritis pain, hip Acute M16.10 Sarcoidosis Acute 01/09/14 D86.9 Overweight Chronic E66.3 Ear congestion Acute H93.8X9 Diabetes mellitus Chronic E11.9 Hypertension Chronic I10 Cough Acute R05 Erectile dysfunction Chronic N52.9 Glucose intolerance Acute E74.39 Lumbago Acute M54.5 Fracture of distal phalanx of finger Acute 11/23/12 S62.639A Type 2 diabetes mellitus without complication, without long-term current use of insulin Acute 02/25/16 E11.9 Tobacco use disorder Acute F17.200 Sexual function problem Acute F52.9 Pernicious anemia Acute D51.0 Onychomycosis Acute B35.1 Medial meniscus tear Acute S83.249A Knee pain Acute M25.569 Hiatal hernia Acute K44.9 Essential hypertension Acute I10 Dysplastic nevi Acute 08/26/17 Diverticulosis of colon without diverticulitis Acute K57.30 Diabetes mellitus type 2, uncontrolled Acute 03/24/14 E11.65 Surgical History Surgical History History of back surgery (~02/15/18) LLUVIA HOGAN DAY crushed thumb (11/17/12) Kidney Stone Extraction (~2004) Colonoscopy - IV Sedation (02/19/15) DR.C. WREN Arthroplasty of knee 04/02/16-RIGHT;DR. GUARDADO 08/19/16 RIGHT;[facility] Tobacco Smoking/Tobacco Use Status: Current every day Tobacco Type: smokeless tobacco Smokeless tobacco user: chewing tobacco Passive smoking exposure: No Second hand exposure: Yes Alcohol Alcohol Intake: former Substance Use Substance use: Never Substance use type: does not use Vital Signs and Lab Results Vital Signs Most Recent Vital Signs in EMR: Most Recent Vital Signs Temp Pulse Resp BP Pulse Ox 35.8 C L 69 16 138/67 96 12/27/24 08:32 12/27/24 08:32 12/27/24 08:32 12/27/24 08:32 12/27/24 08:32 Lab Results 12/26/24 17:48 12/26/24 17:48 Blood Type / Crossmatch: Antibody Screen NEGATIVE 12/26/24 Complete Blood Count: WBC, (4.4-10.8) 5.70 10^3/uL 12/26/24, 17:48 RBC, (4.36-5.78) 2.44 10^6/uL L 12/26/24, 17:48 Hgb, (13.5-17.5) 8.2 g/dL L 12/26/24, 17:48 Hct, (40.0-50.0) 23.5 % L 12/26/24, 17:48 Plt Count, (130-400) 287 10^3/uL 12/26/24, 17:48 Complete Metabolic Panel: Sodium, (136-145) 135 mmol/L L 12/26/24, 17:48 Potassium, (3.5-5.1) 4.1 mmol/L 12/26/24, 17:48 Chloride, (98-107) 97 mmol/L L 12/26/24, 17:48 Carbon Dioxide, (21.0-32.0) 27.4 mmol/L 12/26/24, 17:48 BUN, (7-18) 23 mg/dL H 12/26/24, 17:48 Creatinine, (0.70-1.30) 2.3 mg/dL H 12/26/24, 17:48 Est GFR (CKD-EPI 2020), (mL/min/1.73m2) 29.99 12/26/24, 17:48 Magnesium, (1.8-2.4) 2.0 mg/dL 12/21/24, 05:40 Calcium, (8.5-10.1) 9.3 mg/dL 12/26/24, 17:48 Albumin, (3.4-5.0) 3.3 g/dL L 12/26/24, 17:48 Glucose, (74-106) 224 mg/dL H 12/26/24, 17:48 Liver Function Panel: ALT, (16-63) 24 U/L 12/26/24, 17:48 AST, (15-37) 21 U/L 12/26/24, 17:48 Anesthesia Assessment and Plan Anesthesia History Personal History: No History of Anesthesia Complications Family History: No Family History of Anesthesia Complications Exercise Tolerance Exercise Tolerance: Metabolic Equivalents>4 Pertinent Negatives Pertinent Negatives: No Symptoms of GERD Cardiac & Pulmonary Exam Cardiac Exam: Normal S1/S2 Heart Sounds Pulmonary Exam: Clear Bilateral Breath Sounds Implantable Cardiac Device Does patient have a Pacemaker or an ICD?: No Airway Exam Known Difficult Airway: No Mallampati Class: 2 Mouth Opening: Normal (> 3cm) Thyromental Distance: Greater than 3 cm Neck Range of Motion: Full ROM Neck Circumference: Normal Teeth Condition: Other (Partial) ASA Classification ASA Score: ASA 3 Emergency Case?: No NPO Status NPO Status: NPO Clears >2 hours, Solids >8 hours Anesthesia Plan Resuscitation Status: Full Code Anesthesia Technique: General Anesthesia Airway Planned: Natural Airway Monitors Used: Standard Monitors
--- NOTE | 2024-12-27 09:34 | PDOC.CMIN ---
Date of service: 12/27/24 Time of Service: 09:34 Care Management Initial Assmt Initial Assessment Reason for Hospitalization: Hematuria Functional Status/Living Situation Patient Presentation: Orlin was sitting up in bed when CM met with him. He stated that he is feeling well today, and discussed how Dr. Mak took him to the OR for a cystoscopy and clot removal today. He was pleasant and engaged well in conversation, stating that he is happy with his care at [facility]. He discussed his surgery, scheduled for 01/27/25 for removal of his kidney due to a left renal mass. He is looking forward to this, as he feels that he will continue to have problems with blood clots until the surgery. He is independent at home, and does not anticipate the need for any services upon discharge. CM will continue to follow. Town of Residence: [place] Resides with: Spouse (, Hamida) Significant Other/Family: Out of area Natural Supports: , Hamida Three kids, all live in [place], but out of town Employment Status: Retired (worked for the [employer] [place]) Instrumental Activities of Daily Living (ADLs): Independent Medications Medication Management: No Issues/Barriers identified Advance Directives Advance Directives: Do you have an Advance Directive: N 11/17/12, 11:06 AD On File at [facility]: N 11/17/12, 11:06 Date Asked 12/27/24 Today, 04:38 AD Date Reviewed COLST On File at [facility] No 11/05/24, 19:18 COLST Date Scanned Code Status Resuscitation Status Full Code Insurance Coverage/Financial Issues Insurance: [facility] Care Team Visit Care Team Role Provider Type Bayron Conley MD [facility] STAFF PHYSICIAN Miguel Guzman MD Primary Care Provider [facility] STAFF PHYSICIAN Lucrecia Crane, JO Emergency Provider NURSE PRACTITIONER Scott Morgan MD Admit Provider [facility] STAFF PHYSICIAN Attending Provider Discharge Potential Discharge Needs: PCP F/U Appt Anticipated Barriers to Discharge: None Identified Patient/Family Education Needs: Review discharge instructions, discuss Ask Me Three Transportation: Private vehicle Plan: Anticipate Orlin will return home once medically cleared. His will drive him home via private vehicle. He will follow up with his PCP and discharge plan of care. CM will continue to follow. Social Determinants of Health Screening Will the Patient Participate in the Screening?: Declined to provide PFSH All Active Problems (Updated 12/27/24 @ 16:36 by Bayron Conley) Anemia due to blood loss (Acute) KAMILLA (acute kidney injury) (Acute) Complication, blocked Cuellar catheter (Acute) Renal cell carcinoma (Acute) Gross hematuria (Acute) Urinary retention (Acute) Renal cell carcinoma (Acute) Hematuria (Acute) Complication, blocked Cuellar catheter (Acute) Renal cell carcinoma (Acute) Left renal mass (Acute) Acute pyelonephritis (Acute) Arthritis pain, hip (Acute) Sarcoidosis (Acute 01/09/14) Overweight (Chronic) Ear congestion (Acute) likely ET dysfunction due to recent cold / ? allergy Diabetes mellitus (Chronic) A1c in office today 7.9 Hypertension (Chronic) not well controlled today Cough (Acute) likely viral bronchitis Erectile dysfunction (Chronic) Glucose intolerance (Acute) 02/15/18 LLUVIA LOJA; GLUCOSE 156 Lumbago (Acute) Fracture of distal phalanx of finger (Acute 11/23/12) Type 2 diabetes mellitus without complication, without long-term current use of insulin (Acute 02/25/16) Tobacco use disorder (Acute) CHEWS TOBACCO Sexual function problem (Acute) Pernicious anemia (Acute) Onychomycosis (Acute) Medial meniscus tear (Acute) RIGHT-04/02/16 Knee pain (Acute) ? MENISCUS Hiatal hernia (Acute) Essential hypertension (Acute) Dysplastic nevi (Acute 08/26/17) multiple Diverticulosis of colon without diverticulitis (Acute) Diabetes mellitus type 2, uncontrolled (Acute 03/24/14) Surgical History History of back surgery (~02/15/18) LLUVIA LOJA crushed thumb (11/17/12) Kidney Stone Extraction (~2004) Colonoscopy - IV Sedation (02/19/15) DR.C. WREN Arthroplasty of knee 04/02/16-RIGHT;DR. GUARDADO 08/19/16 RIGHT;[facility] Family History Mother , AGE 78 Essential hypertension MS (multiple sclerosis) Throat cancer Father Essential hypertension Diabetes Heart disease Sister Essential hypertension Diabetes Brother Essential hypertension Diabetes Maternal Grandfather , AGE 69 Essential hypertension Heart disease Paternal Grandfather , AGE 85 Essential hypertension Heart disease Maternal Grandmother , AGE 94 Essential hypertension Heart disease Paternal Grandmother , AGE 90 Essential hypertension Heart disease Son Substance abuse Son No problems noted. Daughter No problems noted. Social History Smoking/Tobacco Use Status: Current every day Tobacco Type: smokeless tobacco Tobacco: How many years used: 40 Smokeless tobacco user: chewing tobacco Quit status: has quit before Second Hand Exposure: Yes Smoking risk assessment performed?: Yes Alcohol Intake: former Drug use: Never Substance use type: does not use Counseling given: No Adopted: No Caregiver/Support person: No Household members: spouse Housing: house Communication Needs: None Do you need help understanding health information?: Rarely Pets and animals: No Sexually active: Yes Do you think of yourself as: straight/heterosexual Current gender identity: male What is your relationship status?: How often do you talk on the phone with friends or family?: three or more times per week How often do you get together with friends or relatives?: decline to answer How often do you attend christianity or hoahaoism services?: decline to answer Do you belong to any clubs or organized social groups?: no Panel score (0-1 are the most socially isolated patients): 2 What type of physical activity do you participate in: walking Duration: 15-30 minutes/day Frequency: 3-4 times per week Adilene/Episcopal: No preference Special adilene needs: No Seatbelt use: always Helmet use: Yes Helmet use: always Drive intox or ride w/intox catshovel driver: No Do you feel safe at home: Yes Do you feel safe in your relationship?: Yes Readmission Within the Past 30 Days Yes or No: Yes Date of First Admission Date of 1st Admission: 12/20/24 Date of this Admission Date of Admission: 12/26/24 This admission was: Through ED Office Visit Since 1st Admission Have you seen your PCP in the office since discharge?: No Speicalist Appointments Have you seen any other specialist since your 1st Admission?: Yes Date you saw the Specialist: 12/23/24 Specialist Seen: Urology at [facility] [place]. Interview patient and/or Family Difficulty reaching your doctor or getting an office appt?: No Have you had trouble purchasing/ or taking medication?: No How do you take your medications and set up your pills?: independently Have you had trouble with getting meals at home?: No Did you feel ready for discharge when you left the last time: Yes Reason there were no orders at discharge: no services identified How do you think you became sick enough to come back?: Orlin had a large blood clot in his cuellar catheter, and returned to the ED, as instructed by his provider ED visits How many ED visits in the past 12 months: 3 Assessment for Readmission Summary of readmission circumstances, based upon interviews: Orlin reports an ongoing concern of hematuria and blood clots which he is seeing a urologist at [facility] for. He saw his urologist on Thursday12/23/24, the day after discharge, and felt well all weekend. He noticed a blood clot in his catheter on Thursday, and went to the OR, as it was blocking the catheter bag. He was admitted and met with Dr. Mak (urologist) today, who brought him to the OR for clot evacuation/cystoscopy. He has surgery for kidney removal at [facility] on 01/27/25, and feels that this problem will likely recur until he has surgery. He expressed frustration about this, but is also gracious and happy with his care at [facility].
[2024-12-27] MEDS: Lidocaine 2% Jelly 11 ML SYR (09:44)
[2024-12-27] MEDS: Omnipaque 300 MG/ML 50 ML BTL (10:06)
--- NOTE | 2024-12-27 10:16 | ROE_ITS ---
Operative Note Operative Note PRE-OP DIAGNOSIS: Clot retention POST-OP DIAGNOSIS: same PROCEDURE: Cystoscopy, clot evacuation, exchange of the left ureteral stent SURGEON: Jan Mak ANESTHESIA TYPE: Local By Surgeon and General:No Airway Refer to Anesthesia Record ESTIMATED BLOOD LOSS: 5 PATHOLOGY: none sent COMPLICATIONS: None Patient was transported to: PACU Patient's condition: stable Implants: 7 Tristanian by 22 to 30 cm left ureteral stent 20 Tristanian coud? tipped irrigating catheter with 10 cc of sterile water in the balloon Indications: This is a 69-year-old gentleman with a known diagnosis of left renal cell carcinoma. He has had persistent bleeding coming down from his left kidney. We had placed a stent when clots began obstructing his left ureter. He has had multiple hospitalizations for clot retention. Most recently, he required hand irrigation while he was at [facility]. He was scheduled for a voiding trial later this week, but he went back into clot retention last evening. He presents now for cystoscopy and clot evacuation Findings: Large amount of clot in the bladder and in the left renal pelvis and upper ureter Procedure Description: The patient was brought to the operating room on 12/27/2024. After successful induction of general anesthesia, he was placed in the dorsal lithotomy position. His indwelling Carrillo catheter balloon was deflated and the catheter was removed. His genitalia was prepped and draped. Xylocaine jelly was then instilled into the urethra. A 22 Tristanian rigid cystoscope was passed through the urethra into the bladder. Urethra and bladder were inspected with the 30 degree lens. The pendulous, bulbar and membranous urethra's appeared normal with no strictures. The prostatic urethra showed no active bleeding. There was a lateral lobe enlargement but no significant median lobe. Once the scope was passed into the bladder, a large amount of clot was present and our view was obscured. We vigorously hand irrigated using a Charline syringe and a large amount of clot was evacuated. Once all clot had been removed, we inspected the bladder. No obvious bleeding source was seen in the bladder. We visualized the stent coming from the left ureteral orifice. We could see blood coming from that orifice. There did appear to be clot extruding from the lumen of the stent itself. I then passed a guidewire through the lumen of the stent and removed the stent. I passed a dual-lumen catheter over the wire and injected Omnipaque through the second port of the dual-lumen catheter under fluoroscopic guidance. Large amount of clot could be seen in the kidney and upper ureter. I then replaced the stent with a 7 Tristanian variable length stent. I passed the stent over the guidewire and position the stent with the proximal and curled in the renal pelvis and the distal end curled within the bladder. The positioning of the stent was confirmed both fluoroscopically and cystoscopically. Once the new stent was passed, a large amount of blood product came down from the left kidney. We continued hand irrigation of the bladder until all blood product was removed and only a small trickle of blood could be seen coming from the left ureteral orifice. I then filled the bladder with irrigant and removed the cystoscope. I passed a 20 Tristanian hematuria catheter through the urethra into the bladder. The catheter balloon was inflated with 10 cc of sterile water. Continuous bladder irrigation with saline was then begun. The patient tolerated the procedure well with minimal acute blood loss during the procedure. There was, however, a large amount of blood product both within the bladder and within the left kidney. He was taken to the PACU in stable condition. Date of Procedure: 12/27/24
--- NOTE | 2024-12-27 10:18 | DI.RAD_ITS ---
Exam(s) XR RETROGRADE IN OR EXAM: XR RETROGRADE IN OR CLINICAL HISTORY: HEMATURIA TECHNIQUE: 2D and realtime digital imaging was performed. CONTRAST MATERIAL: Refer to procedure report. COMPARISON: CT CT ABDOMEN PELVIS WO from 12/26/2024 FINDINGS: Fluoroscopy was provided for Dr. Mak during the performance of a retrograde evaluation of the renal collecting system. Please refer to the procedure report for complete details. Ka,r=6.47 mGy IMPRESSION: RADIATION DOSE DELIVERED: 0.0 0.0 0
--- NOTE | 2024-12-27 10:32 | W.ANESPOSTOP ---
Postoperative Evaluation Date, Time and Location Date Performed: 12/27/24 Time Performed: 10:32 Patient Location: PACU Vital Signs Most Recent Imported Vital Signs: Most Recent Vital Signs Temp Pulse Resp BP Pulse Ox 36.3 C L 68 18 131/57 L 96 12/27/24 10:22 12/27/24 10:26 12/27/24 10:26 12/27/24 10:12/27/24 10:26 Pain Score Most Recent Pain Score: Most Recent Pain Score Pain Level 0 12/27/24 10:22 Assessment Mental Status: Awake (Alert & Oriented to Patient Baseline) Airway and Respiratory Function: Patent airway with normal (patient baseline) respiratory exam Cardiovascular Function: Hemodynamically Stable Hydration Status: Adequately Hydrated Nausea & Vomiting: No Nausea or Vomiting Pain: Pt. Denies Any Pain Peripheral Nerve Block: Patient did not receive a nerve block
[2024-12-27] MEDS: Losartan 50 MG TAB 100 MG PO (12:30)
[2024-12-27] MEDS: Multivitamin TAB 1 TAB PO (12:30)
[2024-12-27] MEDS: glipiZIDE 10 MG TAB PO (12:30)
[2024-12-27] MEDS: hydroCHLOROthiazide 25 MG TAB PO (12:30)
[2024-12-27] MEDS: amLODIPine 10 MG TAB PO (12:30)
[2024-12-27] MEDS: Metoprolol CR 25 MG TABCR PO (12:30)
[2024-12-27] MEDS: Atorvastatin 10 MG TAB PO (12:30)
[2024-12-27] MEDS: Tamsulosin 0.4 MG CAPCR PO (12:31)
[2024-12-27] MEDS: Normal Saline Flush 10 ML SYR IVP ×3 (12:31→19:29)
--- NOTE | 2024-12-27 16:28 | W.PM.PROGNOT ---
Date of Service Date of service: 12/27/24 Time of Service: 16:28 Assessment and Plan Assessment and plan (1) Hematuria: Status: Acute Assessment and plan: Related to RCC bleeding. s/p another cystoscopy to clear clots, discussed Continue with irrigation. (2) Essential hypertension: Status: Acute Assessment and plan: continue with medical management but hold losartan until GFR imrpoves (3) Diabetes mellitus type 2, uncontrolled: Status: Acute Assessment and plan: Will continue with his medical management with the exception of holding his metformin with creatinine is currently over 2.3, insulin sliding scale (4) Left renal mass: Status: Acute Assessment and plan: Patient is scheduled for surgery on January 28 at [facility] (5) KAMILLA (acute kidney injury): Status: Acute Assessment and plan: Continue with IV fluids, possible obstructing clots have been washed out Hold losartan for now as well (6) Urinary retention: Status: Acute Assessment and plan: Continue with Flomax. Considering the patient's current bleeding will not use chemical prophylaxis but SCDs and teds. (7) Anemia due to blood loss: Status: Acute Assessment and plan: Stable from previous get iron/tibc, supplement if low to try to improve prior to surgery Subjective Subjective Patient reports: no new complaints; denies bowel movement, nausea, vomiting, shortness of breath or fever Interval history since last seen: Events: Had cystoscopy with irrigation of clots with Dr. Mak this morning, cuellar to irrigation He feels okay. Frustrated by recurrent admissions, surgery still weeks out. Not in pain now. Exam Narrative Exam Narrative: GEN: Alert and oriented, NAD CV -regular rate and rhythm no murmurs gallops Lungs-clear to auscultation bilaterally with good air exchange Abdomen-soft nontender nondistended Extremities-no cyanosis clubbing or edema bilaterally -urine now clear Objective Last Vital Signs Temp 36.5 C 12/27/24 10:52 Pulse 66 12/27/24 10:46 Resp 21 12/27/24 10:50 BP 126/103 H 12/27/24 10:46 Pulse Ox 99 12/27/24 10:46 Laboratory Results - last 24 hr 12/26/24 12/26/24 17:48 18:38 WBC 5.70 RBC 2.44 L Hgb 8.2 L Hct 23.5 L MCV 96 H MCH 33.6 H MCHC 34.9 RDW 11.5 L Plt Count 287 MPV 9.9 Sodium 135 L Potassium 4.1 Chloride 97 L Carbon Dioxide 27.4 Anion Gap 10.6 BUN 23 H Creatinine 2.3 H Est GFR (CKD-EPI 2020) 29.99 Glucose 224 H Calcium 9.3 Total Bilirubin 0.4 AST 21 ALT 24 Alkaline Phosphatase 93 Total Protein 7.5 Albumin 3.3 L ABO/Rh A Positive Antibody Screen NEGATIVE PAWSS Have you Been Recently Intoxicated or Drunk Within the Last 30 days?: No Have you Ever Experienced Previous Episodes of Alcohol Withdrawal?: No Have you ever Experienced Withdrawal Seizures?: No Have you ever Experienced Delirium Tremens(DT)s?: No Have you ever undergone Alcohol Rehabilitation Treatment (i.e, inpt ot outpatient treatment programs)?: No Have you ever Experienced Blackouts?: No Have you ever Combined Alcohol with other Downers within the last 90 days?: No Have you ever Combined Alcohol with any other Substance of Abuse during the last 90 days?: No Positive Blood Alcohol level on Presentation? [PCS.BAL]: No Evidence of Increased Autonomic Activity (i.e. HR>120, tremor, sweating, agitation, nausea)?: No Result: 0 Time Spent with Patient Time Spent with Patient: 35-49 minutes Time was spent: preparing to see the patient(eg.review tests), obtaining and/or reviewing separately otained hiistory, ordering medications,tests, procedures, referring, communicating with other health long term care administrator, indepentently interpreting results, counseling the patient and care coordination
[2024-12-27] MEDS: Docusate Sodium 100 MG CAP PO (16:36)
--- NOTE | 2024-12-27 17:27 | CHAPLAIN ---
I visited with Orlin and his Hamida, and we remembered each other from his previous admission not long ago. He's frustrated with being here again while he [place] [facility]. He remains pleasant, just frustrated. He continues to work with Dr. Mak to figure out next steps.
[2024-12-27] MEDS: Insulin Aspart 300 UNITS/3 ML PEN SC (18:03)
[2024-12-27] MEDS: Insulin Glargine 300 UNITS/3 ML PEN 20 UNITS SC (19:28)
[2024-12-27] MEDS: MORPHine 2 MG/ML SYR IVP (19:28)
[2024-12-28] VITALS (14 sets, daily range): BP systolic 122–143; BP diastolic 55–68; PULSE 64–79; RESP 12–20; TEMP 36.2–37.5; O2SAT 94–97
[2024-12-28] MEDS: MORPHine 2 MG/ML SYR IVP ×2 (04:07→23:40)
[2024-12-28 06:54] LABS: HGB 6.6 g/dL (13.5-17.5)
[2024-12-28 06:55] LABS: HCT 19.7 % (40.0-50.0)
[2024-12-28 07:30] LABS: Anion Gap 6.2 mmol/L (3-11); BUN 17 mg/dL (7-18); CO2 30.8 mmol/L (21.0-32.0); Calcium 9.1 mg/dL (8.5-10.1); Chloride 102 mmol/L (98-107); Estimated GFR 40.24 (mL/min/1.73m2); Glucose 186 mg/dL (74-106); Potassium 4.3 mmol/L (3.5-5.1); Sodium 139 mmol/L (136-145)
[2024-12-28] MEDS: Lactated Ringers 1,000 ML 100 ML IV (07:32)
[2024-12-28] MEDS: Polyethylene Glycol 3350 17 GM PACKET PO (07:40)
[2024-12-28] MEDS: Acetaminophen 325 MG TAB PO ×2 (07:40→23:41)
[2024-12-28 07:57] LABS: Iron 29 ug/dL (65-175); Total Iron Binding Capacity 228 ug/dL (250-450); Transferrin Sat 13 % (20-55)
[2024-12-28] MEDS: Normal Saline Flush 10 ML SYR IVP ×4 (08:40→20:02)
[2024-12-28] MEDS: Multivitamin TAB 1 TAB PO (08:41)
[2024-12-28] MEDS: hydroCHLOROthiazide 25 MG TAB PO (08:41)
[2024-12-28] MEDS: amLODIPine 10 MG TAB PO (08:41)
[2024-12-28] MEDS: Metoprolol CR 25 MG TABCR PO (08:41)
[2024-12-28] MEDS: Tamsulosin 0.4 MG CAPCR PO (08:42)
[2024-12-28] MEDS: Atorvastatin 10 MG TAB PO (08:42)
[2024-12-28] MEDS: glipiZIDE 10 MG TAB PO (08:42)
--- NOTE | 2024-12-28 08:48 | CMPROGNOTE_ITS ---
Date of service: 12/28/24 Time of Service: 08:48 Care Management Progress Note Progress Note Text Progress Note Text: Orlin was being closely monitored and treated for hematuria. He has renal cell carcinoma and expressed uncertainty about his plan of care moving forward. He stated that he is eager to have the effected kidney removed, but feels as though [facility] is stalling and voiced concern about the implications of waiting. Per chart review, surgery is scheduled at [facility] on 01/28/25, which is approximately 1 month from now. Patient expressed fear about his prognosis in the meantime, stating that he worries he may be before his surgery and feels the system is working against him. CM acknowledged the patients fears and validated his feelings about the uncertainty of waiting for surgery. CM provided reassurance that his concerns will be communicated to his medical team for further review. Patient was encouraged to continue sharing his worries and was reminded that his care team remains available to support him during this time. In addition, during this conversation patient reported that he is having difficulty getting up out of bed. A PT consult may be beneficial to further assess mobility and support safe discharge planning. CM will follow. Discharge Potential Discharge Needs: PCP F/U Appt and Surgical F/U Appt Anticipated Barriers to Discharge: None Identified Patient/Family Education Needs: Review discharge instructions, discuss Ask Me Three Transportation: Private vehicle Plan: PT consult is pending. Anticipate Orlin will return home once medically cleared. His will drive him home via private vehicle. He will follow up with his PCP and discharge plan of care. CM will continue to follow. Social Determinants of Health Screening Will the Patient Participate in the Screening?: Declined to provide
--- NOTE | 2024-12-28 08:57 | W.PM.PROGNOT ---
Date of Service Date of service: 12/28/24 Time of Service: 08:57 Assessment and Plan Assessment and plan (1) Left renal mass: Status: Acute (2) Renal cell carcinoma: Status: Acute Assessment and plan: I would suggest attempting to discontinue his CBI but I'd have a very low tolerance for restarting if his urine becomes bloody again. The left kidney is the source of his bleeding. If the continues, we can always check with Interventional radiology about embolizing the kidney if his nephrectomy is not planned for a while. Subjective Subjective Interval history since last seen: Few small clots that I suspect have come down from his left kidney Exam Narrative Exam Narrative: Looks comfortable at this time CBI transparent Objective Last Vital Signs Temp 36.4 C L 12/28/24 07:05 Pulse 65 12/28/24 07:05 Resp 16 12/28/24 07:05 BP 125/63 12/28/24 07:05 Pulse Ox 95 12/28/24 07:05 Laboratory Results - last 24 hr 12/26/24 12/28/24 18:38 06:34 Hgb 6.6 L* Hct 19.7 L* Sodium 139 Potassium 4.3 Chloride 102 Carbon Dioxide 30.8 Anion Gap 6.2 BUN 17 Creatinine 1.8 H Est GFR (CKD-EPI 2020) 40.24 Glucose 186 H Calcium 9.1 Iron 29 L TIBC 228 L Transferrin % Sat 13 L ABO/Rh A Positive Antibody Screen NEGATIVE Crossmatch See Detail PAWSS Have you Been Recently Intoxicated or Drunk Within the Last 30 days?: No Have you Ever Experienced Previous Episodes of Alcohol Withdrawal?: No Have you ever Experienced Withdrawal Seizures?: No Have you ever Experienced Delirium Tremens(DT)s?: No Have you ever undergone Alcohol Rehabilitation Treatment (i.e, inpt ot outpatient treatment programs)?: No Have you ever Experienced Blackouts?: No Have you ever Combined Alcohol with other Downers within the last 90 days?: No Have you ever Combined Alcohol with any other Substance of Abuse during the last 90 days?: No Positive Blood Alcohol level on Presentation? [PCS.BAL]: No Evidence of Increased Autonomic Activity (i.e. HR>120, tremor, sweating, agitation, nausea)?: No Result: 0 Time Spent with Patient Time Spent with Patient: 25-34 minutes Time was spent: preparing to see the patient(eg.review tests), obtaining and/or reviewing separately otained hiistory and referring, communicating with other health resident care provider
[2024-12-28] MEDS: Insulin Aspart 300 UNITS/3 ML PEN SC ×3 (09:08→18:05)
--- NOTE | 2024-12-28 13:27 | PGE_ITS ---
Date of Service Date of service: 12/28/24 Time of Service: 13:27 Assessment and Plan Assessment and plan (1) Hematuria: Status: Acute Assessment and plan: Related to RCC bleeding. s/p another cystoscopy to clear clots Had to resume when urine bloody again. Could consider embolization per Dr. Mak, would need down/back from [facility] [place] [place] (2) Anemia due to blood loss: Status: Acute Assessment and plan: h/h <7 this am, getting 1 unit 12/28. Repeat in afternoon after transfusion done. iron/tibc low, can also supplement, IV to try to limit transfusion and build stores quickly prior to surgery (3) Essential hypertension: Status: Acute Assessment and plan: continue with medical management but holding losartan until GFR imrpoves (4) Diabetes mellitus type 2, uncontrolled: Status: Acute Assessment and plan: Will continue with his medical management with the exception of holding his metformin with creatinine is currently >1.5, using insulin sliding scale. increased dose lantus 12/28 as sugars running high 100s to 200s off metformin. (5) Left renal mass: Status: Acute Assessment and plan: Patient is scheduled for surgery on January 28 at [facility] (6) KAMILLA (acute kidney injury): Status: Acute Assessment and plan: Continue with IV fluids, possible obstructing clots have been washed out Hold losartan for now as well Creatinine is improving 12/28 (7) Urinary retention: Status: Acute Assessment and plan: Continue with Flomax. Considering the patient's current bleeding will not use chemical prophylaxis but SCDs and teds. Subjective Subjective Patient reports: no new complaints and tolerating a regular diet; denies nausea, vomiting, shortness of breath or fever Interval history since last seen: He feels okay, but per RN continuing to produce clots in urine when irrigation stopped. He feels exhausted. Not dizzy. Exam Narrative Exam Narrative: GEN: Alert and oriented, NAD CV -regular rate and rhythm no murmurs gallops Lungs-clear to auscultation bilaterally with good air exchange Abdomen-soft nontender nondistended Extremities-no cyanosis clubbing or edema bilaterally -urine blood tinged Objective Last Vital Signs Temp 37.3 C 12/28/24 11:51 Pulse 64 12/28/24 11:51 Resp 12 12/28/24 11:51 BP 122/60 12/28/24 11:51 Pulse Ox 95 12/28/24 11:51 Laboratory Results - last 24 hr 12/26/24 12/28/24 18:38 06:34 Hgb 6.6 L* Hct 19.7 L* Sodium 139 Potassium 4.3 Chloride 102 Carbon Dioxide 30.8 Anion Gap 6.2 BUN 17 Creatinine 1.8 H Est GFR (CKD-EPI 2020) 40.24 Glucose 186 H Calcium 9.1 Iron 29 L TIBC 228 L Transferrin % Sat 13 L ABO/Rh A Positive Antibody Screen NEGATIVE Crossmatch See Detail PAWSS Have you Been Recently Intoxicated or Drunk Within the Last 30 days?: No Have you Ever Experienced Previous Episodes of Alcohol Withdrawal?: No Have you ever Experienced Withdrawal Seizures?: No Have you ever Experienced Delirium Tremens(DT)s?: No Have you ever undergone Alcohol Rehabilitation Treatment (i.e, inpt ot outpa tient treatment programs)?: No Have you ever Experienced Blackouts?: No Have you ever Combined Alcohol with other Downers within the last 90 days?: No Have you ever Combined Alcohol with any other Substance of Abuse during the last 90 days?: No Positive Blood Alcohol level on Presentation? [PCS.BAL]: No Evidence of Increased Autonomic Activity (i.e. HR>120, tremor, sweating, agitation, nausea)?: No Result: 0 Time Spent with Patient Time Spent with Patient: 35-49 minutes Time was spent: preparing to see the patient(eg.review tests), obtaining and/or reviewing separately otained hiistory, ordering medications,tests, procedures, referring, communicating with other health certified caregiver, indepentently interpreting results, counseling the patient and care coordination
[2024-12-28 14:27] LABS: HGB 7.2 g/dL (13.5-17.5)
[2024-12-28 14:31] LABS: HCT 21.0 % (40.0-50.0)
[2024-12-28] MEDS: FERRIC DERISOMALTOSE 1,000 MG in Normal Saline 250 ML 500 MG IVPB (16:55)
[2024-12-28] MEDS: Insulin Glargine 300 UNITS/3 ML PEN 24 UNITS SC (20:01)
[2024-12-28] MEDS: Milk of Magnesia 30 ML CUP PO (23:41)
[2024-12-29] MEDS: Lactated Ringers 1,000 ML 100 ML IV ×2 (02:28→13:35)
[2024-12-29] MEDS: Acetaminophen 325 MG TAB PO ×2 (05:38→12:16)
[2024-12-29] MEDS: MORPHine 2 MG/ML SYR IVP (05:39)
[2024-12-29 07:14] VITALS: BP 141/64; PULSE 86; RESP 17; TEMP 36.4; O2SAT 92
[2024-12-29 07:19] LABS: HCT 23.5 % (40.0-50.0); HGB 7.9 g/dL (13.5-17.5); MCH 31.6 pg (27.0-33.0); MCHC 33.6 % (32.0-36.0); MCV 94 fL (80-95); MPV 9.8 fL (8.0-11.0); Platelet Count 226 10^3/uL (130-400); RBC 2.50 10^6/uL (4.36-5.78); RDW 12.6 % (11.8-14.1); RDW-SD 43.1 fL; WBC 4.28 10^3/uL (4.4-10.8)
[2024-12-29 07:30] LABS: Anion Gap 5.9 mmol/L (3-11); BUN 14 mg/dL (7-18); CO2 31.1 mmol/L (21.0-32.0); Calcium 9.3 mg/dL (8.5-10.1); Chloride 103 mmol/L (98-107); Estimated GFR 50.08 (mL/min/1.73m2); Glucose 164 mg/dL (74-106); Potassium 3.6 mmol/L (3.5-5.1); Sodium 140 mmol/L (136-145)
[2024-12-29] MEDS: Normal Saline Flush 10 ML SYR IVP (07:34)
[2024-12-29] MEDS: glipiZIDE 10 MG TAB PO (07:35)
[2024-12-29] MEDS: amLODIPine 10 MG TAB PO (07:35)
[2024-12-29] MEDS: Atorvastatin 10 MG TAB PO (07:35)
[2024-12-29] MEDS: Multivitamin TAB 1 TAB PO (07:35)
[2024-12-29] MEDS: Tamsulosin 0.4 MG CAPCR PO (07:35)
[2024-12-29] MEDS: Metoprolol CR 25 MG TABCR PO (07:35)
[2024-12-29] MEDS: hydroCHLOROthiazide 25 MG TAB PO (07:35)
[2024-12-29] MEDS: Insulin Aspart 300 UNITS/3 ML PEN SC ×3 (08:04→17:14)
[2024-12-29] MEDS: Cyanocobalamin 500 MCG TAB 1000 MCG PO (08:04)
--- NOTE | 2024-12-29 10:14 | PDOC.CMPRO ---
Date of service: 12/29/24 Time of Service: 15:39 Care Management Progress Note Progress Note Text Progress Note Text: Orlin was awake and lying in bed when CM met with him. He is accompanied by his , Hamida, both share their frustrations while remaining pleasant and appropriate. Per pt, he required 2 units of blood yesterday and is very uncomfortable with delay in transfer to [facility], noting that his bad kidney is also the source of his bleeding which should add the urgency of this procedure. CM reassured patient that the providers here are working hard to get him transferred and are waiting on [facility] to accept him in transfer. Patient reports that he is agreeable to transfer to another tertiary facility, if needed. CM will follow. Discharge Potential Discharge Needs: PCP F/U Appt and Surgical F/U Appt Anticipated Barriers to Discharge: Medical Status Patient/Family Education Needs: Review discharge instructions, discuss Ask Me Three Transportation: EMS Plan: Transfer to [facility] for surgical intervention is being attempted. CM will continue to follow. Social Determinants of Health Screening Will the Patient Participate in the Screening?: Declined to provide
[2024-12-29] MEDS: Polyethylene Glycol 3350 17 GM PACKET PO (10:46)
--- NOTE | 2024-12-29 12:34 | PGE_ITS ---
Date of Service Date of service: 12/29/24 Time of Service: 12:34 Assessment and Plan Assessment and plan (1) Renal cell carcinoma: Status: Acute (2) Hematuria: Status: Acute Assessment and plan: He continues to pass clots from his left kidney. He has required blood transfusions because of the decreased hemoglobin. We are at the limit of what care we can provide for him here at our critical access hospital. We attempted to contact the providers down at [facility] for advice regarding an earlier nephrectomy or possibly even embolization of the kidney. Embolization would help prevent any new bleeding from his renal mass, but would not be expected to help with passage of the clots that are already in his left collecting system and ureter. Subjective Subjective Interval history since last seen: He continues to pass clots. Yesterday, his hemoglobin dropped significantly and he required 2 units of packed red blood cells. He did have some left flank pain last evening as well. Exam Narrative Exam Narrative: He does not appear septic or toxic His bladder irrigation outflow is clear. We have had to irrigate him multiple times to evacuate clots as they come down from his left kidney His serum creatinine is improved since his stent was changed Objective Last Vital Signs Temp 36.4 C L 12/29/24 07:14 Pulse 86 12/29/24 07:14 Resp 17 12/29/24 07:14 BP 141/64 H 12/29/24 07:14 Pulse Ox 92 12/29/24 07:14 Laboratory Results - last 24 hr 12/26/24 12/28/24 12/29/24 18:38 14:15 06:25 WBC 4.28 L RBC 2.50 L Hgb 7.2 L 7.9 L Hct 21.0 L 23.5 L MCV 94 MCH 31.6 MCHC 33.6 RDW 12.6 Plt Count 226 MPV 9.8 Sodium 140 Potassium 3.6 Chloride 103 Carbon Dioxide 31.1 Anion Gap 5.9 BUN 14 Creatinine 1.5 H Est GFR (CKD-EPI 2020) 50.08 Glucose 164 H Calcium 9.3 ABO/Rh A Positive Antibody Screen NEGATIVE Crossmatch See Detail PAWSS Have you Been Recently Intoxicated or Drunk Within the Last 30 days?: No Have you Ever Experienced Previous Episodes of Alcohol Withdrawal?: No Have you ever Experienced Withdrawal Seizures?: No Have you ever Experienced Delirium Tremens(DT)s?: No Have you ever undergone Alcohol Rehabilitation Treatment (i.e, inpt ot outpatient treatment programs)?: No Have you ever Experienced Blackouts?: No Have you ever Combined Alcohol with other Downers within the last 90 days?: No Have you ever Combined Alcohol with any other Substance of Abuse during the last 90 days?: No Positive Blood Alcohol level on Presentation? [PCS.BAL]: No Evidence of Increased Autonomic Activity (i.e. HR>120, tremor, sweating, agitation, nausea)?: No Result: 0 Time Spent with Patient Time Spent with Patient: <25 minutes Time was spent: preparing to see the patient(eg.review tests), obtaining and/or reviewing separately otained hiistory and referring, communicating with other health dialysis patient care technician
--- NOTE | 2024-12-29 16:47 | DSE_ITS ---
Date of service: 12/29/24 Time of Service: 16:48 DS: Diagnosis Discharge Diagnosis (1) Renal cell carcinoma: Status: Acute (2) Hematuria: Status: Acute Discharge Plan Disposition Patient Disposition: Transfer-Acute Inpatient Care Specific Acute Inpt Facility: [facility] Condition: Fair Discharge Details Reason For Visit: Hematuria Admit Date/Time: 12/27/24 00:07 Admit Provider: Scott Morgan Attending Provider: Scott Morgan Primary Care Provider: Miguel Guzman Hospital Course Hospital Course: 69 yo M with history of type 2 DM, HTN, tobacco chewing, and recently diagnosed left renal cell carcinoma who presented 12/27 with recurrent severe hematuria with clots. He was intially admitted 11/05- for hematuria and had the mass biospied at that admission and was diagnosed with RCC. He saw [facility] Urology and had a nephrectomy in January. Since then he was admitted again 12/20-12/22 and this admission 12/27 for severe hematuria with clots. On this admission his CT showed a lot of blood in the bladder and his creatinine was up from baseline 1-1.3 to 2.3. Aspirin was held. The urologist Dr. Mak took her for cystoscopy to clear out clots and he was started on irrigation. He continued to have hematuria and required 2 units of PRBC on 12/28 when his hemoglobin was down to 6.6. Hemoglobin came up to 7.2 after one unit and was 7.9 on the morning of transfer after the second unit. On 12/28 his iron studies revealed a transferrin saturation of 13% and he was given an infusion of IV ferric derisomaltose 1000mg to replenish his iron stores. He had a history of pernicious anemia but his B12 levels were normal. His last A1c was 8.9% on 11/04, representing worsening of his diabetes control. His blood glucose numbers were in mid 100s to mid 200s here on glargine and morning short acting glipizide with prn sliding scale. His glargine was increased from 20 to 24 units. Metformin was held due to GFR on admission, but could be resumed. His creatinine improved from 2.3 to 1.5, likely related to clearing the obst ructing blood clots in his urine. His losartan 100mg was held. His amlodipine and HCTZ were continued for blood pressure. Of note, there is not a well documented indcation for his aspirin on his record, no CAD, stroke, or PAD noted. There is a remote history of sarcoidosis from 2013 but no known recent active disease. [facility] IR was consulted 12/28 about possible embolization, but they rec ommended discussing transfer with Urology for definitive therapy. Case was reviewed and accepted for transfer by Dr. Jules from Urology pending bed 12/29. Home Meds and New Rx's Prescriptions: No Action metformin 1,000 mg tablet 1,000 mg PO BID Qty: 180 3RF cinnamon bark 500 MG capsule 500 mg PO DAILY (DME) Blood Glucose Test 1 EACH strip 1 ea Miscellaneous DAILY Qty: 100 Rx Instructions: E11.9 one touch test strips metoprolol succinate 25 mg tablet extended release 24 hr 25 mg PO DAILY Qty: 90 3RF losartan-hydrochlorothiazide [Hyzaar] 100-25 mg tablet 1 tab PO DAILY Qty: 90 3RF amlodipine 10 mg tablet 10 mg PO DAILY Qty: 90 3RF atorvastatin 10 mg tablet 10 mg PO DAILY Qty: 90 3RF (DME) pen needle, diabetic [Unifine Pentips Plus] 33 gauge x 5/32 needle See Rx Instructions .ROUTE .COMPLEX Qty: 100 3RF Dose Instruction: USE TO INJECT ONCE DAILY Rx Instructions: USE TO INJECT ONCE DAILY multivitamin [Daily Multi-Vitamin] 1 EACH tablet 1 tab PO DAILY cyanocobalamin (vitamin B-12) [Vitamin B-12] 1,000 MCG tablet 1,000 mcg PO DAILY aspirin [Aspir-81] 81 MG tablet,delayed release (DR/EC) 81 mg PO DAILY garlic 1 EACH capsule 1 cap PO DAILY glipizide 10 mg tablet 10 mg PO DAILY Qty: 90 0RF Rx Instructions: stop long acting version insulin glargine-yfgn 100 unit/mL (3 mL) insulin pen 20 unit subcut QPM Qty: 15 8RF tamsulosin 0.4 mg capsule 0.4 mg PO DAILY Patient Comments: TAKE 1 CAPSULE BY MOUTH EVERY EVENING 30 MINUTES AFTER DINNER Discharge Instructions Activity:: Activity as Tolerated Equipment/Supplies:: No Equipment Needed Diet:: Carb Counting DS: Summary Time Spent with Patient providing and/or coordinating discharge services: Greater than 30 minutes Status at Discharge Functional status at discharge: independent ambulation Overall status at discharge: patient is not back to baseline Mental Status: mental status grossly normal Speech and Movement: speech and movement normal Mood: congruent mood Affect: normal affect Quality:SDOH Health Related Social Needs: Health related social needs risk of homeless lonely/is olated Health related social needs details N/A Exam Narrative Exam Narrative: GEN: Alert and oriented, NAD CV -regular rate and rhythm no murmurs gallops Lungs-clear to auscultation bilaterally with good air exchange Abdomen-soft nontender nondistended Extremities-no cyanosis clubbing or edema bilaterally -urine blood tinged Psych Mental Status: mental status grossly normal Speech and Movement: speech and movement normal Mood: congruent mood Affect: normal affect DS: Data Vitals/I&O Vitals and I&O: Vital Signs Temperature 36.4 C L 12/29/24 07:14 Temperature Source Temporal Artery Scan 12/29/24 07:14 Pulse 86 12/29/24 07:14 Pulse Rhythm Regular 12/27/24 01:31 Pulse 61 12/27/24 10:50 Respiratory Rate 17 12/29/24 07:14 Respiratory Effort Normal, Non-Labored 12/27/24 01:31 Respiratory Depth Normal 12/27/24 01:31 Blood Pressure 141/64 H 12/29/24 07:14 Blood Pressure Mean 89 12/29/24 07:14 Pulse Oximetry 92 12/29/24 07:14 Respiratory End-tidal CO2 33 12/27/24 10:50 Oxygen Delivery Method Room Air 12/29/24 07:14 Oxygen Flow Rate 0 12/29/24 07:14 Pain Level 2 12/29/24 12:16 Intake & Output 12/28/24 12/29/24 12/29/24 23:59 11:59 23:59 Intake Total 2385 / 3625 700 / 1700 1000 / 1700 Balance 2385 / 1125 700 / 1700 1000 / 1700 Weight 101.8 kg Intake: IV 1009 1000 / 1010 Oral 600 / 840 690 / 690 Blood Product 775 / 775 Rbc Leuko Reduced Unit 275 / 275 [id number] Rbc Leuko Reduced Unit 500 / 500 [id number] Other: Urine Color [place] Urine Appearance Clots Hematuria Comment Pt has CBI running and about 1500 mL out. had to hand irrigated twice. and replace cuellar bag due to clot blocking drain. Stool Size Large Small Stool Characteristics Soft Formed Brown Data Completed and Pending Labs on day of discharge: Labs from last 24 hours 12/29/24 12/26/24 06:25 18:38 WBC 4.28 L RBC 2.50 L Hgb 7.9 L Hct 23.5 L MCV 94 MCH 31.6 MCHC 33.6 RDW 12.6 Plt Count 226 MPV 9.8 Sodium 140 Potassium 3.6 Chloride 103 Carbon Dioxide 31.1 Anion Gap 5.9 BUN 14 Creatinine 1.5 H Est GFR (CKD-EPI 2020) 50.08 Glucose 164 H Calcium 9.3 ABO/Rh A Positive Antibody Screen NEGATIVE Crossmatch See Detail PFSH All Active Problems (Updated 12/27/24 @ 16:36 by Bayron Conley) Anemia due to blood loss (Acute) KAMILLA (acute kidney injury) (Acute) Complication, blocked Cuellar catheter (Acute) Renal cell carcinoma (Acute) Gross hematuria (Acute) Urinary retention (Acute) Renal cell carcinoma (Acute) Hematuria (Acute) Complication, blocked Cuellar catheter (Acute) Renal cell carcinoma (Acute) Left renal mass (Acute) Acute pyelonephritis (Acute) Arthritis pain, hip (Acute) Sarcoidosis (Acute 01/09/14) Overweight (Chronic) Ear congestion (Acute) likely ET dysfunction due to recent cold / ? allergy Diabetes mellitus (Chronic) A1c in office today 7.9 Hypertension (Chronic) not well controlled today Cough (Acute) likely viral bronchitis Erectile dysfunction (Chronic) Glucose intolerance (Acute) 02/15/18; GLUCOSE 156 Lumbago (Acute) Fracture of distal phalanx of finger (Acute 11/23/12) Type 2 diabetes mellitus without complication, without long-term current use of insulin (Acute 02/25/16) Tobacco use disorder (Acute) CHEWS TOBACCO Sexual function problem (Acute) Pernicious anemia (Acute) Onychomycosis (Acute) Medial meniscus tear (Acute) RIGHT-04/02/16 Knee pain (Acute) ? MENISCUS Hiatal hernia (Acute) Essential hypertension (Acute) Dysplastic nevi (Acute 08/26/17) multiple Diverticulosis of colon without diverticulitis (Acute) Diabetes mellitus type 2, uncontrolled (Acute 03/24/14) Surgical History History of back surgery (~02/15/18) [facility] crushed thumb (11/17/12) Kidney Stone Extraction (~2004) Colonoscopy - IV Sedation (02/19/15) DR.C. WREN Arthroplasty of knee 04/02/16-RIGHT;DR. GUARDADO 08/19/16 RIGHT;[facility] Family History Mother , AGE 78 Essential hypertension MS (multiple sclerosis) Throat cancer Father Essential hypertension Diabetes Heart disease Sister Essential hypertension Diabetes Brother Essential hypertension Diabetes Maternal Grandfather , AGE 69 Essential hypertension Heart disease Paternal Grandfather , AGE 85 Essential hypertension Heart disease Maternal Grandmother , AGE 94 Essential hypertension Heart disease Paternal Grandmother , AGE 90 Essential hypertension Heart disease Son Substance abuse Son No problems noted. Daughter No problems noted. Social History Smoking/Tobacco Use Status: Current every day Tobacco Type: smokeless tobacco Tobacco: How many years used: 40 Smokeless tobacco user: chewing tobacco Quit status: has quit before Second Hand Exposure: Yes Smoking risk assessment performed?: Yes Alcohol Intake: former Drug use: Never Substance use type: does not use Counseling given: No Adopted: No Caregiver/Support person: No Household members: spouse Housing: house Communication Needs: None Do you need help understanding health information?: Rarely Pets and animals: No Sexually active: Yes Do you think of yourself as: straight/heterosexual Current gender identity: male What is your relationship status?: How often do you talk on the phone with friends or family?: three or more times per week How often do you get together with friends or relatives?: decline to answer How often do you attend protestant or restorationism services?: decline to answer Do you belong to any clubs or organized social groups?: no Panel score (0-1 are the most socially isolated patients): 2 What type of physical activity do you participate in: walking Duration: 15-30 minutes/day Frequency: 3-4 times per week Adilene/Amish: No preference Special adilene needs: No Seatbelt use: always Helmet use: Yes Helmet use: always Drive intox or ride w/intox 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
[2024-12-29 19:30] VITALS: BP 113/66; PULSE 60; RESP 18; TEMP 36.4; O2SAT 99
== END 2024-12-29 20:50 | disposition short-term general hospital (02) ==
LOC: ER 23:12 → MS 12-27 01:11
PROVIDERS: Urology; Admitting Provider Hospitalist; Emergency Provider Registered Nurse Emergency; PCP Family Medicine; Responsible Provider Family Medicine; Visit Provider Hospitalist
PROC: 0TJB8ZZ Inspection of Bladder, Via Natural or Artificial Opening Endoscopic (ICD-10-PCS; CPT 52000; principal; 2024-12-27 09:00)
DX: N32.89 Other specified disorders of bladder (principal); R31.0 Gross hematuria; R33.9 Retention of urine, unspecified; C64.2 Malignant neoplasm of left kidney, except renal pelvis; N17.9 Acute kidney failure, unspecified; T83.091A Other mechanical complication of indwelling urethral catheter, initial encounter; D86.9 Sarcoidosis, unspecified; I10 Essential (primary) hypertension; Z79.84 Long term (current) use of oral hypoglycemic drugs; M54.50 Low back pain, unspecified; E11.65 Type 2 diabetes mellitus with hyperglycemia; D51.0 Vitamin B12 deficiency anemia due to intrinsic factor deficiency; K57.30 Diverticulosis of large intestine without perforation or abscess without bleeding; K44.9 Diaphragmatic hernia without obstruction or gangrene; F17.220 Nicotine dependence, chewing tobacco, uncomplicated; B35.1 Tinea unguium
CPT/HCPCS: 52001; 52332; 00123; 36415; 51798; 80048; 80053; 85027; 86850; 86900; 86901; 86920; 96361; 96365; 96374; 96375; 96376; 99222; 99285; 74176; 74420; 83540; 83550; 85014; 85018; 99232; 99239; G0378; J0131; J0690; J1437; J1815; J2003; J2270; J2405; J2704; J3010; P9016; Q9967

== ENCOUNTER 2025-01-03 08:07 | Inpatient (IN) | payer MEDICARE, OTHER, SELFPAY ==
[2025-01-03] VITALS (85 sets, daily range): BP systolic 124–188; BP diastolic 51–130; PULSE 69–92; RESP 10–28; TEMP 36.4–37.5; O2SAT 90–100
--- NOTE | 2025-01-03 08:15 | DI.CT_ITS ---
Exam(s) CT ABDOMEN PELVIS W EXAM: CT ABDOMEN PELVIS W CLINICAL HISTORY: Weakness post nephrectomy. TECHNIQUE: Imaging Protocol: Axial computed tomography images with coronal and sagittal reformatted images were created and reviewed CONTRAST MATERIAL: Intravenous: Omnipaque 350 Contrast volume:100 ml Oral: no COMPARISON: CT CT ABDOMEN PELVIS WO/W from 11/08/2024 CR,XR XR ABDOMEN FLAT PLATE from 12/20/[address] ABDOMEN PELVIS WO from 12/26/2024 FINDINGS: ABDOMEN and PELVIS: Exam is limited by streak artifact related to patient arm position Lung Bases: Trace bilateral pleural effusions and adjacent atelectasis. Liver: Normal density. No suspicious mass. Gallbladder and biliary tract: No radiodense calculus. No wall thickening or pericholecystic fluid. No biliary dilation. Pancreas: Normal density. No abnormal calcifications or inflammatory process. No evidence of mass. Spleen: Normal. Kidneys: Patient is recently status post left nephrectomy. There is a small amount of fluid within the left renal fossa extending along the right left psoas muscle. A small amount of fluid is also noted in the right lower quadrant. The right kidney shows normal size, contour and axis. No radiodense stones. No obstructive uropathy. No suspicious masses seen. Adrenal glands: No masses seen. Vasculature: Abdominal aorta non-dilated. The portal and splenic veins are patent. Soft tissues: Air in the soft tissues the anterior and left lower chest through pelvic region extending into the region of the scrotum. This is presumably postsurgical. No superficial fluid collections. Bladder: No gross wall thickening. No calculi.No focal mass. Bowel: No obstruction. No bowel wall thickening. Appendix normal. Small duodenal diverticulum. Increased stool in the colon and rectum. Peritoneal cavity: There is a small amount of fluid seen in the right lower quadrant. There is fluid seen within the left renal fossa and a small amount of fluid extending along the left psoas muscle. There are multiple bubbles of free air consistent with recent surgery. Bones: There is now a moderate compression fracture of the central portion of the L4 vertebral body. There is abnormal lucency within the vertebral body consistent with a pathologic fracture. Lucency was present on the previous exam but the fracture appears new. Reproductive organs: Unremarkable. Lymph nodes: No pathologically enlarged lymph nodes. IMPRESSION:: Status post left nephrectomy. Small amount fluid in the left renal bed and stranding along the left psoas muscle as well as right lower quadrant is likely within normal limits post surgery. No abscess. Few bubbles of free air also consistent with recent surgery. Large amount of air in the subcutaneous fat in the anterior abdominal wall in lower chest extending into the level of the pelvis and scrotum. No abnormal fluid collection or abscess in the subcutaneous tissues. Pathologic fracture of L4, new since the previous exam. No additional bone lesions are identified. Findings called to Dr. Valle of the emergency department. RADIATION DOSE DELIVERED: 1,808.1mGy.cm Total DLP DATA REPOSITORY: All CT scans at this facility are submitted to the National Radiology Data Registry (NRDR) Dose Index Registry (DIR) with the [employer] (ACR). RADIATION OPTIMIZATION: All CT scans at this facility use at least one of these dose optimization techniques: automated exposure control; mA and/or kV adjustment per patient size (includes targeted exams where dose is matched to clinical indication); or iterative reconstruction.
--- NOTE | 2025-01-03 08:24 | W.ED.GENAD ---
Discharge Plan Disposition Patient Disposition: Admit to [facility] Discharge Details Clinical Impression: Symptomatic anemia, Constipation, Pathologic fracture of lumbar vertebra, Bed sore on buttock Admit Date/Time: 01/03/25 15:34 Admit Provider: Prabhjot Cortes Attending Provider: Prabhjot Cortes Primary Care Provider: Miguel Guzman ED Provider: Bayron Valle HPI General Date/Time Provider Initiated Documentation: 01/03/25 08:15. HPI Narrative: MDM This is an uncomfortable appearing normothermic and not tachycardic 69-year-old male postop day 4 status post left nephrectomy in the setting of generalized weakness for postop complication. Patient has left lower quadrant tenderness and has not had a bowel movement since surgery so I am concerned about the possibility of obstruction. Patient has no pain out of proportion to suggest necrotizing soft tissue infection. Patient has no shortness of breath and is not tachycardic nor hypoxic so my suspicion is low for PE so I did not send a dimer. I am concerned for the possibility of sepsis and so I ordered lactate following 2 sets of blood cultures and broad-spectrum antibiotics with cefepime and vancomycin. Patient denies dysuria and frequency however will send urinalysis. Patient did not have diarrhea to suggest diverticulitis. No right lower quadrant tenderness to suggest appendicitis. Wound has no obvious signs of dehiscence. Patient is not pale to suggest anemia however will obtain a CBC send a type and screen. No history of AAA to suggest ruptured AAA. Will obtain ECG to assess for ischemia. Patient has no focal weaknesses to suggest acute CVA so do not feel he is a lytic candidate. Given warm well-perfused lower extremities I am not concerned for critical limb ischemia so do not feel patient requires a CT angiogram of his aorta with runoffs. If patient has reassuring laboratory and radiological evaluation in the ED engage with physical therapy. 8:58 AM CBC with worsened microcytic anemia and hemoglobin of 7.0 for which patient will receive 2 units of blood. Venous blood gas lacks acidemia and hypercarbia. Reassuring normal lactate. 9:15 AM EKG showing narrow complex normal sinus rhythm at a rate of 72. Normal axis. Intervals within normal limits. No ST segment abnormalities. T wave flattening in lead III. No acute injury pattern. No prior for comparison. 12:04 PM Lab delay secondary to analyzer issue. CKD no KAMILLA. No acute electrolyte abnormalities. No LFT abnormalities. Patient had 2 reassuring troponins. 3:30 PM I spoke with Dr. Blanco from urology at [facility] who reviewed the patient's scan. He was not concerned about the intra-abdominal changes. He advised local hospitalization for physical therapy, bowel regiment, and repeat CBC in the morning. I met with the patient and he was agreeable to hospitalization. We discussed that down the road he would likely benefit from an MRI of his lumbar spine. 4:15 PM I was in touch with Dr. Cortes from the hospitalist team who graciously agreed except the patient for hospitalization. Chronic conditions affecting the care of the patient: Renal cell carcinoma History obtained from an outside historian: [employer] External record review: [facility] EMR Medications: Broad-spectrum antibiotics IV fluids HPI This is a patient 4 days status post left radical nephrectomy with escalating pain and weakness. The patient reports experiencing increasing pain and weakness since the surgery on 12/30/2024, which culminated in a collapse this morning due to his inability to walk. He has a temperature of 99.3?F and exhibits mild hypertension. The patient feels weak and has been waking up at night to use the bathroom, requiring his spouse's assistance for mobility. This need for help has been present since the surgery and has progressively worsened. He is unable to lift his legs and feels generally weak. The patient reports no nausea, vomiting, or diarrhea. He has not had a bowel movement since his surgery. He also reports no chest pain but does report abdominal pain. His pain management regimen includes Tylenol and oxycodone, with the last dose of oxycodone taken around 10 or 11 PM the previous night. Exam General: Well-appearing in no acute distress speaking in complete sentences. Head: Normocephalic, atraumatic. Eye: Extraocular eye movements intact. No conjunctival injection. No scleral icterus. Ear, nose, mouth, throat: Grossly normal inspection. Normal voice, handling secretions normally. Neck: Trachea midline. Cardiovascular: Well-perfused distal extremities. Regular rate and rhythm Respiratory: Nonlabored respiration. Clear lungs bilaterally. Gastrointestinal: Nondistended abdomen. Soft. Minimal left lower quadrant tenderness. Large left lower quadrant incision appears to be healing well. Mild surrounding erythema. Back: Patient has midline lumbar spinal tenderness. No step-offs no deformities. Patient does have healing right sided gluteal sore with no surrounding erythema consistent with history of pilonidal cyst. No fluctuance.No sacral decubitus ulcers. Musculoskeletal: No edema. Moving all 4 extremities spontaneously. Patient with difficulty lifting bilateral lower extremities. He has 3 out of 5 strength on dorsi and plantar flexion. He can straight leg raise bilaterally. Bilateral feet warm well-perfused. Skin: Normal for age and race, grossly normal temperature and turgor. No acute rash. Neurologic: Alert and appropriate, no apparent acute deficits. Psychiatric: Mood and manner are appropriate. Grooming and personal hygiene are appropriate. Related Data Home Medications ?Medication ?Instructions ?Recorded ?Confirmed aspirin 81 mg tablet,delayed 81 mg PO DAILY 11/17/12 12/26/24 release (Aspir-) cyanocobalamin (vitamin B-12) 1,000 mcg PO DAILY 11/17/12 12/26/24 1,000 mcg tablet (Vitamin B-12) garlic 1 cap PO DAILY 11/17/12 12/26/24 multivitamin (Daily Multi-Vitamin 1 tab PO DAILY 11/17/12 12/26/24 tablet) cinnamon bark 500 mg capsule 500 mg PO DAILY 02/25/16 12/26/24 blood sugar diagnostic (Blood #100 strips 09/05/16 12/26/24 Glucose Test strips) metoprolol succinate 25 mg 25 mg PO DAILY #90 tabs 02/02/24 12/26/24 tablet,extended release 24 hr losartan 100 1 tab PO DAILY ##90 03/07/24 12/26/24 mg-hydrochlorothiazide 25 mg tablet (Hyzaar) amlodipine 10 mg tablet 10 mg PO DAILY #90 tabs 03/08/24 12/26/24 atorvastatin 10 mg tablet 10 mg PO DAILY #90 tabs 05/02/24 12/26/24 metformin 1,000 mg tablet 1,000 mg PO BID #180 tab-caps 06/16/24 12/26/24 glipizide 10 mg tablet 10 mg PO DAILY #90 tabs 11/08/24 12/26/24 insulin glargine-yfgn 100 unit/mL 20 unit (0.2 mL) subcut QPM #15 mL 11/08/24 12/26/24 (3 mL) subcutaneous pen tamsulosin 0.4 mg capsule 0.4 mg PO DAILY 12/18/24 12/26/24 pen needle, diabetic 33 gauge x #100 ea 12/23/24 12/26/24 (Unifine Pentips Plus) Previous Rx's ?Medication ?Instructions ?Recorded metoprolol succinate 25 mg 25 mg PO DAILY #90 tabs 02/02/24 tablet,extended release 24 hr losartan 100 1 tab PO DAILY ##90 03/07/24 mg-hydrochlorothiazide 25 mg tablet (Hyzaar) amlodipine 10 mg tablet 10 mg PO DAILY #90 tabs 03/08/24 atorvastatin 10 mg tablet 10 mg PO DAILY #90 tabs 05/02/24 metformin 1,000 mg tablet 1,000 mg PO BID #180 tab-caps 06/16/24 glipizide 10 mg tablet 10 mg PO DAILY #90 tabs 11/08/24 insulin glargine-yfgn 100 unit/mL 20 unit (0.2 mL) subcut QPM #15 mL 11/08/24 (3 mL) subcutaneous pen pen needle, diabetic 33 gauge x #100 ea 12/23/24 (Unifine Pentips Plus) Allergies Allergy/AdvReac Type Severity Reaction Status Date / Time No Known Allergies Allergy Verified 12/26/24 16:59 General Stated Complaint: Cellulitis BLAKE: 2 Course Vital Signs Vital signs: Vital Signs Temperature 37.2 C 01/03/25 08:11 Pulse 74 01/03/25 08:11 Respiratory Rate 16 01/03/25 08:11 Blood Pressure 168/59 H 01/03/25 08:11 Pulse Oximetry 95 01/03/25 08:11 Temperature 37.2 C 01/03/25 08:11 Temperature Source Tympanic 01/03/25 08:11 Pulse 74 01/03/25 08:11 Respiratory Rate 16 01/03/25 08:11 Blood Pressure 168/59 H 01/03/25 08:11 Pulse Oximetry 95 01/03/25 08:11 Oxygen Delivery Method Room Air 01/03/25 08:11 Oxygen Flow Rate 0 01/03/25 08:11 Pain Level 9 01/03/25 08:11 Lab/Test Results Lab/Test Results: 01/03/25 08:16 Blood Blood Culture - Pending 01/03/25 08:16 Blood Blood Culture - Pending Medical Decision Making Quality:SDOH Health Related Social Needs: Health related social needs risk of homeless lonely/isolated Health related social needs details N/A PFSH All Active Problems (Updated 01/03/25 @ 16:19 by Bayron Valle MD) Bed sore on buttock (Acute) Pathologic fracture of lumbar vertebra (Acute) Constipation (Acute) Symptomatic anemia (Acute) Anemia due to blood loss (Acute) KAMILLA (acute kidney injury) (Acute) Complication, blocked Carrillo catheter (Acute) Renal cell carcinoma (Acute) Gross hematuria (Acute) Urinary retention (Acute) Renal cell carcinoma (Acute) Hematuria (Acute) Complication, blocked Carrillo catheter (Acute) Renal cell carcinoma (Acute) Left renal mass (Acute) Acute pyelonephritis (Acute) Arthritis pain, hip (Acute) Sarcoidosis (Acute 01/09/14) Overweight (Chronic) Ear congestion (Acute) likely ET dysfunction due to recent cold / ? allergy Diabetes mellitus (Chronic) A1c in office today 7.9 Hypertension (Chronic) not well controlled today Cough (Acute) likely viral bronchitis Erectile dysfunction (Chronic) Glucose intolerance (Acute) 02/15/18 LLUVIA LJOA; GLUCOSE 156 Lumbago (Acute) Fracture of distal phalanx of finger (Acute 11/23/12) Type 2 diabetes mellitus without complication, without long-term current use of insulin (Acute 02/25/16) Tobacco use disorder (Acute) CHEWS TOBACCO Sexual function problem (Acute) Pernicious anemia (Acute) Onychomycosis (Acute) Medial meniscus tear (Acute) RIGHT-04/02/16 Knee pain (Acute) ? MENISCUS Hiatal hernia (Acute) Essential hypertension (Acute) Dysplastic nevi (Acute 08/26/17) multiple Diverticulosis of colon without diverticulitis (Acute) Diabetes mellitus type 2, uncontrolled (Acute 03/24/14) Surgical History History of back surgery (~02/15/18) LLUVIA LOJA crushed thumb (11/17/12) Kidney Stone Extraction (~2004) Colonoscopy - IV Sedation (02/19/15) DR.C. WREN Arthroplasty of knee 04/02/16-RIGHT;DR. GUARDADO 08/19/16 RIGHT;[facility] Family History Mother , AGE 78 Essential hypertension MS (multiple sclerosis) Throat cancer Father Essential hypertension Diabetes Heart disease Sister Essential hypertension Diabetes Brother Essential hypertension Diabetes Maternal Grandfather , AGE 69 Essential hypertension Heart disease Paternal Grandfather , AGE 85 Essential hypertension Heart disease Maternal Grandmother , AGE 94 Essential hypertension Heart disease Paternal Grandmother , AGE 90 Essential hypertension Heart disease Son Substance abuse Son No problems noted. Daughter No problems noted. Social History Smoking/Tobacco Use Status: Current every day Tobacco Type: smokeless tobacco Tobacco: How many years used: 40 Smokeless tobacco user: chewing tobacco Quit status: has quit before Second Hand Exposure: Yes Smoking risk assessment performed?: Yes Alcohol Intake: former Drug use: Never Substance use type: does not use Counseling given: No Adopted: No Caregiver/Support person: No Household members: spouse Housing: house Communication Needs: None Do you need help understanding health information?: Rarely Pets and animals: No Sexually active: Yes Do you think of yourself as: straight/heterosexual Current gender identity: male What is your relationship status?: How often do you talk on the phone with friends or family?: three or more times per week How often do you get together with friends or relatives?: decline to answer How often do you attend pentecostal or yazidi services?: decline to answer Do you belong to any clubs or organized social groups?: no Panel score (0-1 are the most socially isolated patients): 2 What type of physical activity do you participate in: walking Duration: 15-30 minutes/day Frequency: 3-4 times per week Ad[place]ene/Synagogue: No preference Special adilene needs: No Seatbelt use: always Helmet use: Yes Helmet use: always Drive intox or ride w/intox auto carrier driver: No Do you feel safe at home: Yes Do you feel safe in your relationship?: Yes
[2025-01-03 08:40] LABS: BE (Venous) 3 mmol/L (-2-3); HCO3 (Venous) 27 mmol/L (23-28); O2 Sat (Venous) 79 %; TCO2 (Venous) 26 mmol/L (24-29); pCO2 (Venous) 39 mmHg (41-51); pO2 (Venous) 43 mmHg
--- NOTE | 2025-01-03 08:45 | RT.EKG_ITS ---
APPROVED REPORT Exam: Resting ECG Reason for Exam: Weakness Patient Location: E HR:72 bpm ECG Measurements Heart Rate 72 AXIS AL 156 P 68 QRSd 95 QRS 77 QT 385 T 28 QTc 422 Conclusion Sinus rhythm...normal P axis, V-rate 60- 99 No Occlusion NH
[2025-01-03 08:47] LABS: Abs Immature Grans 0.02 10^3/uL (0.0-0.06); Immature Grans % 0.3 %; MCH 33.0 pg (27.0-33.0); MCHC 33.8 % (32.0-36.0); MCV 98 fL (80-95); MPV 10.1 fL (8.0-11.0); Platelet Count 212 10^3/uL (130-400); RBC 2.12 10^6/uL (4.36-5.78); RDW 13.2 % (11.8-14.1); RDW-SD 43.6 fL; WBC 5.99 10^3/uL (4.4-10.8)
[2025-01-03 08:53] LABS: HCT 20.7 % (40.0-50.0); HGB 7.0 g/dL (13.5-17.5)
[2025-01-03] MEDS: CEFEPIME 2 GM in Normal Saline 100 ML IVPB (09:23)
[2025-01-03] MEDS: Normal Saline 1,000 ML 1000 ML IV (09:23)
[2025-01-03] MEDS: MORPHine 4 MG/ML SYR IVP ×3 (09:30→21:30)
[2025-01-03] MEDS: VANCOMYCIN/WATER (PEG) 2 GM/400 ML BAG IVPB (10:17)
[2025-01-03] MEDS: MORPHine 10 MG/ML VIAL 2 MG IVP (11:32)
[2025-01-03 11:46] LABS: ALT 30 U/L (16-63); AST 32 U/L (15-37); Albumin 2.3 g/dL (3.4-5.0); Alkaline Phosphatase 78 U/L (46-116); Anion Gap 10.8 mmol/L (3-11); BUN 13 mg/dL (7-18); Bilirubin, Total 0.4 mg/dL (0.2-1.0); CO2 26.2 mmol/L (21.0-32.0); Calcium 8.9 mg/dL (8.5-10.1); Chloride 101 mmol/L (98-107); Estimated GFR 50.08 (mL/min/1.73m2); Glucose 164 mg/dL (74-106); Potassium 3.7 mmol/L (3.5-5.1); Sodium 138 mmol/L (136-145); Total Protein 6.4 g/dL (6.4-8.2); Troponin I 10 ng/L (<or=76)
[2025-01-03 11:52] LABS: Troponin I 10 ng/L (<or=76)
[2025-01-03] MEDS: Omnipaque 350 MG/ML 500 ML BTL-Imaging package IJ (12:19)
[2025-01-03] MEDS: Normal Saline - Diluent 50 ML VIAL IJ (12:19)
[2025-01-03] MEDS: Normal Saline Flush 10 ML SYR IVP (12:20)
[2025-01-03 12:27] LABS: COVID-19 PCR Negative (Negative); RSV PCR Negative (Negative)
[2025-01-03 14:09] LABS: Glucose Negative (Negative)
[2025-01-03 14:32] LABS: RBC 0-2 HPF (0-2); WBC 0-2 HPF (0-5)
[2025-01-03 14:33] LABS: C & S Indicated? No
--- NOTE | 2025-01-03 15:34 | W.PM.HP.N ---
Date of service: 01/03/25 Time of Service: 15:34 Assessment and Plan Assessment and plan (1) Pathologic fracture of lumbar vertebra: Status: Acute Assessment and plan: - As seen on CT abdomen pelvis, not previously seen on other imaging - Resulted from a fall as patient continued of generalized weakness postoperatively - Appreciate physical therapy involvement and management (2) Constipation: Status: Acute Assessment and plan: - Has not had a bowel movement since surgery on 12/30/2024 -No signs of obstruction seen on CT abdomen pelvis - Will have aggressive bowel regimen (3) Symptomatic anemia: Status: Acute Assessment and plan: - Likely secondary to left nephrectomy performed on 12/30/2024 - Hemoglobin was 7 in the emergency department and received 2 units of packed red blood cells - Will follow-up a.m. CBC and give additional blood if hemoglobin is less than 7 (4) Renal cell carcinoma: Status: Acute Assessment and plan: - Now status post left nephrectomy - However, patient now with pathologic fracture of L 4 as noted above - Will have patient follow-up with oncology at discharge (5) Diabetes mellitus: Status: Chronic Assessment and plan: - Holding home insulin regimen - Sliding scale insulin, carb consistent diet (6) Hypertension: Status: Chronic Assessment and plan: - Continue home antihypertensive History of Present Illness History of Present Illness Chief Complaint: Generalized weakness Narrative: 69-year-old male with a past medical history of IDDM, hypertension, multiple hospitalizations for hematuria in the setting of left renal cell carcinoma now postop day 4 from radical left nephrectomy presents emergency department with complaints of generalized weakness. Patient states that since surgery has had left lower quadrant tenderness and has not had a bowel movement concerning for an obstruction. Additionally, he states that he was so weak earlier this morning that he collapsed due to his inability to walk. He denies any fever, lightheadedness, dizziness, back pain, numbness in his lower extremities. In the emergency department the patient was noted as having normal vital signs, normal CBC with the exception of a hemoglobin of 7 for which she received 2 units packed red blood cells, and had a normal BMP. CT the abdomen pelvis showed normal postoperative changes, however there was pathologic fracture noted in L4 that was not seen on previous scans. Case was discussed with [facility] [place] urologist Dr. Blanco who is not concerned with postoperative changes seen on CT abdomen pelvis. At which time emergency room provider paged hospitalist for patient with generalized weakness, and L4 compression fracture requiring physical therapy and likely short-term rehab placement. Review of Systems All systems reviewed & are unremarkable except as noted in HPI and below PFSH All Active Problems (Updated 01/03/25 @ 16:19 by Bayron Valle MD) Bed sore on buttock (Acute) Pathologic fracture of lumbar vertebra (Acute) Constipation (Acute) Symptomatic anemia (Acute) Anemia due to blood loss (Acute) KAMILLA (acute kidney injury) (Acute) Complication, blocked Carrillo catheter (Acute) Renal cell carcinoma (Acute) Gross hematuria (Acute) Urinary retention (Acute) Renal cell carcinoma (Acute) Hematuria (Acute) Complication, blocked Carrillo catheter (Acute) Renal cell carcinoma (Acute) Left renal mass (Acute) Acute pyelonephritis (Acute) Arthritis pain, hip (Acute) Sarcoidosis (Acute 01/09/14) Overweight (Chronic) Ear congestion (Acute) likely ET dysfunction due to recent cold / ? allergy Diabetes mellitus (Chronic) A1c in office today 7.9 Hypertension (Chronic) not well controlled today Cough (Acute) likely viral bronchitis Erectile dysfunction (Chronic) Glucose intolerance (Acute) 02/15/18 LLUVIA LOJA; GLUCOSE 156 Lumbago (Acute) Fracture of distal phalanx of finger (Acute 11/23/12) Type 2 diabetes mellitus without complication, without long-term current use of insulin (Acute 02/25/16) Tobacco use disorder (Acute) CHEWS TOBACCO Sexual function problem (Acute) Pernicious anemia (Acute) Onychomycosis (Acute) Medial meniscus tear (Acute) RIGHT-04/02/16 Knee pain (Acute) ? MENISCUS Hiatal hernia (Acute) Essential hypertension (Acute) Dysplastic nevi (Acute 08/26/17) multiple Diverticulosis of colon without diverticulitis (Acute) Diabetes mellitus type 2, uncontrolled (Acute 03/24/14) Surgical History History of back surgery (~02/15/18) LLUVIA LOJA crushed thumb (11/17/12) Kidney Stone Extraction (~2004) Colonoscopy - IV Sedation (02/19/15) DR.C. WREN Arthroplasty of knee 04/02/16-RIGHT;DR. GUARDADO 08/19/16 RIGHT;[facility] Family History Mother , AGE 78 Essential hypertension MS (multiple sclerosis) Throat cancer Father Essential hypertension Diabetes Heart disease Sister Essential hypertension Diabetes Brother Essential hypertension Diabetes Maternal Grandfather , AGE 69 Essential hypertension Heart disease Paternal Grandfather , AGE 85 Essential hypertension Heart disease Maternal Grandmother , AGE 94 Essential hypertension Heart disease Paternal Grandmother , AGE 90 Essential hypertension Heart disease Son Substance abuse Son No problems noted. Daughter No problems noted. Social History Smoking/Tobacco Use Status: Current every day Tobacco Type: smokeless tobacco Tobacco: How many years used: 40 Smokeless tobacco user: chewing tobacco Quit status: has quit before Second Hand Exposure: Yes Smoking risk assessment performed?: Yes Alcohol Intake: former Drug use: Never Substance use type: does not use Counseling given: No Adopted: No Caregiver/Support person: No Household members: spouse Housing: house Communication Needs: None Do you need help understanding health information?: Rarely Pets and animals: No Sexually active: Yes Do you think of yourself as: straight/heterosexual Current gender identity: male What is your relationship status?: How often do you talk on the phone with friends or family?: three or more times per week How often do you get together with friends or relatives?: decline to answer How often do you attend lutheran or anglican services?: decline to answer Do you belong to any clubs or organized social groups?: no Panel score (0-1 are the most socially isolated patients): 2 What type of physical activity do you participate in: walking Duration: 15-30 minutes/day Frequency: 3-4 times per week Adliene/Rastafari: No preference Special adilene needs: No Seatbelt use: always Helmet use: Yes Helmet use: always Drive intox or ride w/intox pickup driver: No Do you feel safe at home: Yes Do you feel safe in your relationship?: Yes Meds Allergies and Home Medications Allergies Allergy/AdvReac Type Severity Reaction Status Date / Time No Known Allergies Allergy Verified 12/26/24 16:59 Home Medications ?Medication ?Instructions ?Recorded ?Confirmed ?Type aspirin 81 mg tablet,delayed 81 mg PO DAILY 11/17/12 01/03/25 History release (Aspir-) Held on 01/03/25. Instructions: surgery cyanocobalamin (vitamin B-12) 1,000 mcg PO DAILY 11/17/12 01/03/25 History 1,000 mcg tablet (Vitamin B-12) garlic 1 cap PO DAILY 11/17/12 01/03/25 History Held on 01/03/25. Instructions: Changed by Provider multivitamin (Daily Multi-Vitamin 1 tab PO DAILY 11/17/12 01/03/25 History tablet) cinnamon bark 500 mg capsule 500 mg PO DAILY 02/25/16 01/03/25 History Held on 01/03/25. Instructions: Changed by Provider blood sugar diagnostic (Blood #100 strips 09/05/16 01/03/25 History Glucose Test strips) metoprolol succinate 25 mg 25 mg PO DAILY #90 tabs 02/02/24 01/03/25 Rx tablet,extended release 24 hr losartan 100 1 tab PO DAILY ##90 03/07/24 01/03/25 Rx mg-hydrochlorothiazide 25 mg tablet (Hyzaar) amlodipine 10 mg tablet 10 mg PO DAILY #90 tabs 03/08/24 01/03/25 Rx atorvastatin 10 mg tablet 10 mg PO DAILY #90 tabs 05/02/24 01/03/25 Rx metformin 1,000 mg tablet 1,000 mg PO BID #180 tab-caps 06/16/24 01/03/25 Rx glipizide 10 mg tablet 10 mg PO DAILY #90 tabs 11/08/24 01/03/25 Rx insulin glargine-yfgn 100 unit/mL 20 unit (0.2 mL) subcut QPM #15 mL 11/08/24 01/03/25 Rx (3 mL) subcutaneous pen tamsulosin 0.4 mg capsule 0.4 mg PO DAILY 12/18/24 01/03/25 History pen needle, diabetic 33 gauge x #100 ea 12/23/24 01/03/25 Rx 5/32 (Unifine Pentips Plus) Exam Narrative Exam Narrative: Well-appearing gentleman laying in bed in no acute distress, ANO x 4, heart regular rhythm, lungs good auscultation bilaterally, abdomen soft, nontender, nondistended, decreased range of motion of bilateral lower extremity secondary to pain Results Labs 01/03/25 08:25 01/03/25 08:25 Labs: Laboratory Results - last 24 hr 01/03/25 01/03/25 01/03/25 08:25 09:20 10:15 WBC 5.99 RBC 2.12 L Hgb 7.0 L* Hct 20.7 L* MCV 98 H MCH 33.0 MCHC 33.8 RDW 13.2 Plt Count 212 MPV 10.1 Immature Gran % 0.3 Neutrophils % 81.3 Lymphocytes % 8.7 Monocytes % 7.2 Eosinophils % 2.3 Basophils % 0.2 Nucleated RBC % 0.0 Absolute Neutrophils 4.87 Absolute Lymphocytes 0.52 L Absolute Monocytes 0.43 Absolute Eosinophils 0.14 Absolute Basophils 0.01 VBG pH 7.45 H VBG pCO2 39 L VBG pO2 43 VBG HCO3 27 VBG Total CO2 26 VBG O2 Saturation 79 VBG Base Excess 3 VBG Lactate 1.0 Sodium 138 Potassium 3.7 Chloride 101 Carbon Dioxide 26.2 Anion Gap 10.8 BUN 13 Creatinine 1.5 H Est GFR (CKD-EPI 2020) 50.08 Glucose 164 H Calcium 8.9 Total Bilirubin 0.4 AST 32 ALT 30 Alkaline Phosphatase 78 Troponin I 10 10 Total Protein 6.4 Albumin 2.3 L Urine Color Urine Clarity Urine pH Ur Specific [place] Urine Protein Urine Ketones Urine Blood Urine Nitrite Urine Bilirubin Urine Urobilinogen Ur Leukocyte Esterase Urine RBC Urine WBC Ur Epithelial Cells Urine Crystals Urine Bacteria Urine Casts Urine Mucus Ur Culture Indicated? Urine Glucose COVID-19 Source SARS-CoV-2 (PCR) Influenza Type A (PCR) Influenza Type B (PCR) RSV (PCR) ABO/Rh A Positive Antibody Screen NEGATIVE Crossmatch See Detail 01/03/25 01/03/25 11:44 14:00 WBC RBC Hgb Hct MCV MCH MCHC RDW Plt Count MPV Immature Gran % Neutrophils % Lymphocytes % Monocytes % Eosinophils % Basophils % Nucleated RBC % Absolute Neutrophils Absolute Lymphocytes Absolute Monocytes Absolute Eosinophils Absolute Basophils VBG pH VBG pCO2 VBG pO2 VBG HCO3 VBG Total CO2 VBG O2 Saturation VBG Base Excess VBG Lactate Sodium Potassium Chloride Carbon Dioxide Anion Gap BUN Creatinine Est GFR (CKD-EPI 2020) Glucose Calcium Total Bilirubin AST ALT Alkaline Phosphatase Troponin I Total Protein Albumin Urine Color Yellow Urine Clarity Clear Urine pH 6.0 Ur Specific [place] 1.015 Urine Protein 100 H Urine Ketones 40 H Urine Blood Negative Urine Nitrite Negative Urine Bilirubin Negative Urine Urobilinogen 0.2 Ur Leukocyte Esterase Negative Urine RBC 0-2 Urine WBC 0-2 Ur Epithelial Cells Rare Urine Crystals Negative Urine Bacteria Few Urine Casts 0-2 Coarse Granular Urine Mucus Negative Ur Culture Indicated? No Urine Glucose Negative COVID-19 Source Nasopharynx SARS-CoV-2 (PCR) Negative Influenza Type A (PCR) Negative Influenza Type B (PCR) Negative RSV (PCR) Negative ABO/Rh Antibody Screen Crossmatch Last Vital Signs Temp 98.9 F 01/03/25 14:40 Pulse 82 01/03/25 14:40 Resp 18 01/03/25 14:40 BP 136/70 01/03/25 14:40 Pulse Ox 95 01/03/25 14:40 Time Spent Time spent with Patient: >75 minutes Time was spent: preparing to see the patient(eg.review tests), obtaining and/or reviewing separately otained hiistory, ordering medications,tests, procedures, referring, communicating with other health nurse wound care, indepentently interpreting results, counseling the patient and care coordination
[2025-01-03] MEDS: Senna TAB 1 TAB PO (15:52)
[2025-01-03] MEDS: Polyethylene Glycol 3350 17 GM PACKET PO ×2 (15:52→17:14)
--- NOTE | 2025-01-03 16:20 | W.PC.ACHO ---
Registration Status: ADM IN Primary Language: Preferred Language: Welsh ED Information & Data Chief Complaint Cellulitis 01/03/25 10:04 Chief Complaint Cellulitis 01/03/25 08:24 Triage Note Left [facility] [place] post left 01/03/25 08:11 kidney removal has increased pain, weakness, warmth at site LBM 12/30/24 (Last Reviewed 12/26/24 @ 18:13 by Lucrecia Crane NP) History of back surgery (~02/15/18) crushed thumb (11/17/12) Kidney Stone Extraction (~2004) Colonoscopy - IV Sedation (02/19/15) Arthroplasty of knee Most Recent Vital Signs Temperature 36.4 C L 01/03/25 16:15 Temperature Source Temporal Artery Scan 01/03/25 16:15 Pulse 85 01/03/25 16:15 Pulse 82 01/03/25 13:31 Respiratory Rate 16 01/03/25 16:15 Blood Pressure 140/59 L 01/03/25 16:15 Blood Pressure Mean 86 01/03/25 16:15 Pulse Oximetry 93 01/03/25 16:15 Oxygen Delivery Method Room Air 01/03/25 16:15 Oxygen Flow Rate 0 01/03/25 16:15 Pain Level 9 01/03/25 11:32 Allergies No Known Allergies Allergy (Verified 12/26/24 16:59) Precautions Isolation Standard precaution 01/03/25 10:04 Active Medications Generic Name Dose Route Start Last Admin Trade Name Freq PRN Reason Stop Dose Admin Iohexol 500 ml 01/03/25 12:30 01/03/25 12:19 Omnipaque 350 Mg/Ml 500 Ml Btl-Imaging Package IJ 02/02/25 23:59 100 ml DIRECTED MARY ANN Administration Morphine Sulfate 2 mg 01/03/25 11:26 01/03/25 11:32 Morphine 10 Mg/Ml Vial IVP 2 mg DIRECTED PRN Administration Sodium Chloride 0 ml 01/03/25 12:18 01/03/25 12:20 Normal Saline Flush 10 Ml Syr IVP 10 ml PRN PRN Administration Sodium Chloride 50 ml 01/03/25 12:30 01/03/25 12:19 Normal Saline - Diluent 50 Ml Vial IJ 50 ml DIRECTED MARY ANN Administration IV IV Catheter Type [Right Saline Lock Antecubital] IV Catheter Type [Left Saline Lock Antecubital] IV Catheter Gauge [Right 18 Antecubital] IV Catheter Gauge [Left 18 Antecubital] Diagnostics 01/03/25 01/03/25 01/03/25 Range/Units 14:00 11:44 10:15 WBC (4.4-10.8) 10^3/uL RBC (4.36-5.78) 10^6/uL Hgb (13.5-17.5) g/dL Hct (40.0-50.0) % MCV (80-95) fL MCH (27.0-33.0) pg MCHC (32.0-36.0) % RDW (11.8-14.1) % Plt Count (130-400) 10^3/uL MPV (8.0-11.0) fL Immature Gran % % Neutrophils % % Lymphocytes % % Monocytes % % Eosinophils % % Basophils % % Nucleated RBC % (0.0-0.3) % Absolute Neutrophils (1.2-6.7) 10^3/uL Absolute Lymphocytes (1.2-3.4) 10^3/uL Absolute Monocytes (0.1-0.8) 10^3/uL Absolute Eosinophils (0.0-0.7) 10^3/uL Absolute Basophils (0.0-0.2) 10^3/uL VBG pH (7.31-7.41) VBG pCO2 (41-51) mmHg VBG pO2 mmHg VBG HCO3 (23-28) mmol/L VBG Total CO2 (24-29) mmol/L VBG O2 Saturation % VBG Base Excess (-2-3) mmol/L VBG Lactate (<or=2.0) mmol/L Sodium (136-145) mmol/L Potassium (3.5-5.1) mmol/L Chloride (98-107) mmol/L Carbon Dioxide (21.0-32.0) mmol/L Anion Gap (3-11) mmol/L BUN (7-18) mg/dL Creatinine (0.70-1.30) mg/dL Est GFR (CKD-EPI 2020) (mL/min/1.73m2) Glucose (74-106) mg/dL Calcium (8.5-10.1) mg/dL Total Bilirubin (0.2-1.0) mg/dL AST (15-37) U/L ALT (16-63) U/L Alkaline Phosphatase (46-116) U/L Troponin I 10 (<or=76) ng/L Total Protein (6.4-8.2) g/dL Albumin (3.4-5.0) g/dL Urine Color Yellow (Yellow) Urine Clarity Clear (Clear) Urine pH 6.0 (5-8) Ur Specific [place] 1.015 (1.005-1.025) Urine Protein 100 H (Neg-Trace) mg/dL Urine Ketones 40 H (Negative) mg/dL Urine Blood Negative (Negative) Urine Nitrite Negative (Negative) Urine Bilirubin Negative (Negative) Urine Urobilinogen 0.2 (Up to 0.2) mg/dL Ur Leukocyte Esterase Negative (Negative) Urine RBC 0-2 (0-2) HPF Urine WBC 0-2 (0-5) HPF Ur Epithelial Cells Rare (Negative) HPF Urine Crystals Negative (Negative) HPF Urine Bacteria Few (Negative) HPF Urine Casts 0-2 Coarse Granular (Negative) LPF Urine Mucus Negative (Negative) Ur Culture Indicated? No Urine Glucose Negative (Negative) mg/dL COVID-19 Source Nasopharynx SARS-CoV-2 (PCR) Negative (Negative) Influenza Type A (PCR) Negative (Negative) Influenza Type B (PCR) Negative (Negative) RSV (PCR) Negative (Negative) ABO/Rh Antibody Screen Crossmatch 01/03/25 01/03/25 Range/Units 09:20 08:25 WBC 5.99 (4.4-10.8) 10^3/uL RBC 2.12 L (4.36-5.78) 10^6/uL Hgb 7.0 L* (13.5-17.5) g/dL Hct 20.7 L* (40.0-50.0) % MCV 98 H (80-95) fL MCH 33.0 (27.0-33.0) pg MCHC 33.8 (32.0-36.0) % RDW 13.2 (11.8-14.1) % Plt Count 212 (130-400) 10^3/uL MPV 10.1 (8.0-11.0) fL Immature Gran % 0.3 % Neutrophils % 81.3 % Lymphocytes % 8.7 % Monocytes % 7.2 % Eosinophils % 2.3 % Basophils % 0.2 % Nucleated RBC % 0.0 (0.0-0.3) % Absolute Neutrophils 4.87 (1.2-6.7) 10^3/uL Absolute Lymphocytes 0.52 L (1.2-3.4) 10^3/uL Absolute Monocytes 0.43 (0.1-0.8) 10^3/uL Absolute Eosinophils 0.14 (0.0-0.7) 10^3/uL Absolute Basophils 0.01 (0.0-0.2) 10^3/uL VBG pH 7.45 H (7.31-7.41) VBG pCO2 39 L (41-51) mmHg VBG pO2 43 mmHg VBG HCO3 27 (23-28) mmol/L VBG Total CO2 26 (24-29) mmol/L VBG O2 Saturation 79 % VBG Base Excess 3 (-2-3) mmol/L VBG Lactate 1.0 (<or=2.0) mmol/L Sodium 138 (136-145) mmol/L Potassium 3.7 (3.5-5.1) mmol/L Chloride 101 (98-107) mmol/L Carbon Dioxide 26.2 (21.0-32.0) mmol/L Anion Gap 10.8 (3-11) mmol/L BUN 13 (7-18) mg/dL Creatinine 1.5 H (0.70-1.30) mg/dL Est GFR (CKD-EPI 2020) 50.08 (mL/min/1.73m2) Glucose 164 H (74-106) mg/dL Calcium 8.9 (8.5-10.1) mg/dL Total Bilirubin 0.4 (0.2-1.0) mg/dL AST 32 (15-37) U/L ALT 30 (16-63) U/L Alkaline Phosphatase 78 (46-116) U/L Troponin I 10 (<or=76) ng/L Total Protein 6.4 (6.4-8.2) g/dL Albumin 2.3 L (3.4-5.0) g/dL Urine Color (Yellow) Urine Clarity (Clear) Urine pH (5-8) Ur Specific [place] (1.005-1.025) Urine Protein (Neg-Trace) mg/dL Urine Ketones (Negative) mg/dL Urine Blood (Negative) Urine Nitrite (Negative) Urine Bilirubin (Negative) Urine Urobilinogen (Up to 0.2) mg/dL Ur Leukocyte Esterase (Negative) Urine RBC (0-2) HPF Urine WBC (0-5) HPF Ur Epithelial Cells (Negative) HPF Urine Crystals (Negative) HPF Urine Bacteria (Negative) HPF Urine Casts (Negative) LPF Urine Mucus (Negative) Ur Culture Indicated? Urine Glucose (Negative) mg/dL COVID-19 Source SARS-CoV-2 (PCR) (Negative) Influenza Type A (PCR) (Negative) Influenza Type B (PCR) (Negative) RSV (PCR) (Negative) ABO/Rh A Positive Antibody Screen NEGATIVE Crossmatch See Detail 01/03/25 08:30 Blood Culture - Pending Blood 01/03/25 08:25 Blood Culture - Pending Blood Intake and Output - 24 Hour Total 01/03/25 08:01 thru 01/03/25 09:53 Intake Total 110 Balance 110 Weight 103.7 kg Intake: IV 110 Falls Risk Assessment History of Falls No History 01/03/25 10:04 Fall Total Score 0 01/03/25 10:04 Level of Risk Standard/Low Risk 01/03/25 10:04 Problems (Last Reviewed 12/26/24 @ 18:13 by Lucrecia Crane NP) Pathologic fracture of lumbar vertebra (Acute) Constipation (Acute) Symptomatic anemia (Acute) Renal cell carcinoma (Acute) Diabetes mellitus (Chronic) Hypertension (Chronic) v v v v v v v v v Sending and/or Receiving Nurses: Please use comment section below to note any information pertinent to the patient hand-off not included above. Information / Comments: This nurse received patient alert, oriented, pain lever 10/20, bedrest blood transfusion ending. Report received from: Bhavani SANTO
[2025-01-03] MEDS: Docusate Sodium 100 MG CAP PO (17:12)
[2025-01-03] MEDS: Lidocaine 5% Patch 1 PATCH TP (17:12)
[2025-01-03] MEDS: Insulin Aspart 300 UNITS/3 ML PEN SC ×2 (17:13→21:25)
[2025-01-04 02:34] VITALS: BP 149/64; PULSE 81; RESP 18; TEMP 36.6; O2SAT 95
[2025-01-04] MEDS: MORPHine 4 MG/ML SYR IVP (02:44)
[2025-01-04 07:14] LABS: HCT 24.1 % (40.0-50.0); HGB 8.1 g/dL (13.5-17.5); MCH 32.3 pg (27.0-33.0); MCHC 33.6 % (32.0-36.0); MCV 96 fL (80-95); MPV 10.2 fL (8.0-11.0); Platelet Count 217 10^3/uL (130-400); RBC 2.51 10^6/uL (4.36-5.78); RDW 13.6 % (11.8-14.1); RDW-SD 46.7 fL; WBC 5.49 10^3/uL (4.4-10.8)
[2025-01-04 07:40] VITALS: BP 129/65; PULSE 71; RESP 16; TEMP 36.4; O2SAT 95
[2025-01-04 07:46] LABS: Anion Gap 8.1 mmol/L (3-11); BUN 14 mg/dL (7-18); CO2 25.9 mmol/L (21.0-32.0); Calcium 8.3 mg/dL (8.5-10.1); Chloride 101 mmol/L (98-107); Estimated GFR 65.46 (mL/min/1.73m2); Glucose 159 mg/dL (74-106); Magnesium 1.7 mg/dL (1.8-2.4); Potassium 4.0 mmol/L (3.5-5.1); Sodium 135 mmol/L (136-145)
[2025-01-04] MEDS: Insulin Aspart 300 UNITS/3 ML PEN SC ×4 (08:18→22:08)
[2025-01-04] MEDS: Acetaminophen 325 MG TAB 650 MG PO ×3 (08:26→20:32)
--- NOTE | 2025-01-04 09:05 | INITIAL_ITS ---
Date of service: 01/04/25 Time of Service: 09:05 Care Management Initial Assmt Initial Assessment Reason for Hospitalization: generalized weakness, s/p fall with lumbar fracture, anemia,constipation. Functional Status/Living Situation Patient Presentation: Orlin presented to the ED yesterday morning with weakness and having had a fall. Orlin had a left nephrectomy on 12/27, and stated that since surgery he has had left lower quadrant tenderness and has also not had a bowel movement in 5 days. He was so weak yesterday morning that he collapsed due to his inability to walk. He was noted to have a Hgb of 7, and he did receive 2 units of blood. Orlin was sitting up in the bed, his Gretchen was visiting. They were both very pleasant. Orlin has had a long stretch of not feeling great and being hospitalized. It seems it has all caught up with him and he is weak and exhausted. Orlin did not receive any services after his last admission. He does not want to go to SNF, but may be open to services. 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 town of [place]) Instrumental Activities of Daily Living (ADLs): Independent Physical Functioning/Mobility Assistive Device: has been using a cane or walker for a few weeks Advance Directives Advance Directives: Do you have an Advance Directive: N , 11:06 AD On File at [facility]: N 11/17/12, 11:06 Date Asked 01/03/25 01/03/25, 08:11 AD Date Reviewed COLST On File at [facility] No 11/05/24, 19:18 COLST Date Scanned Code Status Resuscitation Status Full Code Insurance Coverage/Financial Issues Insurance: [facility] Cigna [facility] supplement Care Team Visit Care Team Role Provider Type Miguel Guzman MD Primary Care Provider [facility] STAFF PHYSICIAN InPatient Bharat Santiago Other Providers OTHER Bayron Valle MD Emergency Provider [facility] STAFF PHYSICIAN Prabhjot Cortes MD Admit Provider [facility] STAFF PHYSICIAN Attending Provider Discharge Potential Discharge Needs: PCP F/U Appt Anticipated Barriers to Discharge: None Identified Patient/Family Education Needs: Review discharge instructions, discuss Ask Me Three Plan: Anticipate that Orlin will return home with new services of [facility]. He will f/u with his PCP, his surgeon and his community providers and continue per his plan of care. CM will continue to follow. Social Determinants of Health Screening Social Determinants of health last assessed in clinic: 01/03/25 Will the Patient Participate in the Screening?: Declined to provide Do you worry about having a steady place to live?: choose not to answer Problems where you live: no known problems Has lack of transportation kept you from medical appointments or from doing things needed for daily living?: no Has anyone in your life made you feel unsafe or unsupported?: no How hard is it for you to pay for the very basics like food, housing, medical care, and heating? Would you say it is:: Not hard at all Do you want help finding or keeping work or a job?: I do not need or want help If for any reason you need help with day-to-day activities such as bathing, preparing meals, shopping, managing finances, etc., do you get the help you need?: I need a lot more help How often do you feel lonely or isolated from those around you?: Never Do you speak a language other than Italian at home?: No Does the patient want assistance with any of the above?: No Health Related Social Needs Health related social needs: problems with daily activities (Z73.9) Health related social needs details: physical therapy PFSH All Active Problems (Updated 01/03/25 @ 16:19 by Bayron Valle MD) Bed sore on buttock (Acute) Pathologic fracture of lumbar vertebra (Acute) Constipation (Acute) Symptomatic anemia (Acute) Anemia due to blood loss (Acute) KAMILLA (acute kidney injury) (Acute) Complication, blocked Carrillo catheter (Acute) Renal cell carcinoma (Acute) Gross hematuria (Acute) Urinary retention (Acute) Renal cell carcinoma (Acute) Hematuria (Acute) Complication, blocked Carrillo catheter (Acute) Renal cell carcinoma (Acute) Left renal mass (Acute) Acute pyelonephritis (Acute) Arthritis pain, hip (Acute) Sarcoidosis (Acute 01/09/14) Overweight (Chronic) Ear congestion (Acute) likely ET dysfunction due to recent cold / ? allergy Diabetes mellitus (Chronic) A1c in office today 7.9 Hypertension (Chronic) not well controlled today Cough (Acute) likely viral bronchitis Erectile dysfunction (Chronic) Glucose intolerance (Acute) 11/5/18 LLUVIA LOJA; GLUCOSE 156 Lumbago (Acute) Fracture of distal phalanx of finger (Acute 11/23/12) Type 2 diabetes mellitus without complication, without long-term current use of insulin (Acute 02/25/16) Tobacco use disorder (Acute) CHEWS TOBACCO Sexual function problem (Acute) Pernicious anemia (Acute) Onychomycosis (Acute) Medial meniscus tear (Acute) RIGHT-04/02/16 Knee pain (Acute) ? MENISCUS Hiatal hernia (Acute) Essential hypertension (Acute) Dysplastic nevi (Acute 08/26/17) multiple Diverticulosis of colon without diverticulitis (Acute) Diabetes mellitus type 2, uncontrolled (Acute 03/24/14) Surgical History History of back surgery (~02/15/18) LLUVIA LOJA crushed thumb (11/17/12) Kidney Stone Extraction (~2004) Colonoscopy - IV Sedation (02/19/15) DR.C. WREN Arthroplasty of knee 04/02/16-RIGHT;DR. GUARDADO 08/19/16 RIGHT;[facility] Family History Mother , AGE 78 Essential hypertension MS (multiple sclerosis) Throat cancer Father Essential hypertension Diabetes Heart disease Sister Essential hypertension Diabetes Brother Essential hypertension Diabetes Maternal Grandfather , AGE 69 Essential hypertension Heart disease Paternal Grandfather , AGE 85 Essential hypertension Heart disease Maternal Grandmother , AGE 94 Essential hypertension Heart disease Paternal Grandmother , AGE 90 Essential hypertension Heart disease Son Substance abuse Son No problems noted. Daughter No problems noted. Social History Smoking/Tobacco Use Status: Current every day Tobacco Type: smokeless tobacco Tobacco: How many years used: 40 Smokeless tobacco user: chewing tobacco Quit status: has quit before Second Hand Exposure: Yes Smoking risk assessment performed?: Yes Alcohol Intake: former Drug use: Never Substance use type: does not use Counseling given: No Adopted: No Caregiver/Support person: No Household members: spouse Housing: house Communication Needs: None Do you need help understanding health information?: Rarely Pets and animals: No Sexually active: Yes Do you think of yourself as: straight/heterosexual Current gender identity: male What is your relationship status?: How often do you talk on the phone with friends or family?: three or more times per week How often do you get together with friends or relatives?: decline to answer How often do you attend mandaeism or uatsdin services?: decline to answer Do you belong to any clubs or organized social groups?: no Panel score (0-1 are the most socially isolated patients): 2 What type of physical activity do you participate in: walking Duration: 15-30 minutes/day Frequency: 3-4 times per week Adilene/Tenriism: No preference Special adilene needs: No Seatbelt use: always Helmet use: Yes Helmet use: always Drive intox 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
--- NOTE | 2025-01-04 10:13 | IN_ITS ---
PT Notes Visit Reasons: Pathologic L4 Fracture, weakness Physical Therapy Inpatient Initial Evaluation Date: 01/04/25 Referring Doctor: Dr Valle PT Orders: PT CONSULT: PT evaluation and treatment Precautions: WBAT , Fall risk , L4 Fracture. Patient Profile/Admitting Diagnosis:Pt is a 69-year-old male with a past medical history of IDDM, hypertension, multiple hospitalizations for hematuria in the setting of left renal cell carcinoma now postop day 4 from radical left nephrectomy presents emergency department with complaints of generalized weakness. Patient states that since surgery has had left lower quadrant tenderness and has not had a bowel movement concerning for an obstruction. Additionally, he states that he was so weak earlier this morning that he collapsed due to his inability to walk. He denies any fever, lightheadedness, dizziness, back pain, numbness in his lower extremities. In the emergency department the patient was noted as having normal vital signs, normal CBC with the exception of a hemoglobin of 7 for which she received 2 units packed red blood cells, and had a normal BMP. CT the abdomen pelvis showed normal postoperative changes, however there was pathologic fracture noted in L4 that was not seen on previous scans. PMHX: Bed sore on buttock (Acute) Pathologic fracture of lumbar vertebra (Acute) Constipation (Acute) Symptomatic anemia (Acute) Anemia due to blood loss (Acute) KAMILLA (acute kidney injury) (Acute) Complication, blocked Carrillo catheter (Acute) Renal cell carcinoma (Acute) Gross hematuria (Acute) Urinary retention (Acute) Renal cell carcinoma (Acute) Hematuria (Acute) Complication, blocked Carrillo catheter (Acute) Renal cell carcinoma (Acute) Left renal mass (Acute) Acute pyelonephritis (Acute) Arthritis pain, hip (Acute) Sarcoidosis (Acute 01/09/14) Overweight (Chronic) Ear congestion (Acute) likely ET dysfunction due to recent cold / ? allergyDiabetes mellitus (Chronic) A1c in office today 7.9Hypertension (Chronic) not well controlled todayCough (Acute) likely viral bronchitisErectile dysfunction (Chronic) Glucose intolerance (Acute) 02/15/18; GLUCOSE 156Lumbago (Acute) Fracture of distal phalanx of finger (Acute 11/23/12) Type 2 diabetes mellitus without complication, without long-term current use of insulin (Acute 02/25/16) Tobacco use disorder (Acute) CHEWS TOBACCO Sexual function problem (Acute) Pernicious anemia (Acute) Onychomycosis (Acute) Medial meniscus tear (Acute) RIGHT-04/02/16 Knee pain (Acute) ? MENISCUS Hiatal hernia (Acute) Essential hypertension (Acute) Dysplastic nevi (Acute 08/26/17) multiple Diverticulosis of colon without diverticulitis (Acute) Diabetes mellitus type 2, uncontrolled (Acute 03/24/14) Surgical History History of back surgery (~02/15/18) LLUVIA HOGAN DAYcrushed thumb (11/17/12) Kidney Stone Extraction (~2004) Colonoscopy - IV Sedation (02/19/15) DR.C. WRENArthroplasty of knee 04/02/16-RIGHT;DR. GUARDADO 08/19/16 RIGHT;[facility] Social History/Home Situation: Resides with in [facility] with stairs to enter. He independent with ambulation and ADL. Equipment Owned/DME: None Subjective: Pt reports supine is position of least pain but has to make frequent adjustments in HOB and knee position. He reports sit is the worst and standing for prolonged periods increase pain. He states his right hip feels unstable. He states he has been moving fine until his surgery . Objective: [] General Observation: male supine in bed Mental Status: A+Ox4 , cooperative, able to follow multistep instructions, agreeable to participate Pain: 8/10 back and right hip ROM: [] Right Upper Extremity: WNL Left Upper Extremity: WNL Right Lower Extremity: WNL Left Lower Extremity: WNL Strength: [] Right Upper Extremity: 5/5 Left Upper Extremity: 5/5 Right Lower Extremity: Hip flexion: 3- /5; hip abduction: 2+ /5; hip extension: 3- /5; knee extension: 3 /5; knee flexion: 3- /5 ankle DF: 5 /5 ; ankle PF: 5 /5 Limited by pain Left Lower Extremity: Hip flexion: 3/5; hip abduction: 3- /5; hip extension: 3 /5; knee extension: 4 /5; knee flexion: 3 /5 ankle DF: 5 /5 ; ankle PF: 5 /5 limited by pain Sensation: intact Bed Mobility/Transfers: [] Supine to sit supervison with log roll sit to supine mod A for LEs Sit to stand CGA and cues for hands Stand to sit CGA with cues for hands Bed to chair with FWW CGA Gait: amb with FWW 25 feet x 2 with CGA reduced step lenght , increased WB through BUE to unweight RLE d/t pain in right hip as well as report of right hip unstable Balance: [] Static Sitting: Good Dynamic Sitting: Fair Static Standing: Fair + with BUE support Dynamic Standing: fair with UE support Special Tests: [] Mobility Limitations Standardized Measure [] [facility]-PAC 6 clicks Basic Mobility Inpatient Short Form: [] Raw Score: 17 CMS Score: 50.57% deficit Informed Consent/Education: Patient instructed in purpose of PT consult. Packet containing Assessment: Patient is a 69-year-old male who presents with clinical signs and symptoms consistent with current/admitting diagnoses that have resulted to mobility limitations, gait instability, generalized weakness, and impairment of motor control as demonstrated by the following impairment level findings: 1. Decreased strength to BLE major muscle groups RLE>LLE proximal>distal 2. Impaired standing balance 3. Pain in back 4. impaired functional activity tolerance in sit and stand Impairments are contributing to the following functional limitations: 1. Inability to safely ambulate without assistive device 2. Increase completion time for mobility ADL performance 3. Increased fall risk 4. decline in bed mobility 5. decline in transfers 6. inability to perform stairs Patient is assessed as a moderate complexity based on the following: History: 69-year-old male with impairment level findings, functional limitations, and past medical history as indicated above Examination: Demonstrable impairment in strength, balance, and mobility level with underlying impairments and functional limitations as documented above Presentation:evolving Decision Making: moderate Goals: 1. independent sit to supine 2. Mod I transfers with FWW 3. Mod I ambulation with FWW 150 feet 4. SBA stairs with rail to safely enter and exit home Plan of Care/Treatment Plan: 1-2x/day, 7 days/week x 1 week. Plan of care has been reviewed with the [facility] providing the service under Physical Therapy direction. Initiate Physical Therapy intervention for strengthening, bed mobility, transfers, gait, stairs, balance training, use of assistive device. DISCHARGE RECOMMENDATIONS: Home with HHPT vs SNF pending progress TREATMENT CODE/TIME: 22229, 37318/ [id number] Thank you for the opportunity to participate in the care of this patient. Nika Montes PT [facility]
--- NOTE | 2025-01-04 11:02 | PGE_ITS ---
Date of Service Date of service: 01/04/25 Time of Service: 11:08 Assessment and Plan Assessment and plan (1) Pathologic fracture of lumbar vertebra: Status: Acute Assessment and plan: - As seen on CT abdomen pelvis, not previously seen on other imaging - Resulted from a fall as patient continued of generalized weakness postoperatively - Appreciate physical therapy involvement and management (2) Constipation: Status: Acute Assessment and plan: - Has not had a bowel movement since surgery on 12/30/2024 -No signs of obstruction seen on CT abdomen pelvis - Will have aggressive bowel regimen (3) Symptomatic anemia: Status: Acute Assessment and plan: - Likely secondary to left nephrectomy performed on 12/30/2024 - Hemoglobin was 7 in the emergency department and received 2 units of packed red blood cells - AM hemoglobin up to 8.1 (4) Renal cell carcinoma: Status: Acute Assessment and plan: - Now status post left nephrectomy - However, patient now with pathologic fracture of L 4 as noted above - Will have patient follow-up with oncology at discharge (5) Diabetes mellitus: Status: Chronic Assessment and plan: - Holding home insulin regimen - Sliding scale insulin, carb consistent diet (6) Hypertension: Status: Chronic Assessment and plan: - Continue home antihypertensive Subjective Subjective Interval history since last seen: Patient states that he is doing well and is looking forward to working with physical therapy. Exam Narrative Exam Narrative: Well-appearing gentleman laying in bed in no acute distress, ANO x 4, heart regular rhythm, lungs good auscultation bilaterally, abdomen soft, nontender, nondistended, decreased range of motion of bilateral lower extremity secondary to pain Objective Last Vital Signs Temp 97.5 F L 01/04/25 07:40 Pulse 71 01/04/25 07:40 Resp 16 01/04/25 07:40 BP 129/65 01/04/25 07:40 Pulse Ox 95 01/04/25 07:40 Laboratory Results - last 24 hr 01/03/25 01/03/25 01/03/25 08:25 09:20 10:15 WBC RBC Hgb Hct MCV MCH MCHC RDW Plt Count MPV Sodium 138 Potassium 3.7 Chloride 101 Carbon Dioxide 26.2 Anion Gap 10.8 BUN 13 Creatinine 1.5 H Est GFR (CKD-EPI 2020) 50.08 Glucose 164 H Calcium 8.9 Magnesium Total Bilirubin 0.4 AST 32 ALT 30 Alkaline Phosphatase 78 Troponin I 10 10 Total Protein 6.4 Albumin 2.3 L Urine Color Urine Clarity Urine pH Ur Specific [place] Urine Protein Urine Ketones Urine Blood Urine Nitrite Urine Bilirubin Urine Urobilinogen Ur Leukocyte Esterase Urine RBC Urine WBC Ur Epithelial Cells Urine Crystals Urine Bacteria Urine Casts Urine Mucus Ur Culture Indicated? Urine Glucose COVID-19 Source SARS-CoV-2 (PCR) Influenza Type A (PCR) Influenza Type B (PCR) RSV (PCR) ABO/Rh A Positive Antibody Screen NEGATIVE Crossmatch See Detail 01/03/25 01/03/25 01/04/25 11:44 14:00 06:30 WBC 5.49 RBC 2.51 L Hgb 8.1 L Hct 24.1 L MCV 96 H MCH 32.3 MCHC 33.6 RDW 13.6 Plt Count 217 MPV 10.2 Sodium 135 L Potassium 4.0 Chloride 101 Carbon Dioxide 25.9 Anion Gap 8.1 BUN 14 Creatinine 1.2 Est GFR (CKD-EPI 2020) 65.46 Glucose 159 H Calcium 8.3 L Magnesium 1.7 L Total Bilirubin AST ALT Alkaline Phosphatase Troponin I Total Protein Albumin Urine Color Yellow Urine Clarity Clear Urine pH 6.0 Ur Specific [place] 1.015 Urine Protein 100 H Urine Ketones 40 H Urine Blood Negative Urine Nitrite Negative Urine Bilirubin Negative Urine Urobilinogen 0.2 Ur Leukocyte Esterase Negative Urine RBC 0-2 Urine WBC 0-2 Ur Epithelial Cells Rare Urine Crystals Negative Urine Bacteria Few Urine Casts 0-2 Coarse Granular Urine Mucus Negative Ur Culture Indicated? No Urine Glucose Negative COVID-19 Source Nasopharynx SARS-CoV-2 (PCR) Negative Influenza Type A (PCR) Negative Influenza Type B (PCR) Negative RSV (PCR) Negative ABO/Rh Antibody Screen Crossmatch Time Spent with Patient Time Spent with Patient: >50 minutes Time was spent: preparing to see the patient(eg.review tests), obtaining and/or reviewing separately otained hiistory, ordering medications,tests, procedures, referring, communicating with other health physician assistant primary care, indepentently interpreting results, counseling the patient and care coordination
[2025-01-04] MEDS: Polyethylene Glycol 3350 17 GM PACKET PO (12:16)
[2025-01-04] MEDS: Atorvastatin 10 MG TAB PO (12:16)
[2025-01-04] MEDS: amLODIPine 10 MG TAB PO (12:17)
[2025-01-04] MEDS: glipiZIDE 10 MG TAB PO (12:17)
[2025-01-04 12:22] VITALS: BP 131/55; PULSE 77
[2025-01-04] MEDS: Metoprolol CR 25 MG TABCR PO (12:23)
[2025-01-04] MEDS: oxyCODONE 5 MG TAB PO ×2 (12:26→20:32)
--- NOTE | 2025-01-04 12:49 | CHAPLAIN ---
Orlin said as good as can be expected but seems disappointed in being admitted again following his surgery at [facility]. He was here previous to the surgery as well. He expects his , Gretchen, to be in later today. I left when he got a phone call.
--- NOTE | 2025-01-04 14:51 | PHA.REVIEW2 ---
Pharmacy Admission Review Admission Clinical Review Admission Pharmacy Review: Bed sore on buttock (Acute) Pathologic fracture of lumbar vertebra (Acute) Constipation (Acute) Symptomatic anemia (Acute) Renal cell carcinoma (Acute) No Known Allergies Allergy (Verified 12/26/24 16:59) Resuscitation Status Full Code Height 6 ft Weight 103.7 kg Pharmacy Admission Review Renal Dosing Renal Dosing: BUN 14 mg/dL (7-18) 01/04/25 06:30 Creatinine 1.2 mg/dL (0.70-1.30) 01/04/25 06:30 Medications needing adjustments: Reviewed (CrCl 72.3 mL/min) List of meds needing interventions: Current medications are okay Anticoagulation Anticoagulation: Hgb 8.1 g/dL (13.5-17.5) L 01/04/25 06:30 Hct 24.1 % (40.0-50.0) L 01/04/25 06:30 Plt Count 217 10^3/uL (130-400) 01/04/25 06:30 Creatinine 1.2 mg/dL (0.70-1.30) 01/04/25 06:30 DVT Prophylaxis: N/A (anemic, Hgb increased from 7) Opiate Usage Evaluate Pain Scale/Pains Meds: Reviewed (oxycodone 5mg q4h PRN - 5g/24hrs) Scheduled Bowel Reg ordered if on Opiates?: No (PRN Miralax/docusate) Relevant Labs Relevant Labs: Sodium 135 mmol/L (136-145) L 01/04/25 06:30 Potassium 4.0 mmol/L (3.5-5.1) 01/04/25 06:30 Chloride 101 mmol/L (98-107) 01/04/25 06:30 Magnesium 1.7 mg/dL (1.8-2.4) L 01/04/25 06:30 Electrolytes, C-Reactive P, ESR: Reviewed DM Control DM Control: Glucose 159 mg/dL (74-106) H 01/04/25 06:30 Finger Stick Blood Glucose 265 1210 Finger Stick Blood Glucose 265 1144 Finger Stick Blood Glucose 265 1144 Finger Stick Blood Glucose 176 0818 Finger Stick Blood Glucose 176 0747 Finger Stick Blood Glucose 176 0747 DM Control: Reviewed Insulin Dosing, Diabetic Medication: Has orders for SS insulin, metformin 1000mg BID and glipizide 10mg daily Cardiac Review Cardiac Review: Troponin I 10 ng/L (<or=76) 01/03/25 10:15 BP, HR, EF%: Reviewed (BP 131/55 and HR 77) List meds needing interventions: Has orders for amlodipine 10mg daily and metoprolol XL 25mg daily QTc Review QTc: Reviewed (422 from 01/03/25) IV to PO Switch IV Medications: Reviewed Home Meds Home Med List reviewed: Intervened Relevent Home Meds Not ordered & why?: vitamin B12, losartan/HCTZ (listed as not taking on home med list) and multivitamin Reached out to provider as the following were not ordered - amlodipine, atorvastatin, glipizide, metformin and metoprolol. Provider put in orders. Current Meds Current Medication Order Review: Reviewed
--- NOTE | 2025-01-04 15:11 | PT.INTREAT ---
PT Notes Visit Reasons: Pathologic L4 Fracture, weakness Inpatient Physical Therapy Treatment Note [facility] Date: 01/04/25 SUBJECTIVE: Orlin states that he is ready to walk again. Seems to be doing ok after the am session. OBJECTIVE: []? PAIN: right sided LBP VITALS: ?monitored by nsg. BED MOBILITY/TRANSFERS? Supine-sit: S? Sit-supine: min A of LE ? Sit-stand: CGA? Stand-sit: CGA? Provided skilled cues and instruction on performance and technique throughout. ? GAIT? Assistive Device: FWW ? Weight bearing: AT Assist: CGA ? Distance:? 25'x4? Deviation: slow ce ? ASSESSMENT:? Did have some mild c/o back and hip pain. Tolerated session and was able to progress his walking compared to this am. PLAN: will continue to progress strength and functional mobility following POC. TREATMENT CODE/TIME: 20 min ([id number])
[2025-01-04 15:34] VITALS: BP 151/70; PULSE 77; RESP 16; TEMP 37.2; O2SAT 96
[2025-01-04] MEDS: metFORMIN 500 MG TAB 1000 MG PO (17:12)
[2025-01-04] MEDS: Tamsulosin 0.4 MG CAPCR PO (17:12)
[2025-01-04] MEDS: Normal Saline Flush 10 ML SYR IVP (20:33)
[2025-01-04 20:38] VITALS: BP 134/71; PULSE 79; RESP 15; TEMP 37.4; O2SAT 97
[2025-01-04 22:07] VITALS: BP 115/67; PULSE 99; RESP 16; TEMP 37.2; O2SAT 98
[2025-01-05 02:25] VITALS: BP 102/50; PULSE 70; RESP 16; TEMP 36.5; O2SAT 97
[2025-01-05] MEDS: oxyCODONE 5 MG TAB PO ×3 (03:54→20:03)
[2025-01-05] MEDS: Acetaminophen 325 MG TAB 650 MG PO ×3 (03:54→22:16)
[2025-01-05 07:43] VITALS: BP 142/70; PULSE 80; RESP 16; TEMP 36.5; O2SAT 99
[2025-01-05] MEDS: Polyethylene Glycol 3350 17 GM PACKET PO (08:28)
[2025-01-05] MEDS: Atorvastatin 10 MG TAB PO (08:28)
[2025-01-05] MEDS: Insulin Aspart 300 UNITS/3 ML PEN SC ×4 (08:28→22:17)
[2025-01-05] MEDS: metFORMIN 500 MG TAB 1000 MG PO ×2 (08:29→20:02)
[2025-01-05] MEDS: Normal Saline Flush 10 ML SYR IVP (08:30)
[2025-01-05] MEDS: glipiZIDE 10 MG TAB PO (08:30)
[2025-01-05] MEDS: amLODIPine 10 MG TAB PO (08:30)
[2025-01-05] MEDS: Metoprolol CR 25 MG TABCR PO (08:30)
--- NOTE | 2025-01-05 08:42 | PT.INTREAT ---
PT Notes Visit Reasons: Pathologic L4 Fracture, Weakness Inpatient Physical Therapy Treatment Note [facility] Date: 01/05/25 PRECAUTIONS:WBAT , Fall risk , L4 Fracture. SUBJECTIVE: Pt is sore today. OBJECTIVE: Therapeutic Activities ([id number][]): Direct one-on-one instruction in dynamic activities to improve functional performance. ? BED MOBILITY/TRANSFERS? Sit-stand: CGA ? Stand-sit: SBA ? Provided skilled cues and instruction on performance and technique throughout. ? Therapeutic Exercises ([id number][]): Direct one-on-one instruction in therapeutic exercises to develop strength, endurance, range of motion and flexibility. ? Exercises ? Ambulation ? Assistive Device: FWW ? Weight bearing: Full Assist: CGA/SBA ? Distance:? Approx 60 ft? Provided skilled instruction in proper exercise performance Provided skilled manual cues to facilitate proper muscle recruitment and/or form: [] ASSESSMENT:? Pt felt weak post ambulation and was in a mod amount of discomfort this am. PLAN: Cont as per PT POC. TREATMENT CODE/TIME: 8:30-8:43 (13) TA DISCHARGE RECOMMENDATION: []
[2025-01-05 11:40] VITALS: BP 118/73; PULSE 70; RESP 16; TEMP 36.4; O2SAT 95
--- NOTE | 2025-01-05 14:04 | PT.INTREAT ---
PT Notes Visit Reasons: Pathologic L4 Fracture, Weakness Inpatient Physical Therapy Treatment Note [facility] Date: 01/05/25 PRECAUTIONS:fall, standard SUBJECTIVE: Orlin states that he remains in a great deal of pain. He's agreeable to walking. OBJECTIVE: ? PAIN: 10/20 initially; 01/20 end of session. Nursing alerted VITALS: ? Post-ambulation: 141/61, HR 84? Therapeutic Activities ([id number]): Direct one-on-one instruction in dynamic activities to improve functional performance. ? BED MOBILITY/TRANSFERS: Instructed in back protective maneuvers and positions. Instructed in log rolling techniques, breathing strategies, and positioning throughout session. ? Rolling L/R: SBA with cues for log rolling Supine-sit: SBA with cues, use of bed rails with HOB at 25*? Sit-supine: SBA with cues ? Sit-stand: CGA with bed elevated. Requires cues for hand placement and safety, and eventually able to complete with SBA from 18 height? Stand-sit: CGA with poorly controlled descent initially. ? Requires cues for hand placement and safety, with good carry over. Able to complete SBA by end of session. ? GAIT? Assistive Device: FWW ? Weight bearing: WBAT Assist: CGA-SBA ? Distance:? 120' ? ? ? Upon return to room, requires urgent assistance to bathroom. Able to demonstrate good safety awareness throughout. Requires max A for self-care following. ? STAIRS:Instructed in stair management on therapeutic stairs, 6x2, 4x3 with bilat rails. Demonstrates poorly controlled descent on RLE; instructed in step to pattern (up with to good, down with the bad), with patient and his verbalize understanding of. ? MMT shows quad strength is 3+/5 right, 5/5 left. ASSESSMENT:? Tolerated introduction of transfer training well, although very limited in activity tolerance. PLAN: Continue PT intervention to maximize mobility and safety. TREATMENT CODE/TIME: [id number] DISCHARGE RECOMMENDATION: Home with PT
[2025-01-05 15:18] VITALS: BP 125/65; PULSE 72; RESP 16; TEMP 36.1; O2SAT 95
--- NOTE | 2025-01-05 15:59 | CMPROGNOTE_ITS ---
Date of service: 01/05/25 Time of Service: 16:39 Care Management Progress Note Progress Note Text Progress Note Text: Orlin was sitting up in the bed when CM met with him and Gretchen. He is feeling lousy today, very tired. They are both wondering what is being done for treatment. Dr. Morgan did speak with them at length today. Dr. Morgan spoke with oncology at [facility] who recommended he reach out to ortho. Call has been placed. Orlin and Gretchen are ok with this plan. Discharge Potential Discharge Needs: Consult (ortho consult with [facility]), PCP F/U Appt and Other (oncology f/u) Anticipated Barriers to Discharge: None Identified Patient/Family Education Needs: Review discharge instructions, discuss Ask Me Three Transportation: Private vehicle Plan: Anticipate that Orlin will return home with new services of [facility]. He will f/u with his PCP, his oncologist and his community providers and continue per his plan of care. CM will continue to follow. Social Determinants of Health Screening Social Determinants of health last assessed in clinic: 01/03/25 Will the Patient Participate in the Screening?: Declined to provide Do you worry about having a steady place to live?: choose not to answer Problems where you live: no known problems Has lack of transportation kept you from medical appointments or from doing things needed for daily living?: no Has anyone in your life made you feel unsafe or unsupported?: no How hard is it for you to pay for the very basics like food, housing, medical care, and heating? Would you say it is:: Not hard at all Do you want help finding or keeping work or a job?: I do not need or want help If for any reason you need help with day-to-day activities such as bathing, preparing meals, shopping, managing finances, etc., do you get the help you need?: I need a lot more help How often do you feel lonely or isolated from those around you?: Never Do you speak a language other than Pashto at home?: No Does the patient want assistance with any of the above?: No Health Related Social Needs Health related social needs: problems with daily activities (Z73.9) Health related social needs details: physical therapy
--- NOTE | 2025-01-05 16:17 | PGE_ITS ---
Date of Service Date of service: 01/05/25 Time of Service: 16:17 Assessment and Plan Assessment and plan (1) Pathologic fracture of lumbar vertebra: Status: Acute Assessment and plan: - As seen on CT abdomen pelvis, not previously seen on other imaging - Resulted from a fall as patient continued of generalized weakness postoperatively - Appreciate physical therapy involvement and management 01/05/25 Reached out to Oncolology at [facility] who recommended discussing with spine team (2) Constipation: Status: Acute Assessment and plan: - Has not had a bowel movement since surgery on 12/30/2024 -No signs of obstruction seen on CT abdomen pelvis - Will have aggressive bowel regimen 01/05/25 resolved (3) Symptomatic anemia: Status: Acute Assessment and plan: - Likely secondary to left nephrectomy performed on 12/30/2024 - Hemoglobin was 7 in the emergency department and received 2 units of packed red blood cells - AM hemoglobin up to 8.1 01/05/25 no new labs this am. Will order for am (4) Renal cell carcinoma: Status: Acute Assessment and plan: - Now status post left nephrectomy - However, patient now with pathologic fracture of L 4 as noted above - Will have patient follow-up with oncology at discharge (5) Diabetes mellitus: Status: Chronic Assessment and plan: - Holding home insulin regimen - Sliding scale insulin, carb consistent diet (6) Hypertension: Status: Chronic Assessment and plan: - Continue home antihypertensive Subjective Subjective Interval history since last seen: Still with difficulty with ambulating. Notes reviewed from PT. Did d/w Oncology at [facility] who recommended reaching out to Ortho. Exam Narrative Exam Narrative: Well-appearing gentleman laying in bed in no acute distress, ANO x 4, heart regular rhythm, lungs good auscultation bilaterally, abdomen soft, nontender, nondistended, decreased range of motion of bilateral lower extremity secondary to pain. BSA Objective Last Vital Signs Temp 36.1 C L 01/05/25 15:18 Pulse 72 01/05/25 15:18 Resp 16 01/05/25 15:18 BP 125/65 01/05/25 15:18 Pulse Ox 95 01/05/25 15:18 Time Spent with Patient Time Spent with Patient: 25-34 minutes Time was spent: preparing to see the patient(eg.review tests), obtaining and/or reviewing separately otained hiistory, ordering medications,tests, procedures, referring, communicating with other health healthcare advisory services manager, indepentently interpreting results, counseling the patient and care coordination
[2025-01-05 19:53] VITALS: BP 134/69; PULSE 92; RESP 15; TEMP 36.9; O2SAT 98
[2025-01-05] MEDS: Tamsulosin 0.4 MG CAPCR PO (20:02)
[2025-01-05 22:28] VITALS: BP 140/68; PULSE 73; RESP 15; TEMP 38.1; O2SAT 95
[2025-01-06] VITALS (7 sets, daily range): BP systolic 112–155; BP diastolic 50–74; PULSE 65–88; RESP 15–17; TEMP 36.1–37.4; O2SAT 94–98
--- NOTE | 2025-01-06 | DI.MRI_ITS ---
Exam(s) MR LUMBAR SPINE WO/W EXAM: MR LUMBAR SPINE WO/W CLINICAL HISTORY: fx TECHNIQUE: Multiplanar multisequence MRI of the Lumbar Spine was performed. CONTRAST MATERIAL: IV Contrast: 20 mL of Dotarem contrast administered. COMPARISON: CT CT ABDOMEN PELVIS WO/W from 11/08/2024 CR,XR XR ABDOMEN FLAT PLATE from 12/20/[address] ABDOMEN PELVIS W from 01/03/2025 FINDINGS: Bones: There is moderate compression of the central portion of the L4 vertebral body. There is abnormal high T2 signal throughout the vertebral body. There is no bony retropulsion. There is abnormal enhancement in the vertebral body greater posteriorly and laterally with extension into the pedicles.. There is also abnormal enhancement in the superior endplate of L5 and abnormal high signal within the L4-5 disc. There is moderate to severe central canal stenosis at this location. There is abnormal enhancement seen posterior to the L4 vertebral body, within the central canal as well as in the soft tissues between the spinous processes of L4 and L5. The findings are suspicious for in abscesses. The patient has had previous surgery in this location. There is chronic scarring in the posterior subcutaneous fat in this region. The remaining vertebral bodies appear intact. The visualized SI joints and sacrum are well maintained. Cord: The conus tip ends at the T12 level. It is of normal size and signal intensity. Soft tissues: There is abnormal edema at the medial aspect of both psoas muscles at the L4 level. There is focal fluid collection measuring 18 by 12 by 30 millimeters in the left psoas muscle at the L4-5 level. Findings are consistent with an abscess. There is a small amount of fluid seen in the low pelvis, likely postsurgical. IMPRESSION: Findings suspicious for osteomyelitis of L4 with likely involvement of the L4-5 disc and superior endplate of L5. There is small epidural at abscess seen posterior to the L4 vertebral body. Abscesses are also noted between the L4 and L5 spinous processes as well as in the left psoas muscle. Findings called to Dr. Morgan. DATA REPOSITORY:
[2025-01-06] MEDS: oxyCODONE 5 MG TAB PO ×4 (00:37→23:12)
[2025-01-06] MEDS: HYDROmorphone 2 MG/ML SYR IVP (00:58)
[2025-01-06 07:15] LABS: Abs Immature Grans 0.02 10^3/uL (0.0-0.06); HCT 24.4 % (40.0-50.0); HGB 8.2 g/dL (13.5-17.5); Immature Grans % 0.3 %; MCH 32.0 pg (27.0-33.0); MCHC 33.6 % (32.0-36.0); MCV 95 fL (80-95); MPV 10.1 fL (8.0-11.0); Platelet Count 251 10^3/uL (130-400); RBC 2.56 10^6/uL (4.36-5.78); RDW 13.1 % (11.8-14.1); RDW-SD 44.6 fL; WBC 5.85 10^3/uL (4.4-10.8)
[2025-01-06 07:37] LABS: ALT 79 U/L (16-63); AST 68 U/L (15-37); Albumin 1.9 g/dL (3.4-5.0); Alkaline Phosphatase 77 U/L (46-116); Anion Gap 9.0 mmol/L (3-11); BUN 13 mg/dL (7-18); Bilirubin, Total 0.3 mg/dL (0.2-1.0); CO2 25.0 mmol/L (21.0-32.0); Calcium 8.1 mg/dL (8.5-10.1); Chloride 101 mmol/L (98-107); Estimated GFR 59.47 (mL/min/1.73m2); Glucose 166 mg/dL (74-106); Potassium 3.9 mmol/L (3.5-5.1); Sodium 135 mmol/L (136-145); Total Protein 6.1 g/dL (6.4-8.2)
[2025-01-06] MEDS: Insulin Aspart 300 UNITS/3 ML PEN SC ×4 (09:07→22:03)
[2025-01-06] MEDS: glipiZIDE 10 MG TAB PO (09:08)
[2025-01-06] MEDS: Metoprolol CR 25 MG TABCR PO (09:09)
[2025-01-06] MEDS: Atorvastatin 10 MG TAB PO (09:09)
[2025-01-06] MEDS: amLODIPine 10 MG TAB PO (09:10)
[2025-01-06] MEDS: metFORMIN 500 MG TAB 1000 MG PO ×2 (09:10→17:53)
--- NOTE | 2025-01-06 10:15 | PTTR_ITS ---
PT Notes Visit Reasons: Pathologic L4 Fracture, Weakness Date: 01/06/2025 PRECAUTIONS: fall, standard SUBJECTIVE: Pt in bed when approached for therapy this morning, pt reports pain on legs and back, agreed to participating with therapy intervention, pt in bed when approached for second session, agreed to participating with therapy session. ? PAIN: 5/10 BLE, 6/10 back am/pm VITALS: Monitored by nursing Therapeutic Activities 34318: Direct one-on-one instruction in dynamic activities to improve functional performance. ?? BED MOBILITY/TRANSFERS? Rolling L/R: supervision Supine-sit: ? supervision? Sit-supine: ? SBA? Sit-stand: ? ?CGA (am), SBA (pm) ? Stand-sit: ??CGA ?(am), SBA (pm) ? Bed-Chair:? ?SBA ?am/pm ? Chair-bed: SBA am/pm Provided skilled cues and instruction on performance and technique throughout. Gait Training [id number]: Direct one-on-one instruction and skilled instruction in: Employing an assistive device Modified weight-bearing status Movement sequencing Turning and movement with proper form Provided verbal cues for equipment management and technique Provided instruction in gait pattern Patient education regarding pacing and breathing techniques to maximize activity tolerance? GAIT? Assistive Device: ?? FWW? Weight bearing: FWB Assist: ?SBA ? Distance:?? ?100'x1, 150'x1 am, 100'x1, 150'x1 pm? Deviation: ? Slow ce speed, low step height, short step length, stoop forward posture resulting in heavy reliance to BUE support.? STAIRS:? Step to gait pattern, bilateral handrail SBA 6x4, 4x6 (am)? Step to gait pattern, bilateral handrail SBA 6x4, 4x6 (pm)? Neuromuscular Re-education 60329: Activities that facilitate re-education of m ovement balance, posture, coordination, and proprioception or kinesthetic sense, requiring skilled tactile and verbal cues Exercises/techniques: ? Seated static balance activity Seated dynamic balnce activity multidirectional reach Seated triceps push ups Sit to stand Standing static with NBOS/WBOS ASSESSMENT:?Pt tolerated activity well, reports fatigue, pain stayed at the same level of intensity and was able to feel slight improvement after pt got settled in bed. PLAN: Continue with balance training, global strengthening and general con ditioning for improved safety, mobility and activity tolerance until pt is ready for DC. TREATMENT CODE/TIME: [id number] 30mins ( 8:35-9:05am), [id number] 30mins ( 2:30-3:00pm)
[2025-01-06] MEDS: Normal Saline Flush 10 ML SYR IVP ×2 (11:16→19:36)
[2025-01-06] MEDS: Gadoterate meglumine 20 ML SYRINGE IVP (11:17)
[2025-01-06] MEDS: Enoxaparin 40 MG/0.4 ML SYR SC (12:26)
--- NOTE | 2025-01-06 14:58 | W.PALLCONSUL ---
Date of service: 01/06/25 Time of Service: 14:58 History of Present Illness Narrative: Renal cell carcinoma (Dx October,) with recent nephrectomy (1 week ago at [facility]). He does not know if he will require any other cancer treatment yet. He will meet with oncology for f/u. He presented to the ED 01/03 with weakness, fall and pathologic Fx of the lumbar spine. He went on to have MRI and now appears to have osteo with abscess to lumbar spine per MRI. Dr. Morgan, Hospitalist is contacting [facility] for possible transfer. He reports that his pain is currently 8/10. His pain is primarily L-sided abd pain at present. He also has incisional pain and increased low back pain with any movement/activity. He has Oxycodone 5 mg q4h PRN. He has had 5 doses in the last 24 hrs. The oxycodone is working well for his pain. He has had intermittent nausea, no vomiting. He does not have PRN anti-emetics. He is eating well. He worries about getting sick after eating. Reviewed GOC. He states that he wishes to do whatever it takes to keep on going. Reviewed CODE STATUS. He currently wishes to remain a FULL CODE. HCA- 1. Hamida Barr (), 2. Shine Brar (son), others who may be consulted: Lorna Noe (daughter). Orlin has 3 children. He and Hamida have Shine together. Shine lives in [place]. His daughter, Lorna lives in [place] and his son, Messi has had problems with drugs, currently clean (x9 months) and living in [place]. 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 He has not been working for 2 years. Assessment and Plan Assessment and plan (1) Pathologic fracture of lumbar vertebra: Status: Acute Assessment and plan: - As seen on CT abdomen pelvis, not previously seen on other imaging - Resulted from a fall as patient continued of generalized weakness postoperatively - MRI today shows: Findings suspicious for osteomyelitis of L4 with likely involvement of the L4-5 disc and superior endplate of L5. There is small epidural at abscess seen posterior to the L4 vertebral body. Abscesses are also noted between the L4 and L5 spinous processes as well as in the left psoas muscle. - Working with PT. - Hospitalist contacting [facility] to discuss possible transfer. He is open and agreeable to transfer if this is indicated. (2) Constipation: Status: Acute Assessment and plan: resolved (3) Symptomatic anemia: Status: Acute Assessment and plan: - Likely secondary to left nephrectomy performed on 12/30/2024 - Hemoglobin was 7 in the emergency department and received 2 units of packed red blood cells - AM hemoglobin 8.2 today. (4) Renal cell carcinoma: Status: Acute Assessment and plan: - Now status post left nephrectomy -He will f/u outpatient with oncology, He is not sure if he will need further cancer treatment yet. (5) Diabetes mellitus: Status: Chronic (6) Hypertension: Status: Chronic (7) Palliative care by specialist: Status: Acute Assessment and plan: Palliative will f/u with him next week if he remains here. Palliative to offer f/u after discharge from the hospital. (8) Bed sore on buttock: Status: Acute (9) Advanced care planning/counseling discussion: Status: Acute Assessment and plan: Orlin is clear that he wishes to remain a full code. He wishes to have anything done that will prolong his life at this point. He has previously named his healthcare agents: 1. Hamida Barr (), 2. Shine Barr (son), others who may be consulted: Lorna Hasmukh (daughter). This was reviewed and he wishes to keep this the same. (10) Nausea: Status: Acute Assessment and plan: PRN Zofran ODT ordered. (11) Back pain: Status: Acute Assessment and plan: Increases with activity. Also has pain at rest. Taking oxycodone 5 mg PRN. He has required 5 doses in the last 24 hrs. He currently rates his pain 8/10. (12) Abdominal pain: Status: Acute Assessment and plan: Oxycodone PRN. Review of Systems Narrative: PER HPI PFSH All Active Problems (Updated 01/06/25 @ 16:19 by Brook Miranda NP) Abdominal pain (Acute) Back pain (Acute) Nausea (Acute) Advanced care planning/counseling discussion (Acute) Palliative care by specialist (Acute) Bed sore on buttock (Acute) Pathologic fracture of lumbar vertebra (Acute) Constipation (Acute) Symptomatic anemia (Acute) Anemia due to blood loss (Acute) KAMILLA (acute kidney injury) (Acute) Complication, blocked Carrillo catheter (Acute) Renal cell carcinoma (Acute) Gross hematuria (Acute) Urinary retention (Acute) Renal cell carcinoma (Acute) Hematuria (Acute) Complication, blocked Carrillo catheter (Acute) Renal cell carcinoma (Acute) Left renal mass (Acute) Acute pyelonephritis (Acute) Arthritis pain, hip (Acute) Sarcoidosis (Acute 01/09/14) Overweight (Chronic) Ear congestion (Acute) likely ET dysfunction due to recent cold / ? allergy Diabetes mellitus (Chronic) A1c in office today 7.9 Hypertension (Chronic) not well controlled today Cough (Acute) likely viral bronchitis Erectile dysfunction (Chronic) Glucose intolerance (Acute) 02/15/18LLUVIA ; GLUCOSE 156 Lumbago (Acute) Fracture of distal phalanx of finger (Acute 11/23/12) Type 2 diabetes mellitus without complication, without long-term current use of insulin (Acute 02/25/16) Tobacco use disorder (Acute) CHEWS TOBACCO Sexual function problem (Acute) Pernicious anemia (Acute) Onychomycosis (Acute) Medial meniscus tear (Acute) RIGHT-04/02/16 Knee pain (Acute) ? MENISCUS Hiatal hernia (Acute) Essential hypertension (Acute) Dysplastic nevi (Acute 08/26/17) multiple Diverticulosis of colon without diverticulitis (Acute) Diabetes mellitus type 2, uncontrolled (Acute 03/24/14) Surgical History History of back surgery (~02/15/18) LLUVIA EDISON LOJA crushed thumb (11/17/12) Kidney Stone Extraction (~2004) Colonoscopy - IV Sedation (02/19/15) DR.C. WREN Arthroplasty of knee 04/02/16-RIGHT;DR. GUARDADO 08/19/16 RIGHT;[facility] Family History Mother , AGE 78 Essential hypertension MS (multiple sclerosis) Throat cancer Father Essential hypertension Diabetes Heart disease Sister Essential hypertension Diabetes Brother Essential hypertension Diabetes Maternal Grandfather , AGE 69 Essential hypertension Heart disease Paternal Grandfather , AGE 85 Essential hypertension Heart disease Maternal Grandmother , AGE 94 Essential hypertension Heart disease Paternal Grandmother , AGE 90 Essential hypertension Heart disease Son Substance abuse Son No problems noted. Daughter No problems noted. Social History Smoking/Tobacco Use Status: Current every day Tobacco Type: smokeless tobacco Tobacco: How many years used: 40 Smokeless tobacco user: chewing tobacco Quit status: has quit before Second Hand Exposure: Yes Smoking risk assessment performed?: Yes Alcohol Intake: former Drug use: Never Substance use type: does not use Counseling given: No Adopted: No Caregiver/Support person: No Household members: spouse Housing: house Communication Needs: None Do you need help understanding health information?: Rarely Pets and animals: No Sexually active: Yes Do you think of yourself as: straight/heterosexual Current gender identity: male What is your relationship status?: How often do you talk on the phone with friends or family?: three or more times per week How often do you get together with friends or relatives?: decline to answer How often do you attend yarsani or denominational services?: decline to answer Do you belong to any clubs or organized social groups?: no Panel score (0-1 are the most socially isolated patients): 2 What type of physical activity do you participate in: walking Duration: 15-30 minutes/day Frequency: 3-4 times per week Adilene/Yazdanism: No preference Special adilene needs: No Seatbelt use: always Helmet use: Yes Helmet use: always Drive intox or ride w/intox mixer driver: No Do you feel safe at home: Yes Do you feel safe in your relationship?: Yes Exam Narrative Exam Narrative: General: 69-year-old man, laying in hospital bed with head of bed elevated. He is awake and alert but appeared to be getting tired by the end of the visit. His skin is pale. He does not appear to be in any distress. Tearful at times. HEENT: Normocephalic, atraumatic, EOMI, MMM. Neck: Supple. Respiratory: Respirations appear even and unlabored at rest and with talking. Extremities: Moves all 4 extremities freely. Results Last Vital Signs Temp 36.1 C L 01/06/25 12:11 Pulse 88 01/06/25 12:11 Resp 17 01/06/25 12:11 BP 123/66 01/06/25 12:11 Pulse Ox 98 01/06/25 12:11 Labs 01/06/25 06:40 01/06/25 06:40 Labs: Laboratory Results - last 24 hr 01/06/25 06:40 WBC 5.85 RBC 2.56 L Hgb 8.2 L Hct 24.4 L MCV 95 MCH 32.0 MCHC 33.6 RDW 13.1 Plt Count 251 MPV 10.1 Immature Gran % 0.3 Neutrophils % 75.4 Lymphocytes % 12.6 Monocytes % 8.5 Eosinophils % 2.7 Basophils % 0.5 Nucleated RBC % 0.0 Absolute Neutrophils 4.40 Absolute Lymphocytes 0.74 L Absolute Monocytes 0.50 Absolute Eosinophils 0.16 Absolute Basophils 0.03 Sodium 135 L Potassium 3.9 Chloride 101 Carbon Dioxide 25.0 Anion Gap 9.0 BUN 13 Creatinine 1.3 Est GFR (CKD-EPI 2020) 59.47 Glucose 166 H Calcium 8.1 L Total Bilirubin 0.3 AST 68 H ALT 79 H Alkaline Phosphatase 77 Total Protein 6.1 L Albumin 1.9 L Time Spent Time Spent with Patient Time Spent(min): 72
--- NOTE | 2025-01-06 16:18 | W.PM.PROGNOT ---
Date of Service Date of service: 01/06/25 Time of Service: 16:18 Assessment and Plan Assessment and plan (1) Pathologic fracture of lumbar vertebra: Status: Acute Assessment and plan: - As seen on CT abdomen pelvis, not previously seen on other imaging - Resulted from a fall as patient continued of generalized weakness postoperatively - Appreciate physical therapy involvement and management 01/05/25 Reached out to Oncolology at [facility] who recommended discussing with spine team (2) Constipation: Status: Acute Assessment and plan: - Has not had a bowel movement since surgery on 12/30/2024 -No signs of obstruction seen on CT abdomen pelvis - Will have aggressive bowel regimen 01/05/25 resolved (3) Symptomatic anemia: Status: Acute Assessment and plan: - Likely secondary to left nephrectomy performed on 12/30/2024 - Hemoglobin was 7 in the emergency department and received 2 units of packed red blood cells - AM hemoglobin up to 8.1 01/05/25 no new labs this am. Will order for am (4) Renal cell carcinoma: Status: Acute Assessment and plan: - Now status post left nephrectomy - However, patient now with pathologic fracture of L 4 as noted above - Will have patient follow-up with oncology at discharge (5) Diabetes mellitus: Status: Chronic Assessment and plan: - Holding home insulin regimen - Sliding scale insulin, carb consistent diet (6) Hypertension: Status: Chronic Assessment and plan: - Continue home antihypertensive (7) Osteomyelitis: Status: Acute Assessment and plan: Per my discussion with Dr Rose (reading Radiologist) there appears to be some infection. D/W Neurosurgery who recommends IR biopsy. I will start with Vanc and rocephin per UTD guidelines. Blood cultures x2 have also been ordered. D/W PONCE Whalen of the NS service Subjective Subjective Interval history since last seen: pt seen and examined. MRI results discussed with Radiology ([place]) as well as pt. Call placed to ortho [facility] but as of 1618, no return call has been made. Exam Narrative Exam Narrative: Well-appearing gentleman laying in bed in no acute distress, ANO x 4, heart regular rhythm, lungs good auscultation bilaterally, abdomen soft, nontender, nondistended, decreased range of motion of bilateral lower extremity secondary to pain. BSA Objective Last Vital Signs Temp 37.4 C 01/06/25 15:28 Pulse 85 01/06/25 15:28 Resp 17 01/06/25 15:28 BP 155/71 H 01/06/25 15:28 Pulse Ox 96 01/06/25 15:28 Laboratory Results - last 24 hr 01/06/25 06:40 WBC 5.85 RBC 2.56 L Hgb 8.2 L Hct 24.4 L MCV 95 MCH 32.0 MCHC 33.6 RDW 13.1 Plt Count 251 MPV 10.1 Immature Gran % 0.3 Neutrophils % 75.4 Lymphocytes % 12.6 Monocytes % 8.5 Eosinophils % 2.7 Basophils % 0.5 Nucleated RBC % 0.0 Absolute Neutrophils 4.40 Absolute Lymphocytes 0.74 L Absolute Monocytes 0.50 Absolute Eosinophils 0.16 Absolute Basophils 0.03 Sodium 135 L Potassium 3.9 Chloride 101 Carbon Dioxide 25.0 Anion Gap 9.0 BUN 13 Creatinine 1.3 Est GFR (CKD-EPI 2020) 59.47 Glucose 166 H Calcium 8.1 L Total Bilirubin 0.3 AST 68 H ALT 79 H Alkaline Phosphatase 77 Total Protein 6.1 L Albumin 1.9 L Time Spent with Patient Time Spent with Patient: 35-49 minutes Time was spent: preparing to see the patient(eg.review tests), obtaining and/or reviewing separately otained hiistory, ordering medications,tests, procedures, referring, communicating with other health morning caregiver, indepentently interpreting results, counseling the patient and care coordination
[2025-01-06] MEDS: VANCOMYCIN/WATER (PEG) 1.5 GM/300 ML BAG IVPB (17:52)
[2025-01-06] MEDS: Tamsulosin 0.4 MG CAPCR PO (17:53)
--- NOTE | 2025-01-06 18:30 | CMPROGNOTE_ITS ---
Date of service: 01/06/25 Time of Service: 18:30 Care Management Progress Note Progress Note Text Progress Note Text: has been in and out with Orlin and Gretchen a few times during the day. Orlin is a bit more uncomfortable today than he has been. He had an MRI today which showed osteomyelitis in his L4 vertebrae. [place] [facility] [place] biopsy and consult with Ortho[place] [facility]. Provider is awaiting call back from ortho currently. bood cultures were ordered, as well as new antibiotic therapy. Orlin and Gretchen are worried about this news, active listening was offered. Discharge Potential Discharge Needs: Consult ([facility] [place]), PCP F/U Appt and Other (oncology) Anticipated Barriers to Discharge: None Identified Patient/Family Education Needs: Review discharge instructions, discuss Ask Me Three Transportation: Private vehicle Plan: Orlin's plan is a bit uncertain today. He will likely need an extended period of antibiotics, or perhaps even transfer to [facility] Regardless, he will need to f/u with his PCP and his oncologist. Transportation will be dependent on dispostion. Social Determinants of Health Screening Social Determinants of health last assessed in clinic: 01/03/25 Will the Patient Participate in the Screening?: Declined to provide Do you worry about having a steady place to live?: choose not to answer Problems where you live: no known problems Has lack of transportation kept you from medical appointments or from doing things needed for daily living?: no Has anyone in your life made you feel unsafe or unsupported?: no How hard is it for you to pay for the very basics like food, housing, medical care, and heating? Would you say it is:: Not hard at all Do you want help finding or keeping work or a job?: I do not need or want help If for any reason you need help with day-to-day activities such as bathing, preparing meals, shopping, managing finances, etc., do you get the help you need?: I need a lot more help How often do you feel lonely or isolated from those around you?: Never Do you speak a language other than Khmer at home?: No Does the patient want assistance with any of the above?: No Health Related Social Needs Health related social needs: problems with daily activities (Z73.9) Health related social needs details: physical therapy
[2025-01-06] MEDS: cefTRIAXone 2 GM/50 ML BAG IV (19:36)
[2025-01-06] MEDS: Acetaminophen 325 MG TAB 650 MG PO (19:43)
[2025-01-06 21:45] LABS: Vancomycin, Random 19.8 ug/mL
[2025-01-07] MEDS: VANCOMYCIN/WATER (PEG) 750 MG/150 ML BAG 150 MG IVPB ×2 (05:07→18:23)
[2025-01-07 05:21] LABS: ESR 43 mm/hr (0-20)
[2025-01-07 05:28] LABS: Vancomycin, Trough 11.2 ug/mL (10.0-20.0)
[2025-01-07 05:33] LABS: C-Reactive Protein 9.23 mg/dL (<or=0.5)
[2025-01-07 05:54] VITALS: BP 140/79; PULSE 75; RESP 18; TEMP 36.6; O2SAT 94
[2025-01-07 07:39] VITALS: BP 122/60; PULSE 76; RESP 17; TEMP 36.9; O2SAT 96
[2025-01-07] MEDS: Insulin Aspart 300 UNITS/3 ML PEN SC ×3 (09:00→22:10)
[2025-01-07] MEDS: Metoprolol CR 25 MG TABCR PO (09:01)
[2025-01-07] MEDS: Atorvastatin 10 MG TAB PO (09:01)
[2025-01-07] MEDS: glipiZIDE 10 MG TAB PO (09:01)
[2025-01-07] MEDS: metFORMIN 500 MG TAB 1000 MG PO ×2 (09:01→17:25)
[2025-01-07] MEDS: amLODIPine 10 MG TAB PO (09:01)
[2025-01-07] MEDS: oxyCODONE 5 MG TAB PO ×2 (09:01→17:25)
--- NOTE | 2025-01-07 10:15 | PGE_ITS ---
Date of Service Date of service: 01/07/25 Time of Service: 10:15 Assessment and Plan Assessment and plan (1) Osteomyelitis: Status: Acute Assessment and plan: There is some debate between NS and neuroradiology in regards to wheather this is a primary fracture or an infection. Jacqueline Dodge of the Neuro Radiology service who virtually ensures this is infective. Pt does have elevated ESR and CRP and has been started on vanc and rocephin with cultures pending. There is a recommendation to have an IR guided bx done and the plan is to fax an order to [phone] on Thursday, and arrange a down and back vs down and stay. (2) Urinary retention: Status: Acute Assessment and plan: noted, will not add cuellar 2/2 concerns of neurogenic bladder and a cuellar would mask symptoms (3) Hiatal hernia: Status: Acute Assessment and plan: stable (4) Essential hypertension: Status: Acute Assessment and plan: stable (5) Tobacco use disorder: Status: Acute (6) Pathologic fracture: Status: Acute Assessment and plan: as above Subjective Subjective Interval history since last seen: still with some pain and had some possible bowel and bladder incontinence. Exam Narrative Exam Narrative: Well-appearing gentleman laying in bed in no acute distress, ANO x 4, heart regular rhythm, lungs good auscultation bilaterally, abdomen soft, nontender, nondistended, decreased range of motion of bilateral lower extremity secondary to pain. BSA Objective Last Vital Signs Temp 36.9 C 01/07/25 07:39 Pulse 76 01/07/25 07:39 Resp 17 01/07/25 07:39 BP 122/60 01/07/25 07:39 Pulse Ox 96 01/07/25 07:39 Laboratory Results - last 24 hr 01/06/25 01/07/25 21:07 05:00 ESR 43 H C-Reactive Protein 9.23 H Vancomycin Trough 11.2 Random Vancomycin 19.8 Time Spent with Patient Time Spent with Patient: 25-34 minutes Time was spent: preparing to see the patient(eg.review tests), obtaining and/or reviewing separately otained hiistory, ordering medications,tests, procedures, referring, communicating with other health wound care specialist, indepentently interpreting results, counseling the patient and care coordination
[2025-01-07] MEDS: Enoxaparin 40 MG/0.4 ML SYR SC (10:50)
[2025-01-07 11:22] VITALS: BP 148/59; PULSE 85; RESP 17; TEMP 36.7; O2SAT 99
--- NOTE | 2025-01-07 15:01 | PT.INTREAT ---
PT Notes Visit Reasons: Pathologic L4 Fracture, Weakness SUBJECTIVE: Feeling better than this morning. Is using heat, which seems to help. Pain 5/10 upon arrival at rest. Reports that he may be going to [facility] [place] [facility] on Thursday for testing. OBJECTIVE:? Checked in with patient this morning. Pain 10/10, reports he has been incontinent and felt dizzy after sitting in the chair for 20 mins last night Treatment: supine to/from sit with log rolling with close supervision. Amb 15,15 feet with walker with close supervision with trunk flexion. Toileting in bathroom with commode over toilet to elevate the seat. to assist with pericare. I with hand washing with wipe Assessment: Pt is a 69-year-old male with a past medical history of IDDM, hypertension, multiple hospitalizations for hematuria in the setting of left renal cell carcinoma s/p radical left nephrectomy 12/30/24 with newly dx L4 pathological fracture vs infection. Increased pain this morning which has now improved, but decreased mobility from yesterday. Would benefit from an OT consult. May benefit from a probiotic secondary to the antibiotics. May benefit from an abdominal binder for comfort. Plan: Continue PT as tolerated. Billing Charges: Treatment Units Time Duration Manual Therapy (94631) Hands-on techniques to modulate pain increase joint range of motion reduce or eliminate soft tissue swelling, inflammation, or restriction facilitate relaxation and improve contractile and non-contractile tissue extensibility Therapeutic Procedures (23114) Instruction in therapeutic exercises to develop strength and endurance, range of motion and flexibility. HEP instruction and review: Provided skilled instruction in proper exercise performance: Provided skilled manual cues to facilitate proper muscle recruitment and/or movement?pattern: Neurological Re-Education (32792) to improve balance, coordination, kinesthetic and proprioceptive sensations. Ultrasound (83534) to promote healing Gait Training (05060) Therapeutic Activity (25358) instruction in dynamic activities with one on one patient contact by the provider to improve functional performance as follows: 2 27 Self Care Training (31453) Time Coded Treatment Minutes: 27 Total Treatment Time: 27
--- NOTE | 2025-01-07 15:11 | PT.INNT ---
PT Notes Visit Reasons: Pathologic L4 Fracture, Weakness Spoke with Gerson RN about my recommendations.
[2025-01-07 15:33] VITALS: BP 123/58; PULSE 79; RESP 17; TEMP 36.8; O2SAT 95
[2025-01-07] MEDS: Tamsulosin 0.4 MG CAPCR PO (17:25)
[2025-01-07] MEDS: Normal Saline Flush 10 ML SYR IVP (18:23)
[2025-01-07] MEDS: cefTRIAXone 2 GM/50 ML BAG IV (19:33)
[2025-01-07] MEDS: Acetaminophen 325 MG TAB 650 MG PO (20:31)
[2025-01-07 20:41] VITALS: BP 141/67; PULSE 77; RESP 20; TEMP 36; O2SAT 97
[2025-01-08] VITALS (8 sets, daily range): BP systolic 115–144; BP diastolic 53–77; PULSE 72–86; RESP 15–20; TEMP 36.2–37.3; O2SAT 93–99
[2025-01-08] MEDS: oxyCODONE 5 MG TAB PO ×4 (00:29→21:56)
[2025-01-08 02:24] LABS: EPI 027-NAP1-B1 PRESUMPTIVE NEGATIVE
[2025-01-08] MEDS: VANCOMYCIN/WATER (PEG) 750 MG/150 ML BAG 150 MG IVPB ×2 (05:06→18:18)
[2025-01-08 07:13] LABS: Abs Immature Grans 0.01 10^3/uL (0.0-0.06); HCT 23.6 % (40.0-50.0); HGB 8.0 g/dL (13.5-17.5); Immature Grans % 0.3 %; MCH 32.0 pg (27.0-33.0); MCHC 33.9 % (32.0-36.0); MCV 94 fL (80-95); MPV 9.6 fL (8.0-11.0); Platelet Count 309 10^3/uL (130-400); RBC 2.50 10^6/uL (4.36-5.78); RDW 13.1 % (11.8-14.1); RDW-SD 44.1 fL; WBC 3.22 10^3/uL (4.4-10.8)
[2025-01-08 07:36] LABS: ALT 158 U/L (16-63); AST 120 U/L (15-37); Albumin 1.9 g/dL (3.4-5.0); Alkaline Phosphatase 82 U/L (46-116); Anion Gap 9.8 mmol/L (3-11); BUN 14 mg/dL (7-18); Bilirubin, Total 0.2 mg/dL (0.2-1.0); CO2 23.2 mmol/L (21.0-32.0); Calcium 8.1 mg/dL (8.5-10.1); Chloride 101 mmol/L (98-107); Estimated GFR 65.46 (mL/min/1.73m2); Glucose 161 mg/dL (74-106); Potassium 4.2 mmol/L (3.5-5.1); Sodium 134 mmol/L (136-145); Total Protein 6.1 g/dL (6.4-8.2)
[2025-01-08] MEDS: Acetaminophen 325 MG TAB 650 MG PO ×3 (07:49→15:25)
[2025-01-08] MEDS: metFORMIN 500 MG TAB 1000 MG PO (08:06)
[2025-01-08] MEDS: Atorvastatin 10 MG TAB PO (08:06)
[2025-01-08] MEDS: Insulin Aspart 300 UNITS/3 ML PEN SC ×4 (08:06→22:26)
[2025-01-08] MEDS: amLODIPine 10 MG TAB PO (08:07)
[2025-01-08] MEDS: glipiZIDE 10 MG TAB PO (08:07)
[2025-01-08] MEDS: Metoprolol CR 25 MG TABCR PO (08:07)
[2025-01-08] MEDS: Enoxaparin 40 MG/0.4 ML SYR SC (10:11)
--- NOTE | 2025-01-08 11:18 | PT.INTREAT ---
Date of service: 01/08/25 Time of Service: 10:55 PT Notes Visit Reasons: Pathologic L4 Fracture, Weakness SUBJECTIVE: Hasn't seen the doctor yet this morning. Went for a walk with the SIGNALS INTELLIGENCE ANALYST earlier today. Still not able to eat much, but does like the [employer] smoothLiquipel. Incontinent of stool this morning. Reports that [place] [facility] [place]. OBJECTIVE:? cdiff negative. blood culture showed no growth HCT 23.6, HGB 8.0 today. WBC 3.22 today Treatment: supine to/from sit with log rolling with supervision. Amb 90 feet with walker with supervision with trunk flexion. Sweating observed with walking and patient reports he is hot this morning. Recommended shorter frequent walks, sitting in the chair as tolerated, changing positions frequently. Assessment: Pt is a 69-year-old male with a past medical history of IDDM, hypertension, multiple hospitalizations for hematuria in the setting of left renal cell carcinoma s/p radical left nephrectomy 12/30/24 with newly dx L4 pathological fracture vs infection. Still having pain, limited P.O intake and difficulty with mobility. Plan: Continue PT as tolerated. Billing Charges: Treatment Units Time Duration Manual Therapy (64351) Hands-on techniques to modulate pain increase joint range of motion reduce or eliminate soft tissue swelling, inflammation, or restriction facilitate relaxation and improve contractile and non-contractile tissue extensibility Therapeutic Procedures (21171) Instruction in therapeutic exercises to develop strength and endurance, range of motion and flexibility. HEP instruction and review: Provided skilled instruction in proper exercise performance: Provided skilled manual cues to facilitate proper muscle recruitment and/or movement?pattern: Neurological Re-Education (15918) to improve balance, coordination, kinesthetic and proprioceptive sensations. Ultrasound (15178) to promote healing Gait Training (79172) Therapeutic Activity (67118) instruction in dynamic activities with one on one patient contact by the provider to improve functional performance as follows: 1 21 Self Care Training (68946) Time Coded Treatment Minutes: 21 Total Treatment Time: 21
--- NOTE | 2025-01-08 16:17 | PGE_ITS ---
Date of Service Date of service: 01/08/25 Time of Service: 16:17 Assessment and Plan Assessment and plan (1) Osteomyelitis: Status: Acute Assessment and plan: There is some debate between NS and neuroradiology in regards to wheather this is a primary fracture or an infection. Jacqueline Dodge of the Neuro Radiology service who virtually ensures this is infective. Pt does have elevated ESR and CRP and has been started on vanc and rocephin with cultures pending. There is a recommendation to have an IR guided bx done and the plan is to fax an order to [phone] on Thursday, and arrange a down and back vs down and stay. 01/08/25 plan on calling and sending order down in am to arrange down and back. fax number above (2) Urinary retention: Status: Acute Assessment and plan: noted, will not add cuellar 2/2 concerns of neurogenic bladder and a cuellar would mask symptoms (3) Hiatal hernia: Status: Acute Assessment and plan: stable (4) Essential hypertension: Status: Acute Assessment and plan: stable (5) Tobacco use disorder: Status: Acute (6) Pathologic fracture: Status: Acute Assessment and plan: as above (7) Dark stools: Status: Acute Assessment and plan: hemoccult check stools x3 Subjective Subjective Interval history since last seen: pt complains of dark tarry stools Exam Narrative Exam Narrative: Well-appearing gentleman laying in bed in no acute distress, ANO x 4, heart regular rhythm, lungs good auscultation bilaterally, abdomen soft, nontender, nondistended, decreased range of motion of bilateral lower extremity secondary to pain. BSA Objective Last Vital Signs Temp 36.3 C L 01/08/25 15:24 Pulse 72 01/08/25 15:24 Resp 18 01/08/25 15:24 BP 115/65 01/08/25 15:24 Pulse Ox 99 01/08/25 15:24 Laboratory Results - last 24 hr 01/03/25 01/08/25 01/08/25 09:20 00:15 06:55 WBC 3.22 L RBC 2.50 L Hgb 8.0 L Hct 23.6 L MCV 94 MCH 32.0 MCHC 33.9 RDW 13.1 Plt Count 309 MPV 9.6 Immature Gran % 0.3 Neutrophils % 66.2 Lymphocytes % 18.0 Monocytes % 10.2 Eosinophils % 4.7 Basophils % 0.6 Nucleated RBC % 0.0 Absolute Neutrophils 2.13 Absolute Lymphocytes 0.58 L Absolute Monocytes 0.33 Absolute Eosinophils 0.15 Absolute Basophils 0.02 Sodium 134 L Potassium 4.2 Chloride 101 Carbon Dioxide 23.2 Anion Gap 9.8 BUN 14 Creatinine 1.2 Est GFR (CKD-EPI 2020) 65.46 Glucose 161 H Calcium 8.1 L Total Bilirubin 0.2 AST 120 H ALT 158 H Alkaline Phosphatase 82 Total Protein 6.1 L Albumin 1.9 L Stl C.difficile Tox PCR Negative Crossmatch See Detail Time Spent with Patient Time Spent with Patient: 25-34 minutes Time was spent: preparing to see the patient(eg.review tests), obtaining and/or reviewing separately otained hiistory, ordering medications,tests, procedures, referring, communicating with other health managed care specialist, indepentently interpreting results, counseling the patient and care coordination
[2025-01-08] MEDS: Tamsulosin 0.4 MG CAPCR PO (17:06)
[2025-01-08 17:31] LABS: Vancomycin, Trough 14.0 ug/mL (10.0-20.0)
[2025-01-08] MEDS: Normal Saline Flush 10 ML SYR IVP (18:14)
[2025-01-08] MEDS: cefTRIAXone 2 GM/50 ML BAG IV (19:27)
[2025-01-09 03:09] VITALS: BP 138/74; PULSE 70; RESP 15; TEMP 37.5; O2SAT 96
[2025-01-09] MEDS: VANCOMYCIN/WATER (PEG) 750 MG/150 ML BAG 150 MG IVPB ×2 (05:36→17:45)
[2025-01-09 06:43] LABS: Abs Immature Grans 0.01 10^3/uL (0.0-0.06); HCT 23.4 % (40.0-50.0); HGB 7.9 g/dL (13.5-17.5); Immature Grans % 0.3 %; MCH 31.2 pg (27.0-33.0); MCHC 33.8 % (32.0-36.0); MCV 93 fL (80-95); MPV 9.7 fL (8.0-11.0); Platelet Count 345 10^3/uL (130-400); RBC 2.53 10^6/uL (4.36-5.78); RDW 12.6 % (11.8-14.1); RDW-SD 41.8 fL; WBC 2.92 10^3/uL (4.4-10.8)
[2025-01-09 06:57] LABS: ALT 181 U/L (16-63); AST 122 U/L (15-37); Albumin 2.0 g/dL (3.4-5.0); Alkaline Phosphatase 83 U/L (46-116); Anion Gap 9.2 mmol/L (3-11); BUN 13 mg/dL (7-18); Bilirubin, Total 0.2 mg/dL (0.2-1.0); CO2 23.8 mmol/L (21.0-32.0); Calcium 8.2 mg/dL (8.5-10.1); Chloride 102 mmol/L (98-107); Estimated GFR 65.46 (mL/min/1.73m2); Glucose 144 mg/dL (74-106); Potassium 4.1 mmol/L (3.5-5.1); Sodium 135 mmol/L (136-145); Total Protein 6.1 g/dL (6.4-8.2)
[2025-01-09 07:20] VITALS: BP 135/76; PULSE 73; RESP 17; TEMP 36.6; O2SAT 94
[2025-01-09] MEDS: glipiZIDE 10 MG TAB PO (07:34)
[2025-01-09] MEDS: amLODIPine 10 MG TAB PO (07:34)
[2025-01-09] MEDS: Atorvastatin 10 MG TAB PO (07:34)
[2025-01-09] MEDS: oxyCODONE 5 MG TAB PO ×3 (07:35→15:24)
[2025-01-09] MEDS: Metoprolol CR 25 MG TABCR PO (07:36)
[2025-01-09] MEDS: Enoxaparin 40 MG/0.4 ML SYR SC (07:36)
[2025-01-09] MEDS: Acetaminophen 325 MG TAB 650 MG PO ×4 (07:36→20:46)
[2025-01-09] MEDS: Insulin Aspart 300 UNITS/3 ML PEN SC ×4 (07:37→22:11)
[2025-01-09 11:13] VITALS: BP 130/63; PULSE 68; RESP 17; TEMP 36.8; O2SAT 97
--- NOTE | 2025-01-09 13:30 | PDOC.CMPRO ---
Date of service: 01/09/25 Time of Service: 11:00 Care Management Progress Note Progress Note Text Progress Note Text: Orlin was lying in bed, visiting with Gretchen, when CM met with him today. Orlin was pleasant, but he verbalized a lot of frustration over the wait for a procedure at [facility] [place]. Orlin knows that this procedure will likely be defining his diagnosis and he would like to get moving. He is bored, and feels that he is not being well informed. He is not sleeping well. It seems that he is not requesting his pain medication frequently enough, pain level was an 8 when CM was in the room. CM discussed with Orlin that he needs to stay ahead of his pain - prevention as opposed to relief. His RN today is going to start automatically brining his pain meds when they are available, as opposed to waiting for him to ask. Orlin liked that idea. As of this writing, Orlin has been accepted at [facility] [place] for an interventional radiology procedure down and back. No date or time as of yet. Discharge Potential Discharge Needs: Imaging/labs (diagnostic procedure - IR guided biopsy- planned at [facility] [place]), PCP F/U Appt and Other (oncology) Anticipated Barriers to Discharge: Medical Status Patient/Family Education Needs: Review discharge instructions, discuss Ask Me Three Transportation: Private vehicle (private vehicle home - EMS to [facility] [place] for procedure) Plan: Orlin will be going to [facility] [place] for an diagnostic procedure, this will help to define his discharge plan. It is possible that he will need an extended period of antibiotics. He and his would be willing to come to the infusion center daily if so needed. He will f/u with his PCP and his oncologist and transport home in a private vehicle with Gretchen. CM will continue to follow. Social Determinants of Health Screening Social Determinants of health last assessed in clinic: 01/03/25 Will the Patient Participate in the Screening?: Declined to provide Do you worry about having a steady place to live?: choose not to answer Problems where you live: no known problems Has lack of transportation kept you from medical appointments or from doing things needed for daily living?: no Has anyone in your life made you feel unsafe or unsupported?: no How hard is it for you to pay for the very basics like food, housing, medical care, and heating? Would you say it is:: Not hard at all Do you want help finding or keeping work or a job?: I do not need or want help If for any reason you need help with day-to-day activities such as bathing, preparing meals, shopping, managing finances, etc., do you get the help you need?: I need a lot more help How often do you feel lonely or isolated from those around you?: Never Do you speak a language other than Barbadian at home?: No Does the patient want assistance with any of the above?: No Health Related Social Needs Health related social needs: problems with daily activities (Z73.9) Health related social needs details: physical therapy
--- NOTE | 2025-01-09 13:43 | W.PM.PROGNOT ---
Date of Service Date of service: 01/09/25 Time of Service: 13:43 Assessment and Plan Assessment and plan (1) Osteomyelitis: Status: Acute Assessment and plan: There is some debate between NS and neuroradiology in regards to wheather this is a primary fracture or an infection. Jacqueline Dodge of the Neuro Radiology service who virtually ensures this is infective. Pt does have elevated ESR and CRP and has been started on vanc and rocephin with cultures pending. There is a recommendation to have an IR guided bx done and the plan is to fax an order to [phone] on Thursday, and arrange a down and back vs down and stay. 01/08/25 plan on calling and sending order down in am to arrange down and back. fax number above 01/09/25 D/W rosendo Johnson in IR who is trying to arrange a scheduled time for abscess drainage and bone bx. Awaiting a call back. Most likely for 01/10/25 (2) Urinary retention: Status: Acute Assessment and plan: noted, will not add cuellar 2/2 concerns of neurogenic bladder and a cuellar would mask symptoms (3) Hiatal hernia: Status: Acute Assessment and plan: stable (4) Essential hypertension: Status: Acute Assessment and plan: stable (5) Tobacco use disorder: Status: Acute Assessment and plan: recommend complete and total cessation (6) Pathologic fracture: Status: Acute Assessment and plan: as above 01/09/25 awaiting bx (7) Dark stools: Status: Acute Assessment and plan: hemoccult check stools x3 Subjective Subjective Interval history since last seen: PT seen and examined in his room. I have had multiple conversations with IR at [facility] [place]. The pt will need two different procedures (bone bx and psoas abscess drainage) which are done per report in two different departments. Pt will need to have careful coordination for down and back transportation and the two procedures Exam Narrative Exam Narrative: HEENT-NCAT MMM EOMI PERRLA NECK-NO LAD NO JVD CV-RRR NO MRG LUNGS-CTAB NO AMU ABD-SNTNDBSA EXT-NO CCE LEFT FLANK-C/D/I Objective Last Vital Signs Temp 36.8 C 01/09/25 11:13 Pulse 68 01/09/25 11:13 Resp 17 01/09/25 11:13 BP 130/63 01/09/25 11:13 Pulse Ox 97 01/09/25 11:13 Laboratory Results - last 24 hr 01/08/25 01/09/25 17:00 06:09 WBC 2.92 L RBC 2.53 L Hgb 7.9 L Hct 23.4 L MCV 93 MCH 31.2 MCHC 33.8 RDW 12.6 Plt Count 345 MPV 9.7 Immature Gran % 0.3 Neutrophils % 60.7 Lymphocytes % 20.2 Monocytes % 12.3 Eosinophils % 5.1 Basophils % 1.4 Nucleated RBC % 0.0 Absolute Neutrophils 1.77 Absolute Lymphocytes 0.59 L Absolute Monocytes 0.36 Absolute Eosinophils 0.15 Absolute Basophils 0.04 Sodium 135 L Potassium 4.1 Chloride 102 Carbon Dioxide 23.8 Anion Gap 9.2 BUN 13 Creatinine 1.2 Est GFR (CKD-EPI 2020) 65.46 Glucose 144 H Calcium 8.2 L Total Bilirubin 0.2 AST 122 H ALT 181 H Alkaline Phosphatase 83 Total Protein 6.1 L Albumin 2.0 L Vancomycin Trough 14.0 Time Spent with Patient Time Spent with Patient: 25-34 minutes Time was spent: preparing to see the patient(eg.review tests), obtaining and/or reviewing separately otained hiistory, ordering medications,tests, procedures, referring, communicating with other health director of career resources, indepentently interpreting results, counseling the patient and care coordination
--- NOTE | 2025-01-09 14:47 | PTTR_ITS ---
PT Notes Visit Reasons: Pathologic L4 Fracture, Weakness Date: 01/09/2025 PRECAUTIONS: fall, standard SUBJECTIVE: Pt in bed when approached for therapy this afternoon, reports pain was keeping him awake at night, right now pain has been under control. agreed to participating with therapy session. ? PAIN: 2/10 BLE, 4/10 back VITALS: Monitored by nursing Therapeutic Activities 54667: Direct one-on-one instruction in dynamic activities to improve functional performance. ?? BED MOBILITY/TRANSFERS? Rolling L/R: supervision Supine-sit: ? supervision? Sit-supine: ? supervision? Sit-stand: ? ?SBA? Stand-sit: ?SBA? Bed-Chair:? ?SBA ? Chair-bed: SBA Provided skilled cues and instruction on performance and technique throughout. Gait Training 11777: Direct one-on-one instruction and skilled instruction in: Employing an assistive device Modified weight-bearing status Movement sequencing Turning and movement with proper form Provided verbal cues for equipment management and technique Provided instruction in gait pattern Patient education regarding pacing and breathing techniques to maximize activity tolerance? GAIT? Assistive Device: ?? FWW? Weight bearing: FWB Assist: ?SBA ? Distance:?? ?100'x1, 250'x1 ? Deviation: ? Slow ce speed, low step height, short step length STAIRS:? Step over step gait pattern, bilateral handrail Supervision 6x4, 4x6 ? Neuromuscular Re-education 45232: Activities that facilitate re-education of m ovement balance, posture, coordination, and proprioception or kinesthetic sense, requiring skilled tactile and verbal cues Exercises/techniques: ? Seated static balance activity Seated dynamic balance activity multidirectional reach Sit to stand Standing static with NBOS/WBOS ASSESSMENT:?Pt tolerated activity well, reports fatigue after session, pain on lowback after his second round of stairs, pt instructed to perform hooklying trunk rotation, gluteal stretching and hamstring stretch after pt got situated in bed. pt transferred from room 215 to 230 this afternoon. PLAN: Continue with balance training, global strengthening and general conditioning for improved safety, mobility and activity tolerance until pt is ready for DC. TREATMENT CODE/TIME: [id number] [id number] 30mins ( 8:35-9:05pm)
[2025-01-09 15:28] LABS: EPI 027-NAP1-B1 PRESUMPTIVE NEGATIVE
[2025-01-09] MEDS: Tamsulosin 0.4 MG CAPCR PO (17:45)
[2025-01-09 20:39] VITALS: BP 125/57; PULSE 68; RESP 18; TEMP 35.9; O2SAT 95
[2025-01-09] MEDS: cefTRIAXone 2 GM/50 ML BAG IV (20:42)
[2025-01-10] VITALS (7 sets, daily range): BP systolic 126–166; BP diastolic 47–79; PULSE 61–70; RESP 16–18; TEMP 36.4–36.7; O2SAT 95–98
[2025-01-10] MEDS: oxyCODONE 5 MG TAB PO ×3 (00:26→13:02)
[2025-01-10] MEDS: VANCOMYCIN/WATER (PEG) 750 MG/150 ML BAG 150 MG IVPB ×2 (06:05→17:40)
[2025-01-10 07:08] LABS: Abs Immature Grans 0.01 10^3/uL (0.0-0.06); HCT 23.3 % (40.0-50.0); HGB 7.9 g/dL (13.5-17.5); Immature Grans % 0.3 %; MCH 31.3 pg (27.0-33.0); MCHC 33.9 % (32.0-36.0); MCV 93 fL (80-95); MPV 9.2 fL (8.0-11.0); Platelet Count 379 10^3/uL (130-400); RBC 2.52 10^6/uL (4.36-5.78); RDW 12.6 % (11.8-14.1); RDW-SD 42.4 fL; WBC 3.04 10^3/uL (4.4-10.8)
[2025-01-10 07:33] LABS: ALT 187 U/L (16-63); AST 109 U/L (15-37); Albumin 2.1 g/dL (3.4-5.0); Alkaline Phosphatase 83 U/L (46-116); Anion Gap 9.3 mmol/L (3-11); BUN 11 mg/dL (7-18); Bilirubin, Total 0.1 mg/dL (0.2-1.0); CO2 23.7 mmol/L (21.0-32.0); Calcium 8.2 mg/dL (8.5-10.1); Chloride 103 mmol/L (98-107); Estimated GFR 65.46 (mL/min/1.73m2); Glucose 191 mg/dL (74-106); Potassium 4.2 mmol/L (3.5-5.1); Sodium 136 mmol/L (136-145); Total Protein 6.3 g/dL (6.4-8.2)
[2025-01-10] MEDS: Enoxaparin 40 MG/0.4 ML SYR SC (08:37)
[2025-01-10] MEDS: Atorvastatin 10 MG TAB PO (08:37)
[2025-01-10] MEDS: glipiZIDE 10 MG TAB PO (08:37)
[2025-01-10] MEDS: amLODIPine 10 MG TAB PO (08:37)
[2025-01-10] MEDS: Insulin Aspart 300 UNITS/3 ML PEN SC ×4 (08:38→21:34)
[2025-01-10] MEDS: Metoprolol CR 25 MG TABCR PO (08:38)
--- NOTE | 2025-01-10 12:10 | PTTR_ITS ---
PT Notes Visit Reasons: Pathologic L4 Fracture, Weakness Date: 01/10/2025 PRECAUTIONS: fall, standard SUBJECTIVE: Pt reports pain is localized to left PSIS today. He states he did not sleep too badly last night and found comfort and sleeping flat in the bed. Patient's reports H&H is low despite recent transfusion. ? PAIN: 2/10 BLE, 4/10 back VITALS: Monitored by nursing Therapeutic Activities 89571: Direct one-on-one instruction in dynamic activi ties to improve functional performance. ?? BED MOBILITY/TRANSFERS? Rolling L/R: supervision Supine-sit: ? supervision? Sit-supine: ? supervision? Sit-stand: ? ?SBA patient required cues x 2 for proper hand placement to push up from surface? Stand-sit: ?SBA? Bed-Chair:? ?SBA ? Chair-bed: SBA Provided skilled cues and instruction on performance and technique throughout. Gait Training 53051: Direct one-on-one instruction and skilled instruction in: Employing an assistive device Modified weight-bearing status Movement sequencing Turning and movement with proper form Provided verbal cues for equipment management and technique Provided instruction in gait pattern Patient education regarding pacing and breathing techniques to maximize activity tolerance? GAIT? Assistive Device: ?? FWW? Weight bearing: FWB Assist: ?SBA ? Distance:?? ?100'x1, 200'x1 ? Deviation: ? Slow ce speed, low step height, short step length STAIRS:? Step over step gait pattern, bilateral handrail Supervision 6x4, 4x6 ? ASSESSMENT:?Patient with improved ability to perform stairs this session. Continues to report fatigue requiring sit rest before and after stairs. Patient demonstrates ability to ambulate in hallway with standby assist provided by to improve functional activity tolerance. Patient is awaiting scheduling of biopsy at [facility] for possible down and back. PLAN: Continue with balance training, global strengthening and general conditioning for improved safety, mobility and activity tolerance until pt is ready for DC. TREATMENT CODE/TIME: 99362/11 40?1155.
[2025-01-10] MEDS: Acetaminophen 325 MG TAB 650 MG PO (13:03)
--- NOTE | 2025-01-10 17:36 | PDOC.CMPRO ---
Date of service: 01/10/25 Time of Service: 11:30 Care Management Progress Note Progress Note Text Progress Note Text: Orlin was lying in bed, watching TV and visiting with Gretchen, when CM met with him today. His frustration continues over the lack of movement towards his diagnosis. The provider has spoken with [facility] and with Orlin. Orlin did state that he slept a little better last night, but he is still having pain. He is ambulating much better. Discharge Potential Discharge Needs: Imaging/labs (diagnostic procedure with IR at [facility]), PCP F/U Appt and Other (oncology,) Anticipated Barriers to Discharge: Treatment delay (trouble securing an appointment for testing) Patient/Family Education Needs: Review discharge instructions, discuss Ask Me Three Transportation: Private vehicle (when discharging home) Plan: Orlin will be going to [facility] for an diagnostic procedure, this will help to define his discharge plan. It is possible that he will need an extended period of antibiotics. He and his would be willing to come to the infusion center daily if so needed. He will f/u with his PCP and his oncologist and transport home in a private vehicle with Gretchen. CM will continue to follow. Social Determinants of Health Screening Social Determinants of health last assessed in clinic: 01/03/25 Will the Patient Participate in the Screening?: Declined to provide Do you worry about having a steady place to live?: choose not to answer Problems where you live: no known problems Has lack of transportation kept you from medical appointments or from doing things needed for daily living?: no Has anyone in your life made you feel unsafe or unsupported?: no How hard is it for you to pay for the very basics like food, housing, medical care, and heating? Would you say it is:: Not hard at all Do you want help finding or keeping work or a job?: I do not need or want help If for any reason you need help with day-to-day activities such as bathing, preparing meals, shopping, managing finances, etc., do you get the help you need?: I need a lot more help How often do you feel lonely or isolated from those around you?: Never Do you speak a language other than Fijian at home?: No Does the patient want assistance with any of the above?: No Health Related Social Needs Health related social needs: problems with daily activities (Z73.9) Health related social needs details: physical therapy
[2025-01-10] MEDS: Normal Saline Flush 10 ML SYR IVP (17:40)
[2025-01-10] MEDS: Tamsulosin 0.4 MG CAPCR PO (17:40)
--- NOTE | 2025-01-10 18:17 | W.PM.PROGNOT ---
Date of Service Date of service: 01/10/25 Time of Service: 18:17 Assessment and Plan Assessment and plan (1) Osteomyelitis: Status: Acute Assessment and plan: There is some debate between NS and neuroradiology in regards to wheather this is a primary fracture or an infection. Jacqueline Dodge of the Neuro Radiology service who virtually ensures this is infective. Pt does have elevated ESR and CRP - On vanc and rocephin with cultures pending. - There is a recommendation to have an IR guided bx and draining of possible abscess via down/back Order faxed to [phone], discussed with IR but not available today, hoping 01/11, NPO at midnight. VTE: enoxaparin (2) Urinary retention: Status: Acute Assessment and plan: symptoms imrpoved, continue tamsulosin. (3) Essential hypertension: Status: Acute Assessment and plan: stable (4) Tobacco use disorder: Status: Acute Assessment and plan: chews, recommend complete and total cessation (5) Pathologic fracture: Status: Acute Assessment and plan: a/w RCC, as above, awaiting bx (6) Dark stools: Status: Acute Assessment and plan: negative c. diff, h/h stable. (7) Elevated liver enzymes: Status: Acute Assessment and plan: Developed since surgery. Related to infection? Relatively stable. Continue to monitor. (8) Diabetes mellitus type 2, uncontrolled: Status: Acute Assessment and plan: BG in high 100s/200 on just glipizide, add conservative glargine, ISS senior care, alternative agent would be preferred such as GLP-1, metformin. Subjective Subjective Patient reports: no new complaints, tolerating liquids well, voiding w/o difficulty and nausea; denies diarrhea, vomiting, shortness of breath or fever Interval history since last seen: He feels okay. Wants to go home, a little frustrated. He gets nausea with a lot of food, couldn't eat toast with butter but was able to drink OJ and eat yogurt, shakes. Pain from surgery is only bad with certain positons. Exam Narrative Exam Narrative: GEN: A&O, NAD CV-RRR NO MRG LUNGS-CTAB normal effort ABD-soft, NT/ND EXT-NO CCE. no pain with flexing left hip Skin: LEFT FLANK-C/D/I Objective Last Vital Signs Temp 36.5 C 01/10/25 16:48 Pulse 65 01/10/25 16:48 Resp 17 01/10/25 16:48 BP 144/79 H 01/10/25 16:48 Pulse Ox 97 01/10/25 16:48 Laboratory Results - last 24 hr 01/10/25 06:50 WBC 3.04 L RBC 2.52 L Hgb 7.9 L Hct 23.3 L MCV 93 MCH 31.3 MCHC 33.9 RDW 12.6 Plt Count 379 MPV 9.2 Immature Gran % 0.3 Neutrophils % 58.3 Lymphocytes % 23.0 Monocytes % 10.2 Eosinophils % 6.9 Basophils % 1.3 Nucleated RBC % 0.0 Absolute Neutrophils 1.77 Absolute Lymphocytes 0.70 L Absolute Monocytes 0.31 Absolute Eosinophils 0.21 Absolute Basophils 0.04 Sodium 136 Potassium 4.2 Chloride 103 Carbon Dioxide 23.7 Anion Gap 9.3 BUN 11 Creatinine 1.2 Est GFR (CKD-EPI 2020) 65.46 Glucose 191 H Calcium 8.2 L Total Bilirubin 0.1 L AST 109 H ALT 187 H Alkaline Phosphatase 83 Total Protein 6.3 L Albumin 2.1 L Time Spent with Patient Time Spent with Patient: 35-49 minutes Time was spent: preparing to see the patient(eg.review tests), obtaining and/or reviewing separately otained hiistory, ordering medications,tests, procedures, referring, communicating with other health post acute care registered nurse, indepentently interpreting results, counseling the patient and care coordination
[2025-01-10] MEDS: cefTRIAXone 2 GM/50 ML BAG IV (20:31)
[2025-01-10] MEDS: Insulin Glargine 300 UNITS/3 ML PEN 15 UNITS SC (21:01)
[2025-01-11] MEDS: VANCOMYCIN/WATER (PEG) 750 MG/150 ML BAG 150 MG IVPB ×2 (05:50→18:10)
[2025-01-11 06:55] LABS: Abs Immature Grans 0.01 10^3/uL (0.0-0.06); HCT 24.0 % (40.0-50.0); HGB 8.0 g/dL (13.5-17.5); Immature Grans % 0.3 %; MCH 31.0 pg (27.0-33.0); MCHC 33.3 % (32.0-36.0); MCV 93 fL (80-95); MPV 9.4 fL (8.0-11.0); Platelet Count 362 10^3/uL (130-400); RBC 2.58 10^6/uL (4.36-5.78); RDW 12.6 % (11.8-14.1); RDW-SD 42.1 fL; WBC 3.32 10^3/uL (4.4-10.8)
[2025-01-11 07:13] VITALS: BP 128/64; PULSE 66; RESP 18; TEMP 36.9; O2SAT 95
[2025-01-11 07:22] LABS: ALT 190 U/L (16-63); AST 98 U/L (15-37); Albumin 2.2 g/dL (3.4-5.0); Alkaline Phosphatase 89 U/L (46-116); Anion Gap 8.6 mmol/L (3-11); BUN 10 mg/dL (7-18); Bilirubin, Total 0.2 mg/dL (0.2-1.0); CO2 25.4 mmol/L (21.0-32.0); Calcium 8.3 mg/dL (8.5-10.1); Chloride 104 mmol/L (98-107); Estimated GFR 65.46 (mL/min/1.73m2); Glucose 199 mg/dL (74-106); Potassium 4.3 mmol/L (3.5-5.1); Sodium 138 mmol/L (136-145); Total Protein 6.5 g/dL (6.4-8.2)
[2025-01-11] MEDS: glipiZIDE 10 MG TAB PO (08:05)
[2025-01-11] MEDS: oxyCODONE 5 MG TAB PO ×3 (08:05→18:09)
[2025-01-11] MEDS: Metoprolol CR 25 MG TABCR PO (08:05)
[2025-01-11] MEDS: amLODIPine 10 MG TAB PO (08:05)
[2025-01-11] MEDS: Atorvastatin 10 MG TAB PO (08:05)
[2025-01-11] MEDS: Normal Saline Flush 10 ML SYR IVP ×2 (08:06→18:10)
[2025-01-11] MEDS: Insulin Aspart 300 UNITS/3 ML PEN SC ×3 (08:06→20:57)
[2025-01-11 11:10] VITALS: BP 124/88; PULSE 65; RESP 16; TEMP 36.4; O2SAT 96
[2025-01-11] MEDS: Acetaminophen 325 MG TAB 650 MG PO ×2 (14:04→20:58)
--- NOTE | 2025-01-11 14:19 | W.PM.PROGNOT ---
Date of Service Date of service: 01/11/25 Time of Service: 14:19 Assessment and Plan Assessment and plan (1) Osteomyelitis: Status: Acute Assessment and plan: There was some debate between NS and neuroradiology in regards to wheather this is a primary fracture or an infection. Jacqueline Dodge of the Neuroradiology service who virtually ensures this is infectious. Pt does have elevated ESR and CRP - On vanc and ceftriaxone with cultures NG x 72 h. - There is a recommendation to have an IR guided bx and draining of possible abscess via down/back, this has finally been booked 01/12 - NPO at midnight. VTE: enoxaparin, on hold pending biopsy/drain (2) Urinary retention: Status: Acute Assessment and plan: symptoms imrpoved, continue tamsulosin. (3) Essential hypertension: Status: Acute Assessment and plan: stable (4) Tobacco use disorder: Status: Acute Assessment and plan: chews, recommend complete and total cessation (5) Pathologic fracture: Status: Acute Assessment and plan: a/w RCC, as above, awaiting bx (6) Dark stools: Status: Acute Assessment and plan: negative c. diff, h/h stable. FOB also negative. (7) Elevated liver enzymes: Status: Acute Assessment and plan: Developed since surgery. Related to infection? Relatively stable. Continue to monitor. (8) Diabetes mellitus type 2, uncontrolled: Status: Acute Assessment and plan: BG in high 100s/200 on just glipizide, added conservative glargine 01/10 with some improvement, ISS alf, alternative agent would be preferred. Will resume metformin if Cr remains stable. Subjective Subjective Patient reports: voiding w/o difficulty; denies diarrhea, nausea, vomiting, shortness of breath or fever Interval history since last seen: Feeling okay. Oxycodone helps this lower back pain. He would like to walk some but afraid he might be weak on his feet. He is eating. Urinating frequently still, but no blood or pain. Exam Narrative Exam Narrative: GEN: A&O, NAD CV-RRR NO MRG LUNGS-CTAB normal effort ABD-soft, NT/ND EXT-NO CCE. no pain with flexing left hip. No CVAT Skin: LLQ wound c/d/i Objective Last Vital Signs Temp 36.4 C L 01/11/25 11:10 Pulse 65 01/11/25 11:10 Resp 16 01/11/25 11:10 BP 124/88 01/11/25 11:10 Pulse Ox 96 01/11/25 11:10 Laboratory Results - last 24 hr 01/11/25 06:40 WBC 3.32 L RBC 2.58 L Hgb 8.0 L Hct 24.0 L MCV 93 MCH 31.0 MCHC 33.3 RDW 12.6 Plt Count 362 MPV 9.4 Immature Gran % 0.3 Neutrophils % 60.3 Lymphocytes % 24.1 Monocytes % 9.3 Eosinophils % 5.1 Basophils % 0.9 Nucleated RBC % 0.0 Absolute Neutrophils 2.00 Absolute Lymphocytes 0.80 L Absolute Monocytes 0.31 Absolute Eosinophils 0.17 Absolute Basophils 0.03 Sodium 138 Potassium 4.3 Chloride 104 Carbon Dioxide 25.4 Anion Gap 8.6 BUN 10 Creatinine 1.2 Est GFR (CKD-EPI 2020) 65.46 Glucose 199 H Calcium 8.3 L Total Bilirubin 0.2 AST 98 H ALT 190 H Alkaline Phosphatase 89 Total Protein 6.5 Albumin 2.2 L Time Spent with Patient Time Spent with Patient: 35-49 minutes Time was spent: preparing to see the patient(eg.review tests), obtaining and/or reviewing separately otained hiistory, ordering medications,tests, procedures, referring, communicating with other health livestock caretaker, indepentently interpreting results, counseling the patient and care coordination
--- NOTE | 2025-01-11 14:58 | PT.INTREAT ---
PT Notes Visit Reasons: Pathologic L4 Fracture, Weakness Inpatient Physical Therapy Treatment Note [facility] Date: 01/11/25 SUBJECTIVE: Orlin reports that he had a terrible night with increased pain and no pain meds. Apparently, his nurse mis understood NPO and he went too long without anything for pain. He is to have a CT scan and biopsy procedure tomorrow at [facility]. OBJECTIVE: []? PAIN: left hip VITALS: ?monitored by nsg. Therapeutic Activities ([id number]): Direct one-on-one instruction in dynamic activities to improve functional performance. ? BED MOBILITY/TRANSFERS? Supine-sit: I ? Sit-supine: I ? Sit-stand: S? Stand-sit:S? Provided skilled cues and instruction on performance and technique throughout. GAIT? Assistive Device: FWW? Weight bearing: AT Assist: SBA ? Distance:? approx 300' with 1 seated rest break x 3 min ? Deviation: slow ce with decreased stride length? STAIRS: up/down 2, 6 steps and 3, 4 step with 2 rails and SBA.? ASSESSMENT:? tolerated session well. No pain complaints during session however he did begin to c/o left hip pain when we returned back to room. He seemed a little disappointed when procedure was rescheduled from today to tomorrow. Has not had a BM and is a bit uncomfortable from that. PLAN: will continue to work on his functional mobility following PT POC TREATMENT CODE/TIME: 20 min [id number]
[2025-01-11 15:23] VITALS: BP 111/53; PULSE 62; RESP 16; TEMP 36.2; O2SAT 97
[2025-01-11] MEDS: Tamsulosin 0.4 MG CAPCR PO (17:06)
--- NOTE | 2025-01-11 18:36 | CMPROGNOTE_ITS ---
Date of service: 01/11/25 Time of Service: 18:37 Care Management Progress Note Progress Note Text Progress Note Text: Orlin has an appointment at [facility] tomorrow for his testing. He is very pleased to finally have this happen. He is both eager and very scared to get the results of the testing, but he needs to know and would like to act as quickly as possible. Gretchen has asked the she be notified when Orlin is returning or has returned to [facility]. CM assured Gretchen that this would be passed along to the supervisor intermediates. Discharge Potential Discharge Needs: Imaging/labs (diagnostic procedure with IR at [facility]), PCP F/U Appt and Other (oncology and possibly other specialists depending on results of testing) Anticipated Barriers to Discharge: None Identified Patient/Family Education Needs: Review discharge instructions, discuss Ask Me Three Transportation: EMS (tomorrow to [facility]. Private vehicle when discharged) Plan: Orlin will be going to [facility] for diagnostic procedure tomorrow, and this will help to define his discharge plan. It is possible that he will need an extended period of antibiotics. He and his would be willing to come to the infusion center daily if so needed. He will f/u with his PCP and his oncologist and transport home in a private vehicle with Gretchen. CM will continue to follow. Social Determinants of Health Screening Social Determinants of health last assessed in clinic: 01/03/25 Will the Patient Participate in the Screening?: Declined to provide Do you worry about having a steady place to live?: choose not to answer Problems where you live: no known problems Has lack of transportation kept you from medical appointments or from doing things needed for daily living?: no Has anyone in your life made you feel unsafe or unsupported?: no How hard is it for you to pay for the very basics like food, housing, medical care, and heating? Would you say it is:: Not hard at all Do you want help finding or keeping work or a job?: I do not need or want help If for any reason you need help with day-to-day activities such as bathing, preparing meals, shopping, managing finances, etc., do you get the help you need?: I need a lot more help How often do you feel lonely or isolated from those around you?: Never Do you speak a language other than Hebrew at home?: No Does the patient want assistance with any of the above?: No Health Related Social Needs Health related social needs: problems with daily activities (Z73.9) Health related social needs details: physical therapy
[2025-01-11 19:51] VITALS: BP 124/70; PULSE 66; RESP 17; TEMP 36.2; O2SAT 97
[2025-01-11] MEDS: cefTRIAXone 2 GM/50 ML BAG IV (20:21)
[2025-01-11] MEDS: Insulin Glargine 300 UNITS/3 ML PEN 15 UNITS SC (20:24)
[2025-01-12] MEDS: oxyCODONE 5 MG TAB PO ×5 (00:56→22:41)
[2025-01-12] MEDS: VANCOMYCIN/WATER (PEG) 750 MG/150 ML BAG 150 MG IVPB ×2 (06:07→20:32)
[2025-01-12 06:53] LABS: Abs Immature Grans 0.01 10^3/uL (0.0-0.06); HCT 25.4 % (40.0-50.0); HGB 8.5 g/dL (13.5-17.5); Immature Grans % 0.3 %; MCH 31.6 pg (27.0-33.0); MCHC 33.5 % (32.0-36.0); MCV 94 fL (80-95); MPV 9.5 fL (8.0-11.0); Platelet Count 373 10^3/uL (130-400); RBC 2.69 10^6/uL (4.36-5.78); RDW 12.8 % (11.8-14.1); RDW-SD 43.5 fL; WBC 2.89 10^3/uL (4.4-10.8)
[2025-01-12 07:22] LABS: ALT 189 U/L (16-63); AST 85 U/L (15-37); Albumin 2.5 g/dL (3.4-5.0); Alkaline Phosphatase 101 U/L (46-116); Anion Gap 8.0 mmol/L (3-11); BUN 12 mg/dL (7-18); Bilirubin, Total 0.2 mg/dL (0.2-1.0); CO2 26.0 mmol/L (21.0-32.0); Calcium 8.9 mg/dL (8.5-10.1); Chloride 102 mmol/L (98-107); Estimated GFR 65.46 (mL/min/1.73m2); Glucose 197 mg/dL (74-106); Potassium 4.4 mmol/L (3.5-5.1); Sodium 136 mmol/L (136-145); Total Protein 6.8 g/dL (6.4-8.2)
[2025-01-12 07:35] VITALS: BP 138/77; PULSE 70; RESP 16; TEMP 36.6; O2SAT 95
[2025-01-12] MEDS: Atorvastatin 10 MG TAB PO (08:33)
[2025-01-12] MEDS: Metoprolol CR 25 MG TABCR PO (08:34)
[2025-01-12] MEDS: amLODIPine 10 MG TAB PO (08:34)
[2025-01-12] MEDS: Normal Saline Flush 10 ML SYR IVP (10:08)
[2025-01-12] MEDS: POTASSIUM CHLORIDE/D5-0.45NACL 1,000 ML 125 MEQ IV (10:08)
[2025-01-12] MEDS: Acetaminophen 325 MG TAB 650 MG PO (10:14)
[2025-01-12 11:49] VITALS: BP 144/79; PULSE 74; RESP 14; TEMP 36.5; O2SAT 96
--- NOTE | 2025-01-12 12:40 | PDOC.CMPRO ---
Date of service: 01/12/25 Time of Service: 12:40 Care Management Progress Note Progress Note Text Progress Note Text: Orlin was lying in bed when CM met with him today. He was feeling anxious about going to [facility] for his IR biopsy today, but glad to be getting it done. Orlin requested that his be notified of his return KATHY. This was passed along to the supervisor propellant charge loading. Orlin was picked up by EMS at noon today. Discharge Potential Discharge Needs: Imaging/labs (to be done today at [facility] - will guide his further treatment plan) and PCP F/U Appt Anticipated Barriers to Discharge: None Identified Patient/Family Education Needs: Review discharge instructions, discuss Ask Me Three Transportation: Private vehicle Plan: Orlin's discharge plan will be dependent on his testing results. Regardless of results, Orlin will need to f/u with his PCP and oncology. He has refused the offer of HH PT throughout this admission, but it should be offered again. Do not anticipate that he will need SN at this time. If Orlin is to need halfway antibiotics, his preference would be to come to the infusion center. When Orlin discharges home, he will transport with his , Gretchen. CM will continue to follow. Social Determinants of Health Screening Social Determinants of health last assessed in clinic: 01/03/25 Will the Patient Participate in the Screening?: Declined to provide Do you worry about having a steady place to live?: choose not to answer Problems where you live: no known problems Has lack of transportation kept you from medical appointments or from doing things needed for daily living?: no Has anyone in your life made you feel unsafe or unsupported?: no How hard is it for you to pay for the very basics like food, housing, medical care, and heating? Would you say it is:: Not hard at all Do you want help finding or keeping work or a job?: I do not need or want help If for any reason you need help with day-to-day activities such as bathing, preparing meals, shopping, managing finances, etc., do you get the help you need?: I need a lot more help How often do you feel lonely or isolated from those around you?: Never Do you speak a language other than Kyrgyz at home?: No Does the patient want assistance with any of the above?: No Health Related Social Needs Health related social needs: problems with daily activities (Z73.9) Health related social needs details: physical therapy
--- NOTE | 2025-01-12 15:51 | PGE_ITS ---
Date of Service Date of service: 01/12/25 Time of Service: 09:51 Assessment and Plan Assessment and plan (1) Osteomyelitis: Status: Acute Assessment and plan: There was some debate between NS and neuroradiology in regards to wheather this is a primary fracture or an infection. Jacqueline Dodge of the Neuroradiology service who virtually ensures this is infectious. Pt does have elevated ESR and CRP - On vanc and ceftriaxone with cultures NG x 120 h. - Scheduled 01/12 for IR guided bx and draining of possible abscess via down/back, paperwork all set. - NPO since 9pm (should have been MN). Started maintenence fluids. -Look to narrow antibiotics after procedures, plan to d/w ID VTE: enoxaparin, on hold pending biopsy/drain (2) Urinary retention: Status: Acute Assessment and plan: symptoms imrpoved, continue tamsulosin. (3) Essential hypertension: Status: Acute Assessment and plan: stable (4) Tobacco use disorder: Status: Acute Assessment and plan: chews, recommend complete and total cessation, declined NRT. (5) Pathologic fracture: Status: Acute Assessment and plan: a/w RCC, as above, awaiting bx. Oxycodone for pain (6) Elevated liver enzymes: Status: Acute Assessment and plan: Developed since surgery. Related to infection? Relatively stable to slightly improved. Continue to monitor. (7) Diabetes mellitus type 2, uncontrolled: Status: Acute Assessment and plan: BG in high 100s/200 on just glipizide, added conservative glargine 01/10 with some improvement, ISS [facility], alternative agent would be preferred. Will resume metformin after procedures if Cr remains stable. Subjective Subjective Patient reports: no new complaints; denies diarrhea, nausea, vomiting, shortness of breath or fever Interval history since last seen: Only concern is that they stopped letting him eat at 9pm last night instead of midnight. He feels like he is getting dry. Exam Narrative Exam Narrative: GEN: A&O, NAD CV-RRR NO MRG LUNGS-CTAB normal effort ABD-soft, NT/ND EXT-NO CCE. no pain with flexing left hip. No CVAT Skin: LLQ wound c/d/i Objective Last Vital Signs Temp 36.5 C 01/12/25 11:49 Pulse 74 01/12/25 11:49 Resp 14 01/12/25 11:49 BP 144/79 H 01/12/25 11:49 Pulse Ox 96 01/12/25 11:49 Laboratory Results - last 24 hr 01/12/25 06:11 WBC 2.89 L RBC 2.69 L Hgb 8.5 L Hct 25.4 L MCV 94 MCH 31.6 MCHC 33.5 RDW 12.8 Plt Count 373 MPV 9.5 Immature Gran % 0.3 Neutrophils % 56.1 Lymphocytes % 23.2 Monocytes % 11.4 Eosinophils % 8.0 Basophils % 1.0 Nucleated RBC % 0.0 Absolute Neutrophils 1.62 Absolute Lymphocytes 0.67 L Absolute Monocytes 0.33 Absolute Eosinophils 0.23 Absolute Basophils 0.03 Sodium 136 Potassium 4.4 Chloride 102 Carbon Dioxide 26.0 Anion Gap 8.0 BUN 12 Creatinine 1.2 Est GFR (CKD-EPI 2020) 65.46 Glucose 197 H Calcium 8.9 Total Bilirubin 0.2 AST 85 H ALT 189 H Alkaline Phosphatase 101 Total Protein 6.8 Albumin 2.5 L Time Spent with Patient Time Spent with Patient: 35-49 minutes Time was spent: preparing to see the patient(eg.review tests), obtaining and/or reviewing separately otained hiistory, ordering medications,tests, procedures, referring, communicating with other health acute care nurse practitioner, indepentently interpreting results, counseling the patient and care coordination
[2025-01-12 18:07] VITALS: BP 154/79; PULSE 74; RESP 17; TEMP 36.4; O2SAT 96
[2025-01-12] MEDS: Tamsulosin 0.4 MG CAPCR PO (18:09)
[2025-01-12 19:25] VITALS: BP 129/77; PULSE 76; RESP 18; TEMP 36.5; O2SAT 98
[2025-01-12] MEDS: cefTRIAXone 2 GM/50 ML BAG IV (19:44)
[2025-01-12] MEDS: Insulin Glargine 300 UNITS/3 ML PEN 15 UNITS SC (20:07)
[2025-01-12] MEDS: Insulin Aspart 300 UNITS/3 ML PEN SC (21:56)
[2025-01-12 22:35] VITALS: BP 149/73; PULSE 86; RESP 18; TEMP 36.7; O2SAT 95
[2025-01-13] MEDS: POTASSIUM CHLORIDE/D5-0.45NACL 1,000 ML 125 MEQ IV (02:12)
[2025-01-13 02:49] VITALS: BP 128/62; PULSE 77; RESP 18; TEMP 36.9; O2SAT 94
[2025-01-13 07:38] VITALS: BP 131/67; PULSE 69; RESP 17; TEMP 36.7; O2SAT 96
[2025-01-13] MEDS: VANCOMYCIN/WATER (PEG) 750 MG/150 ML BAG 150 MG IVPB ×2 (08:18→20:50)
[2025-01-13] MEDS: Insulin Aspart 300 UNITS/3 ML PEN SC ×4 (08:18→22:17)
[2025-01-13] MEDS: Atorvastatin 10 MG TAB PO (08:19)
[2025-01-13] MEDS: oxyCODONE 5 MG TAB PO (08:19)
[2025-01-13] MEDS: Docusate Sodium 100 MG CAP PO (08:19)
[2025-01-13] MEDS: amLODIPine 10 MG TAB PO (08:19)
[2025-01-13] MEDS: Acetaminophen 325 MG TAB 650 MG PO ×3 (08:20→20:40)
[2025-01-13] MEDS: Metoprolol CR 25 MG TABCR PO (08:20)
[2025-01-13] MEDS: glipiZIDE 10 MG TAB PO (08:20)
[2025-01-13] MEDS: Normal Saline Flush 10 ML SYR IVP ×2 (08:20→20:39)
[2025-01-13] MEDS: Polyethylene Glycol 3350 17 GM PACKET PO (08:33)
--- NOTE | 2025-01-13 09:47 | CMPROGNOTE_ITS ---
Date of service: 01/13/25 Time of Service: 09:47 Care Management Progress Note Progress Note Text Progress Note Text: Orlin was sitting up in bed visiting with his when CM met with him. He was pleasant in manner and engaged well with CM. Orlin was [place] [facility] [place] and back bone biopsy. His ultimate course of treatment will be dependent on the results. Orlin informed CM that he plans to discharge home tomorrow if he has a decent night tonight. He knows that it may take a while for the results to be available and he misses being home. He has been in and out of hospitals a lot in the past few months and stated he would rather wait at home to get results than remain in the hospital. Discharge Potential Discharge Needs: PCP F/U Appt Anticipated Barriers to Discharge: Medical Status Patient/Family Education Needs: Review discharge instructions, discuss Ask Me Three Transportation: Private vehicle Plan: Orlin will follow up with his PCP and oncologist when medically cleared for discharge If he is going to need termite control representative antibiotics, his preference would be to come to the infusion center. When Orlin discharges home, he will transport with his , Gretchen. CM will continue to follow. Social Determinants of Health Screening Social Determinants of health last assessed in clinic: 01/03/25 Will the Patient Participate in the Screening?: Declined to provide Do you worry about having a steady place to live?: choose not to answer Problems where you live: no known problems Has lack of transportation kept you from medical appointments or from doing things needed for daily living?: no Has anyone in your life made you feel unsafe or unsupported?: no How hard is it for you to pay for the very basics like food, housing, medical care, and heating? Would you say it is:: Not hard at all Do you want help finding or keeping work or a job?: I do not need or want help If for any reason you need help with day-to-day activities such as bathing, preparing meals, shopping, managing finances, etc., do you get the help you need?: I need a lot more help How often do you feel lonely or isolated from those around you?: Never Do you speak a language other than Lao at home?: No Does the patient want assistance with any of the above?: No Health Related Social Needs Health related social needs: problems with daily activities (Z73.9) Health related social needs details: physical therapy
--- NOTE | 2025-01-13 10:06 | W.PALPGNOTE ---
Date of service: 01/13/25 Time of Service: 10:06 Assessment and Plan Assessment and plan (1) Pathologic fracture of lumbar vertebra: Status: Acute Assessment and plan: - As seen on CT abdomen pelvis, not previously seen on other imaging - Resulted from a fall as patient continued of generalized weakness postoperatively - MRI showed: Findings suspicious for osteomyelitis of L4 with likely involvement of the L4-5 disc and superior endplate of L5. There is small epidural at abscess seen posterior to the L4 vertebral body. Abscesses are also noted between the L4 and L5 spinous processes as well as in the left psoas muscle. - Working with PT. - He went [place] [facility] [place]. Hospitalist to discuss plan with [facility]. (2) Constipation: Status: Acute Assessment and plan: This is an issue again. He had miralax today. Recommend adding dulcolax tab and suppository for PRN use. (3) Symptomatic anemia: Status: Acute Assessment and plan: - Likely secondary to left nephrectomy performed on 12/30/2024 - Hemoglobin was 7 in the emergency department and received 2 units of packed red blood cells - AM hemoglobin 8.7 today. (4) Renal cell carcinoma: Status: Acute Assessment and plan: - Now status post left nephrectomy -He will f/u outpatient with oncology, He is not sure if he will need further cancer treatment yet. (5) Diabetes mellitus: Status: Chronic (6) Hypertension: Status: Chronic (7) Bed sore on buttock: Status: Acute (8) Nausea: Status: Acute Assessment and plan: PRN Zofran ODT ordered. (9) Back pain: Status: Acute Assessment and plan: Increases with activity. Also has pain at rest. His oxycodone was increased to 7.5 mg today, he is requesting that it is decreased back to 5 mg due to RANDOLPH at the higher dose. (10) Abdominal pain: Status: Acute Assessment and plan: Oxycodone PRN. (11) Decreased appetite: Status: Acute Assessment and plan: He is drinking shakes. He feels this will improve after BM. (12) Advanced care planning/counseling discussion: Status: Acute Assessment and plan: Orlin is clear that he wishes to remain a full code. He wishes to have anything done that will prolong his life at this point. He has previously named his healthcare agents: 1. Hamida Barr (), 2. Shine Barr (son), others who may be consulted: Lorna Noe (daughter). He wishes to keep this the same. (13) Palliative care by specialist: Status: Acute Assessment and plan: Palliative will f/u with him next week if he remains here. Palliative to offer f/u after discharge from the hospital. Discussed how palliative can help support them. Palliative can manage pain medicaitons and other Sx management if needed. Will ask the office to contact him after discharge. Subjective Subjective Interval history since last seen: Orlin was seen this morning independently and again this afternoon with his , Gretchen present. He feels his pain is under fairly good control. The hospitalist increased his oxycodone to 7.5 mg from 5 mg but he got a RANDOLPH and requests that it be decreased back to 5 mg. He feels more sore today after his procedure at [facility] [place] yesterday. He thinks if he moves his bowels his back pain will improve. He has had miralax today. Recommend adding dulcolax PO and AK options for PRN use. His goal is to go home at time of discharge. He is aware that he has lost a lot of leg strength and he is agreeable to working with PT but he does not want to go to rehab. His appetite is decreased. He has been drinking shakes. He thinks this will improve once he moves his bowels as well. He is waiting to hear what the plan will be for his treatment course. He is hoping to get home soon. His is present and supportive. Reviewed how palliative can provide support after discharge. Exam Narrative Exam Narrative: General: 69-year-old man, laying in hospital bed with head of bed elevated. He is awake and alert, talkative. His skin is pale. He does not appear to be in any distress. HEENT: Normocephalic, atraumatic, EOMI, MM slightly dry. Neck: Supple. Respiratory: Respirations appear even and unlabored at rest and with talking. Extremities: Moves all 4 extremities freely. Objective Last Vital Signs Temp 36.7 C 01/13/25 07:38 Pulse 69 01/13/25 07:38 Resp 17 01/13/25 07:38 BP 131/67 01/13/25 07:38 Pulse Ox 96 01/13/25 07:38
--- NOTE | 2025-01-13 10:07 | PT.INTREAT ---
PT Notes Visit Reasons: Pathologic L4 Fracture, Weakness Inpatient Physical Therapy Treatment Note [facility] Date: 01/13/25 PRECAUTIONS: Fall precautions SUBJECTIVE: Pt states he is still having pretty bad pain in his left hip and has still not had a bowel movement for 4 days OBJECTIVE: ? PAIN: see above VITALS: monitored by nursing Therapeutic Activities (34838e4): Direct one-on-one instruction in dynamic activities to improve functional performance. ? BED MOBILITY/TRANSFERS? Rolling L/R: I Supine-sit: I ? Sit-supine: I? Sit-stand: SBA? Stand-sit: SBA? Bed-Chair: SBA ? Chair-bed: SBA Provided skilled cues and instruction on performance and technique throughout. GAIT? Assistive Device: RW? Weight bearing: FWB Assist: SBA? Distance:? 200 ft? STAIRS: ascends/descends 4 steps w/bilat UE support and SBA - performs with a step to gait cycle as he goes up first with his left and down first with his right? ASSESSMENT:? Pt doing very well functionally. He was able to perform all activities today including stairs with only SBA. When he is medically ready to return home, he can do so safely. Home health PT is recommended for continued strengthening to optimize his functional levels. PLAN: Continue ambulatory progressions TREATMENT CODE/TIME: Ther Act (82397) x1 - 20 min DISCHARGE RECOMMENDATION: Home health PT
[2025-01-13 10:38] LABS: HCT 26.3 % (40.0-50.0); HGB 8.7 g/dL (13.5-17.5); MCH 31.0 pg (27.0-33.0); MCHC 33.1 % (32.0-36.0); MCV 94 fL (80-95); MPV 9.0 fL (8.0-11.0); Platelet Count 291 10^3/uL (130-400); RBC 2.81 10^6/uL (4.36-5.78); RDW 12.7 % (11.8-14.1); RDW-SD 43.4 fL; WBC 4.13 10^3/uL (4.4-10.8)
[2025-01-13 10:53] LABS: Anion Gap 7.5 mmol/L (3-11); BUN 13 mg/dL (7-18); CO2 26.5 mmol/L (21.0-32.0); Calcium 8.6 mg/dL (8.5-10.1); Chloride 100 mmol/L (98-107); Estimated GFR 59.47 (mL/min/1.73m2); Glucose 182 mg/dL (74-106); Potassium 4.3 mmol/L (3.5-5.1); Sodium 134 mmol/L (136-145)
--- NOTE | 2025-01-13 11:11 | W.PM.PROGNOT ---
Date of Service Date of service: 01/13/25 Time of Service: 11:11 Assessment and Plan Assessment and plan (1) Osteomyelitis: Status: Acute Assessment and plan: There was some debate between NS and neuroradiology in regards to wheather this is a primary fracture or an infection. Jacqueline Dodge of the Neuroradiology service who virtually ensures this is infectious. Pt does have elevated ESR and CRP - On vanc and ceftriaxone with cultures NG x 120 h. - Down/back 01/12 for IR guided bx and draining of possible abscess - Reviewed records, I could not find a gram stain but no pathogen on fungal stains -Look to narrow antibiotics. I did not get a chance to talk to ID today. Patient wants to go home soon but it's not clear what oral options may be. VTE: enoxaparin, resume (2) Urinary retention: Status: Acute Assessment and plan: symptoms imrpoved, continue tamsulosin. (3) Essential hypertension: Status: Acute Assessment and plan: stable (4) Tobacco use disorder: Status: Acute Assessment and plan: chews, recommend complete and total cessation, declined NRT. (5) Pathologic fracture: Status: Acute Assessment and plan: a/w RCC, as above, awaiting bx. Oxycodone for pain. Duration of medicaiton effect not adequate, trying 7.5mg dose (6) Elevated liver enzymes: Status: Acute Assessment and plan: Developed since surgery. Related to infection? Relatively stable to slightly improved. Trend every few days. (7) Diabetes mellitus type 2, uncontrolled: Status: Acute Assessment and plan: BG in high 100s/200 on just glipizide, added conservative glargine 01/10 with some improvement, ISS [facility], alternative agent would be preferred. Will resume metformin 2 days after procedures if Cr remains stable as had CT guided procedure 01/12. Subjective Subjective Patient reports: voiding w/o difficulty; denies diarrhea, nausea, vomiting, shortness of breath or fever Interval history since last seen: Events: Down/back 01/12 for bone biopsy and drain He has more back pain since the biopsy. oxycodone works but lasts 1-2 hours. tylenol helps too. Appetite still isn't great, didn't eat food for breakfast, feels like he can do a shake. Feels like he needs to have a BM Exam Narrative Exam Narrative: GEN: A&O, NAD CV-RRR NO MRG LUNGS-CTAB normal effort ABD-soft, NT/ND EXT-NO CCE. no pain with flexing left hip. No CVAT Skin: LLQ wound c/d/i. bandages over biopsy sites in back, skin benign Objective Last Vital Signs Temp 36.7 C 01/13/25 07:38 Pulse 69 01/13/25 07:38 Resp 17 01/13/25 07:38 BP 131/67 01/13/25 07:38 Pulse Ox 96 01/13/25 07:38 Laboratory Results - last 24 hr 01/13/25 10:26 WBC 4.13 L RBC 2.81 L Hgb 8.7 L Hct 26.3 L MCV 94 MCH 31.0 MCHC 33.1 RDW 12.7 Plt Count 291 MPV 9.0 Sodium 134 L Potassium 4.3 Chloride 100 Carbon Dioxide 26.5 Anion Gap 7.5 BUN 13 Creatinine 1.3 Est GFR (CKD-EPI 2020) 59.47 Glucose 182 H Calcium 8.6 Time Spent with Patient Time Spent with Patient: 35-49 minutes Time was spent: preparing to see the patient(eg.review tests), obtaining and/or reviewing separately otained hiistory, ordering medications,tests, procedures, referring, communicating with other health personal care worker, indepentently interpreting results, counseling the patient and care coordination
[2025-01-13] MEDS: oxyCODONE 5 MG TAB 7.5 MG PO ×2 (11:33→20:40)
[2025-01-13 11:36] VITALS: BP 135/67; PULSE 66; RESP 17; TEMP 36.7; O2SAT 96
[2025-01-13 16:10] VITALS: BP 146/72; PULSE 67; RESP 17; TEMP 36.8; O2SAT 96
[2025-01-13] MEDS: Bisacodyl 10 MG SUPP PR (16:25)
[2025-01-13] MEDS: Tamsulosin 0.4 MG CAPCR PO (16:25)
[2025-01-13] MEDS: cefTRIAXone 2 GM/50 ML BAG IV (20:40)
[2025-01-13] MEDS: Insulin Glargine 300 UNITS/3 ML PEN 15 UNITS SC (20:46)
[2025-01-13 21:04] VITALS: BP 133/77; PULSE 68; RESP 15; TEMP 36.6; O2SAT 97
[2025-01-14] VITALS (7 sets, daily range): BP systolic 126–152; BP diastolic 73–80; PULSE 64–79; RESP 15–17; TEMP 36.3–36.8; O2SAT 95–100
[2025-01-14] MEDS: Acetaminophen 325 MG TAB 650 MG PO ×4 (00:34→22:40)
[2025-01-14] MEDS: oxyCODONE 5 MG TAB 7.5 MG PO ×4 (00:35→22:40)
[2025-01-14] MEDS: POTASSIUM CHLORIDE/D5-0.45NACL 1,000 ML 75 MEQ IV (07:31)
[2025-01-14] MEDS: glipiZIDE 10 MG TAB PO (07:42)
[2025-01-14] MEDS: amLODIPine 10 MG TAB PO (07:42)
[2025-01-14] MEDS: Metoprolol CR 25 MG TABCR PO (07:42)
[2025-01-14] MEDS: Atorvastatin 10 MG TAB PO (07:42)
[2025-01-14] MEDS: VANCOMYCIN/WATER (PEG) 750 MG/150 ML BAG 150 MG IVPB ×2 (07:43→21:06)
[2025-01-14] MEDS: Normal Saline Flush 10 ML SYR IVP ×2 (07:43→20:54)
[2025-01-14] MEDS: Insulin Aspart 300 UNITS/3 ML PEN SC ×4 (08:12→22:43)
[2025-01-14] MEDS: Enoxaparin 40 MG/0.4 ML SYR SC (10:17)
--- NOTE | 2025-01-14 14:10 | PGE_ITS ---
Date of Service Date of service: 01/14/25 Time of Service: 14:10 Assessment and Plan Assessment and plan (1) Osteomyelitis: Status: Acute Assessment and plan: -initially there was debate between NS and neuroradiology in regards to wheather this is a primary fracture or an infection. -Dr Dodge of the Neuroradiology service who virtually ensures this is infectious. - has been on vanc and ceftriaxone with cultures NG x 120 h. - s/p Down/back 01/12 for IR guided bx and draining of possible abscess -Look to narrow antibiotics; reached out to [facility], awaiting call back and recs VTE: enoxaparin, resume (2) Urinary retention: Status: Acute Assessment and plan: -symptoms imrpoved, continue tamsulosin. (3) Essential hypertension: Status: Acute Assessment and plan: -stable (4) Tobacco use disorder: Status: Acute Assessment and plan: -chews, recommend complete and total cessation, declined NRT. (5) Pathologic fracture: Status: Acute Assessment and plan: -a/w RCC, as above, awaiting bx. -continue PRN Oxycodone for pain. (6) Elevated liver enzymes: Status: Acute Assessment and plan: -Developed since surgery, though may be related to infection -slightly improved, will monitor every few days (7) Diabetes mellitus type 2, uncontrolled: Status: Acute Assessment and plan: -BG in high 100s/200 on just glipizide, added conservative glargine 01/10 with some improvement, ISS -[facility], alternative agent would be preferred. -Will resume metformin on 01/15 Subjective Subjective Interval history since last seen: Patient states that he is doing well. He understands the plan to wait for final culture results and for recommendation from ID for his antibiotic therapy. Exam Narrative Exam Narrative: Well-appearing gentleman laying in bed in no acute distress, ANO x 4, heart regular rhythm, lungs good auscultation bilaterally, abdomen soft, nontender, nondistended, decreased range of motion of bilateral lower extremity secondary to pain Objective Last Vital Signs Temp 97.3 F L 01/14/25 11:30 Pulse 68 01/14/25 11:30 Resp 17 01/14/25 11:30 BP 152/80 H 01/14/25 11:30 Pulse Ox 95 01/14/25 11:30 Time Spent with Patient Time Spent with Patient: >50 minutes Time was spent: preparing to see the patient(eg.review tests), obtaining and/or reviewing separately otained hiistory, ordering medications,tests, procedures, referring, communicating with other health child daycare worker, indepentently interpreting results, counseling the patient and care coordination
[2025-01-14] MEDS: Tamsulosin 0.4 MG CAPCR PO (17:04)
[2025-01-14] MEDS: Insulin Glargine 300 UNITS/3 ML PEN 15 UNITS SC (21:03)
[2025-01-14] MEDS: cefTRIAXone 2 GM/50 ML BAG IV (21:05)
[2025-01-15 07:00] VITALS: BP 146/78; PULSE 76; RESP 16; TEMP 36.5; O2SAT 98
[2025-01-15 07:22] LABS: Vancomycin, Random 20.8 ug/mL
[2025-01-15] MEDS: oxyCODONE 5 MG TAB 7.5 MG PO ×3 (07:27→21:00)
[2025-01-15] MEDS: Acetaminophen 325 MG TAB 650 MG PO ×3 (07:27→21:01)
[2025-01-15] MEDS: amLODIPine 10 MG TAB PO (07:28)
[2025-01-15] MEDS: glipiZIDE 10 MG TAB PO (07:28)
[2025-01-15] MEDS: Metoprolol CR 25 MG TABCR PO (07:28)
[2025-01-15] MEDS: Atorvastatin 10 MG TAB PO (07:28)
[2025-01-15] MEDS: Normal Saline Flush 10 ML SYR IVP ×2 (07:29→21:13)
[2025-01-15] MEDS: VANCOMYCIN/WATER (PEG) 750 MG/150 ML BAG 150 MG IVPB ×2 (07:29→21:05)
[2025-01-15] MEDS: Insulin Aspart 300 UNITS/3 ML PEN SC ×4 (08:32→21:10)
[2025-01-15] MEDS: Enoxaparin 40 MG/0.4 ML SYR SC (09:41)
[2025-01-15 10:49] VITALS: BP 135/74; PULSE 70; RESP 18; TEMP 36.6; O2SAT 95
[2025-01-15 16:11] VITALS: BP 127/70; PULSE 68; RESP 18; TEMP 36.6; O2SAT 97
--- NOTE | 2025-01-15 16:12 | PGE_ITS ---
Date of Service Date of service: 01/15/25 Time of Service: 16:12 Assessment and Plan Assessment and plan (1) Osteomyelitis: Status: Acute Assessment and plan: -initially there was debate between NS and neuroradiology in regards to wheather this is a primary fracture or an infection. -Dr Dodge of the Neuroradiology service who virtually ensures this is infectious. - has been on vanc and ceftriaxone with cultures NG x 120 h. - s/p Down/back 01/12 for IR guided bx and draining of possible abscess - Discussed with [facility], need to wait for final culture results and biopsy before can give final recommendations on treatment plan, will call back again tomorrow 01/16/2025 (2) Urinary retention: Status: Acute Assessment and plan: -symptoms imrpoved, continue tamsulosin. (3) Essential hypertension: Status: Acute Assessment and plan: -stable (4) Tobacco use disorder: Status: Acute Assessment and plan: -chews, recommend complete and total cessation, declined NRT. (5) Pathologic fracture: Status: Acute Assessment and plan: -a/w RCC, as above, awaiting bx. -continue PRN Oxycodone for pain. (6) Elevated liver enzymes: Status: Acute Assessment and plan: -Developed since surgery, though may be related to infection -slightly improved, will monitor every few days (7) Diabetes mellitus type 2, uncontrolled: Status: Acute Assessment and plan: -BG in high 100s/200 on just glipizide, added conservative glargine 01/10 with some improvement, ISS -intermediate project manager, alternative agent would be preferred. -Will resume metformin on 01/15 Subjective Subjective Interval history since last seen: Patient understands that as per [facility] we need to wait for final biopsy and culture results. He has no complaints or concerns at this time. Exam Narrative Exam Narrative: Well-appearing gentleman laying in bed in no acute distress, ANO x 4, heart regular rhythm, lungs good auscultation bilaterally, abdomen soft, nontender, nondistended, decreased range of motion of bilateral lower extremity secondary to pain Objective Last Vital Signs Temp 97.9 F 01/15/25 10:49 Pulse 70 01/15/25 10:49 Resp 18 01/15/25 10:49 BP 135/74 01/15/25 10:49 Pulse Ox 95 01/15/25 10:49 Laboratory Results - last 24 hr 01/15/25 06:02 Random Vancomycin 20.8 Time Spent with Patient Time Spent with Patient: >50 minutes Time was spent: preparing to see the patient(eg.review tests), obtaining and/or reviewing separately otained hiistory, ordering medications,tests, procedures, referring, communicating with other health administrator health care facility, indepentently interpreting results, counseling the patient and care coordination
[2025-01-15] MEDS: Tamsulosin 0.4 MG CAPCR PO (17:06)
[2025-01-15] MEDS: metFORMIN 500 MG TAB 1000 MG PO (17:06)
[2025-01-15 19:38] VITALS: BP 167/67; PULSE 71; RESP 16; TEMP 36.3; O2SAT 97
[2025-01-15] MEDS: cefTRIAXone 2 GM/50 ML BAG IV (21:02)
[2025-01-15] MEDS: Insulin Glargine 300 UNITS/3 ML PEN 15 UNITS SC (21:10)
[2025-01-15 23:32] VITALS: PULSE 63; RESP 18; TEMP 36.3; O2SAT 95
[2025-01-16] MEDS: Acetaminophen 325 MG TAB 650 MG PO ×3 (00:43→11:53)
[2025-01-16] MEDS: oxyCODONE 5 MG TAB 7.5 MG PO ×3 (00:43→11:53)
[2025-01-16 07:51] VITALS: BP 128/65; PULSE 68; RESP 17; TEMP 36.9; O2SAT 97
[2025-01-16] MEDS: Insulin Aspart 300 UNITS/3 ML PEN SC ×2 (09:01→12:47)
[2025-01-16] MEDS: amLODIPine 10 MG TAB PO (09:02)
[2025-01-16] MEDS: Metoprolol CR 25 MG TABCR PO (09:02)
[2025-01-16] MEDS: glipiZIDE 10 MG TAB PO (09:02)
[2025-01-16] MEDS: metFORMIN 500 MG TAB 1000 MG PO (09:02)
[2025-01-16] MEDS: Atorvastatin 10 MG TAB PO (09:02)
[2025-01-16] MEDS: Normal Saline Flush 10 ML SYR IVP (09:02)
[2025-01-16] MEDS: Enoxaparin 40 MG/0.4 ML SYR SC (09:02)
[2025-01-16] MEDS: VANCOMYCIN/WATER (PEG) 750 MG/150 ML BAG 150 MG IVPB (09:03)
--- NOTE | 2025-01-16 10:14 | INDS_ITS ---
PT Notes Visit Reasons: Pathologic L4 Fracture, Weakness Inpatient Physical Therapy Discharge Summary Dates: 01/16/2025 Dates of Service: 01/05/2025 - 01/16/2025 SUBJECTIVE: Patient reports he is feeling better and his pain is manageable now. He states he has been walking on the unit with the FWW independent. OBJECTIVE: [] Pain: 4-8 in back ROM: BUE: WNL BLE: WFL STRENGTH: BUE: 5/5 L LE: >/=to 3/5 R LE: >/= to 3/5 BED MOBILITY/TRANSFERS: Supine-sit independent Sit-supine independent Sit-stand independent Stand-sit independent Bed-Chair independent with FWW Chair-bed independent with FWW GAIT: Mod I with FWW 300 feet level surfaces with turns reciprocal pattern . Stairs : mod I with rail 10 steps reciprocal pattern BALANCE: Static sitting normal Dynamic sitting normal Static standing normal Dynamic standing good plus with 1 upper extremity support SPECIAL TESTS: AM PAC 6 click mobility: 24 0% deficit ASSESSMENT: Orlin is a 69-year-old male presented to the hospital with L4 osteomyelitis. Patient underwent biopsy at [facility] on 01/12/2025. Patient has met all goals established at start of care. He has progressed to independent level of function with use of FWW at this time due to continued pain in back. Patient is independent on unit and takes frequent walks with the FWW. He is SBA on the stairs with railings. Requires assistance for FWW management on stairs which his is able to provide. No further inpatient skilled PT indicated at this time anticipate patient to be discharged home with home health PT then transition to outpatient PT when medically appropriate After infection resolved. Patient has on FWW at home therefore no DME issued at this time. GOALS ( Met / Not Met): MET all goals below Goals: 1. independent sit to supine 2. Mod I transfers with FWW 3. Mod I ambulation with FWW 150 feet 4. SBA stairs with rail to safely enter and exit home DISCHARGE PLAN/RECOMMENDATIONS: [] [] Home with no services [] [X] Home with services PT then transition to outpatient PT when medically appropriate after infection resolved. [] Home with outpatient PT [] [] SNF for continued rehabilitation [] [] [facility] Line [facility] [] [] SNF versus LTC based on ability to participate and progress [] Treatment Code: 48747/2439-9762
[2025-01-16 11:10] VITALS: BP 144/71; PULSE 74; RESP 17; TEMP 36.8; O2SAT 96
--- NOTE | 2025-01-16 14:57 | W.PM.DS.N ---
Date of service: 01/16/25 Time of Service: 14:57 DS: Diagnosis Discharge Diagnosis (1) Osteomyelitis: Status: Acute (2) Urinary retention: Status: Acute (3) Essential hypertension: Status: Acute (4) Tobacco use disorder: Status: Acute (5) Pathologic fracture: Status: Acute (6) Elevated liver enzymes: Status: Acute (7) Diabetes mellitus type 2, uncontrolled: Status: Acute Discharge Plan Disposition Patient Disposition: Home Condition: Good Discharge Details Reason For Visit: Pathologic L4 Fracture, Weakness Admit Date/Time: 01/06/25 15:34 Admit Provider: Prabhjot Cortes Attending Provider: Prabhjot Cortes Primary Care Provider: Miguel Guzman Hospital Course Hospital Course: Patient initially presented after experiencing a fall at home and underwent a pathologic fracture of L4. MRI was obtained that was concerning for L4 osteomyelitis which prompted bone biopsy at [facility] on 01/12. On 01/16/2025 discussion was had with [facility] and they confirmed that his blood cultures were negative and would not require further antibiotic therapy. However, final pathology results were not available at the time of discharge. Given that the patient does not have osteomyelitis and not longer requires antibiotics it is determined he is stable discharge home and will have close follow-up with [facility]. Home Meds and New Rx's Prescriptions: Continued metformin 1,000 mg tablet 1,000 mg PO BID Qty: 180 3RF metoprolol succinate 25 mg tablet extended release 24 hr 25 mg PO DAILY Qty: 90 3RF amlodipine 10 mg tablet 10 mg PO DAILY Qty: 90 3RF atorvastatin 10 mg tablet 10 mg PO DAILY Qty: 90 3RF multivitamin [Daily Multi-Vitamin] 1 EACH tablet 1 tab PO DAILY cyanocobalamin (vitamin B-12) [Vitamin B-12] 1,000 MCG tablet 1,000 mcg PO DAILY glipizide 10 mg tablet 10 mg PO DAILY Qty: 90 0RF Rx Instructions: stop long acting version insulin glargine-yfgn 100 unit/mL (3 mL) insulin pen 20 unit subcut QPM Qty: 15 8RF tamsulosin 0.4 mg capsule 0.4 mg PO DAILY Patient Comments: TAKE 1 CAPSULE BY MOUTH EVERY EVENING 30 MINUTES AFTER DINNER Discontinued losartan-hydrochlorothiazide [Hyzaar] 100-25 mg tablet 1 tab PO DAILY Qty: 90 3RF No Action (DME) Blood Glucose Test 1 EACH strip 1 ea Miscellaneous DAILY Qty: 100 Rx Instructions: E11.9 one touch test strips (DME) pen needle, diabetic [Unifine Pentips Plus] 33 gauge x 5/32 needle See Rx Instructions .ROUTE .COMPLEX Qty: 100 3RF Dose Instruction: USE TO INJECT ONCE DAILY Rx Instructions: USE TO INJECT ONCE DAILY Discharge Instructions Activity:: Activity as Tolerated Equipment/Supplies:: No Equipment Needed Diet:: As Tolerated Discharge Orders Discharge Orders: Discharge Order (Routine); Ordered 01/16/25 Ordered By: Prabhjot Cortes DS: Summary Time Spent with Patient providing and/or coordinating discharge services: Greater than 30 minutes Status at Discharge Functional status at discharge: independent ambulation Overall status at discharge: patient is back to baseline Mental Status: mental status grossly normal Speech and Movement: speech and movement normal Mood: congruent mood Affect: normal affect Quality:SDOH Health Related Social Needs: Health related social needs daily activities Health related social needs details physical therapy Health related social needs details: physical therapy Exam Narrative Exam Narrative: Well-appearing gentleman laying in bed in no acute distress, ANO x 4, heart regular rhythm, lungs good auscultation bilaterally, abdomen soft, nontender, nondistended Psych Mental Status: mental status grossly normal Speech and Movement: speech and movement normal Mood: congruent mood Affect: normal affect DS: Data Vitals/I&O Vitals and I&O: Vital Signs Temperature 98.2 F 01/16/25 11:10 Temperature Source Temporal Artery Scan 01/16/25 11:10 Pulse 74 01/16/25 11:10 Pulse 83 01/03/25 15:50 Respiratory Rate 17 01/16/25 11:10 Respiratory Effort Normal 01/03/25 16:22 Respiratory Depth Normal 01/03/25 16:22 Respiratory Pattern Normal 01/03/25 16:22 Blood Pressure 144/71 H 01/16/25 11:10 Blood Pressure Mean 95 01/16/25 11:10 Pulse Oximetry 96 01/16/25 11:10 Oxygen Delivery Method Room Air 01/16/25 11:10 Oxygen Flow Rate 0 01/16/25 11:10 Pain Level 8 01/16/25 12:00 Comment pt requested vs when he wakes up next to toilet 01/16/25 03:03 Intake & Output 01/15/25 01/16/25 01/16/25 17:59 05:59 17:59 Intake Total 960 / 960 200 / 1160 390 / 390 Balance 960 / 960 200 / 1160 390 / 390 Intake: IV 150 / 150 200 / 350 150 / 150 Oral 810 / 810 240 / 240 Other: Urine Color Yellow Yellow Yellow Urine Appearance Clear Clear Urine Odor Normal Normal Normal Comment voids independent PFSH All Active Problems (Updated 01/16/25 @ 14:57 by Prabhjot Cortes MD) Decreased appetite (Acute) Elevated liver enzymes (Acute) Dark stools (Acute) Pathologic fracture (Acute) Osteomyelitis (Acute) Abdominal pain (Acute) Back pain (Acute) Nausea (Acute) Advanced care planning/counseling discussion (Acute) Palliative care by specialist (Acute) Bed sore on buttock (Acute) Pathologic fracture of lumbar vertebra (Acute) Constipation (Acute) Symptomatic anemia (Acute) Anemia due to blood loss (Acute) KAMILLA (acute kidney injury) (Acute) Complication, blocked Carrillo catheter (Acute) Renal cell carcinoma (Acute) Gross hematuria (Acute) Urinary retention (Acute) Renal cell carcinoma (Acute) Complication, blocked Carrillo catheter (Acute) Renal cell carcinoma (Acute) Acute pyelonephritis (Acute) Arthritis pain, hip (Acute) Sarcoidosis (Acute 01/09/14) Overweight (Chronic) Ear congestion (Acute) likely ET dysfunction due to recent cold / ? allergy Diabetes mellitus (Chronic) A1c in office today 7.9 Hypertension (Chronic) not well controlled today Cough (Acute) likely viral bronchitis Erectile dysfunction (Chronic) Glucose intolerance (Acute) 02/15/18 LLUVIA HOGAN ; GLUCOSE 156 Lumbago (Acute) Fracture of distal phalanx of finger (Acute 11/23/12) Type 2 diabetes mellitus without complication, without long-term current use of insulin (Acute 02/25/16) Tobacco use disorder (Acute) CHEWS TOBACCO Sexual function problem (Acute) Pernicious anemia (Acute) Onychomycosis (Acute) Medial meniscus tear (Acute) RIGHT-04/02/16 Knee pain (Acute) ? MENISCUS Hiatal hernia (Acute) Essential hypertension (Acute) Dysplastic nevi (Acute 08/26/17) multiple Diverticulosis of colon without diverticulitis (Acute) Diabetes mellitus type 2, uncontrolled (Acute 03/24/14) Surgical History History of back surgery (~02/15/18) [facility] HOG[facility] DAY crushed thumb (11/17/12) Kidney Stone Extraction (~2004) Colonoscopy - IV Sedation (02/19/15) DR.C. WREN Arthroplasty of knee 04/02/16-RIGHT;DR. GUARDADO 08/19/16 RIGHT;[facility] Family History Mother , AGE 78 Essential hypertension MS (multiple sclerosis) Throat cancer Father Essential hypertension Diabetes Heart disease Sister Essential hypertension Diabetes Brother Essential hypertension Diabetes Maternal Grandfather , AGE 69 Essential hypertension Heart disease Paternal Grandfather , AGE 85 Essential hypertension Heart disease Maternal Grandmother , AGE 94 Essential hypertension Heart disease Paternal Grandmother , AGE 90 Essential hypertension Heart disease Son Substance abuse Son No problems noted. Daughter No problems noted. Social History Smoking/Tobacco Use Status: Current every day Tobacco Type: smokeless tobacco Tobacco: How many years used: 40 Smokeless tobacco user: chewing tobacco Quit status: has quit before Second Hand Exposure: Yes Smoking risk assessment performed?: Yes Alcohol Intake: former Drug use: Never Substance use type: does not use Counseling given: No Adopted: No Caregiver/Support person: No Household members: spouse Housing: house Communication Needs: None Do you need help understanding health information?: Rarely Pets and animals: No Sexually active: Yes Do you think of yourself as: straight/heterosexual Current gender identity: male What is your relationship status?: How often do you talk on the phone with friends or family?: three or more times per week How often do you get together with friends or relatives?: decline to answer How often do you attend evangelical or pentecostal services?: decline to answer Do you belong to any clubs or organized social groups?: no Panel score (0-1 are the most socially isolated patients): 2 What type of physical activity do you participate in: walking Duration: 15-30 minutes/day Frequency: 3-4 times per week Adilene/Lutheran: No preference Special adilene needs: No Seatbelt use: always Helmet use: Yes Helmet use: always Drive intox or ride w/intox flag car driver: No Do you feel safe at home: Yes Do you feel safe in your relationship?: Yes Time Spent with Patient Time Spent with Patient: <45 minutes Time was spent: preparing to see the patient(eg.review tests), obtaining and/or reviewing separately otained hiistory, ordering medications,tests, procedures, referring, communicating with other health progressive care unit registered nurse, indepentently interpreting results, counseling the patient and care coordination
[2025-01-16 15:15] VITALS: BP 142/79; PULSE 82; RESP 17; TEMP 36.8; O2SAT 97
--- NOTE | 2025-01-16 17:59 | PDOC.CMDIS ---
Date of service: 01/16/25 Time of Service: 17:59 LACE Index Scoring Tool Questions: Length of Stay (in days): 7 - 13 Was the patient admitted via the E.D.?: Yes Comorbidities: Diabetes w/o Complication, Any Tumor and Liver or Renal Disease E.D. Visits: 4 Answers: Total Score: 17 Risk of Readmission: High Risk Care Management Discharge Plan Reason for Hospitalization: pathologic fracture, weakness Discharge Plan: Orlin returned home today with new orders for HH PT. His drove him home via private vehicle. He will follow up with his PCP and his discharge plan of care. He was happy to be going home. Patient/Family Education Needs: Review discharge instructions and limitations, discussion of self care needs including ask me three Services Needed at Discharge: Home Health Care Services (new HH PT) SDOH Health Related Social Needs: Health related social needs daily activities Health related social needs details physical therapy Health related social needs details: physical therapy
--- NOTE | 2025-01-16 18:02 | PDOC.HHF2F_ITS ---
Date of service: 01/16/25 Time of Service: 18:02 Home Health Referral Home Health Orders Clinical synopsis of why skilled professionals are needed: Pathologic fracture of L4, renal cell carcinoma, HTN, NIDDM Physical Therapist: Check all that apply Increase strength & endurance for safe mobility at home: Ordered To design/establish home maintenance program: Ordered Fall reduction therapy program for patient with history of frequent falls: Ordered Home safety evaluation and teaching/gait training including stair management (if applicable): Ordered Continuous Miner Operator Helper: Assist with community resources: Ordered Assist with intermodal customer service care planning: Ordered Encounter Date and Reason: I certify that a FTF encounter for this patient was performed on January 16, 2025 and that such encounter was related to the primary reason the patient requires home health services. The encounter was conducted in the following manner: * By me as the certifying physician, ADVENTURE GUIDE, PA or * By an inpatient physician, ADVENTURE GUIDE or PA during an inpatient stay who communicated findings to me, Certification And Authentication I certify that I composed the above information based on my clinical judgment relating to this patient's medical condition and, if applicable, clinical findings communicated to me by the NPP or inpatient physician who performed the FTF encounter. Name of Provider that will be monitoring home health services: Miguel Guzman
== END 2025-01-16 17:16 | disposition home health service (06) | DRG 542 ==
LOC: ER 08:13 → MS 16:04
PROVIDERS: Family Medicine; Hospitalist; Admitting Provider Family Medicine; Emergency Provider Emergency Medicine; PCP Family Medicine; Responsible Provider Family Medicine; Visit Provider Family Medicine
DX: M48.56XA Collapsed vertebra, not elsewhere classified, lumbar region, initial encounter for fracture; K68.12 Psoas muscle abscess; C64.2 Malignant neoplasm of left kidney, except renal pelvis; D62 Acute posthemorrhagic anemia; K59.00 Constipation, unspecified; Z90.5 Acquired absence of kidney; I10 Essential (primary) hypertension; R53.1 Weakness; K57.30 Diverticulosis of large intestine without perforation or abscess without bleeding; K44.9 Diaphragmatic hernia without obstruction or gangrene; F17.220 Nicotine dependence, chewing tobacco, uncomplicated; W18.39XA Other fall on same level, initial encounter; R11.0 Nausea; R33.9 Retention of urine, unspecified; R74.8 Abnormal levels of other serum enzymes; E11.65 Type 2 diabetes mellitus with hyperglycemia; Z79.84 Long term (current) use of oral hypoglycemic drugs
CPT/HCPCS: 00123; 36415; 72158; 80048; 80053; 82805; 85027; 85652; 86850; 86900; 86901; 86920; 87040; 87637; 93005; 96365; 96366; 96367; 96375; 96376; 97112; 97162; 97530; 99285; J1650; 74177; 80202; 81003; 81015; 82270; 83605; 83735; 84484; 85025; 86140; 93010; 99223; 99232; 99233; 99239; A0425; A0428; G0378; J0692; J0696; J1171; J1815; J2270; J3373; P9016

== ENCOUNTER 2025-01-26 16:14 | Inpatient (IN) | payer MEDICARE, OTHER, SELFPAY ==
[2025-01-26] VITALS (21 sets, daily range): BP systolic 107–137; BP diastolic 66–99; PULSE 76–103; RESP 11–20; TEMP 35.6–35.9; O2SAT 95–100
[2025-01-26 16:43] LABS: Abs Immature Grans 0.04 10^3/uL (0.0-0.06); HCT 32.2 % (40.0-50.0); HGB 10.7 g/dL (13.5-17.5); Immature Grans % 0.5 %; MCH 30.5 pg (27.0-33.0); MCHC 33.2 % (32.0-36.0); MCV 92 fL (80-95); MPV 9.9 fL (8.0-11.0); Platelet Count 229 10^3/uL (130-400); RBC 3.51 10^6/uL (4.36-5.78); RDW 13.0 % (11.8-14.1); RDW-SD 42.9 fL; WBC 8.42 10^3/uL (4.4-10.8)
[2025-01-26 16:45] LABS: ESR 32 mm/hr (0-20)
[2025-01-26 17:04] LABS: C-Reactive Protein < 0.50 mg/dL (<or=0.5)
[2025-01-26 17:13] LABS: ALT 37 U/L (16-63); AST 24 U/L (15-37); Albumin 3.6 g/dL (3.4-5.0); Alkaline Phosphatase 136 U/L (46-116); Anion Gap 15.8 mmol/L (3-11); BUN 23 mg/dL (7-18); Bilirubin, Total 0.4 mg/dL (0.2-1.0); CO2 21.2 mmol/L (21.0-32.0); Calcium 9.3 mg/dL (8.5-10.1); Chloride 96 mmol/L (98-107); Creatine Kinase 45 U/L (39-308); Estimated GFR 43.10 (mL/min/1.73m2); Glucose 204 mg/dL (74-106); Lipase 30 U/L (<78); Magnesium 2.0 mg/dL (1.8-2.4); Potassium 4.7 mmol/L (3.5-5.1); Sodium 133 mmol/L (136-145); TSH (W/Ref FT4) 1.11 uIU/mL (0.36-3.74); Total Protein 8.6 g/dL (6.4-8.2); Troponin I 11 ng/L (<or=76)
[2025-01-26] MEDS: ACETAMINOPHEN 1,000 MG/100 ML BAG 400 MG IVPB (17:22)
[2025-01-26] MEDS: Normal Saline 1,000 ML 1000 ML IV (17:23)
[2025-01-26] MEDS: Ibuprofen 400 MG TAB PO (17:23)
[2025-01-26 17:47] LABS: COVID-19 PCR Negative (Negative); RSV PCR Negative (Negative)
[2025-01-26] MEDS: CEFEPIME 2 GM in Normal Saline 100 ML IVPB (17:56)
--- NOTE | 2025-01-26 18:13 | ED.GENADUL_ITS ---
Discharge Plan Disposition Patient Disposition: Admit to [facility] Condition: Stable Discharge Details Clinical Impression: Deep vein thrombosis (DVT) of left lower extremity, Debility Primary Care Provider: Miguel Guzman ED Provider: Darell Antunez Home Meds and New Rx's Prescriptions: No Action metformin 1,000 mg tablet 1,000 mg PO BID Qty: 180 3RF (DME) Blood Glucose Test 1 EACH strip 1 ea Miscellaneous DAILY Qty: 100 Rx Instructions: E11.9 one touch test strips metoprolol succinate 25 mg tablet extended release 24 hr 25 mg PO DAILY Qty: 90 3RF amlodipine 10 mg tablet 10 mg PO DAILY Qty: 90 3RF atorvastatin 10 mg tablet 10 mg PO DAILY Qty: 90 3RF (DME) pen needle, diabetic [Unifine Pentips Plus] 33 gauge x 5/32 needle See Rx Instructions .ROUTE .COMPLEX Qty: 100 3RF Dose Instruction: USE TO INJECT ONCE DAILY Rx Instructions: USE TO INJECT ONCE DAILY hydromorphone [Dilaudid] 2 mg tablet 2 mg PO Q6H MDD 8 PRN (Reason: pain) Qty: 20 0RF naloxone [Narcan] 4 mg/actuation spray,non-aerosol 4 mg intranasal Q3M PRN (Reason: opioid overdose) Qty: 2 0RF Rx Instructions: spray 1 dose into ONE nostril; alternate nostrils w each dose until help arrives multivitamin [Daily Multi-Vitamin] 1 EACH tablet 1 tab PO DAILY cyanocobalamin (vitamin B-12) [Vitamin B-12] 1,000 MCG tablet 1,000 mcg PO DAILY glipizide 10 mg tablet 10 mg PO DAILY Qty: 90 0RF Rx Instructions: stop long acting version insulin glargine-yfgn 100 unit/mL (3 mL) insulin pen 20 unit subcut QPM Qty: 15 8RF tamsulosin 0.4 mg capsule 0.4 mg PO DAILY Patient Comments: TAKE 1 CAPSULE BY MOUTH EVERY EVENING 30 MINUTES AFTER DINNER oxycodone 5 mg tablet 5 mg PO DAILY losartan-hydrochlorothiazide 100-25 mg tablet 1 tab PO DAILY Patient Comments: TAKE 1 TABLET BY MOUTH DAILY HPI General Date/Time Provider Initiated Documentation: 01/26/25 16:24 . HPI Narrative: 69 year-old male presents to ED today by EMS with a chief complaint of weakness at home- has known cancer at L4, has assist chair to help him change positions from seated to standing, walks with a walker- which was his baseline yesterday and this morning- was visited by HomeHealth and given flu shot today- then had much worse weakness of his legs, could not get up off the toilet with onset mid- morning today. Quality described as profoundly weak in the legs, L leg pain, no radiation to chest pain, shortness of breath, fever, endorses body aches, denies cough, denies arm numbness/weakness. Severity is described as severe for leg weakness. Palliating factors include nothing specific attempted. Provoking factors include nothing specific. Events leading up to the incident/Associated Symptoms: Patient is followed by Oncology at [facility] [place], and recently had one kidney removed. Patient not anticoagulated. Related Data Home Medications ?Medication ?Instructions ?Recorded ?Confirmed cyanocobalamin (vitamin B-12) 1,000 mcg PO DAILY 11/1701/26/25 1,000 mcg tablet (Vitamin B-12) multivitamin (Daily Multi-Vitamin 1 tab PO DAILY 11/1701/26/25 tablet) blood sugar diagnostic (Blood #100 strips 09/05/16 Glucose Test strips) metoprolol succinate 25 mg 25 mg PO DAILY #90 tabs 01/26/25 tablet,extended release 24 hr amlodipine 10 mg tablet 10 mg PO DAILY #90 tabs 02/1201/26/25 atorvastatin 10 mg tablet 10 mg PO DAILY #90 tabs 04/1401/26/25 metformin 1,000 mg tablet 1,000 mg PO BID #180 tab-cap s 06/16/24 01/26/25 glipizide 10 mg tablet 10 mg PO DAILY #90 tabs 10/1201/26/25 insulin glargine-yfgn 100 unit/mL 20 unit (0.2 mL) sub cut QPM #15 mL 11/08/24 01/26/25 (3 mL) subcutaneous pen tamsulosin 0.4 mg capsule 0.4 mg PO DAILY 12/18/24 pen needle, diabetic 33 gauge x #100 ea 12/23/2401/03 (Unifine Pentips Plus) hydromorphone 2 mg tablet 2 mg PO Q6H PRN pain #20 tab s 01/20/25 01/26/25 (Dilaudid) naloxone 4 mg/actuation nasal 4 mg intranasal Q3M PRN opioid 01/20/25 01/26/25 spray (Narcan) overdose #2 ea losartan 100 1 tab PO DAILY 01/26/2501/11 mg-hydrochlorothiazide 25 mg tablet oxycodone 5 mg tablet 5 mg PO DAILY 01/26/2501/26 Previous Rx's ?Medication ?Instructions ?Recorded metoprolol succinate 25 mg 25 mg PO DAILY #90 tabs tablet,extended release 24 hr amlodipine 10 mg tablet 10 mg PO DAILY #90 tabs 02/12 10/04 atorvastatin 10 mg tablet 10 mg PO DAILY #90 tabs 04/14 metformin 1,000 mg tablet 1,000 mg PO BID #180 tab-cap s 06/16/24 glipizide 10 mg tablet 10 mg PO DAILY #90 tabs 10/12 01/05 insulin glargine-yfgn 100 unit/mL 20 unit (0.2 mL) sub cut QPM #15 mL 11/08/24 (3 mL) subcutaneous pen pen needle, diabetic 33 gauge x #100 ea 12/23/24 (Unifine Pentips Plus) hydromorphone 2 mg tablet 2 mg PO Q6H PRN pain #20 tab s 01/20/25 (Dilaudid) naloxone 4 mg/actuation nasal 4 mg intranasal Q3M PRN opioid 01/20/25 spray (Narcan) overdose #2 ea Allergies Allergy/AdvReac Type Severity Reaction Status Date / Time No Known Allergies Allergy Verified 01/26/25 16:21 General Stated Complaint: GenMedical BLAKE: 3 Review of Systems All systems reviewed & are unremarkable except as noted in HPI and below Exam Narrative Exam Narrative: GENERAL APPEARANCE: Malnourished, toxic, awake and alert, atraumatic, moderate acute distress. SKIN: Warm, pale, dry, intact, without rashes/lesions/ulcerations. HEAD: Normocephalic, atraumatic, normal hair distribution for gender/age. EYES: Normal conjunctiva, no exudates on lids/lashes. ENT: Nares patent, no circumoral cyanosis, no facial swelling NECK: Supple, trachea midline, painless cervical ROM. LUNGS/CHEST: Lungs CTA bilaterally- no rhonchi/rales/wheezes diffusely, non- labored respirations, normal A/P diameter, symmetrical expansion, no chest wall deformity HEART (CV/PV): Regular rate and rhythm without murmur, L LE peripheral edema, no JVD. ABDOMEN: Soft, non-distended, no guarding, no tenderness. MSK: No cyanosis, no upper extremity weakness, has 3/5 strength of bilat LEs with L LE swelling and petechial renteria angioma's diffusely, + medial thigh tenderness, Homans +, L dorsalis pedis pulse 2+ NEURO: Mental Status AAOx4 - alert to person, place, time, events No facial droop, no forehead involvement. Sensory: sensation intact to light touch globally. Gait failed ambulatory trial with walker PSYCH: euthymic, cooperative, pleasant, appropriate speech Course Vital Signs Vital signs: Vital Signs Temperature 35.6 C L 01/26/25 16:17 Pulse 97 H 01/26/25 16:17 Respiratory Rate 18 01/26/25 16:17 Blood Pressure 115/78 01/26/25 16:17 Pulse Oximetry 99 01/26/25 16:17 Temperature 35.6 C L 01/26/25 16:17 Temperature Source Temporal Artery Scan 01/26/25 16:17 Pulse 97 H 01/26/25 16:17 Respiratory Rate 18 01/26/25 16:17 Blood Pressure 115/78 01/26/25 16:17 Pulse Oximetry 99 01/26/25 16:17 Oxygen Delivery Method Room Air 01/26/25 16:17 Oxygen Flow Rate 0 01/26/25 16:17 Lab/Test Results Lab/Test Results: 01/26/25 17:30 Blood Blood Culture - Pending 01/26/25 17:11 Blood Blood Culture - Pending Laboratory Tests Range/Units 01/26/25 01/26/25 16:28 16:57 WBC (4.4-10.8) 10^3/uL 8.42 RBC (4.36-5.78) 10^6/uL 3.51 L Hgb (13.5-17.5) g/dL 10.7 L Hct (40.0-50.0) % 32.2 L MCV (80-95) fL 92 MCH (27.0-33.0) pg 30.5 MCHC (32.0-36.0) % 33.2 RDW (11.8-14.1) % 13.0 Plt Count (130-400) 10^3/uL 229 MPV (8.0-11.0) fL 9.9 Immature Gran % % 0.5 Neutrophils % % 78.5 Lymphocytes % % 11.8 Monocytes % % 6.7 Eosinophils % % 2.0 Basophils % % 0.5 Nucleated RBC % (0.0-0.3) % 0.0 Absolute Neutrophils (1.2-6.7) 10^3/uL 6.62 Absolute Lymphocytes (1.2-3.4) 10^3/uL 0.99 L Absolute Monocytes (0.1-0.8) 10^3/uL 0.56 Absolute Eosinophils (0.0-0.7) 10^3/uL 0.17 Absolute Basophils (0.0-0.2) 10^3/uL 0.04 ESR (0-20) mm/hr 32 H VBG Lactate (<or=2.0) mmol/L 4.8 H* Sodium (136-145) mmol/L 133 L Potassium (3.5-5.1) mmol/L 4.7 Chloride (98-107) mmol/L 96 L Carbon Dioxide (21.0-32.0) mmol/L 21.2 Anion Gap (3-11) mmol/L 15.8 H BUN (7-18) mg/dL 23 H Creatinine (0.70-1.30) mg/dL 1.7 H Est GFR (CKD-EPI 2020) (mL/min/1.73m2) 43.10 Glucose (74-106) mg/dL 204 H Calcium (8.5-10.1) mg/dL 9.3 Magnesium (1.8-2.4) mg/dL 2.0 Total Bilirubin (0.2-1.0) mg/dL 0.4 AST (15-37) U/L 24 ALT (16-63) U/L 37 Alkaline Phosphatase (46-116) U/L 136 H Creatine Kinase (39-308) U/L 45 Troponin I (<or=76) ng/L 11 C-Reactive Protein (<or=0.5) mg/dL < 0.50 Total Protein (6.4-8.2) g/dL 8.6 H Albumin (3.4-5.0) g/dL 3.6 Lipase (<78) U/L 30 TSH (0.36-3.74) uIU/mL 1.11 COVID-19 Source Nasopharynx SARS-CoV-2 (PCR) (Negative) Negative Influenza Type A (PCR) (Negative) Negative Influenza Type B (PCR) (Negative) Negative RSV (PCR) (Negative) Negative Medical Decision Making This dictation utilizes [id number] dictation software and may contain unedited grammatical errors. 69 year-old male presents to ED today by EMS with a chief complaint of weakness at home- has known cancer at L4, has assist chair to help him change positions from seated to standing, walks with a walker- which was his baseline yesterday and this morning- was visited by HomeHealth and given flu shot today- then had much worse weakness of his legs, could not get up off the toilet with onset mid- morning today. Quality described as profoundly weak in the legs, L leg pain, no radiation to chest pain, shortness of breath, fever, endorses body aches, denies cough, denies arm numbness/weakness. Severity is described as severe for leg weakness. Palliating factors include nothing specific attempted. Provoking factors include nothing specific. Events leading up to the incident/Associated Symptoms: Patient is followed by Oncology at [facility] [place], and recently had one kidney removed. Patients' medical history: Kidney stone extraction, tumor and L5 invasive, palliative care planning, bedsore on buttock, renal cell carcinoma, sarcoidosis, diabetes mellitus, hypertension. Family and social history: Lives at home with his , poor oral intake lately. Pertinent exam findings / vital signs include strength 3/5 in both legs, left leg is significantly swollen and has petechial renteria angiomas and swelling, positive Homans, medial thigh tenderness, benign abdomen, benign cardiopulmonary exam, appears fatigued. Differential / pathologies of concern include worsening invasion of his L4 tumor, reaction to flu vaccine, viral syndrome, dehydration, lactic acidosis, sepsis, DVT. Diagnostic studies of: - CBC, CMP, CRP/ESR, lactate, magnesium, troponin, lipase, TSH, Fluvid PCR swab, CTA aorta with runoffs,, CT lumbar spine without contrast. - CBC shows no leukocytosis, shows mild anemia with no left shift, normal platelets, mildly low lymphocytes - Lactate initially 4.8, reduced to 2.3 after 1 L fluids - CRP is negative, ESR is mildly elevated at 32 - CMP shows mild hyponatremia sodium 133, likely mild KAMILAL with creatinine 1.7, otherwise no actionable abnormalities - Magnesium within normal limits - Troponin negative - Lipase negative - TSH within normal limits - Respiratory PCR swab negative - UA not given by time of admission - CT aorta with runoff suggest DVT in the left leg - CT lumbar spine shows severe degeneration around his known tumor of the L4 area with possible epidural involvement and muscle invasion Interventions of: - 1 L IVF NS bolus followed by 150 an hour of second liter, 2 g cefepime, 1 g IV Tylenol, 400 mg Motrin, 10 mg apixaban given by p.o prior to admission. - Discussed with Hospitalist Dr. Daly for admission due to his inability to ambulate with trial, likely extensive DVT- accepted at 2109 ED Course/Assessment/Plan: Very affable 69-year-old male presents with profound weakness after receiving flu shot today, he has significant ambulatory deficits at home with difficulty some days getting around with his walker and needs a assist device to change positions from seated to standing, he has recent nephrectomy due to renal cell carcinoma as well as extensive L4 cancer. He is unable to lift his legs against gravity, he has significant swelling with signs on exam of DVT of the left lower extremity, we did not have ultrasound at this time due to his high risk for clot pathology to perform an aorta study especially with it being in such close proximity to his known ongoing cancer process, shows likely DVT and is started on apixaban, will be admitted to the hospital with debility, he does have follow-up planned for cancer center here at [place] tomorrow and at upcoming appointment at [facility] [place] next week. Disposition of Deep Vein Thrombosis (DVT) of Left Lower Extremity, Debility. Patient verbalized understanding of the plan and return to ED criteria and engaged in shared decision making. Medical Records Medical records reviewed: Yes I reviewed the patient's medical records. Imaging Data Radiologic Study: Attestation: I personally reviewed and interpreted this imaging study as follows: Imaging: CT Scan Radiologist's impression: Exam: CT Lumbar Spine Without Contrast Exam date and time: 01/26/2025 19:39 Age: 69 years old Clinical indication: Other: Known lumbar CA TECHNIQUE: Imaging protocol: Computed tomography of the lumbar spine without contrast. Radiation optimization: All CT scans at this facility use at least one of these dose optimization techniques: automated exposure control; mA and/or kV adjustment per patient size (includes targeted exams where dose is matched to clinical indication); or iterative reconstruction. COMPARISON: MR LUMBAR SPINE WO/W 01/06/2025 11:12 FINDINGS: Bones/joints: The likely mixed acuity pathologic appearing biconcave compression deformity of L4 demonstrates severe slightly progressive loss of height. The L4 deformity demonstrates areas of lucency, sclerosis and cortical step-off. Posterior vertebral body margin is very indistinct and epidural disease is difficult to exclude at this location. Moderate multilevel chronic degenerative changes are very similar. Neural foraminal stenosis is likely severe on the right at L5-S1. There is likely at least mild multilevel central canal stenosis most pronounced at the L4 level which is likely similar to prior. Soft tissues: No paraspinal lesions. Dominant L4 disease could extend into right psoas muscle. IMPRESSION: 1. Mixed acuity, pathologic appearing biconcave compression deformity of L4 demonstrates severe slightly progressive loss of height. 2. Possible epidural disease and at least mild central canal stenosis at L4. Could be worked up with pre postcontrast MRI. 3. Additional findings as described. Dictated and Authenticated by: Katelyn Ferrell MD. Radiologic Study #2: Attestation: I personally reviewed and interpreted this imaging study as follows: Imaging: CT Scan Radiologist's impression: Exam: CTA Abdominal Aorta and Bilateral Lower Extremities (Run-off) With Contrast Exam date and time: 01/26/2025 19:39 Age: 69 years old Clinical indication: Prior surgery; Surgery date: 6+ months; Surgery type: Knee replacement; L leg vascular changes, known active CA. Lumbar spine cancer TECHNIQUE: Imaging protocol: Computed tomographic angiography of the of the abdominal aorta, pelvis and bilateral lower extremities with contrast. 3D rendering (Not supervised by radiologist): MIP and/or 3D reconstructed images were created by the technologist. Radiation optimization: All CT scans at this facility use at least one of these dose optimization techniques: automated exposure control; mA and/or kV adjustment per patient size (includes targeted exams where dose is matched to clinical indication); or iterative reconstruction. Contrast material: [id number]; Contrast volume: 125 ml; Contrast route: INTRAVENOUS (IV); COMPARISON: CT ABDOMEN PELVIS W 01/03/2025 12:16 FINDINGS: Aorta: No aortic aneurysm. No aortic dissection. Celiac and mesenteric arteries: No occlusion or significant stenosis. Renal arteries: Ligation of the left renal artery. Right renal artery is widely patent. Right lower extremity arteries: Atherosclerosis burden is very minimal for the patient's age. Arteries are widely patent. Portion of right popliteal artery obscured. Patent three-vessel runoff distally without focal stenosis. Left lower extremity arteries: Atherosclerosis burden is very minimal for the patient's age. Patent three-vessel runoff distally to the level of the ankle without significant stenosis. Compared to the right lower extremity the dorsalis pedis and peroneal arteries opacify slightly less well, compared to the right, without a focal filling defect. Veins: Slightly expanded appearance left femoral and inguinal veins, patency of veins not possible to assess on this phase of imaging. Lungs: The lungs appear hyperinflated. Liver: Tiny hepatic probable cysts are similar to prior. These are not well assessed due to motion. Gallbladder and biliary ducts: Cholelithiasis versus contrast excreted into the gallbladder lumen would be new since prior. Motion artifact. Pancreas: No mass. No ductal dilation. Spleen: No splenomegaly. Adrenal glands: Normal. No mass. Kidneys and ureters: Left nephrectomy. No right renal mass or obstruction. Stomach and bowel: No gross acute pathology in the small bowel allowing for multifocal motion artifact. Appendix: No evidence of appendicitis. Urinary bladder: Unremarkable. No mass. Reproductive: The prostate gland is poorly assessed due to streak artifact and motion. Intraperitoneal space: No free air. No significant fluid collection. Lymph nodes: No lymphadenopathy. Bones/joints: Pathologic L4 deformity, please see lumbar spine CT same date. Right total knee arthroplasty is grossly a tail yaneth accounting for artifact. Multifocal degenerative changes. No acute fracture or subluxation. Soft tissues: Moderate asymmetric enlargement of left quadriceps and hamstring musculature without a measurable hematoma or other collection, similar finding in the left calf musculature. Other findings: Motion artifact in the abdomen. Mild edema throughout the left lower extremity. IMPRESSION: 1. No acute arterial pathology. Patent three-vessel runoff bilaterally. Further details as above. 2. Asymmetric enlargement of left lower extremity musculature, left lower extremity edema. Slightly expanded appearance of left deep veins as above. Duplex ultrasound is recommended to exclude DVT. 3. Additional findings as described. Dictated and Authenticated by: Katelyn Ferrell MD. Lab Data Lab results reviewed: Yes I reviewed the patient's lab results. Labs: 01/26/25 17:30 Blood Blood Culture - Pending 01/26/25 17:11 Blood Blood Culture - Pending Laboratory Tests Range/Units 01/26/25 01/26/25 01/26/25 16:28 16:57 18:45 WBC (4.4-10.8) 10^3/uL 8.42 RBC (4.36-5.78) 10^6/uL 3.51 L Hgb (13.5-17.5) g/dL 10.7 L Hct (40.0-50.0) % 32.2 L MCV (80-95) fL 92 MCH (27.0-33.0) pg 30.5 MCHC (32.0-36.0) % 33.2 RDW (11.8-14.1) % 13.0 Plt Count (130-400) 10^3/uL 229 MPV (8.0-11.0) fL 9.9 Immature Gran % % 0.5 Neutrophils % % 78.5 Lymphocytes % % 11.8 Monocytes % % 6.7 Eosinophils % % 2.0 Basophils % % 0.5 Nucleated RBC % (0.0-0.3) % 0.0 Absolute Neutrophils (1.2-6.7) 10^3/uL 6.62 Absolute Lymphocytes (1.2-3.4) 10^3/uL 0.99 L Absolute Monocytes (0.1-0.8) 10^3/uL 0.56 Absolute Eosinophils (0.0-0.7) 10^3/uL 0.17 Absolute Basophils (0.0-0.2) 10^3/uL 0.04 ESR (0-20) mm/hr 32 H VBG Lactate (<or=2.0) mmol/L 4.8 H* 2.3 H* Sodium (136-145) mmol/L 133 L Potassium (3.5-5.1) mmol/L 4.7 Chloride (98-107) mmol/L 96 L Carbon Dioxide (21.0-32.0) mmol/L 21.2 Anion Gap (3-11) mmol/L 15.8 H BUN (7-18) mg/dL 23 H Creatinine (0.70-1.30) mg/dL 1.7 H Est GFR (CKD-EPI 2020) (mL/min/1.73m2) 43.10 Glucose (74-106) mg/dL 204 H Calcium (8.5-10.1) mg/dL 9.3 Magnesium (1.8-2.4) mg/dL 2.0 Total Bilirubin (0.2-1.0) mg/dL 0.4 AST (15-37) U/L 24 ALT (16-63) U/L 37 Alkaline Phosphatase (46-116) U/L 136 H Creatine Kinase (39-308) U/L 45 Troponin I (<or=76) ng/L 11 C-Reactive Protein (<or=0.5) mg/dL < 0.50 Total Protein (6.4-8.2) g/dL 8.6 H Albumin (3.4-5.0) g/dL 3.6 Lipase (<78) U/L 30 TSH (0.36-3.74) uIU/mL 1.11 COVID-19 Source Nasopharynx SARS-CoV-2 (PCR) (Negative) Negative Influenza Type A (PCR) (Negative) Negative Influenza Type B (PCR) (Negative) Negative RSV (PCR) (Negative) Negative Quality:SDOH Health Related Social Needs: Health related social needs daily activities Health related social needs details physical therapy PFSH All Active Problems (Updated 01/26/25 @ 21:17 by PONCE Tong) Debility (Acute) Deep vein thrombosis (DVT) of left lower extremity (Acute) Elevated liver enzymes (Acute) Pathologic fracture (Acute) Back pain (Acute) Advanced care planning/counseling discussion (Acute) Palliative care by specialist (Acute) Bed sore on buttock (Acute) Pathologic fracture of lumbar vertebra (Acute) Symptomatic anemia (Acute) Anemia due to blood loss (Acute) KAMILLA (acute kidney injury) (Acute) Complication, blocked Carrillo catheter (Acute) Renal cell carcinoma (Acute) Gross hematuria (Acute) Urinary retention (Acute) Renal cell carcinoma (Acute) Complication, blocked Carrillo catheter (Acute) Renal cell carcinoma (Acute) Acute pyelonephritis (Acute) Arthritis pain, hip (Acute) Sarcoidosis (Acute 01/09/14) Overweight (Chronic) Ear congestion (Acute) likely ET dysfunction due to recent cold / ? allergy Diabetes mellitus (Chronic) A1c in office today 7.9 Hypertension (Chronic) not well controlled today Cough (Acute) likely viral bronchitis Erectile dysfunction (Chronic) Glucose intolerance (Acute) 02/15/18 LLUVIA LOJA; GLUCOSE 156 Lumbago (Acute) Fracture of distal phalanx of finger (Acute 11/23/12) Type 2 diabetes mellitus without complication, without long-term current use of insulin (Acute 02/25/16) Tobacco use disorder (Acute) CHEWS TOBACCO Sexual function problem (Acute) Pernicious anemia (Acute) Onychomycosis (Acute) Medial meniscus tear (Acute) RIGHT-04/02/16 Knee pain (Acute) ? MENISCUS Hiatal hernia (Acute) Essential hypertension (Acute) Dysplastic nevi (Acute 08/26/17) multiple Diverticulosis of colon without diverticulitis (Acute) Diabetes mellitus type 2, uncontrolled (Acute 03/24/14) Surgical History History of back surgery (~02/15/18) LLUVIA EDISON LOJA crushed thumb (11/17/12) Kidney Stone Extraction (~2004) Colonoscopy - IV Sedation (02/19/15) DR.C. WREN Arthroplasty of knee 04/02/16-RIGHT;DR. GUARDADO 08/19/16 RIGHT;[facility] Family History Mother , AGE 78 Essential hypertension MS (multiple sclerosis) Throat cancer Father Essential hypertension Diabetes Heart disease Sister Essential hypertension Diabetes Brother Essential hypertension Diabetes Maternal Grandfather , AGE 69 Essential hypertension Heart disease Paternal Grandfather , AGE 85 Essential hypertension Heart disease Maternal Grandmother , AGE 94 Essential hypertension Heart disease Paternal Grandmother , AGE 90 Essential hypertension Heart disease Son Substance abuse Son No problems noted. Daughter No problems noted. Social History Smoking/Tobacco Use Status: Current every day Tobacco Type: smokeless tobacco Tobacco: How many years used: 40 Smokeless tobacco user: chewing tobacco Quit status: has quit before Second Hand Exposure: Yes Smoking risk assessment performed?: Yes Alcohol Intake: former Drug use: Never Substance use type: does not use Counseling given: No Adopted: No Caregiver/Support person: No Household members: spouse Housing: house Communication Needs: None Do you need help understanding health information?: Rarely Pets and animals: No Sexually active: Yes Do you think of yourself as: straight/heterosexual Current gender identity: male What is your relationship status?: How often do you talk on the phone with friends or family?: three or more times per week How often do you get together with friends or relatives?: decline to answer How often do you attend nondenominational or moravian services?: decline to answer Do you belong to any clubs or organized social groups?: no Panel score (0-1 are the most socially isolated patients): 2 What type of physical activity do you participate in: walking Duration: 15-30 minutes/day Frequency: 3-4 times per week Adilene/Yarsanism: No preference Special adilene needs: No Seatbelt use: always Helmet use: Yes Helmet use: always Drive intox or ride w/intox cdl driver: No Do you feel safe at home: Yes Do you feel safe in your relationship?: Yes
[2025-01-26] MEDS: Normal Saline 1,000 ML 150 ML IV (19:24)
[2025-01-26] MEDS: Normal Saline - Diluent 50 ML VIAL IJ ×2 (19:40→19:41)
[2025-01-26] MEDS: Normal Saline Flush 10 ML SYR IVP (19:40)
[2025-01-26] MEDS: Omnipaque 350 MG/ML 50 ML BTL IJ (19:41)
[2025-01-26] MEDS: Omnipaque 350 MG/ML 100 ML BTL IJ (19:43)
--- NOTE | 2025-01-26 20:24 | DI.CT_ITS ---
Exam(s) CT LUMBAR SPINE RECONS CT ABD AORTA CTA W RUNOFF EXAM: CT ABD AORTA CTA W RUNOFF CLINICAL HISTORY: L leg vascular changes, known active CA. TECHNIQUE: Imaging Protocol: Axial CT angiography was performed with multi- slice acquisition and multi-planar and/or 3D reconstructions. CONTRAST MATERIAL: Intravenous: Omnipaque 350 Contrast volume:structured data in ml Contrast route:IV - Oral: / no COMPARISON: CT CT ABDOMEN PELVIS W from 01/03/[address] LUMBAR SPINE RECONS from 01/26/2025 US US LOWER EXTREMITY VENOUS LT from 01/27/2025 FINDINGS: Exam is limited by motion. Vascular Structures: Mildly dilated left common femoral and superficial femoral vein compared to the right side. Mild dilatation of the left saphenous vein. Soft tissues: Mild left lower extremity edema. Asymmetric edema in the left lower extremity musculature. No focal hematoma is visible. No fluid collection. Heart: Normal size. Coronary artery calcifications. Pulmonary arteries: Well opacified with IV contrast. There is a small thrombus visible within a left lower lobe pulmonary artery. Abdomen: Celiac [place]: No significant stenosis. SMA: No significant stenosis. Renal Arteries: Right: No significant stenosis. There is a single renal artery perfusing the right kidney. Status post left nephrectomy. Aorta: No aneurysm. No dissection. Pelvis: Iliac Arteries: No significant stenosis. Common Femoral Arteries: No significant stenosis. Lower extremities: Right: Common Femoral: No significant stenosis. Superficial Femoral: No significant stenosis. Popliteal: Partially obscured by artifact secondary to knee prosthesis. Knee Trifurcation: Minimal calcification. No significant stenosis. Posterior Tibial: Mild irregularity with mild multifocal calcifications., greater distally. Knqv-rh-flhsfudv multifocal stenosis. Peroneal: Mrhq-lg-gqtqyzwb multifocal stenosis. Dorsalis Pedis: Lsjm-mc-oasazniv multifocal areas of stenosis. Left: Common Femoral: No significant stenosis. Superficial Femoral: No significant stenosis. Popliteal: No significant stenosis. Knee Trifurcation: Mild calcifications. No significant stenosis. Posterior Tibial: Mild to moderate multifocal areas of stenosis. Peroneal: Mild to moderate multifocal areas of stenosis. Dorsalis Pedis: Ewoz-vi-kflyugux multifocal areas of stenosis. Abdomen/pelvic CT: Lungs: No acute findings. Liver: Evaluation limited by motion. Normal density. No measurable mass. Gallbladder and biliary tract: Layering high density material in the gallbladder could represent stones are or contrast. Was not seen on the previous exam. No biliary dilation. Pancreas: Normal density, no abnormal calcifications or inflammatory process. Spleen: Normal. Kidneys: The right kidney is normal size, contour and axis. No radiodense stones or obstructive uropathy. No masses seen. Adrenal glands: No masses seen. Status post left nephrectomy. No residual postsurgical collection. Bladder: Nearly empty. Bowel: No obstruction or bowel wall thickening. Peritoneal/retroperitoneal cavity: Collection noted anterior to the left psoas muscle measuring 2.5 by 2.5 by 8.6 cm in length. Rounded density again noted at to the left of the aorta, at the L4 level small amount of fluid in low pelvis which may be residual from prior surgery. No mesenteric inflammatory response. Lumbar spine/bones: Pathologic fracture again noted involving the L4 vertebral body with some increase in central compression when compared with the previous exam. There is retropulsion into the central canal which appears greater when compared the previous exam. Remaining vertebral bodies appear intact. The discs are maintained. Right knee prosthesis. Reproductive: Unremarkable. IMPRESSION: Exam is limited by motion. Pulmonary embolus noted in left lower lobe pulmonary artery. The left-sided venous system appears dilated compared to the right side. The veins are not opacified on this exam. Left lower extremity ultrasound is recommended. Pathologic fracture again noted which is slightly worsened when compared with the previous exam with increasing retro percent into the central canal. Collections remain present anterior to the L4 vertebral body and left psoas muscle. Mild multifocal irregular areas of stenosis involving both lower extremity arteries below the level of the trifurcation, left greater than right however the vessels appear patent the level of the foot. Diffuse left lower extremity muscular swelling without visible hematoma or drainable fluid collection. Findings of PE were communicated to the hospitalist. The preliminary [facility] report was reviewed. RADIATION DOSE DELIVERED: 779.43mGy.cm Total DLP DATA REPOSITORY: All CT scans at this facility are submitted to the National Radiology Data Registry (NRDR) Dose Index Registry (DIR) with the [employer] (A[employer]). RADIATION OPTIMIZATION: All CT scans at this facility use at least one of these dose optimization techniques: automated exposure control; mA and/or kV adjustment per patient size (includes targeted exams where dose is matched to clinical indication); or iterative reconstruction.
--- NOTE | 2025-01-26 20:50 | DI.[facility]_ITS ---
PROCEDURE INFORMATION: Exam: CT Lumbar Spine Without Contrast Exam date and time: 01/26/2025 19:39 Age: 69 years old Clinical indication: Other: Known lumbar CA TECHNIQUE: Imaging protocol: Computed tomography of the lumbar spine without contrast. Radiation optimization: All CT scans at this facility use at least one of these dose optimization techniques: automated exposure control; mA and/or kV adjustment per patient size (includes targeted exams where dose is matched to clinical indication); or iterative reconstruction. COMPARISON: MR LUMBAR SPINE WO/W 01/06/2025 11:12 FINDINGS: Bones/joints: The likely mixed acuity pathologic appearing biconcave compression deformity of L4 demonstrates severe slightly progressive loss of height. The L4 deformity demonstrates areas of lucency, sclerosis and cortical step-off. Posterior vertebral body margin is very indistinct and epidural disease is difficult to exclude at this location. Moderate multilevel chronic degenerative changes are very similar. Neural foraminal stenosis is likely severe on the right at L5-S1. There is likely at least mild multilevel central canal stenosis most pronounced at the L4 level which is likely similar to prior. Soft tissues: No paraspinal lesions. Dominant L4 disease could extend into right psoas muscle. IMPRESSION: 1. Mixed acuity, pathologic appearing biconcave compression deformity of L4 demonstrates severe slightly progressive loss of height. 2. Possible epidural disease and at least mild central canal stenosis at L4. Could be worked up with pre postcontrast MRI. 3. Additional findings as described. Dictated and Authenticated by: Katelyn Ferrell MD. Orderin Harmony Lozoya MD
--- NOTE | 2025-01-26 20:55 | DI.[facility]_ITS ---
PROCEDURE INFORMATION: Exam: CTA Abdominal Aorta and Bilateral Lower Extremities (Run-off) With Contrast Exam date and time: 01/26/2025 19:39 Age: 69 years old Clinical indication: Prior surgery; Surgery date: 6+ months; Surgery type: Knee replacement; L leg vascular changes, known active CA. Lumbar spine cancer TECHNIQUE: Imaging protocol: Computed tomographic angiography of the of the abdominal aorta, pelvis and bilateral lower extremities with contrast. 3D rendering (Not supervised by radiologist): MIP and/or 3D reconstructed images were created by the technologist. Radiation optimization: All CT scans at this facility use at least one of these dose optimization techniques: automated exposure control; mA and/or kV adjustment per patient size (includes targeted exams where dose is matched to clinical indication); or iterative reconstruction. Contrast material: [id number]; Contrast volume: 125 ml; Contrast route: INTRAVENOUS (IV); COMPARISON: CT ABDOMEN PELVIS W 01/03/2025 12:16 FINDINGS: Aorta: No aortic aneurysm. No aortic dissection. Celiac and mesenteric arteries: No occlusion or significant stenosis. Renal arteries: Ligation of the left renal artery. Right renal artery is widely patent. Right lower extremity arteries: Atherosclerosis burden is very minimal for the patient's age. Arteries are widely patent. Portion of right popliteal artery obscured. Patent three-vessel runoff distally without focal stenosis. Left lower extremity arteries: Atherosclerosis burden is very minimal for the patient's age. Patent three-vessel runoff distally to the level of the ankle without significant stenosis. Compared to the right lower extremity the dorsalis pedis and peroneal arteries opacify slightly less well, compared to the right, without a focal filling defect. Veins: Slightly expanded appearance left femoral and inguinal veins, patency of veins not possible to assess on this phase of imaging. Lungs: The lungs appear hyperinflated. Liver: Tiny hepatic probable cysts are similar to prior. These are not well assessed due to motion. Gallbladder and biliary ducts: Cholelithiasis versus contrast excreted into the gallbladder lumen would be new since prior. Motion artifact. Pancreas: No mass. No ductal dilation. Spleen: No splenomegaly. Adrenal glands: Normal. No mass. Kidneys and ureters: Left nephrectomy. No right renal mass or obstruction. Stomach and bowel: No gross acute pathology in the small bowel allowing for multifocal motion artifact. Appendix: No evidence of appendicitis. Urinary bladder: Unremarkable. No mass. Reproductive: The prostate gland is poorly assessed due to streak artifact and motion. Intraperitoneal space: No free air. No significant fluid collection. Lymph nodes: No lymphadenopathy. Bones/joints: Pathologic L4 deformity, please see lumbar spine CT same date. Right total knee arthroplasty is grossly a tail yaneth accounting for artifact. Multifocal degenerative changes. No acute fracture or subluxation. Soft tissues: Moderate asymmetric enlargement of left quadriceps and hamstring musculature without a measurable hematoma or other collection, similar finding in the left calf musculature. Other findings: Motion artifact in the abdomen. Mild edema throughout the left lower extremity. IMPRESSION: 1. No acute arterial pathology. Patent three-vessel runoff bilaterally. Further details as above. 2. Asymmetric enlargement of left lower extremity musculature, left lower extremity edema. Slightly expanded appearance of left deep veins as above. Duplex ultrasound is recommended to exclude DVT. 3. Additional findings as described. Dictated and Authenticated by: Katelyn Ferrell MD. Orderin Harmony Loozya MD
[2025-01-26] MEDS: Apixaban 5 MG TAB 10 MG PO (21:13)
--- NOTE | 2025-01-26 21:26 | W.PM.HP.N ---
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 There is a compression fracture of his L4 lumbar vertebrae. He will have ultrasound of his left lower extremity to confirm DVT suggested on CTA of the lower extremity. He has on treatment dose of Eliquis at 10 mg twice daily. This will need to be cleared prior to discharge to make sure this is covered by his insurance. Physical therapy will see the patient to assess ability to ambulate safely with the patient previously using a walker. His pain has progressed and he may require different assistive devices though sitting sometimes is more uncomfortable than standing according to the patient. He was dehydrated and this will be corrected with IV fluids with follow-up lab. Anticipation is that he will be discharged home and he does have follow-up with oncology tomorrow which may be rescheduled. He has a full code. (2) Acute dehydration: Start date: 01/26/25 Status: Acute Assessment and plan: Patient has acute elevation of his creatinine and lactate with these to be followed up in the morning after IV hydration overnight. He needs to be encouraged to increase his hydration orally at home with patient have decreased appetite and thirst. This may be a chronic problem. (3) Ambulatory dysfunction: Start date: 01/26/25 Status: Acute Assessment and plan: Patient has acute worsening of his ambulation secondary to generalized weakness with flu shot and dehydration but also secondary to increasing pain down his left leg more than the right with his compression fracture and metastases from his renal cell carcinoma. He is going to have PT evaluation and may have to change his modalities for ambulation at home. Sitting hurts is much as standing so a wheelchair may not be the immediate answer. Follow-up with oncology with plans for possible x-ray therapy which may help with his pain. (4) Hypertension: Status: Chronic Assessment and plan: Continue outpatient medical therapy modified as needed. (5) Renal cell carcinoma: Status: Chronic Assessment and plan: Recent diagnosis this last summer status post left nephrectomy but now dealing with metastases to his spine which is complicated. Continue follow-up with oncology. (6) Diabetes mellitus: Status: Chronic Assessment and plan: Hold outpatient medical therapy and check glucometers before meals and at bedtime with moderate sliding scale insulin coverage. History of Present Illness History of Present Illness Chief Complaint: Sudden onset weakness after flu shot, left leg swelling Narrative: This is a 69-year-old male patient with history of degenerative disc disease radiating to which is a more recently having gross hematuria which was painless and was diagnosed with left renal cell carcinoma in October 2024 with left nephrectomy December 2024. Patient does have a history of degenerative disc disease and spinal stenosis prior to back surgery in 2017 where he is symptoms with sciatica down both legs resolved. More recently with his diagnosis of renal cell carcinoma, he has been diagnosed with metastases to his lumbar spine with pathologic compression fracture. This is causing pain going down both legs but mostly on the left side. He did have a sudden onset of swelling in his left leg prior to presentation to the ED. He came to the ED because of inability to walk or ambulate as he was with a walker prior. There was a sudden worsening the day of presentation. He feels that the flu shot he got the day of presentation may have made him worse. The patient denies any fever. His weakness and inability to walk is mostly secondary to pain. He is on advancing narcotic therapy for pain management which is recent onset with prescribing per PDMP only for this fall. He was on oxycodone and now on Dilaudid. His takes care of his medications. The patient had not been eating and drinking well in general but this worsened over the last week. He has had no cough, fever or urinary symptoms. He does have some pain in his left leg with the swelling making this worse. He is not incontinent of urine or stool. The patient will be admitted for IV hydration-received bolus of fluid in the ED and now on an infusion of 150 cc/h of normal saline. He did have elevated lactate which should improve with IV hydration. He also had an elevation in his creatinine. His sodium was low and will be monitored. He will continue his outpatient pain management and PT evaluation will be performed before discharge home. He may need to convert his house to a wheelchair accessible home. Prognosis is poor for immediate change in his symptoms though there is plan for probable radiation therapy for his lumbar metastases. Patient remains a full code. [facility] All Active Problems (Updated 01/26/25 @ 21:44 by Kelton Daly) Acute dehydration (Acute) Ambulatory dysfunction (Acute) Debility (Acute) Deep vein thrombosis (DVT) of left lower extremity (Acute) Elevated liver enzymes (Acute) Pathologic fracture (Acute) Back pain (Acute) Advanced care planning/counseling discussion (Acute) Palliative care by specialist (Acute) Bed sore on buttock (Acute) Pathologic fracture of lumbar vertebra (Acute) Symptomatic anemia (Acute) Anemia due to blood loss (Acute) KAMILLA (acute kidney injury) (Acute) Complication, blocked Carrillo catheter (Acute) Renal cell carcinoma (Chronic) Gross hematuria (Acute) Urinary retention (Acute) Renal cell carcinoma (Acute) Complication, blocked Carrillo catheter (Acute) Renal cell carcinoma (Acute) Acute pyelonephritis (Acute) Arthritis pain, hip (Acute) Sarcoidosis (Acute 01/09/14) Overweight (Chronic) Ear congestion (Acute) likely ET dysfunction due to recent cold / ? allergy Diabetes mellitus (Chronic) A1c in office today 7.9 Hypertension (Chronic) not well controlled today Cough (Acute) likely viral bronchitis Erectile dysfunction (Chronic) Glucose intolerance (Acute) 02/15/18 LLUVIA LOJA; GLUCOSE 156 Lumbago (Acute) Fracture of distal phalanx of finger (Acute 11/23/12) Type 2 diabetes mellitus without complication, without long-term current use of insulin (Acute 02/25/16) Tobacco use disorder (Acute) CHEWS TOBACCO Sexual function problem (Acute) Pernicious anemia (Acute) Onychomycosis (Acute) Medial meniscus tear (Acute) RIGHT-04/02/16 Knee pain (Acute) ? MENISCUS Hiatal hernia (Acute) Essential hypertension (Acute) Dysplastic nevi (Acute 08/26/17) multiple Diverticulosis of colon without diverticulitis (Acute) Diabetes mellitus type 2, uncontrolled (Acute 03/24/14) Surgical History History of back surgery (~02/15/18) LLUVIA LOJA crushed thumb (11/17/12) Kidney Stone Extraction (~2004) Colonoscopy - IV Sedation (02/19/15) DR.C. WREN Arthroplasty of knee 04/02/16-RIGHT;DR. GUARDADO 08/19/16 RIGHT;[facility] Family History Mother , AGE 78 Essential hypertension MS (multiple sclerosis) Throat cancer Father Essential hypertension Diabetes Heart disease Sister Essential hypertension Diabetes Brother Essential hypertension Diabetes Maternal Grandfather , AGE 69 Essential hypertension Heart disease Paternal Grandfather , AGE 85 Essential hypertension Heart disease Maternal Grandmother , AGE 94 Essential hypertension Heart disease Paternal Grandmother , AGE 90 Essential hypertension Heart disease Son Substance abuse Son No problems noted. Daughter No problems noted. Social History Smoking/Tobacco Use Status: Current every day Tobacco Type: smokeless tobacco Tobacco: How many years used: 40 Smokeless tobacco user: chewing tobacco Quit status: has quit before Second Hand Exposure: Yes Smoking risk assessment performed?: Yes Alcohol Intake: former Drug use: Never Substance use type: does not use Counseling given: No Adopted: No Caregiver/Support person: No Household members: spouse Housing: house Communication Needs: None Do you need help understanding health information?: Rarely Pets and animals: No Sexually active: Yes Do you think of yourself as: straight/heterosexual Current gender identity: male What is your relationship status?: How often do you talk on the phone with friends or family?: three or more times per week How often do you get together with friends or relatives?: decline to answer How often do you attend caodaism or sikhism services?: decline to answer Do you belong to any clubs or organized social groups?: no Panel score (0-1 are the most socially isolated patients): 2 What type of physical activity do you participate in: walking Duration: 15-30 minutes/day Frequency: 3-4 times per week [place]/Church: No preference Special adilene needs: No Seatbelt use: always Helmet use: Yes Helmet use: always Drive intox or ride w/intox shuttle bus driver: No Do you feel safe at home: Yes Do you feel safe in your relationship?: Yes Meds Allergies and Home Medications Allergies Allergy/AdvReac Type Severity Reaction Status Date / Time No Known Allergies Allergy Verified 01/26/25 16:21 Home Medications ?Medication ?Instructions ?Recorded ?Confirmed ?Type cyanocobalamin (vitamin B-12) 1,000 mcg PO DAILY 11/17/12 01/26/25 History 1,000 mcg tablet (Vitamin B-12) multivitamin (Daily Multi-Vitamin 1 tab PO DAILY 11/17/12 01/26/25 History tablet) blood sugar diagnostic (Blood #100 strips 09/05/16 01/26/25 History Glucose Test strips) metoprolol succinate 25 mg 25 mg PO DAILY #90 tabs 02/02/24 01/26/25 Rx tablet,extended release 24 hr amlodipine 10 mg tablet 10 mg PO DAILY #90 tabs 03/08/24 01/26/25 Rx atorvastatin 10 mg tablet 10 mg PO DAILY #90 tabs 05/02/24 01/26/25 Rx metformin 1,000 mg tablet 1,000 mg PO BID #180 tab-caps 06/16/24 01/26/25 Rx glipizide 10 mg tablet 10 mg PO DAILY #90 tabs 11/08/24 01/26/25 Rx insulin glargine-yfgn 100 unit/mL 20 unit (0.2 mL) subcut QPM #15 mL 11/08/24 01/26/25 Rx (3 mL) subcutaneous pen tamsulosin 0.4 mg capsule 0.4 mg PO DAILY 12/18/24 01/26/25 History pen needle, diabetic 33 gauge x #100 ea 12/23/24 01/26/25 Rx 5/32 (Unifine Pentips Plus) hydromorphone 2 mg tablet 2 mg PO Q6H PRN pain #20 tabs 01/20/25 01/26/25 Rx (Dilaudid) naloxone 4 mg/actuation nasal 4 mg intranasal Q3M PRN opioid 01/20/25 01/26/25 Rx spray (Narcan) overdose #2 ea losartan 100 1 tab PO DAILY 01/26/25 01/26/25 History mg-hydrochlorothiazide 25 mg tablet oxycodone 5 mg tablet 5 mg PO DAILY 01/26/25 01/26/25 History Exam Narrative Exam Narrative: General: Patient appears appropriate for age, in no acute distress when lying in bed with head at a 60 degree angle. He is alert and oriented x 3. He does have slightly pressured speech and does repeat himself in conversation. He does appear overwhelmed by his recent illness. HEENT: Normocephalic, eyes with pupils equal and reactive to light symmetrically, extraocular movement intact and sclera anicteric. Oropharynx with dry mucosa and fair dentition. Neck: Supple without JVD. Back: Loss of lumbar lordosis, tender to palpation of the lumbar spine with patient not having positive straight leg test lying in bed with his hips flexed almost at a 90 degree angle. No CVA tenderness. Lungs: Aeration and clear to auscultation and percussion. No focalized rales or rhonchi. No expiratory wheeze. Heart: Regular rate and rhythm with no murmurs or gallops appreciated. Abdomen: Scaphoid contour, soft to palpation with no guarding or rebound. No palpable hepatosplenomegaly. Well-healed laparoscopy scars over his lower abdomen. Bowel sounds positive all quadrants. Genitalia/rectal: Exam deferred. Skin: Normal color, warm and dry. Extremities: Without clubbing, cyanosis or pitting edema with nonpitting edema over left leg and some tenderness over the calf with Homans' sign not tested, (Ultrasound of left lower extremity is scheduled for during the day). Fair capillary refill. Neuro: Cranial nerves II through XII gross intact, no focalized motor deficits the patient does not move his lower extremities without increased pain but has ability to move all extremities. No tremor. Psych: Slightly euphoric affect with pressured speech the patient seeming anxious and overwhelmed from his acute disease and progression of pain. No abnormal thought processes. Remote and recent memory intact. Results Imaging Imaging Studies: Exam: CT Lumbar Spine Without Contrast Exam date and time: 01/26/2025 19:39 Age: 69 years old Clinical indication: Other: Known lumbar CA COMPARISON: MR LUMBAR SPINE WO/W 01/06/2025 11:12 FINDINGS: Bones/joints: The likely mixed acuity pathologic appearing biconcave compression deformity of L4 demonstrates severe slightly progressive loss of height. The L4 deformity demonstrates areas of lucency, sclerosis and cortical step-off. Posterior vertebral body margin is very indistinct and epidural disease is difficult to exclude at this location. Moderate multilevel chronic degenerative changes are very similar. Neural foraminal stenosis is likely severe on the right at L5-S1. There is likely at least mild multilevel central canal stenosis most pronounced at the L4 level which is likely similar to prior. Soft tissues: No paraspinal lesions. Dominant L4 disease could extend into right psoas muscle. IMPRESSION: 1. Mixed acuity, pathologic appearing biconcave compression deformity of L4 demonstrates severe slightly progressive loss of height. 2. Possible epidural disease and at least mild central canal stenosis at L4. Could be worked up with pre postcontrast MRI. 3. Additional findings as described. Exam: CTA Abdominal Aorta and Bilateral Lower Extremities (Run-off) With Contrast Exam date and time: 01/26/2025 19:39 Age: 69 years old Clinical indication: Prior surgery; Surgery date: 6+ months; Surgery type: Knee replacement; L leg vascular changes, known active CA. Lumbar spine cancer COMPARISON: CT ABDOMEN PELVIS W 01/03/2025 12:16 FINDINGS: Aorta: No aortic aneurysm. No aortic dissection. Celiac and mesenteric arteries: No occlusion or significant stenosis. Renal arteries: Ligation of the left renal artery. Right renal artery is widely patent. Right lower extremity arteries: Atherosclerosis burden is very minimal for the patient's age. Arteries are widely patent. Portion of right popliteal artery obscured. Patent three-vessel runoff distally without focal stenosis. Left lower extremity arteries: Atherosclerosis burden is very minimal for the patient's age. Patent three-vessel runoff distally to the level of the ankle without significant stenosis. Compared to the right lower extremity the dorsalis pedis and peroneal arteries opacify slightly less well, compared to the right, without a focal filling defect. Veins: Slightly expanded appearance left femoral and inguinal veins, patency of veins not possible to assess on this phase of imaging. Lungs: The lungs appear hyperinflated. Liver: Tiny hepatic probable cysts are similar to prior. These are not well assessed due to motion. Gallbladder and biliary ducts: Cholelithiasis versus contrast excreted into the gallbladder lumen would be new since prior. Motion artifact. Pancreas: No mass. No ductal dilation. Spleen: No splenomegaly. Adrenal glands: Normal. No mass. Kidneys and ureters: Left nephrectomy. No right renal mass or obstruction. Stomach and bowel: No gross acute pathology in the small bowel allowing for multifocal motion artifact. Appendix: No evidence of appendicitis. Urinary bladder: Unremarkable. No mass. Reproductive: The prostate gland is poorly assessed due to streak artifact and motion. Intraperitoneal space: No free air. No significant fluid collection. Lymph nodes: No lymphadenopathy. Bones/joints: Pathologic L4 deformity, please see lumbar spine CT same date. Right total knee arthroplasty is grossly a tail yaneth accounting for artifact. Multifocal degenerative changes. No acute fracture or subluxation. Soft tissues: Moderate asymmetric enlargement of left quadriceps and hamstring musculature without a measurable hematoma or other collection, similar finding in the left calf musculature. Other findings: Motion artifact in the abdomen. Mild edema throughout the left lower extremity. IMPRESSION: 1. No acute arterial pathology. Patent three-vessel runoff bilaterally. Further details as above. 2. Asymmetric enlargement of left lower extremity musculature, left lower extremity edema. Slightly expanded appearance of left deep veins as above. Duplex ultrasound is recommended to exclude DVT. 3. Additional findings as described. Labs 01/27/25 05:40 01/27/25 08:30 Labs: Laboratory Results - last 24 hr 01/26/25 01/26/25 01/26/25 16:28 16:57 18:45 WBC 8.42 RBC 3.51 L Hgb 10.7 L Hct 32.2 L MCV 92 MCH 30.5 MCHC 33.2 RDW 13.0 Plt Count 229 MPV 9.9 Immature Gran % 0.5 Neutrophils % 78.5 Lymphocytes % 11.8 Monocytes % 6.7 Eosinophils % 2.0 Basophils % 0.5 Nucleated RBC % 0.0 Absolute Neutrophils 6.62 Absolute Lymphocytes 0.99 L Absolute Monocytes 0.56 Absolute Eosinophils 0.17 Absolute Basophils 0.04 ESR 32 H VBG Lactate 4.8 H* 2.3 H* Sodium 133 L Potassium 4.7 Chloride 96 L Carbon Dioxide 21.2 Anion Gap 15.8 H BUN 23 H Creatinine 1.7 H Est GFR (CKD-EPI 2020) 43.10 Glucose 204 H Calcium 9.3 Magnesium 2.0 Total Bilirubin 0.4 AST 24 ALT 37 Alkaline Phosphatase 136 H Creatine Kinase 45 Troponin I 11 C-Reactive Protein < 0.50 Total Protein 8.6 H Albumin 3.6 Lipase 30 TSH 1.11 COVID-19 Source Nasopharynx SARS-CoV-2 (PCR) Negative Influenza Type A (PCR) Negative Influenza Type B (PCR) Negative RSV (PCR) Negative Last Vital Signs Temp 35.6 C L 01/26/25 16:17 Pulse 98 H 01/26/25 19:01 Resp 18 01/26/25 19:25 BP 132/67 01/26/25 19:01 Pulse Ox 99 01/26/25 19:01 Time Spent Time spent with Patient: >75 minutes Time was spent: preparing to see the patient(eg.review tests), obtaining and/or reviewing separately otained hiistory, ordering medications,tests, procedures, indepentently interpreting results, counseling the patient and care coordination
--- NOTE | 2025-01-26 21:46 | NUR.NOTE ---
Nursing Note: PT sat up on the strecher with x1 assist to attempt to stand with walker. As soon as PT sat at the edge of the stretcher he c/o dizziness said I need to lay down on my side this nurse and other Rn in the room noticed PT left leg felt tigher and larger than the right leg. Took PT's pants off left leg was significantly larger than right leg. from thigh to foot. PT and both reported that it did not look like that earlier in the day. Provider was notified new orders were written,.
--- NOTE | 2025-01-26 22:33 | NUR.NOTE ---
Nurse to nurse report given to Messi Whitaker Med surge patient assigned room 2027, will be transported via stretcher on monitor with nursing staff. Belongins sent with patient in bad. family is not present at this time.
--- NOTE | 2025-01-26 23:51 | W.PC.ACHO ---
Registration Status: REG ER Primary Language: Preferred Language: Serbian ED Information & Data Chief Complaint GenMedical 01/26/25 19:27 Chief Complaint GenMedical 01/26/25 18:15 Triage Note had Flu shot this AM, 01/26/25 16:17 progressively felt unwell since, was unable to get self up off toilet. EMS reported initial pulse 110s received 250ml NS prior to arrival (Last Reviewed 01/26/25 @ 21:27 by Kelton Daly) History of back surgery (~02/15/18) crushed thumb (11/17/12) Kidney Stone Extraction (~2004) Colonoscopy - IV Sedation (02/19/15) Arthroplasty of knee Most Recent Vital Signs Temperature 35.6 C L 01/26/25 16:17 Temperature Source Temporal Artery Scan 01/26/25 16:17 Pulse 82 01/26/25 21:30 Pulse 81 01/26/25 21:30 Respiratory Rate 17 01/26/25 21:30 Respiratory Effort Normal, Non-Labored 01/26/25 19:25 Blood Pressure 133/71 01/26/25 21:30 Blood Pressure Mean 93 01/26/25 21:30 Pulse Oximetry 95 01/26/25 21:01 Oxygen Delivery Method Room Air 01/26/25 16:17 Oxygen Flow Rate 0 01/26/25 16:17 Pain Level 0 01/26/25 22:37 Allergies No Known Allergies Allergy (Verified 01/26/25 16:21) Active Medications Generic Name Dose Route Start Last Admin Trade Name Freq PRN Reason Stop Dose Admin Sodium Chloride 1,000 mls @ 150 mls/hr 01/26/25 19:15 01/26/25 19:24 Saline 1000ml Bag IV 150 mls/hr INFUSION MARY ANN Administration Iohexol 100 ml 01/26/25 19:45 01/26/25 19:43 Omnipaque 350 Mg/Ml 100 Ml Btl IJ 02/25/25 23:59 100 ml DIRECTED MARY ANN Administration Iohexol 50 ml 01/26/25 20:00 01/26/25 19:41 Omnipaque 350 Mg/Ml 50 Ml Btl IJ 02/25/25 23:59 25 ml DIRECTED MARY ANN Administration Sodium Chloride 0 ml 01/26/25 19:39 01/26/25 19:40 Normal Saline Flush 10 Ml Syr IVP 10 ml PRN PRN Administration Sodium Chloride 50 ml 01/26/25 19:45 01/26/25 19:40 Normal Saline - Diluent 50 Ml Vial IJ 50 ml DIRECTED MARY ANN Administration Sodium Chloride 50 ml 01/26/25 19:45 01/26/25 19:41 Normal Saline - Diluent 50 Ml Vial IJ 50 ml DIRECTED MARY ANN Administration IV IV Catheter Type [Left Saline Lock Antecubital] IV Catheter Type [Right Saline Lock Antecubital] IV Catheter Gauge [Left 18 Antecubital] IV Catheter Gauge [Right 20 Antecubital] Diagnostics 01/26/25 01/26/25 01/26/25 Range/Units 18:45 16:57 16:28 WBC 8.42 (4.4-10.8) 10^3/uL RBC 3.51 L (4.36-5.78) 10^6/uL Hgb 10.7 L (13.5-17.5) g/dL Hct 32.2 L (40.0-50.0) % MCV 92 (80-95) fL MCH 30.5 (27.0-33.0) pg MCHC 33.2 (32.0-36.0) % RDW 13.0 (11.8-14.1) % Plt Count 229 (130-400) 10^3/uL MPV 9.9 (8.0-11.0) fL Immature Gran % 0.5 % Neutrophils % 78.5 % Lymphocytes % 11.8 % Monocytes % 6.7 % Eosinophils % 2.0 % Basophils % 0.5 % Nucleated RBC % 0.0 (0.0-0.3) % Absolute Neutrophils 6.62 (1.2-6.7) 10^3/uL Absolute Lymphocytes 0.99 L (1.2-3.4) 10^3/uL Absolute Monocytes 0.56 (0.1-0.8) 10^3/uL Absolute Eosinophils 0.17 (0.0-0.7) 10^3/uL Absolute Basophils 0.04 (0.0-0.2) 10^3/uL ESR 32 H (0-20) mm/hr VBG Lactate 2.3 H* 4.8 H* (<or=2.0) mmol/L Sodium 133 L (136-145) mmol/L Potassium 4.7 (3.5-5.1) mmol/L Chloride 96 L (98-107) mmol/L Carbon Dioxide 21.2 (21.0-32.0) mmol/L Anion Gap 15.8 H (3-11) mmol/L BUN 23 H (7-18) mg/dL Creatinine 1.7 H (0.70-1.30) mg/dL Est GFR (CKD-EPI 2020) 43.10 (mL/min/1.73m2) Glucose 204 H (74-106) mg/dL Calcium 9.3 (8.5-10.1) mg/dL Magnesium 2.0 (1.8-2.4) mg/dL Total Bilirubin 0.4 (0.2-1.0) mg/dL AST 24 (15-37) U/L ALT 37 (16-63) U/L Alkaline Phosphatase 136 H (46-116) U/L Creatine Kinase 45 (39-308) U/L Troponin I 11 (<or=76) ng/L C-Reactive Protein < 0.50 (<or=0.5) mg/dL Total Protein 8.6 H (6.4-8.2) g/dL Albumin 3.6 (3.4-5.0) g/dL Lipase 30 (<78) U/L TSH 1.11 (0.36-3.74) uIU/mL COVID-19 Source Nasopharynx SARS-CoV-2 (PCR) Negative (Negative) Influenza Type A (PCR) Negative (Negative) Influenza Type B (PCR) Negative (Negative) RSV (PCR) Negative (Negative) 01/26/25 17:30 Blood Culture - Pending Blood 01/26/25 17:11 Blood Culture - Pending Blood Intake and Output - 24 Hour Total 01/26/25 16:03 thru 01/26/25 18:38 Intake Total 1210 Balance 1210 Weight 96.1 kg Intake: IV 1210 Falls Risk Assessment History of Falls Previous History 01/26/25 19:27 Contributing Factors Unstable,Impairments 01/26/25 19:27 Ambulatory Aids Uses ambulatory device + 01/26/25 19:27 Tubes/Lines With any additional score 01/26/25 19:27 Gait Evaluation W/any additional score 01/26/25 19:27 Fall Total Score 91 01/26/25 19:27 Level of Risk Maximum Risk 01/26/25 19:27 Problems (Last Reviewed 01/26/25 @ 21:27 by Kelton Daly) Acute dehydration (Acute) Ambulatory dysfunction (Acute) Deep vein thrombosis (DVT) of left lower extremity (Acute) Renal cell carcinoma (Chronic) Diabetes mellitus (Chronic) Hypertension (Chronic) Notes 01/26/25 22:33 Nursing Notes by Zayra Palafox Nurse to nurse report given to Messi Whitaker Med surge patient assigned room 2027, will be transported via stretcher on monitor with nursing staff. Belongins sent with patient in bad. family is not present at this time. Initialized on 01/26/25 22:33 - END OF NOTE 01/26/25 21:46 Nursing Notes by Luna Walker Nursing Note: PT sat up on the strecher with x1 assist to attempt to stand with walker. As soon as PT sat at the edge of the stretcher he c/o dizziness said I need to lay down on my side this nurse and other Rn in the room noticed PT left leg felt tigher and larger than the right leg. Took PT's pants off left leg was significantly larger than right leg. from thigh to foot. PT and both reported that it did not look like that earlier in the day. Provider was notified new orders were written,. Initialized on 01/26/25 21:46 - END OF NOTE v v v v v v v v v Sending and/or Receiving Nurses: Please use comment section below to note any information pertinent to the patient hand-off not included above. Information / Comments:Received pt per ed bed accompanied by Zayra the ED nurse around 2250.Transfer pt from ED bed to unit bed as pt cant be able to ambulate.With ongoing maintenance IV fluid reg @ 150ml/hr on her right AC. And also has PIV to his left AC. Situated pt into comfort.Carried out doctor's orders. Report received from:Zayra Palafox @ around [id number]
[2025-01-27] VITALS (7 sets, daily range): BP systolic 113–154; BP diastolic 61–74; PULSE 69–90; RESP 15–20; TEMP 35.7–37.2; O2SAT 95–98
[2025-01-27] MEDS: Normal Saline 1,000 ML 150 ML IV (02:16)
[2025-01-27] MEDS: Acetaminophen 325 MG TAB 650 MG PO ×3 (02:52→19:33)
[2025-01-27] MEDS: HYDROmorphone 2 MG TAB PO ×3 (02:53→17:43)
[2025-01-27 05:45] LABS: HCT 28.9 % (40.0-50.0); HGB 9.7 g/dL (13.5-17.5); MCH 30.5 pg (27.0-33.0); MCHC 33.6 % (32.0-36.0); MCV 91 fL (80-95); MPV 9.9 fL (8.0-11.0); Platelet Count 157 10^3/uL (130-400); RBC 3.18 10^6/uL (4.36-5.78); RDW 13.1 % (11.8-14.1); RDW-SD 42.2 fL; WBC 5.73 10^3/uL (4.4-10.8)
[2025-01-27 05:57] LABS: INR 1.2 (0.9-1.1); Prothrombin Time 12.1 sec (9.1-11.1)
[2025-01-27 06:04] LABS: ALT 29 U/L (16-63); AST 18 U/L (15-37); Albumin 3.0 g/dL (3.4-5.0); Alkaline Phosphatase 118 U/L (46-116); Anion Gap 0 mmol/L (3-11); BUN 27 mg/dL (7-18); Bilirubin, Total 0.5 mg/dL (0.2-1.0); CO2 21.0 mmol/L (21.0-32.0); Calcium 8.3 mg/dL (8.5-10.1); Chloride 98 mmol/L (98-107); Estimated GFR 50.08 (mL/min/1.73m2); Glucose 144 mg/dL (74-106); Magnesium 1.9 mg/dL (1.8-2.4); Potassium 4.5 mmol/L (3.5-5.1); Total Protein 7.4 g/dL (6.4-8.2)
[2025-01-27 06:16] LABS: Sodium 119 mmol/L (136-145)
--- NOTE | 2025-01-27 07:30 | DI.US_ITS ---
Exam(s) US LOWER EXTREMITY VENOUS LT EXAM: US LOWER EXTREMITY VENOUS LT CLINICAL HISTORY: Painful swelling left leg sudden onset. TECHNIQUE: Lower extremity venous ultrasound performed using grayscale, color- flow, and spectral Doppler analysis. COMPARISON: No exams were available for comparison FINDINGS: The common femoral, femoral and popliteal veins demonstrate normal compressibility, augmentation, and color Doppler. The posterior tibial and peroneal veins are patent. There is thrombus visible in the greater and lesser saphenous veins originating 1.3 cm from the saphenofemoral junction and extending down the length of the leg. No hematoma or Rodriguez's cyst is seen. IMPRESSION: Saphenous vein thrombosis. No evidence of DVT. DATA REPOSITORY:
[2025-01-27 09:02] LABS: Sodium 130 mmol/L (136-145)
[2025-01-27] MEDS: Insulin Aspart 300 UNITS/3 ML PEN SC ×2 (09:07→12:06)
[2025-01-27] MEDS: Cyanocobalamin 500 MCG TAB 1000 MCG PO (09:08)
[2025-01-27] MEDS: Tamsulosin 0.4 MG CAPCR PO ×2 (09:08→11:10)
[2025-01-27] MEDS: Atorvastatin 10 MG TAB PO (09:08)
[2025-01-27] MEDS: amLODIPine 10 MG TAB PO (09:09)
[2025-01-27] MEDS: Metoprolol CR 25 MG TABCR PO (09:09)
[2025-01-27] MEDS: Multivitamin TAB 1 TAB PO (09:09)
[2025-01-27] MEDS: Apixaban 5 MG TAB 10 MG PO ×2 (09:10→19:34)
[2025-01-27] MEDS: Normal Saline Flush 10 ML SYR IVP (09:11)
--- NOTE | 2025-01-27 09:18 | INITIAL_ITS ---
Date of service: 01/27/25 Time of Service: 09:18 Care Management Initial Assmt Initial Assessment Reason for Hospitalization: DVT Functional Status/Living Situation Patient Presentation: Orlin was sitting up in bed visiting with his Madeline when CM met with him. He engaged easily with CM, known to him from previous hospitalizations. Orlin was admitted last evening following a fall as well as increased pain. He has recently learned that his renal cancer has spread to his lumbar spine causing a great deal of pain and weakness. Orlin now has a pathologic fracture of his lumbar spine as well as several small abscesses in the L4-5 region He is taking Oxycodone for the pain but it is not able to completely control the pain and does not last very long. He has difficulty sitting and has been using a recliner with extra cushioning for his lower back. Orlin was also found to have a clot in his LLE as well as a PE. He has been started on Apixaban and CM will follow up with his pharmacy to determine out of pocket cost when he discharges. Town of Residence: [place] Resides with: Spouse ( Hamida) Significant Other/Family: Local (3 children all live in [place]) Natural Supports: family Employment Status: Retired Instrumental Activities of Daily Living (ADLs): Independent Medications Medication Management: No Issues/Barriers identified Physical Functioning/Mobility Assistive Device: walker Advance Directives Advance Directives: Do you have an Advance Directive: N , 11:06 AD On File at [facility]: N 11/17/12, 11:06 Date Asked 01/26/25 01/26/25, 16:16 AD Date Reviewed COLST On File at [facility] No 11/05/24, 19:18 COLST Date Scanned Code Status Resuscitation Status Full Code Insurance Coverage/Financial Issues Insurance: Medicare Cigna supplement Care Team Visit Care Team Role Provider Type Bayron Conley MD [facility] STAFF PHYSICIAN Miguel Guzman MD Primary Care Provider [facility] STAFF PHYSICIAN Gabriela Manley RDN, [facility] Other Providers [employer]ATE Geoff Santiago Other Providers OTHER Marlo Miller RDN Other Providers PREPARED FOODS ASSOCIATE PONCE Tong Emergency Provider PHYSICIANS BRANCH ACCOUNT MANAGER Kelton Daly Admit Provider NON-[facility] STAFF PHYSICIAN Attending Provider Discharge Potential Discharge Needs: PCP F/U Appt Anticipated Barriers to Discharge: None Identified Patient/Family Education Needs: Review discharge instructions, discuss Ask Me Three Transportation: Private vehicle Plan: Anticipate Vito will be discharged home with a resumption of home health services for PT, when medically cleared. He will follow up with his community providers and plan of care and transport with family. CM will follow and continue to assess for discharge needs. Social Determinants of Health Screening Will the Patient Participate in the Screening?: Declined to provide Problems where you live: no known problems In the past 12 months, have you had to go without electric, gas, oil or water in your home?: no Has lack of transportation kept you from medical appointments or from doing things needed for daily living?: no Has anyone in your life made you feel unsafe or unsupported?: no How hard is it for you to pay for the very basics like food, housing, medical care, and heating? Would you say it is:: Not hard at all Do you want help finding or keeping work or a job?: I do not need or want help If for any reason you need help with day-to-day activities such as bathing, preparing meals, shopping, managing finances, etc., do you get the help you need?: I need a lot more help How often do you feel lonely or isolated from those around you?: Never Do you speak a language other than Georgian at home?: No Does the patient want assistance with any of the above?: No Health Related Social Needs Health related social needs: problems with daily activities (Z73.9) PFSH All Active Problems (Updated 01/27/25 @ 13:58 by Bayron Conley) Hyponatremia (Acute) Pulmonary embolism of left lower lobe (Acute) Acute dehydration (Acute) Ambulatory dysfunction (Acute) Debility (Acute) Deep vein thrombosis (DVT) of left lower extremity (Acute) Elevated liver enzymes (Acute) Pathologic fracture (Acute) Back pain (Acute) Advanced care planning/counseling discussion (Acute) Palliative care by specialist (Acute) Bed sore on buttock (Acute) Pathologic fracture of lumbar vertebra (Acute) Symptomatic anemia (Acute) Anemia due to blood loss (Acute) KAMILLA (acute kidney injury) (Acute) Complication, blocked Crarillo catheter (Acute) Renal cell carcinoma (Chronic) Gross hematuria (Acute) Urinary retention (Acute) Renal cell carcinoma (Acute) Complication, blocked Carrillo catheter (Acute) Renal cell carcinoma (Acute) Acute pyelonephritis (Acute) Arthritis pain, hip (Acute) Sarcoidosis (Acute 01/09/14) Overweight (Chronic) Ear congestion (Acute) likely ET dysfunction due to recent cold / ? allergy Diabetes mellitus (Chronic) A1c in office today 7.9 Hypertension (Chronic) not well controlled today Cough (Acute) likely viral bronchitis Erectile dysfunction (Chronic) Glucose intolerance (Acute) 02/15/18 LLUVIA HOGAN DAY; GLUCOSE 156 Lumbago (Acute) Fracture of distal phalanx of finger (Acute 11/23/12) Type 2 diabetes mellitus without complication, without long-term current use of insulin (Acute 02/25/16) Tobacco use disorder (Acute) CHEWS TOBACCO Sexual function problem (Acute) Pernicious anemia (Acute) Onychomycosis (Acute) Medial meniscus tear (Acute) RIGHT-04/02/16 Knee pain (Acute) ? MENISCUS Hiatal hernia (Acute) Essential hypertension (Acute) Dysplastic nevi (Acute 08/26/17) multiple Diverticulosis of colon without diverticulitis (Acute) Diabetes mellitus type 2, uncontrolled (Acute 03/24/14) Surgical History History of back surgery (~02/15/18) LLUVIA HOGAN FREEDOM crushed thumb (11/17/12) Kidney Stone Extraction (~2004) Colonoscopy - IV Sedation (02/19/15) DR.C. WREN Arthroplasty of knee 04/02/16-RIGHT;DR. GUARDADO 08/19/16 RIGHT;[facility] Family History Mother , AGE 78 Essential hypertension MS (multiple sclerosis) Throat cancer Father Essential hypertension Diabetes Heart disease Sister Essential hypertension Diabetes Brother Essential hypertension Diabetes Maternal Grandfather , AGE 69 Essential hypertension Heart disease Paternal Grandfather , AGE 85 Essential hypertension Heart disease Maternal Grandmother , AGE 94 Essential hypertension Heart disease Paternal Grandmother , AGE 90 Essential hypertension Heart disease Son Substance abuse Son No problems noted. Daughter No problems noted. Social History Smoking/Tobacco Use Status: Current every day Tobacco Type: smokeless tobacco Tobacco: How many years used: 40 Smokeless tobacco user: chewing tobacco Quit status: has quit before Second Hand Exposure: Yes Smoking risk assessment performed?: Yes Alcohol Intake: former Drug use: Never Substance use type: does not use Counseling given: No Adopted: No Caregiver/Support person: No Household members: spouse Housing: house Communication Needs: None Do you need help understanding health information?: Rarely Pets and animals: No Sexually active: Yes Do you think of yourself as: straight/heterosexual Current gender identity: male What is your relationship status?: How often do you talk on the phone with friends or family?: three or more times per week How often do you get together with friends or relatives?: decline to answer How often do you attend jain or christianity services?: decline to answer Do you belong to any clubs or organized social groups?: no Panel score (0-1 are the most socially isolated patients): 2 What type of physical activity do you participate in: walking Duration: 15-30 minutes/day Frequency: 3-4 times per week Adilene/Cheondoism: No preference Special adilene needs: No Seatbelt use: always Helmet use: Yes Helmet use: always Drive intox or ride w/intox petrol tanker driver: No Do you feel safe at home: Yes Do you feel safe in your relationship?: Yes
--- NOTE | 2025-01-27 10:02 | PGE_ITS ---
Date of Service Date of service: 01/27/25 Time of Service: 10:03 Assessment and Plan Assessment and plan (1) Pulmonary embolism of left lower lobe: Status: Acute Assessment and plan: In setting of active cancer and less mobility. Also COVID/flu vaccines. LLE with superficial thrombus, likely also had a DVT that broke off Tolerating apixaban at full treatment dosing, 10mg BID x 7 days, continue at least as long as active cancer. (2) Ambulatory dysfunction: Start date: 01/26/25 Status: Acute Assessment and plan: Patient has acute worsening of his ambulation secondary to generalized weakness with flu shot and dehydration but also secondary to increasing pain down his left leg more than the right with his compression fracture and metastases from his renal cell carcinoma. He is going to have PT evaluation and may have to change his modalities for ambulation at home. Sitting hurts is much as standing so a wheelchair may not be the immediate answer. Follow-up with oncology with plans for possible x-ray therapy which may help with his pain. (3) Renal cell carcinoma: Status: Chronic Assessment and plan: Recent diagnosis this last summer status post left nephrectomy but now dealing with metastases to his spine which is complicated. Continue follow-up with oncology. Discussed pain management, adjust/increase as needed. Palliative care when available. (4) Diabetes mellitus: Status: Chronic Assessment and plan: Holding metformin after CTA. Resume outpatient glargine, check glucometers before meals and at bedtime with moderate sliding scale insulin coverage. (5) Hyponatremia: Status: Acute Assessment and plan: severe number 01/27 AM spurious, mild hyponatremia with immediate repeat. A/w dehydration, follow (6) Urinary retention: Status: Acute Assessment and plan: Acute on chronic. increase tamsulosin. Monitor bladder scans, cuellar if this continues. Subjective Subjective Patient reports: denies diarrhea, vomiting or fever Interval history since last seen: Events: Called by radiology Dr. Rose, CTA did show PE in LLL, only saphenous clot on LE doppler Retaining urine bladder scan >500, straight cathed. c/o pain in the low and mid back on left, which can be severe. Left side is swollen, sometimes weak. Has not noted bleeding recently. No pain with urination, but has not voided overnight. Exam Narrative Exam Narrative: Gen: Alert and oriented, uncomfortable with movement but NAD Lungs: CTAB CV: RRR, no M/G/R Abd: soft, NT/ND Back: Tender left lower paraspinal area EXT: left leg enlarged to thigh, no cord palpable, warm, 1+ pitting. Objective Last Vital Signs Temp 36.6 C 01/27/25 09:04 Pulse 75 01/27/25 09:04 Resp 16 01/27/25 09:04 BP 154/74 H 01/27/25 09:04 Pulse Ox 97 01/27/25 09:04 Laboratory Results - last 24 hr 01/26/25 01/26/25 01/26/25 16:28 16:57 18:45 WBC 8.42 RBC 3.51 L Hgb 10.7 L Hct 32.2 L MCV 92 MCH 30.5 MCHC 33.2 RDW 13.0 Plt Count 229 MPV 9.9 Immature Gran % 0.5 Neutrophils % 78.5 Lymphocytes % 11.8 Monocytes % 6.7 Eosinophils % 2.0 Basophils % 0.5 Nucleated RBC % 0.0 Absolute Neutrophils 6.62 Absolute Lymphocytes 0.99 L Absolute Monocytes 0.56 Absolute Eosinophils 0.17 Absolute Basophils 0.04 ESR 32 H PT INR VBG Lactate 4.8 H* 2.3 H* Sodium 133 L Potassium 4.7 Chloride 96 L Carbon Dioxide 21.2 Anion Gap 15.8 H BUN 23 H Creatinine 1.7 H Est GFR (CKD-EPI 2020) 43.10 Glucose 204 H Calcium 9.3 Magnesium 2.0 Total Bilirubin 0.4 AST 24 ALT 37 Alkaline Phosphatase 136 H Creatine Kinase 45 Troponin I 11 C-Reactive Protein < 0.50 Total Protein 8.6 H Albumin 3.6 Lipase 30 TSH 1.11 COVID-19 Source Nasopharynx SARS-CoV-2 (PCR) Negative Influenza Type A (PCR) Negative Influenza Type B (PCR) Negative RSV (PCR) Negative 01/27/25 01/27/25 05:40 08:30 WBC 5.73 RBC 3.18 L Hgb 9.7 L Hct 28.9 L MCV 91 MCH 30.5 MCHC 33.6 RDW 13.1 Plt Count 157 MPV 9.9 Immature Gran % Neutrophils % Lymphocytes % Monocytes % Eosinophils % Basophils % Nucleated RBC % Absolute Neutrophils Absolute Lymphocytes Absolute Monocytes Absolute Eosinophils Absolute Basophils ESR PT 12.1 H INR 1.2 H VBG Lactate 0.9 Sodium 119 L* D 130 L D Potassium 4.5 Chloride 98 Carbon Dioxide 21.0 Anion Gap 0 L BUN 27 H Creatinine 1.5 H Est GFR (CKD-EPI 2020) 50.08 Glucose 144 H Calcium 8.3 L Magnesium 1.9 Total Bilirubin 0.5 AST 18 ALT 29 Alkaline Phosphatase 118 H Creatine Kinase Troponin I C-Reactive Protein Total Protein 7.4 Albumin 3.0 L Lipase TSH COVID-19 Source SARS-CoV-2 (PCR) Influenza Type A (PCR) Influenza Type B (PCR) RSV (PCR) PAWSS Have you Been Recently Intoxicated or Drunk Within the Last 30 days?: No Have you Ever Experienced Previous Episodes of Alcohol Withdrawal?: No Have you ever Experienced Withdrawal Seizures?: No Have you ever Experienced Delirium Tremens(DT)s?: No Have you ever undergone Alcohol Rehabilitation Treatment (i.e, inpt ot outpatient treatment programs)?: No Have you ever Experienced Blackouts?: No Have you ever Combined Alcohol with other Downers within the last 90 days?: No Have you ever Combined Alcohol with any other Substance of Abuse during the last 90 days?: No Positive Blood Alcohol level on Presentation? [PCS.BAL]: No Evidence of Increased Autonomic Activity (i.e. HR>120, tremor, sweating, agitation, nausea)?: No Result: 0 Time Spent with Patient Time Spent with Patient: 35-49 minutes Time was spent: preparing to see the patient(eg.review tests), obtaining and/or reviewing separately otained hiistory, ordering medications,tests, procedures, referring, communicating with other health district manager primary care sales, indepentently interpreting results, counseling the patient and care coordination
[2025-01-27 10:45] LABS: Glucose Negative (Negative)
[2025-01-27 11:00] LABS: C & S Indicated? No; RBC 0-2 HPF (0-2); WBC 0-2 HPF (0-5)
--- NOTE | 2025-01-27 13:52 | PT.INIE ---
PT Notes Visit Reasons: Left DVT, Acute Dehydration Physical Therapy Inpatient Initial Evaluation Date: 01/27/2025 Referring Doctor: Dr Fernández PT Orders: PT CONSULT: PT Evaluation and treatment Precautions: Fall risk, L4 cancer, IV access, B Knee instability with standing, Spasms BLE Patient Profile/Admitting Diagnosis: Pt is a 69 yo male presented to the ED with weakness. Pt reported he received the flu shot earlier in the day and then developed profound weakness. 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 (+) Homans. Pt diagnosed with LLE DVT Saphenous Vein; Chest CT (+) PE LLL, Lumbar CT revealed worsening L4 fx with severe degeneration at tumor with epidural involvement with mild central canal stenosis and muscle invasion. Pt also with left psoas area lesion. PMHX: Acute dehydration (Acute) Ambulatory dysfunction (Acute) Debility (Acute) Deep vein thrombosis (DVT) of left lower extremity (Acute) Elevated liver enzymes (Acute) Pathologic fracture (Acute) Back pain (Acute) Advanced care planning/counseling discussion (Acute) Palliative care by specialist (Acute) Bed sore on buttock (Acute) Pathologic fracture of lumbar vertebra (Acute) Symptomatic anemia (Acute) Anemia due to blood loss (Acute) KAMILLA (acute kidney injury) (Acute) Complication, blocked Carrillo catheter (Acute) Renal cell carcinoma (Chronic) Gross hematuria (Acute) Urinary retention (Acute) Renal cell carcinoma (Acute) Complication, blocked Carrillo catheter (Acute) Renal cell carcinoma (Acute) Acute pyelonephritis (Acute) Arthritis pain, hip (Acute) Sarcoidosis (Acute 01/09/14) Overweight (Chronic) Ear congestion (Acute) likely ET dysfunction due to recent cold / ? allergyDiabetes mellitus (Chronic) A1c in office today 7.9Hypertension (Chronic) not well controlled todayCough (Acute) likely viral bronchitisErectile dysfunction (Chronic) Glucose intolerance (Acute) 02/15/18 LLUVIA HOGAN DAY; GLUCOSE 156Lumbago (Acute) Fracture of distal phalanx of finger (Acute 11/23/12) Type 2 diabetes mellitus without complication, without long-term current use of insulin (Acute 02/25/16) Tobacco use disorder (Acute) CHEWS TOBACCO Sexual function problem (Acute) Pernicious anemia (Acute) Onychomycosis (Acute) Medial meniscus tear (Acute) RIGHT-04/02/16 Knee pain (Acute) ? MENISCUS Hiatal hernia (Acute) Essential hypertension (Acute) Dysplastic nevi (Acute 08/26/17) multiple Diverticulosis of colon without diverticulitis (Acute) Diabetes mellitus type 2, uncontrolled (Acute 03/24/14) Surgical History History of back surgery (~02/15/18) LLUVIA HOGAN DAYcrushed thumb (11/17/12) Kidney Stone Extraction (~2004) Colonoscopy - IV Sedation (02/19/15) DR.C. WRENArthroplasty of knee 04/02/16-RIGHT;DR. GUARDADO 08/19/16 RIGHT;[facility] Social History/Home Situation: Resides with in [facility] with stairs to enter. He was independent with ambulation and ADL prior to Nephrectomy in December. Since discharge from hospital 2024 pt has been using FWW for mobility. He notes progressive increase in weakness x 1 week prior to hospitalization this date. Equipment Owned/DME: FWW, lift assist recliner Subjective:I am weak nad my legs keep spasming . I do not feel strong enough to walk safely. Objective: [] General Observation: Thin pale colored male semireclined in bed with his visiting . 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 Mental Status: Alert and oriented x 4, cooperative, able to follow instructions agreeable to participate in PT Pain: 8/10 with spasms to BLE ROM: [] Right Upper Extremity: WFL Left Upper Extremity: WFL Right Lower Extremity: WFL Left Lower Extremity: WFL Strength: [] BUE: grossly 3/5 Right Lower Extremity: hip flexion 2/5, hip abduction 2/5, hip extension 2+/5, knee 3-/5, ankle 3/5 Left Lower Extremity: hip flexion 2-/5, hip abduction 2/5, hip extension 2+/5, knee 3-/5, ankle 3/5 Sensation: intact to light touch with intermittent parasthesia LLE Bed Mobility/Transfers: [] Supine to sit CGA with HOB elevated sit to supine mod A for BLE with HOB up d/t spasms BLE Sit to stand CGA of 1 Stand to sit CGA of 1 cues for hand placement Bed to chair with FWW step turn Flo of 1 CGA of 1 cues to straighten B knees Gait: 2 steps with FWW min A of 1 and CGA of 1 keep chair very close to patient. Impaired step length, B knee instability, impaired foot clearance Balance: [] Static Sitting:Normal Dynamic Sitting: fair Static Standing: Poor with BUE support Dynamic Standing:Unable Special Tests: [] Mobility Limitations Standardized Measure [] [facility] AM-PAC 6 clicks Basic Mobility Inpatient Short Form: [] Raw Score:14 CMS Score: 61.29% Informed Consent/Education: Patient instructed in purpose of PT consult. Assessment: Patient is a 69 yo male who presents with clinical signs and symptoms consistent with current/admitting diagnoses that have resulted to mobility limitations, gait instability, generalized weakness, and impairment of motor control as demonstrated by the following impairment level findings: 1. Decreased strength to BUE/BLE major muscle groups 2. Impaired standing balance 3. Spasms BLE 4. Pain BLE 5. Impaired functional activity tolerance Impairments are contributing to the following functional limitations: 1. Inability to safely ambulate without assistive device 2. Increase completion time for mobility ADL performance 3. Increased fall risk 4. Impaired bed mobility 5. impaired transfers skills 6. Inability to perform stairs Patient is assessed as a moderate complexity based on the following: History: 69-year-old male with impairment level findings, functional limitations, and past medical history as indicated above Examination: Demonstrable impairment in strength, balance, and mobility level with underlying impairments and functional limitations as documented above Presentation: evolving Decision Making: moderate Goals: 1. independent sit to supine 2. Mod I transfers with FWW 3. Mod I ambulation with FWW 150 feet 4. SBA stairs with rail to safely enter and exit home Plan of Care/Treatment Plan: 1-2x/day, 7 days/week x 1 week. Plan of care has been reviewed with the CORRECTIVE THERAPY AIDE providing the service under Physical Therapy direction. Initiate Physical Therapy intervention for strengthening, bed mobility, transfers, gait, stairs, balance training, use of assistive device. DISCHARGE RECOMMENDATIONS: Home with HHPT vs SNF pending progress TREATMENT CODE/TIME: 20246, 31536/ [id number] Thank you for the opportunity to participate in the care of this patient. Nika Montes PT [facility]
--- NOTE | 2025-01-27 13:58 | PHA.REVIEW2 ---
Pharmacy Admission Review Admission Clinical Review Admission Pharmacy Review: Pulmonary embolism of left lower lobe (Acute) Acute dehydration (Acute) Ambulatory dysfunction (Acute) Deep vein thrombosis (DVT) of left lower extremity (Acute) No Known Allergies Allergy (Verified 01/26/25 16:21) Resuscitation Status Full Code Height 6 ft Weight 96 kg Pharmacy Admission Review Renal Dosing Renal Dosing: BUN 27 mg/dL (7-18) H 01/27/25 05:40 Creatinine 1.5 mg/dL (0.70-1.30) H 01/27/25 05:40 Medications needing adjustments: Reviewed (CrCl 55.8 mL/min) List of meds needing interventions: Current medications are okay Anticoagulation Anticoagulation: Hgb 9.7 g/dL (13.5-17.5) L 01/27/25 05:40 Hct 28.9 % (40.0-50.0) L 01/27/25 05:40 Plt Count 157 10^3/uL (130-400) 01/27/25 05:40 INR 1.2 (0.9-1.1) H 01/27/25 05:40 Creatinine 1.5 mg/dL (0.70-1.30) H 01/27/25 05:40 Therapeutic Anticoagulation: Reviewed (DVT/PE) Medications: Apixaban (10mg PO BID - first dose 01/26 @ 2112) Opiate Usage Evaluate Pain Scale/Pains Meds: Reviewed (hydromorphone 2mg PO q6h PRN - 2mg/24hrs) Scheduled Bowel Reg ordered if on Opiates?: No (PRN docusate/Miralax) Relevant Labs Relevant Labs: ESR 32 mm/hr (0-20) H 01/26/25 16:28 Sodium 130 mmol/L (136-145) L D 01/27/25 08:30 Potassium 4.5 mmol/L (3.5-5.1) 01/27/25 05:40 Chloride 98 mmol/L (98-107) 01/27/25 05:40 Magnesium 1.9 mg/dL (1.8-2.4) 01/27/25 05:40 C-Reactive Protein < 0.50 mg/dL (<or=0.5) 01/26/25 16:28 Electrolytes, C-Reactive P, ESR: Reviewed DM Control DM Control: Glucose 144 mg/dL (74-106) H 01/27/25 05:40 Finger Stick Blood Glucose 222 1206 Finger Stick Blood Glucose 222 1139 Finger Stick Blood Glucose 222 1139 Finger Stick Blood Glucose 155 0907 Finger Stick Blood Glucose 155 0820 Finger Stick Blood Glucose 155 0820 DM Control: Reviewed Insulin Dosing, Diabetic Medication: Has order for SS insulin and glargine 20 units at bedtime (glargine-yfgn to glargine 1:1 conversion) Cardiac Review Cardiac Review: Troponin I 11 ng/L (<or=76) 01/26/25 16:28 BP, HR, EF%: Reviewed (BP and HR WNL) List meds needing interventions: Has orders for amlodipine 10mg daily and metoprolol XL 25mg daily QTc Review QTc: Reviewed (422 from 01/03/25) IV to PO Switch IV Medications: Reviewed Home Meds Home Med List reviewed: Reviewed Relevent Home Meds Not ordered & why?: glipizide (on hold per provider), metformin (on hold per provider), Narcan (PRN) and oxycodone (3 DS) Current Meds Current Medication Order Review: Reviewed Comments: Blood cultures pending Pharmacy Antibiotic Review Relevant Labs: Relevant Labs 01/26/25 16:28 C-Reactive Protein < 0.50
--- NOTE | 2025-01-27 15:35 | CHAPLAIN ---
Orlin is disappointed by to be back here. He is well known to staff because of previous admissions and is always pleasant and engages with staff. He's here today for a left DVT. He expects his Gretchen will be in later today. Orlin is tired and frustrated.
[2025-01-27] MEDS: Insulin Glargine 300 UNITS/3 ML PEN 20 UNITS SC (21:32)
[2025-01-28] MEDS: HYDROmorphone 2 MG TAB PO ×2 (02:35→12:31)
[2025-01-28 03:56] VITALS: BP 128/50; PULSE 74; RESP 15; TEMP 36.5; O2SAT 98
[2025-01-28 07:08] LABS: Anion Gap 9.5 mmol/L (3-11); BUN 19 mg/dL (7-18); CO2 25.5 mmol/L (21.0-32.0); Calcium 8.7 mg/dL (8.5-10.1); Chloride 101 mmol/L (98-107); Estimated GFR 65.46 (mL/min/1.73m2); Glucose 123 mg/dL (74-106); Potassium 4.0 mmol/L (3.5-5.1); Sodium 136 mmol/L (136-145)
[2025-01-28 08:08] VITALS: BP 125/50; PULSE 72; RESP 16; TEMP 36.8; O2SAT 98
[2025-01-28] MEDS: Metoprolol CR 25 MG TABCR PO (08:29)
[2025-01-28] MEDS: Apixaban 5 MG TAB 10 MG PO (08:29)
[2025-01-28] MEDS: Tamsulosin 0.4 MG CAPCR 0.8 MG PO (08:30)
[2025-01-28] MEDS: Cyanocobalamin 500 MCG TAB 1000 MCG PO (08:30)
[2025-01-28] MEDS: amLODIPine 10 MG TAB PO (08:30)
[2025-01-28] MEDS: Multivitamin TAB 1 TAB PO (08:30)
[2025-01-28] MEDS: Atorvastatin 10 MG TAB PO (08:30)
[2025-01-28] MEDS: Normal Saline Flush 10 ML SYR IVP (08:31)
--- NOTE | 2025-01-28 11:58 | CMDISCH_ITS ---
Date of service: 01/28/25 Time of Service: 11:58 LACE Index Scoring Tool Questions: Length of Stay (in days): 2 Was the patient admitted via the E.D.?: Yes Comorbidities: Diabetes w/o Complication, Any Tumor, Liver or Renal Disease and Metastatic Solid Tumor E.D. Visits: 5 Answers: Total Score: 14 Risk of Readmission: High Risk Care Management Discharge Plan Reason for Hospitalization: Acute dehydration Discharge Plan: Orlin is being discharged home with a resumption of [facility] PT. He will transport via private vehicle with . He will follow up with his community providers and continue per his discharge plan of care. Patient/Family Education Needs: Review discharge instructions and limitations, discussion of self care needs including ask me three Services Needed at Discharge: Home Health Care Services (Resumption of [facility] PT, CM notified [facility]) SDOH Health Related Social Needs: Health related social needs daily activities Health related social needs details physical therapy
--- NOTE | 2025-01-28 12:19 | DSE_ITS ---
Date of service: 01/28/25 Time of Service: 12:19 DS: Diagnosis Discharge Diagnosis (1) Pulmonary embolism of left lower lobe: Status: Acute (2) Ambulatory dysfunction: Status: Acute (3) Renal cell carcinoma: Status: Chronic (4) Diabetes mellitus: Status: Chronic (5) Hyponatremia: Status: Acute (6) Urinary retention: Status: Acute Discharge Plan Disposition Patient Disposition: Home W/Home Health Services Condition: Stable Discharge Details Reason For Visit: Left DVT, Acute Dehydration Admit Date/Time: 01/26/25 21:55 Admit Provider: Kelton Daly Attending Provider: Kelton Daly Primary Care Provider: Miguel Guzman Hospital Course Hospital Course: 69 yo M with with current metastatic renal cell carcinoma with left nephrectomy complicated by abscess, left leg radiculopathy related to L4 metastatic disease who was admitted with general malaise he attributed to recent flu shot and acute swelling of his left leg. CT C/A/P did show LLL pulmonary embolus. He was started on therapeutic apixaban and tolerated this without bleeding. LLE venous ultrasound showed thrombosis in the saphenous but not in the deep system, though the presumption is that a deep venous extension of the saphenous clot broke free to cause his PE. He was not hypoxic. He had KAMILLA with creatinine at 1.7. He got hydration overnight the first night. Post-void residual was >500, and he was straight cathed x 1 and tamsulosin was increased to 0.8mg. His urination imrpoved, but his post voids were still elevated in the 300s without symptoms. His low sodium normalized and his oral intake improved. He was sent home on apixaban with a coupon for the first month and instructions to apply for compassionate use discount. CT on admission did show worsening pathologic fracture of L4 and impingment. He worked with PT who recommended HHPT vs SNF Recommendations for Follow Up Recommended tests to be ordered by follow up provider: Follow post-void residuals with bladder scan (or straight cath) CBC, BMP in 1 week Home Meds and New Rx's Prescriptions: New Eliquis 5 mg Tablet See Rx Instructions .ROUTE .COMPLEX Qty: 72 2RF Rx Instructions: 10mg po BID x 6 more days, then 5mg po BID Continued metformin 1,000 mg tablet 1,000 mg PO BID Qty: 180 3RF (DME) Blood Glucose Test 1 EACH strip 1 ea Miscellaneous DAILY Qty: 100 Rx Instructions: E11.9 one touch test strips metoprolol succinate 25 mg tablet extended release 24 hr 25 mg PO DAILY Qty: 90 3RF amlodipine 10 mg tablet 10 mg PO DAILY Qty: 90 3RF atorvastatin 10 mg tablet 10 mg PO DAILY Qty: 90 3RF (DME) pen needle, diabetic [Unifine Pentips Plus] 33 gauge x 5/32 needle See Rx Instructions .ROUTE .COMPLEX Qty: 100 3RF Dose Instruction: USE TO INJECT ONCE DAILY Rx Instructions: USE TO INJECT ONCE DAILY hydromorphone [Dilaudid] 2 mg tablet 2 mg PO Q6H MDD 8 PRN (Reason: pain) Qty: 20 0RF naloxone [Narcan] 4 mg/actuation spray,non-aerosol 4 mg intranasal Q3M PRN (Reason: opioid overdose) Qty: 2 0RF Rx Instructions: spray 1 dose into ONE nostril; alternate nostrils w each dose until help arrives multivitamin [Daily Multi-Vitamin] 1 EACH tablet 1 tab PO DAILY cyanocobalamin (vitamin B-12) [Vitamin B-12] 1,000 MCG tablet 1,000 mcg PO DAILY glipizide 10 mg tablet 10 mg PO DAILY Qty: 90 0RF Rx Instructions: stop long acting version insulin glargine-yfgn 100 unit/mL (3 mL) insulin pen 20 unit subcut QPM Qty: 15 8RF oxycodone 5 mg tablet 5 mg PO DAILY Changed tamsulosin 0.4 mg capsule 0.8 mg PO DAILY Qty: 180 0RF Patient Comments: TAKE 1 CAPSULE BY MOUTH EVERY EVENING 30 MINUTES AFTER DINNER Discharge Instructions Instructions: Pulmonary Embolism (Blood Clot in the Lungs) (DC) Additional Instructions: You will need the blood thinner apixaban for at least 3 months, very possibly longer. You should take the higher dose of 10mg twice a day for another 5 days, then reduce the dose to 5mg twice a day You are retaining urine in your bladder. You should take the higher dose of 0.8mg (two tablets) of tamsulosin daily (morning or night okay) try to stay hydrated Stand Alone Forms: Nursing Discharge Form Referrals: Jan Mak MD [ [facility] STAFF PHYSICIAN, Urology] Referral Note: [facility], also urinary retention with post voids >300 Miguel Guzman MD [Primary Care Provider, Medicine] Referral Note: Your PCP will call you to make an appointment. Activity:: Activity as Tolerated Equipment/Supplies:: No Equipment Needed Diet:: Carb Counting Discharge Orders Discharge Orders: Discharge Order (Routine); Ordered 01/28/25 Ordered By: Bayron Conley DS: Summary Time Spent with Patient providing and/or coordinating discharge services: Greater than 30 minutes Status at Discharge Functional status at discharge: uses cane/walker Overall status at discharge: patient is progressing back to baseline Mental Status: mental status grossly normal Speech and Movement: speech and movement normal Mood: congruent mood Affect: normal affect Quality:SDOH Health Related Social Needs: Health related social needs daily activities Health related social needs details physical therapy Exam Narrative Exam Narrative: Gen: Alert and oriented, uncomfortable with movement of legs but NAD Lungs: CTAB CV: RRR, no M/G/R Abd: soft, NT/ND Back: Tender left lower paraspinal area EXT: left leg enlarged to thigh, no cord palpable, not tender toeday, trace pitting. Psych Mental Status: mental status grossly normal Speech and Movement: speech and movement normal Mood: congruent mood Affect: normal affect DS: Data Vitals/I&O Vitals and I&O: Vital Signs Temperature 36.8 C 01/28/25 08:08 Temperature Source Temporal Artery Scan 01/28/25 08:08 Pulse 72 01/28/25 08:08 Pulse Rhythm Regular 01/26/25 23:10 Pulse 84 01/26/25 22:30 Respiratory Rate 16 01/28/25 08:08 Respiratory Effort Normal, Non-Labored 01/26/25 23:10 Respiratory Depth Normal 01/26/25 23:10 Respiratory Pattern Normal 01/26/25 23:10 Blood Pressure 125/50 L 01/28/25 08:08 Blood Pressure Mean 75 01/28/25 08:08 Pulse Oximetry 98 01/28/25 08:08 Oxygen Delivery Method Room Air 01/28/25 08:08 Oxygen Flow Rate 0 01/28/25 08:08 Pain Level 5 01/28/25 03:56 Intake & Output 01/27/25 01/28/25 01/28/25 23:59 11:59 23:59 Intake Total 900 / 2230 40 / 40 Output Total 1975 / 2375 850 / 850 Balance -1075 / -145 -810 / -810 Intake: IV 40 / 40 Oral 900 / 1230 Output: Urine 1974 850 / 850 Other: Urine Color Yellow Yellow Urine Appearance Clear Clear Urine Odor Normal Normal Comment Pt voided 700 in the urinal while in bed. Data Completed and Pending Labs on day of discharge: Labs from last 24 hours 01/28/25 06:40 Sodium 136 Potassium 4.0 Chloride 101 Carbon Dioxide 25.5 Anion Gap 9.5 BUN 19 H Creatinine 1.2 Est GFR (CKD-EPI 2020) 65.46 Glucose 123 H Calcium 8.7 Preliminary micro results at discharge 01/26/25 17:30 Blood Blood Culture - Preliminary NO GROWTH 24 HOURS 01/26/25 17:11 Blood Blood Culture - Preliminary NO GROWTH 24 HOURS PFSH All Active Problems (Updated 01/27/25 @ 13:58 by Bayron Conley) Hyponatremia (Acute) Pulmonary embolism of left lower lobe (Acute) Acute dehydration (Acute) Ambulatory dysfunction (Acute) Debility (Acute) Deep vein thrombosis (DVT) of left lower extremity (Acute) Elevated liver enzymes (Acute) Pathologic fracture (Acute) Back pain (Acute) Advanced care planning/counseling discussion (Acute) Palliative care by specialist (Acute) Bed sore on buttock (Acute) Pathologic fracture of lumbar vertebra (Acute) Symptomatic anemia (Acute) Anemia due to blood loss (Acute) KAMILLA (acute kidney injury) (Acute) Complication, blocked Carrillo catheter (Acute) Renal cell carcinoma (Chronic) Gross hematuria (Acute) Urinary retention (Acute) Renal cell carcinoma (Acute) Complication, blocked Carrillo catheter (Acute) Renal cell carcinoma (Acute) Acute pyelonephritis (Acute) Arthritis pain, hip (Acute) Sarcoidosis (Acute 01/09/14) Overweight (Chronic) Ear congestion (Acute) likely ET dysfunction due to recent cold / ? allergy Diabetes mellitus (Chronic) A1c in office today 7.9 Hypertension (Chronic) not well controlled today Cough (Acute) likely viral bronchitis Erectile dysfunction (Chronic) Glucose intolerance (Acute) 02/15/18 LLUVIA HOGAN DAY; GLUCOSE 156 Lumbago (Acute) Fracture of distal phalanx of finger (Acute 11/23/12) Type 2 diabetes mellitus without complication, without long-term current use of insulin (Acute 02/25/16) Tobacco use disorder (Acute) CHEWS TOBACCO Sexual function problem (Acute) Pernicious anemia (Acute) Onychomycosis (Acute) Medial meniscus tear (Acute) RIGHT-04/02/16 Knee pain (Acute) ? MENISCUS Hiatal hernia (Acute) Essential hypertension (Acute) Dysplastic nevi (Acute 08/26/17) multiple Diverticulosis of colon without diverticulitis (Acute) Diabetes mellitus type 2, uncontrolled (Acute 03/24/14) Surgical History History of back surgery (~02/15/18) LLUVIA HOGAN DAY crushed thumb (11/17/12) Kidney Stone Extraction (~2004) Colonoscopy - IV Sedation (02/19/15) DR.C. WREN Arthroplasty of knee 04/02/16-RIGHT;DR. GUARDADO 08/19/16 RIGHT;[facility] Family History Mother , AGE 78 Essential hypertension MS (multiple sclerosis) Throat cancer Father Essential hypertension Diabetes Heart disease Sister Essential hypertension Diabetes Brother Essential hypertension Diabetes Maternal Grandfather , AGE 69 Essential hypertension Heart disease Paternal Grandfather , AGE 85 Essential hypertension Heart disease Maternal Grandmother , AGE 94 Essential hypertension Heart disease Paternal Grandmother , AGE 90 Essential hypertension Heart disease Son Substance abuse Son No problems noted. Daughter No problems noted. Social History Smoking/Tobacco Use Status: Current every day Tobacco Type: smokeless tobacco Tobacco: How many years used: 40 Smokeless tobacco user: chewing tobacco Quit status: has quit before Second Hand Exposure: Yes Smoking risk assessment performed?: Yes Alcohol Intake: former Drug use: Never Substance use type: does not use Counseling given: No Adopted: No Caregiver/Support person: No Household members: spouse Housing: house Communication Needs: None Do you need help understanding health information?: Rarely Pets and animals: No Sexually active: Yes Do you think of yourself as: straight/heterosexual Current gender identity: male What is your relationship status?: How often do you talk on the phone with friends or family?: three or more times per week How often do you get together with friends or relatives?: decline to answer How often do you attend taoist or confucianism services?: decline to answer Do you belong to any clubs or organized social groups?: no Panel score (0-1 are the most socially isolated patients): 2 What type of physical activity do you participate in: walking Duration: 15-30 minutes/day Frequency: 3-4 times per week Adilene/[employer]ist: No preference Special adilene needs: No Seatbelt use: always Helmet use: Yes Helmet use: always Drive intox or ride w/intox pedicab driver: No Do you feel safe at home: Yes Do you feel safe in your relationship?: Yes Time Spent with Patient Time Spent with Patient: <45 minutes Time was spent: preparing to see the patient(eg.review tests), obtaining and/or reviewing separately otained hiistory, ordering medications,tests, procedures, referring, communicating with other health professional healthcare representative, indepentently interpreting results, counseling the patient and care coordination
[2025-01-28] MEDS: Insulin Aspart 300 UNITS/3 ML PEN SC (12:34)
--- NOTE | 2025-01-28 14:17 | PT.INTREAT ---
PT Notes Visit Reasons: Left DVT, Acute Dehydration SUBJECTIVE: Pt reports that his walking is limited at times because of back pain with his leg spasming/giving out. He feels like he has lost strength. He reports that he has difficulty managing his left leg at time due to pain and spasms. His family was in with him throughout his rx session and state they can provide help if needed. OBJECTIVE:? Therapeutic Activities - (67333 x[1]): instruction in dynamic activities with one on one patient contact by the provider to improve functional performance?as follows: Bed mobility: supine to sit with supervision Sit to supine with min (A) to help with legs Transfers: sit to stand and stand to sit with CG of 1 Pt/family education: discussed idea of a leg director bioinformatics to assist with bed mobility. Pt was willing to try. Pt was instructed on use of a leg director bioinformatics for bed mobility and to assist with PT exercises when needed (SLR and Heel slides). Pt was issued a leg director bioinformatics. Diaphragmatic breathing to help with pain. Gait Training? - (47217 x[1]): Pt ambulated 100 ft with front wheeled rolling walker and CG of 1 Skilled instruction required for negotiating turns Assessment: Pt did well with mobility and gait. Pt did not have any difficulties with his LEs while ambulated and he managed well even with LBP. Plan: Pt is being d/c to home some time today. Recommend resuming home health services including physical therapy. Total Treatment Time: 25 minutes CC:
== END 2025-01-28 14:43 | disposition home health service (06) | DRG 176 ==
LOC: ER 21:17 → MS 23:05
PROVIDERS: Admitting Provider Family Medicine; Emergency Provider Physician Assistant; PCP Family Medicine; Responsible Provider Family Medicine; Visit Provider Family Medicine
DX: E86.0 Dehydration; R29.6 Repeated falls; I10 Essential (primary) hypertension; C64.9 Malignant neoplasm of unspecified kidney, except renal pelvis; E11.9 Type 2 diabetes mellitus without complications; Z79.4 Long term (current) use of insulin; I26.99 Other pulmonary embolism without acute cor pulmonale; E87.1 Hypo-osmolality and hyponatremia; R33.9 Retention of urine, unspecified; I82.812 Embolism and thrombosis of superficial veins of left lower extremity; M84.58XA Pathological fracture in neoplastic disease, other specified site, initial encounter for fracture; C79.51 Secondary malignant neoplasm of bone; N17.9 Acute kidney failure, unspecified; Z90.5 Acquired absence of kidney; F17.220 Nicotine dependence, chewing tobacco, uncomplicated; K57.30 Diverticulosis of large intestine without perforation or abscess without bleeding; B35.1 Tinea unguium; K44.9 Diaphragmatic hernia without obstruction or gangrene; D51.0 Vitamin B12 deficiency anemia due to intrinsic factor deficiency
CPT/HCPCS: 00123; 36415; 75635; 80048; 80053; 82550; 83690; 85027; 85652; 87040; 87637; 96361; 96365; 96375; 97116; 97162; 97530; 99285; 81003; 81015; 83605; 83735; 84295; 84443; 84484; 85025; 85610; 86140; 93971; 99223; 99232; 99238; J0131; J0692; J1815; J3490; Q9967

== ENCOUNTER 2025-02-06 14:23 | Outpatient (REF) | payer MEDICARE, OTHER, SELFPAY ==
[2025-02-06 16:06] LABS: Abs Immature Grans 0.01 10^3/uL (0.0-0.06); HCT 26.7 % (40.0-50.0); HGB 8.9 g/dL (13.5-17.5); Immature Grans % 0.2 %; MCH 30.6 pg (27.0-33.0); MCHC 33.3 % (32.0-36.0); MCV 92 fL (80-95); MPV 9.8 fL (8.0-11.0); Platelet Count 286 10^3/uL (130-400); RBC 2.91 10^6/uL (4.36-5.78); RDW 13.1 % (11.8-14.1); RDW-SD 42.9 fL; WBC 4.36 10^3/uL (4.4-10.8)
[2025-02-06 16:45] LABS: Anion Gap 14.3 mmol/L (3-11); BUN 16 mg/dL (7-18); CO2 24.7 mmol/L (21.0-32.0); Calcium 9.0 mg/dL (8.5-10.1); Chloride 95 mmol/L (98-107); Estimated GFR 65.46 (mL/min/1.73m2); Glucose 170 mg/dL (74-106); Potassium 4.6 mmol/L (3.5-5.1); Sodium 134 mmol/L (136-145)
== END 2025-02-06 14:24 | disposition home or self-care (01) ==
LOC: LBN 14:23
PROVIDERS: PCP Family Medicine; Visit Provider Family Medicine
DX: D64.9 Anemia, unspecified (principal); E87.1 Hypo-osmolality and hyponatremia
CPT/HCPCS: 80048; 85025

== ENCOUNTER 2025-02-20 16:08 | Outpatient (REF) | payer MEDICARE, OTHER, SELFPAY ==
[2025-02-20 16:40] LABS: Abs Immature Grans 0.00 10^3/uL (0.0-0.06); HCT 27.6 % (40.0-50.0); HGB 9.0 g/dL (13.5-17.5); Immature Grans % 0.0 %; MCH 29.4 pg (27.0-33.0); MCHC 32.6 % (32.0-36.0); MCV 90 fL (80-95); MPV 9.7 fL (8.0-11.0); Platelet Count 257 10^3/uL (130-400); RBC 3.06 10^6/uL (4.36-5.78); RDW 13.4 % (11.8-14.1); RDW-SD 43.6 fL; WBC 3.27 10^3/uL (4.4-10.8)
[2025-02-20 17:00] LABS: ALT 27 U/L (16-63); AST 14 U/L (15-37); Albumin 3.0 g/dL (3.4-5.0); Alkaline Phosphatase 90 U/L (46-116); Anion Gap 11.2 mmol/L (3-11); BUN 14 mg/dL (7-18); Bilirubin, Total 0.3 mg/dL (0.2-1.0); CO2 25.8 mmol/L (21.0-32.0); Calcium 8.5 mg/dL (8.5-10.1); Chloride 97 mmol/L (98-107); Glucose 147 mg/dL (74-106); Potassium 4.3 mmol/L (3.5-5.1); Sodium 134 mmol/L (136-145); TSH 0.63 uIU/mL (0.36-3.74); Total Protein 7.1 g/dL (6.4-8.2)
== END 2025-02-20 16:09 | disposition home or self-care (01) ==
LOC: LBN 16:08
PROVIDERS: PCP Family Medicine; Visit Provider Internal Medicine
DX: C64.2 Malignant neoplasm of left kidney, except renal pelvis (principal)
CPT/HCPCS: 80053; 84439; 84443; 85025

== ENCOUNTER 2025-04-03 10:33 | Outpatient (CLI) | payer MEDICARE, OTHER, SELFPAY ==
[2025-04-03 11:21] LABS: Abs Immature Grans 0.01 10^3/uL (0.0-0.06); HCT 30.0 % (40.0-50.0); HGB 9.6 g/dL (13.5-17.5); Immature Grans % 0.3 %; MCH 29.9 pg (27.0-33.0); MCHC 32.0 % (32.0-36.0); MCV 94 fL (80-95); MPV 9.2 fL (8.0-11.0); Platelet Count 205 10^3/uL (130-400); RBC 3.21 10^6/uL (4.36-5.78); RDW 15.0 % (11.8-14.1); RDW-SD 51.3 fL; WBC 3.97 10^3/uL (4.4-10.8)
[2025-04-03 11:51] LABS: ALT 14 U/L (10-49); AST 16 U/L (<34); Albumin 3.9 g/dL (3.2-5.0); Alkaline Phosphatase 83 U/L (46-116); Anion Gap 10.2 mmol/L (3-11); BUN 14 mg/dL (9-23); Bilirubin, Total 0.2 mg/dL (0.2-1.2); CO2 27.8 mmol/L (20.0-31.0); Calcium 9.2 mg/dL (8.3-10.6); Chloride 100 mmol/L (98-107); Glucose 116 mg/dL (74-106); Potassium 4.6 mmol/L (3.5-5.1); Sodium 138 mmol/L (136-145); Total Protein 7.5 g/dL (5.7-8.2)
[2025-04-03 11:54] LABS: TSH 1.38 uIU/mL (0.55-4.78)
== END 2025-04-03 10:34 | disposition home or self-care (01) ==
LOC: LBO 10:35
PROVIDERS: PCP Family Medicine; Visit Provider Internal Medicine
DX: R94.6 Abnormal results of thyroid function studies (principal); C79.51 Secondary malignant neoplasm of bone; C64.9 Malignant neoplasm of unspecified kidney, except renal pelvis
CPT/HCPCS: 36415; 80053; 84439; 84443; 85025

== ENCOUNTER 2025-04-11 15:15 | Outpatient (REF) | payer MEDICARE, OTHER, SELFPAY ==
[2025-04-11 15:56] LABS: Abs Immature Grans 0.01 10^3/uL (0.0-0.06); HCT 29.7 % (40.0-50.0); HGB 9.7 g/dL (13.5-17.5); Immature Grans % 0.2 %; MCH 30.5 pg (27.0-33.0); MCHC 32.7 % (32.0-36.0); MCV 93 fL (80-95); MPV 10.3 fL (8.0-11.0); Platelet Count 254 10^3/uL (130-400); RBC 3.18 10^6/uL (4.36-5.78); RDW 14.7 % (11.8-14.1); RDW-SD 51.2 fL; WBC 5.14 10^3/uL (4.4-10.8)
== END 2025-04-11 15:16 | disposition home or self-care (01) ==
LOC: LBN 15:15
PROVIDERS: PCP Family Medicine; Visit Provider Internal Medicine
DX: C64.2 Malignant neoplasm of left kidney, except renal pelvis (principal); C79.51 Secondary malignant neoplasm of bone
CPT/HCPCS: 85025